=== PATIENT | male | born 1960 | race Caucasian/White ===

== ENCOUNTER → 2016-05-26 | Outpatient (CLI) | payer BC ==
[2016-05-26 10:07] LABS: Basophils % (A) 1 %; CH 32.3; CHCM 33.6; Eosinophils # (A) 0.3 k/uL (0-0.7); Eosinophils % (A) 5 %; HCT 39.4 % (39.0-53.0); HDW 2.82; HGB 13.3 gm/dL (13.0-17.5); Luc # (Auto) 0.24; Luc % (Auto) 4; Lymphocytes # (A) 1.3 k/uL (1.0-4.8); Lymphocytes % (A) 20 %; MCH 32.7 pg (25.0-35.0); MCHC 33.8 g/dL (31.0-37.0); MCV 96.8 fL (80.0-100.0); Mean Platelet Volume 8.8; Monocytes # (A) 0.4 k/uL (0-1.0); Monocytes % (A) 5 %; Neutrophils # (A) 4.3 k/uL (1.3-7.7); Neutrophils % (A) 66 %; RBC 4.08 m/uL (4.30-5.90); WBC 6.6 k/uL (3.8-10.6)
[2016-05-26 11:13] LABS: ALT 34 U/L (21-72); AST 33 U/L (17-59); Alkaline Phosphatase 61 U/L (38-126); Anion Gap 9 mmol/L; Blood Urea Nitrogen 29 mg/dL (9-20); Calcium 9.2 mg/dL (8.4-10.2); Carbon Dioxide 25 mmol/L (22-30); Chloride 104 mmol/L (98-107); Glucose 124 mg/dL (74-99); Non-African American GFR(MDRD) >60 (>60 ml/min/1.73 sqM); Potassium 4.6 mmol/L (3.5-5.1); Sodium 138 mmol/L (137-145); Total Bilirubin 0.9 mg/dL (0.2-1.3); Total Protein 7.2 g/dL (6.3-8.2)
[2016-05-26 11:37] LABS: Prostate Specific Antigen 0.18 ng/mL (0.00-4.00)
== END ==
LOC: LABWHC1 09:46
PROVIDERS: ATTEND Physician Assistant
DX: R53.83 Other fatigue (principal); N40.0 Benign prostatic hyperplasia without lower urinary tract symptoms
CPT/HCPCS: 36415; 80053; 83880; 84153; 84403; 84439; 84443; 85025

== ENCOUNTER → 2017-06-02 | Outpatient (CLI) | payer BC ==
[2017-06-02 12:55] LABS: Albumin 4.2 g/dL (3.5-5.0); Calcium 9.5 mg/dL (8.4-10.2); Potassium 4.6 mmol/L (3.5-5.1); Total Protein 7.4 g/dL (6.3-8.2)
== END | disposition home or self-care (01) ==
LOC: LABWHC1 11:37
PROVIDERS: ATTEND Internal Medicine Interventional Cardiology
DX: E78.2 Mixed hyperlipidemia (principal)
CPT/HCPCS: 36415; 80053; 80061

== ENCOUNTER → 2017-07-13 | Outpatient (CLI) | payer BC ==
--- NOTE | 2017-07-14 11:50 | ECHOF ---
Referral Reason:I25.5 Ischemic cardiomyopathy MEASUREMENTS -------- HEIGHT: 182.9 cm WEIGHT: 138.8 kg BP: IVSd: 1.2 cm (0.6 - 1.1) LVIDd: 6.0 cm (3.9 - 5.3) LVPWd: 1.2 cm (0.6 - 1.1) IVSs: 1.3 cm LVIDs: 5.5 cm LVPWs: 1.5 cm Ao Diam: 3.4 cm (2.0 - 3.7) AV Cusp: 1.6 cm (1.5 - 2.6) LA Diam: 3.5 cm (2.7 - 3.8) MV EXCURSION: 16.486 mm (> 18.000) MV EF SLOPE: 66 mm/s (70 - 150) EPSS: 2.6 cm MV E Luke: 0.90 m/s MV DecT: 225 ms MV A Luke: 0.22 m/s MV E/A Ratio: 4.15 RAP: 5.00 mmHg RVSP: 47.82 mmHg FINDINGS -------- Sinus rhythm. AICD This was a technically difficult study with suboptimal views. The left ventricle is mildly dilated. There is borderline concentric left ventricular hypertrophy. There is severe global hypokinesis of LV . Overall left ventricular systolic function is severely impaired with, an EF between 20 - 25 %. The RV was not well visualized. The left atrium is normal in size. The right atrium is normal in size. Lumason used The aortic valve was not well visualized. There is trace mitral regurgitation. Mild tricuspid regurgitation present. There is mild pulmonary hypertension. The right ventricular systolic pressure, as measured by Doppler, is 47.82mmHg. Pulmonic valve appears structurally normal. The aortic root size is normal. The pericardium is normal. CONCLUSIONS -------- 1. Sinus rhythm. 2. AICD 3. This was a technically difficult study with suboptimal views. 4. The left ventricle is mildly dilated. 5. There is borderline concentric left ventricular hypertrophy. 6. There is severe global hypokinesis of LV . 7. Overall left ventricular systolic function is severely impaired with, an EF between 20 - 25 %. 8. The RV was not well visualized. 9. The left atrium is normal in size. 10. The right atrium is normal in size. 11. Lumason used 12. The aortic valve was not well visualized. 13. There is trace mitral regurgitation. 14. Mild tricuspid regurgitation present. 15. There is mild pulmonary hypertension. 16. The right ventricular systolic pressure, as measured by Doppler, is 47.82mmHg. 17. Pulmonic valve appears structurally normal. 18. The aortic root size is normal. 19. The pericardium is normal. SHAPE HAND: Swetha Horner RDCS
== END | disposition home or self-care (01) ==
LOC: RADECHMAIN 13:44
PROVIDERS: ATTEND Family Medicine
DX: I07.1 Rheumatic tricuspid insufficiency (principal); I10 Essential (primary) hypertension; I25.5 Ischemic cardiomyopathy; I27.20 Pulmonary hypertension, unspecified
CPT/HCPCS: 93306; Q9950

== ENCOUNTER → 2017-10-07 | Outpatient (CLI) | payer MEDICARE ==
[2017-10-07 10:56] LABS: HCT 36.1 % (39.0-53.0); HGB 11.6 gm/dL (13.0-17.5); Hypochromasia Slight; MCH 29.7 pg (25.0-35.0); MCHC 32.2 g/dL (31.0-37.0); MCV 92.1 fL (80.0-100.0); Platelet Count 166 k/uL (150-450); RBC 3.92 m/uL (4.30-5.90); RDW 15.2 % (11.5-15.5); WBC 8.4 k/uL (3.8-10.6)
[2017-10-07 11:13] LABS: Calcium 9.3 mg/dL (8.4-10.2); Potassium 4.6 mmol/L (3.5-5.1); Total Protein 6.9 g/dL (6.3-8.2)
== END | disposition home or self-care (01) ==
LOC: LABWHC1 10:27
PROVIDERS: ATTEND Internal Medicine Interventional Cardiology
DX: E78.2 Mixed hyperlipidemia (principal)
CPT/HCPCS: 36415; 80053; 80061; 84443; 85027

== ENCOUNTER → 2017-10-11 | Outpatient (CLI) | payer MEDICARE ==
--- NOTE | 2017-10-11 19:59 | CT ---
EXAMINATION TYPE: CT abdomen pelvis w con DATE OF EXAM: 10/11/2017 COMPARISON: There is a 2 cm low-attenuation focus within the right hepatic lobe anterior segment, lik tatianna cyst or cavernous hemangioma. HISTORY: Lower abdominal pain, constipation. CT DLP: 3382.6 mGycm Automated exposure control for dose reduction was used. TECHNIQUE: Helical acquisition of images was performed from the lung bases through the pelvis. CONTRAST: 100 mL intravenous Isovue 300. FINDINGS: VISUALIZED LOWER THORAX: Moderate marked cardiomegaly with panchamber enlargement. Scant right pleura l effusion. Lung bases are unremarkable. LIVER/GB: No significant abnormality is appreciated. PANCREAS: No significant abnormality is seen. SPLEEN: No significant abnormality is seen. ADRENALS: No significant abnormality is seen. KIDNEYS: No significant abnormality is seen. PERITONEAL CAVITY: There is mild/moderate peritoneal fluid throughout the abdomen, deep within the pe lvis, within the paracolic gutters, and the perihepatic spaces. No pneumoperitoneum. ADENOPATHY: None visualized REPRODUCTIVE ORGANS: No significant abnormality is seen URINARY BLADDER: No significant abnormality is seen. PELVIC ADENOPATHY: None visualized. OSSEOUS STRUCTURES: No significant abnormality is seen. BOWEL: No significant abnormality is seen. Diverticulosis is noted, particularly within the sigmoid, but no diverticulitis. The appendix has normal appearance. VASCULATURE: No acute findings. Caval filter noted, unremarkable. OTHER: Widespread subcutaneous edema noted, mild in degree. IMPRESSION: 1. MILD ANASARCA, WITH PERITONEAL FLUID PREDOMINATING. 2. MODERATE-MARKED CARDIOMEGALY WITH PANCHAMBER ENLARGEMENT.
== END | disposition home or self-care (01) ==
LOC: RADCTMAIN 16:45
PROVIDERS: ATTEND Physician Assistant Medical
DX: R18.8 Other ascites (principal); I51.7 Cardiomegaly
CPT/HCPCS: 74177; Q9967

== ENCOUNTER → 2017-10-21 | Day surgery (SDC) | payer MEDICARE ==
[2017-10-14 13:59] VITALS: BMI 41.4
[~2017-10-21] MED LIST: ALPRAZolam 0.25 MG TAB PO PRN; AMIODARONE 200 MG TAB PO SCH; ATORVASTATIN 20 MG TAB PO SCH; BENZOCAINE SPRAY 1 CAN MUCOUS MEM ONE; CARVEDILOL 12.5 MG TAB PO SCH; CHOLECALCIFEROL 400 UNIT TAB PO SCH; CITALOPRAM HYDROBROMIDE 20 MG TAB PO SCH; CLOPIDOGREL 75 MG TAB PO SCH; FOLIC ACID 1 MG TAB PO SCH; FUROSEMIDE 40 MG TAB PO PRN; FUROSEMIDE 40 MG TAB PO SCH; LEVOTHYROXINE 50 MCG TAB PO SCH; LISINOPRIL 10 MG TAB PO SCH; MIDAZOLAM 2 MG/2 ML VIAL ONE; NON-FORMULARY DRUG (Aspirin Ec 81 MG) PO SCH; NON-FORMULARY DRUG (Esomeprazole Magnesium [Nexium] 40 MG) PO SCH; NON-FORMULARY DRUG (Fish Oil/Dha/Epa [Fish Oil 1,200 Mg Fish Oil] 1 CAP) PO SCH; NON-FORMULARY DRUG (Fluticasone/Salmeterol [Advair 250-50 Diskus] 1 PUFF) INHALATION SCH; NON-FORMULARY DRUG (Sitagliptin 100 MG) PO SCH; NON-FORMULARY DRUG (Vitamin B Complex [Vitamin B Complex] 1 CAP) PO SCH; PROPOFOL 10 MG/ML 20 ML VIAL IV ONE; SODIUM CHLORIDE 0.9% 1,000 ML IV SCH; SPIRONOLACTONE 50 MG PO SCH; TAMSULOSIN 0.4 MG CAP.ER.24H PO SCH; VITAMIN A 8000 UNIT PO SCH; VITAMIN E (DL,TOCOPHERYL ACET) 400 UNIT CAP PO SCH; WARFARIN 10 MG TAB PO SCH; WARFARIN 5 MG TAB PO SCH; glipiZIDE 5 MG TAB PO SCH; metFORMIN 500 MG TAB PO SCH; predniSONE 1 MG TAB PO SCH
[2017-10-21 06:55] VITALS: TEMP 98.2
[2017-10-21 07:08] LABS: INR 2.9 (<1.2); Prothrombin Time 26.3 sec (9.0-12.0)
[2017-10-21 08:04] LABS: Glucose,Whole Blood 116 mg/dL (75-99)
--- NOTE | 2017-10-21 08:14 | CE ---
CARDIAC ELECTROPHYSIOLOGY REPORT CARDIOVERSION PROCEDURE NOTE: INDICATION: Atrial fibrillation. PROCEDURE: After explaining the procedure to the patient, its risks and the complications, blood pressure, heart rate, O2 saturation was monitored. After performing transesophageal echocardiogram, obtaining a sedated state by the anesthesia department, a synchronized cardioversion using 200 joules, 300 joules and 360 joules were performed. There was no immediate complication. On the rhythm strip, it appears the patient has dual chamber pacing with possibility of P waves, although not well visualized. His device will be further interrogated. MMODL / IJN: [id number] /
--- NOTE | 2017-10-21 08:20 | ECHOT ---
TRANSESOPHAGEAL ECHOCARDIOGRAM INDICATION: Evaluation of left atrial appendage. PROCEDURE: After explaining the procedure to the patient, its risks and the complications, blood pressure, heart rate, O2 saturation was monitored. The throat was sprayed with Cetacaine. He received sedation per anesthesia department. The probe was introduced in the esophagus without difficulty. Images were obtained. From that, the probe was removed. There was no immediate complication. FINDINGS: Left atrial size is dilated. Left atrial appendage is normal. The interatrial septum is shifting leftward. The left ventricle is dilated. There is evidence of severe impairment of left ventricular systolic function. Ejection fraction is estimated at 25%. The inferolateral wall at the distal anteroapical wall are akinetic. The aortic valve revealed mild fibrocalcific change of the aortic cusp with preserved opening. Mild mitral annulus calcification was noted. No pericardial effusion was noted. The descending thoracic aorta revealed no evidence of atherosclerotic changes. Contrast bubble study revealed minimal shunting patent foramen ovale. A wire was noted in the right ventricle. Doppler pulse wave and color Doppler obtained revealed moderate mitral with severe tricuspid regurgitation. There was no shunting by color Doppler study. CONCLUSION: 1. Biatrial enlargement with normal appearance left atrial appendage. 2. Dilated left ventricle with severely impaired left ventricular systolic function. 3. A wire in the right ventricle. 4. Mild aortic sclerosis with no evidence of stenosis. 5. Mild mitral annulus calcification. 6. Moderate mitral with severe tricuspid regurgitation. 7. Minimal shunting across the interatrial septum with contrast bubble study suggestive of patent foramen ovale. 8. No pericardial effusion. MMODL / IJN: [id number] /
[2017-10-21 09:30] VITALS: BP 97/53; PULSE 75; RESP 18
== END | disposition home or self-care (01) ==
LOC: CATHCVL 06:23
PROVIDERS: ATTEND Internal Medicine Interventional Cardiology
DX: I48.91 Unspecified atrial fibrillation (principal); I08.3 Combined rheumatic disorders of mitral, aortic and tricuspid valves; I11.0 Hypertensive heart disease with heart failure; I50.9 Heart failure, unspecified; I25.5 Ischemic cardiomyopathy; I25.10 Atherosclerotic heart disease of native coronary artery without angina pectoris; E11.9 Type 2 diabetes mellitus without complications; E78.2 Mixed hyperlipidemia; I25.2 Old myocardial infarction; Z86.718 Personal history of other venous thrombosis and embolism; Z95.810 Presence of automatic (implantable) cardiac defibrillator; Z95.1 Presence of aortocoronary bypass graft; F17.210 Nicotine dependence, cigarettes, uncomplicated; Z79.02 Long term (current) use of antithrombotics/antiplatelets; Z79.82 Long term (current) use of aspirin; Z79.84 Long term (current) use of oral hypoglycemic drugs; Z79.899 Other long term (current) drug therapy; Z79.01 Long term (current) use of anticoagulants; Z79.51 Long term (current) use of inhaled steroids; Z88.1 Allergy status to other antibiotic agents; Z88.0 Allergy status to penicillin; Z88.2 Allergy status to sulfonamides; Z82.49 Family history of ischemic heart disease and other diseases of the circulatory system
CPT/HCPCS: 93312; 93320; 93325; 92960; 85610; J2250; J2704

== ENCOUNTER 2017-10-23 07:57 | Inpatient (IN) | payer MEDICARE ==
[2017-10-23] MEDS ORDERED: FUROSEMIDE 250 MG in SODIUM CHLORIDE 0.9% 225 ML IVP ONE (08:19)
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
[2017-10-23 08:59] LABS: Basophils % (A) 1 %; Eosinophils # (A) 0.3 k/uL (0-0.7); Eosinophils % (A) 3 %; HCT 36.7 % (39.0-53.0); HGB 11.8 gm/dL (13.0-17.5); Lymphocytes % (A) 11 %; MCH 29.6 pg (25.0-35.0); MCHC 32.2 g/dL (31.0-37.0); Monocytes # (A) 0.6 k/uL (0-1.0); Monocytes % (A) 6 %; Neutrophils # (A) 7.4 k/uL (1.3-7.7); Neutrophils % (A) 79 %; Platelet Count 177 k/uL (150-450); RBC 3.99 m/uL (4.30-5.90); RDW 15.4 % (11.5-15.5); WBC 9.4 k/uL (3.8-10.6)
[2017-10-23 09:06] LABS: INR 1.5 (<1.2); Partial Thromboplastin Time 25.1 sec (22.0-30.0); Prothrombin Time 14.3 sec (9.0-12.0)
[2017-10-23 09:09] LABS: Albumin 3.7 g/dL (3.5-5.0); Calcium 8.7 mg/dL (8.4-10.2); Magnesium 1.9 mg/dL (1.6-2.3); Potassium 4.7 mmol/L (3.5-5.1); Total Bilirubin 1.1 mg/dL (0.2-1.3); Total Protein 6.4 g/dL (6.3-8.2)
--- NOTE | 2017-10-23 09:13 | XR ---
EXAMINATION TYPE: XR chest 2V DATE OF EXAM: 10/23/2017 HISTORY: difficulty breathing. REFERENCE: Previous study dated 10/25/2015. FINDINGS: There is a multilead pacing device in place on the left. The lungs are overinflated. The heart is enlarged. There is a small right effusion. This is within the minor fissure. There is mild interstitial change. There is been a previous interpedicular fusion in the lower dorsal spine. There has been a kyphoplast y performed at T9. IMPRESSION: 1. COPD. 2. MILD CARDIOMEGALY. 3. MILD CHANGES OF HEART FAILURE. 4. POSTSURGICAL CHANGE.
[2017-10-23 09:19] LABS: Creatine Kinase 99 U/L (55-170)
[2017-10-23 09:31] LABS: Creatine Kinase MB 2.4 ng/mL (0.0-2.4); Troponin I <0.012 ng/mL (0.000-0.034)
[2017-10-23] MEDS ORDERED: ASPIRIN 325 MG TAB PO STA (10:10)
[2017-10-23 10:14] LABS: T4, Free (Free Thyroxine) 1.42 ng/dL (0.78-2.19)
[2017-10-23 12:01] LABS: Glucose,Whole Blood 102 mg/dL (75-99)
[2017-10-23] MEDS ORDERED: GLIMEPIRIDE 1 MG TAB PO SCH (15:15)
[2017-10-23] MEDS ORDERED: NON-FORMULARY DRUG (Fish Oil/Dha/Epa [Fish Oil 1,200 Mg Fish Oil] 1 CAP) PO SCH (16:00)
[2017-10-23] MEDS: INSULIN ASPART 100 UNIT/ML 1 ML 10 ML VIAL SQ SCH ×2 (17:04→20:51)
[2017-10-23] MEDS: WARFARIN 5 MG TAB PO SCH (17:04)
[2017-10-23] MEDS: CARVEDILOL 6.25 MG TAB PO SCH (17:04)
[2017-10-23] MEDS: GLIMEPIRIDE 1 MG TAB PO SCH (17:06)
[2017-10-23] MEDS: CHOLECALCIFEROL 400 UNIT TAB PO SCH ×2 (17:07→20:52)
[2017-10-23 17:12] LABS: Glucose,Whole Blood 126 mg/dL (75-99)
[2017-10-23] MEDS: VITAMIN A 10,000 UNIT CAPSULE PO SCH ×2 (18:54→22:57)
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
[2017-10-23 20:25] LABS: Glucose,Whole Blood 126 mg/dL (75-99)
[2017-10-23] MEDS: ATORVASTATIN 40 MG TAB PO SCH (20:51)
[2017-10-23] MEDS: TAMSULOSIN 0.4 MG CAP.ER.24H PO SCH (20:52)
[2017-10-23] MEDS: VITAMIN E (DL,TOCOPHERYL ACET) 400 UNIT CAP PO SCH (20:52)
[2017-10-23 22:53] LABS: Hemoglobin A1C 6.8 % (4.0-6.0)
[2017-10-23] MEDS: ALPRAZolam 0.25 MG TAB PO PRN (23:43)
[2017-10-24] MEDS: SYMBICORT 80-4.5 MCG INHALER INHALATION SCH ×3 (00:11→20:39)
--- NOTE | 2017-10-24 03:46 | PN ---
PROGRESS NOTE This patient was admitted with anasarca to the emergency room yesterday. Patient is known to have ischemic cardiomyopathy. Atrial fibrillation with cardioversion done in the past. The patient was evaluated by Dr. Olivarez and was advised admitted to the hospital. The patient is comfortable at present and the resting comfortably in the bed. Heart: First and second heart sounds are normal. Lungs examination reveals few basal rales. Abdomen is distended with evidence of ascites and there is 2+ scrotal edema. IMPRESSION: This patient is admitted with ischemic cardiomyopathy, biventricular failure with generalized anasarca. We will continue the patient on Lasix drip and Aldactone. If the patient's creatinine remains stable, he will be started on Entresto. MMODL / IJN: [id number] /
[2017-10-24 06:15] LABS: Glucose,Whole Blood 91 mg/dL (75-99)
[2017-10-24] MEDS: INSULIN ASPART 100 UNIT/ML 1 ML 10 ML VIAL SQ SCH ×4 (06:16→21:13)
[2017-10-24] MEDS: PANTOPRAZOLE 40 MG TABLET PO SCH (06:44)
[2017-10-24] MEDS: GLIMEPIRIDE 1 MG TAB PO SCH (06:45)
[2017-10-24] MEDS: CARVEDILOL 6.25 MG TAB PO SCH ×2 (06:45→17:13)
[2017-10-24] MEDS: LEVOTHYROXINE 75 MCG TAB PO SCH (06:45)
[2017-10-24 06:58] LABS: Calcium 8.7 mg/dL (8.4-10.2); Magnesium 2.1 mg/dL (1.6-2.3)
[2017-10-24] MEDS: ASPIRIN 81 MG PO SCH (07:26)
[2017-10-24] MEDS: CITALOPRAM HYDROBROMIDE 20 MG TAB PO SCH (07:26)
[2017-10-24] MEDS: MULTIVITAMINS, THERA 1 EACH TAB PO SCH (07:26)
[2017-10-24] MEDS: SPIRONOLACTONE 25 MG TAB PO SCH (07:26)
[2017-10-24] MEDS: FOLIC ACID 1 MG TAB PO SCH (07:26)
[2017-10-24] MEDS: VITAMIN A 10,000 UNIT CAPSULE PO SCH ×3 (07:27→20:04)
[2017-10-24] MEDS: CLOPIDOGREL 75 MG TAB PO SCH (07:27)
[2017-10-24] MEDS: CHOLECALCIFEROL 400 UNIT TAB PO SCH ×3 (07:27→20:04)
[2017-10-24] MEDS: VITAMIN E (DL,TOCOPHERYL ACET) 400 UNIT CAP PO SCH ×2 (07:28→20:04)
[2017-10-24] MEDS ORDERED: NON-FORMULARY DRUG (Vitamin B Complex [Vitamin B Complex] 1 CAP) PO SCH (09:00)
[2017-10-24] MEDS: FUROSEMIDE 250 MG in SODIUM CHLORIDE 0.9% 225 ML IVP SCH (09:00)
[2017-10-24] MEDS ORDERED: ASPIRIN 325 MG TAB PO SCH (09:00)
[2017-10-24 12:03] LABS: Glucose,Whole Blood 79 mg/dL (75-99)
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
[2017-10-24 16:54] LABS: Glucose,Whole Blood 104 mg/dL (75-99)
[2017-10-24] MEDS: WARFARIN 10 MG TAB PO SCH (17:14)
[2017-10-24] MEDS: TAMSULOSIN 0.4 MG CAP.ER.24H PO SCH (20:04)
[2017-10-24] MEDS: ATORVASTATIN 40 MG TAB PO SCH (20:04)
[2017-10-24 20:59] LABS: Glucose,Whole Blood 107 mg/dL (75-99)
[2017-10-24] MEDS: ALPRAZolam 0.25 MG TAB PO PRN (22:42)
[2017-10-25] MEDS: FUROSEMIDE 250 MG in SODIUM CHLORIDE 0.9% 225 ML IVP SCH (02:59)
--- NOTE | 2017-10-25 03:56 | PN ---
PROGRESS NOTE This patient is admitted with ischemic cardiomyopathy and biventricular failure with generalized anasarca. Patient is feeling well. Patient has been responding to the Lasix drip. He has lost 4 kg of weight. He is feeling better. Blood pressure is 108/69 mmHg. Heart rate is 80. Patient is afebrile. Respirations are not labored. First and second heart sounds are normal. Lungs reveal bilateral diminished air entry. Abdomen remains distended and there is a 2+ pedal edema. The patient's creatinine is 1.4. I will increase Aldactone to 50 mg b.i.d. and continue Lasix drip. If the patient's blood pressure remains stable, we will start the patient on Entresto from tomorrow. MMODL / IJN: [id number] /
[2017-10-25 05:37] LABS: Glucose,Whole Blood 87 mg/dL (75-99)
[2017-10-25] MEDS: INSULIN ASPART 100 UNIT/ML 1 ML 10 ML VIAL SQ SCH ×4 (06:23→21:13)
[2017-10-25] MEDS: PANTOPRAZOLE 40 MG TABLET PO SCH (06:24)
[2017-10-25] MEDS: GLIMEPIRIDE 1 MG TAB PO SCH (06:24)
[2017-10-25] MEDS: LEVOTHYROXINE 75 MCG TAB PO SCH (06:24)
[2017-10-25] MEDS: CARVEDILOL 6.25 MG TAB PO SCH ×2 (06:24→17:23)
[2017-10-25 06:25] LABS: INR 1.3 (<1.2)
[2017-10-25 06:33] LABS: Calcium 8.8 mg/dL (8.4-10.2); Magnesium 2.2 mg/dL (1.6-2.3)
[2017-10-25] MEDS: SYMBICORT 80-4.5 MCG INHALER INHALATION SCH ×2 (07:46→19:21)
[2017-10-25] MEDS: CHOLECALCIFEROL 400 UNIT TAB PO SCH ×3 (08:31→20:05)
[2017-10-25] MEDS: CITALOPRAM HYDROBROMIDE 20 MG TAB PO SCH (08:32)
[2017-10-25] MEDS: CLOPIDOGREL 75 MG TAB PO SCH (08:32)
[2017-10-25] MEDS: ASPIRIN 81 MG PO SCH (08:32)
[2017-10-25] MEDS: VITAMIN A 10,000 UNIT CAPSULE PO SCH ×3 (08:32→20:05)
[2017-10-25] MEDS: VITAMIN E (DL,TOCOPHERYL ACET) 400 UNIT CAP PO SCH ×2 (08:33→20:05)
[2017-10-25] MEDS: SPIRONOLACTONE 25 MG TAB PO SCH (09:48)
[2017-10-25 11:45] LABS: Glucose,Whole Blood 112 mg/dL (75-99)
[2017-10-25] MEDS: FOLIC ACID 1 MG TAB PO SCH (12:05)
[2017-10-25] MEDS: MULTIVITAMINS, THERA 1 EACH TAB PO SCH (12:05)
[2017-10-25] MEDS: SACUBITRIL/VALSARTAN 24 MG-26 MG TABLET PO SCH ×2 (12:05→21:12)
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
--- NOTE | 2017-10-25 14:36 | PN ---
PROGRESS NOTE This patient has ischemic cardiomyopathy with severely impaired left ventricular systolic function. Patient was admitted with generalized anasarca. He is currently getting Lasix drip and Aldactone. Patient is feeling much better. He is being ambulating in the hallway. He is afebrile. Blood pressure is 110/78 mmHg. First and second heart sounds are normal. There still appears to be some fluid in the abdomen. The leg swelling is significantly improved. The patient's creatinine is 1.29. We will continue the current the Lasix drip as well as Aldactone. Patient's proBNP has come down to 5300. We will start the patient on Entresto 24/26 mg b.i.d. today. MMODL / IJN: [id number] /
--- NOTE | 2017-10-25 14:39 | CDI ---
Last Revision, February 2017 Documentation Clarification Form Date: 10/25/2017 2:28:54 PM From: Quiana McleanNAWAF, CCDS Admit Date: 10/23/2017 10:10:00 AM Patient Name: Kennedy Avilez Visit Number: [id number] Discharge Date: ATTENTION: The Clinical Documentation Specialists (CDI) and [facility] Coding Staff appreciate your assistance in clarifying documentation. Please respond to the clarification below the line at the bottom and electronically sign. The CDI & [facility] Coding staff will review the response and follow-up if needed. Please note: Queries are made part of the Legal Health Record. If you have any questions, please contact the author of this message via ITS. Stef Hu MD Atrial fibrillation is documented in the cardiology progress notes dated 10/23 & 10/24 as "Atrial fibrillation with cardioversion done in the past." History/Risk Factors: Atrial fibrillation now, CAD status post CABG & stents, Hypertension, Cardiomyopathy, Systolic heart failure, DM, Sleep apnea and has AICD. Clinical Indicators: Presented with SOB & weight gain. EKG/telemetry: R 73 Atrial fibrillation with premature ventricular or aberrantly conducted complexes, abnormal. Treatment: IV Lasix, po Aspirin, Coumadin continued, Symbicort INH, O2 2Lnc. In your professional opinion, can you please clarify the type of atrial fibrillation, if known? Chronic/Permanent Paroxysmal Persistent Other, please specify Unable to determine Please continue to document in your progress notes and discharge summary in order to capture severity of illness and risk of mortality. Include clinical findings that support your diagnosis. MTDD
[2017-10-25 17:09] LABS: Glucose,Whole Blood 143 mg/dL (75-99)
[2017-10-25] MEDS: WARFARIN 10 MG TAB PO SCH (17:22)
[2017-10-25] MEDS ORDERED: WARFARIN 2 MG TAB PO ONE (18:00)
[2017-10-25] MEDS: TAMSULOSIN 0.4 MG CAP.ER.24H PO SCH (20:05)
[2017-10-25] MEDS: ATORVASTATIN 40 MG TAB PO SCH (20:05)
[2017-10-25 21:10] LABS: Glucose,Whole Blood 129 mg/dL (75-99)
[2017-10-26 06:00] LABS: Glucose,Whole Blood 101 mg/dL (75-99)
[2017-10-26] MEDS: INSULIN ASPART 100 UNIT/ML 1 ML 10 ML VIAL SQ SCH ×4 (06:06→20:57)
[2017-10-26] MEDS: GLIMEPIRIDE 1 MG TAB PO SCH (06:35)
[2017-10-26] MEDS: PANTOPRAZOLE 40 MG TABLET PO SCH (06:35)
[2017-10-26] MEDS: FUROSEMIDE 250 MG in SODIUM CHLORIDE 0.9% 225 ML IVP SCH (06:35)
[2017-10-26] MEDS: CARVEDILOL 6.25 MG TAB PO SCH ×2 (06:35→18:24)
[2017-10-26] MEDS: LEVOTHYROXINE 75 MCG TAB PO SCH (06:35)
[2017-10-26 07:22] LABS: INR 1.4 (<1.2); Prothrombin Time 13.1 sec (9.0-12.0)
[2017-10-26 07:31] LABS: Calcium 8.8 mg/dL (8.4-10.2); Magnesium 2.2 mg/dL (1.6-2.3); Potassium 3.9 mmol/L (3.5-5.1)
--- NOTE | 2017-10-26 07:52 | CDI ---
Last Revision, February 2017 Documentation Clarification Form Date: 10/25/2017 2:28:00 PM Resubmitted 10/26/2017 07:50 AM From: Quiana Mclean CCS, CCDS Admit Date: 10/23/2017 10:10:00 AM Patient Name: Kennedy Avilez Visit Number: [id number] Discharge Date: ATTENTION: The Clinical Documentation Specialists (CDI) and [facility] Coding Staff appreciate your assistance in clarifying documentation. Please respond to the clarification below the line at the bottom and electronically sign. The CDI & [facility] Coding staff will review the response and follow-up if needed. Please note: Queries are made part of the Legal Health Record. If you have any questions, please contact the author of this message via ITS. Dr. Cruz, Stef Liu MD Atrial fibrillation is documented in the cardiology progress notes dated 10/23 & 10/24 as "Atrial fibrillation with cardioversion done in the past." History/Risk Factors: Atrial fibrillation now, CAD status post CABG & stents, Hypertension, Cardiomyopathy, Systolic heart failure, DM, Sleep apnea and has AICD. Clinical Indicators: Presented with SOB & weight gain. EKG/telemetry: R 73 Atrial fibrillation with premature ventricular or aberrantly conducted complexes, abnormal. Treatment: IV Lasix, po Aspirin, Coumadin continued, Symbicort INH, O2 2Lnc. In your professional opinion, can you please clarify the type of atrial fibrillation, if known? Chronic/Permanent Paroxysmal Persistent Other, please specify Unable to determine Please continue to document in your progress notes and discharge summary in order to capture severity of illness and risk of mortality. Include clinical findings that support your diagnosis. MTDD
[2017-10-26] MEDS: ASPIRIN 81 MG PO SCH (08:46)
[2017-10-26] MEDS: CITALOPRAM HYDROBROMIDE 20 MG TAB PO SCH (08:46)
[2017-10-26] MEDS: VITAMIN E (DL,TOCOPHERYL ACET) 400 UNIT CAP PO SCH ×2 (08:46→20:24)
[2017-10-26] MEDS: SPIRONOLACTONE 25 MG TAB PO SCH (08:46)
[2017-10-26] MEDS: CHOLECALCIFEROL 400 UNIT TAB PO SCH ×3 (08:46→20:24)
[2017-10-26] MEDS: VITAMIN A 10,000 UNIT CAPSULE PO SCH ×3 (08:46→20:24)
[2017-10-26] MEDS: SACUBITRIL/VALSARTAN 24 MG-26 MG TABLET PO SCH ×2 (08:46→20:23)
[2017-10-26] MEDS: CLOPIDOGREL 75 MG TAB PO SCH (08:46)
[2017-10-26] MEDS: SYMBICORT 80-4.5 MCG INHALER INHALATION SCH ×2 (11:21→19:47)
[2017-10-26 11:48] LABS: Glucose,Whole Blood 133 mg/dL (75-99)
[2017-10-26] MEDS: FOLIC ACID 1 MG TAB PO SCH (12:30)
[2017-10-26] MEDS: MULTIVITAMINS, THERA 1 EACH TAB PO SCH (12:30)
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
--- NOTE | 2017-10-26 15:44 | P.PN ---
Subjective Progress Note Date: 10/26/17 This is a pleasant 57 year old gentleman with known history of ischemic cardiomyopathy, paroxysmal atrial fibrillation with prior cardioversion , biventricular failure, advised to come to the hospital initially by Dr. Olivarez because of biventricular failure and generalized anasarca. Patient has been diuresing very well on IV Lasix drip along with Aldactone. Yesterday we initiate the patient on Entresto, he continued to diurese well through the night , weight is down another 2 kg today. Patient is back down to his normal weight , however we will continue IV drip Lasix for 24 hours. Patient continues to do well, we'll consider tomorrow discontinuing that and starting the patient on Demadex twice a day. Blood pressure today 100/60 with a heart rate in the 80s, 96% on room air. Her today is 1.4, sodium 138, potassium 3.9, BUN 23, creatinine 1.2. BNP level 4020. We will repeat a chest x-ray tomorrow. Objective - Vital Signs Vital signs: Vital Signs Temp 97.5 F L 10/26/17 08:00 Pulse 83 10/26/17 12:00 Resp 16 10/26/17 12:00 BP 100/66 10/26/17 12:00 Pulse Ox 96 10/26/17 12:00 Intake & Output 10/25/17 10/26/17 10/26/17 18:59 06:59 18:59 Intake Total 1100 580 558 Output Total 2100 800 1000 Balance -1000 -220 -442 Weight 131.5 kg Intake: IV 30 20 Invasive Line 2 30 20 Intake, IV Titration 250 Amount Furosemide 250 mg In 250 Sodium Chloride 0.9% 225 ml @ 10 MG/HR 10 mls/hr IVP .Q24H [facility] Rx#: [id number] Oral 1100 300 538 Output: Urine 2100 800 1000 Other: Voiding Method Toilet Toilet Toilet # Voids 2 2 # Bowel Movements 0 - Exam PHYSICAL EXAMINATION: GENERAL: 57-year-old gentleman in no acute distress at the time of my examination HEENT: Head is atraumatic, normocephalic. Pupils equal, round. Sclera anicteric. Conjunctiva are clear. Mucous membranes of the mouth are moist. Neck is supple. There is no elevated jugular venous pressure.] bruit is heard. HEART EXAMINATION: Heart S1, S2 irregularly irregular . No murmur or gallop heard. CHEST EXAMINATION: Lungs are clear to auscultation and precussion. No chest wall tenderness is noted on palpation or with deep breathing. ABDOMEN: Soft, obese, no ascites noted, nontender. Bowel sounds are heard. No organomegaly noted. EXTREMITIES: 2+ peripheral pulses with no evidence of peripheral edema and no calf tenderness noted]. NEUROLOGIC [patient is awake, alert and oriented ?-3.] . - Labs CBC & Chem 7: 10/23/17 08:40 10/26/17 06:18 Labs: Abnormal Lab Results - Last 24 Hours (Table) 10/25/17 10/25/17 10/26/17 Range/Units 17:07 20:58 05:59 PT (9.0-12.0) sec INR (<1.2) Carbon Dioxide (22-30) mmol/L BUN (9-20) mg/dL Creatinine (0.66-1.25) mg/dL POC Glucose (mg/dL) 143 H 129 H 101 H (75-99) mg/dL 10/26/17 10/26/17 10/26/17 Range/Units 06:18 06:18 11:46 PT 13.1 H (9.0-12.0) sec INR 1.4 H (<1.2) Carbon Dioxide 31 H (22-30) mmol/L BUN 23 H (9-20) mg/dL Creatinine 1.28 H (0.66-1.25) mg/dL POC Glucose (mg/dL) 133 H (75-99) mg/dL Assessment and Plan Plan: Assessment and plan #1 systolic congestive heart failure acute on chronic #2 chronic persistent atrial fibrillation #3 ischemic cardiomyopathy #4 diabetes #5 hypertension #6 hyperlipidemia #7 history of nicotine abuse #8 CAD with prior stenting, and prior bypass surgery Plan We will continue with the Lasix drip for 24 hours. Continue to monitor intake and output along with daily weights. Repeat chest x-ray in the morning. DNP note has been reviewed, I agree with a documented findings and plan of care. Patient was seen and examined.
[2017-10-26 17:10] LABS: Glucose,Whole Blood 131 mg/dL (75-99)
[2017-10-26] MEDS ORDERED: WARFARIN 2 MG TAB PO ONE (18:00)
[2017-10-26] MEDS: WARFARIN 5 MG TAB PO SCH (18:24)
[2017-10-26] MEDS: ATORVASTATIN 40 MG TAB PO SCH (20:23)
[2017-10-26] MEDS: TAMSULOSIN 0.4 MG CAP.ER.24H PO SCH (20:24)
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
[2017-10-26 20:59] LABS: Glucose,Whole Blood 147 mg/dL (75-99)
[2017-10-26] MEDS: ALPRAZolam 0.25 MG TAB PO PRN (23:58)
[2017-10-27] MEDS: FUROSEMIDE 250 MG in SODIUM CHLORIDE 0.9% 225 ML IVP SCH (01:50)
[2017-10-27 05:37] LABS: Basophils % (A) 0 %; Eosinophils # (A) 0.3 k/uL (0-0.7); Eosinophils % (A) 4 %; HCT 35.2 % (39.0-53.0); HGB 11.4 gm/dL (13.0-17.5); Lymphocytes # (A) 1.1 k/uL (1.0-4.8); Lymphocytes % (A) 16 %; MCH 29.6 pg (25.0-35.0); MCHC 32.3 g/dL (31.0-37.0); MCV 91.8 fL (80.0-100.0); Mean Platelet Volume 8.1; Monocytes # (A) 0.5 k/uL (0-1.0); Monocytes % (A) 7 %; Neutrophils # (A) 5.2 k/uL (1.3-7.7); Neutrophils % (A) 72 %; Platelet Count 155 k/uL (150-450); RBC 3.84 m/uL (4.30-5.90); RDW 15.3 % (11.5-15.5); WBC 7.2 k/uL (3.8-10.6)
[2017-10-27 05:45] LABS: Calcium 8.5 mg/dL (8.4-10.2); Magnesium 2.3 mg/dL (1.6-2.3)
[2017-10-27 06:13] LABS: Glucose,Whole Blood 111 mg/dL (75-99)
[2017-10-27] MEDS: INSULIN ASPART 100 UNIT/ML 1 ML 10 ML VIAL SQ SCH ×4 (06:28→21:12)
[2017-10-27] MEDS: LEVOTHYROXINE 75 MCG TAB PO SCH (06:28)
[2017-10-27] MEDS: CARVEDILOL 6.25 MG TAB PO SCH ×2 (06:29→17:35)
[2017-10-27] MEDS: GLIMEPIRIDE 1 MG TAB PO SCH (06:29)
[2017-10-27] MEDS: PANTOPRAZOLE 40 MG TABLET PO SCH (06:29)
[2017-10-27] MEDS: SYMBICORT 80-4.5 MCG INHALER INHALATION SCH ×2 (07:33→19:55)
[2017-10-27] MEDS: ASPIRIN 81 MG PO SCH (09:10)
[2017-10-27] MEDS: CLOPIDOGREL 75 MG TAB PO SCH (09:10)
[2017-10-27] MEDS: SACUBITRIL/VALSARTAN 24 MG-26 MG TABLET PO SCH ×2 (09:10→20:26)
[2017-10-27] MEDS: CHOLECALCIFEROL 400 UNIT TAB PO SCH ×3 (09:10→20:27)
[2017-10-27] MEDS: SPIRONOLACTONE 25 MG TAB PO SCH (09:10)
[2017-10-27] MEDS: VITAMIN E (DL,TOCOPHERYL ACET) 400 UNIT CAP PO SCH ×2 (09:10→20:27)
[2017-10-27] MEDS: VITAMIN A 10,000 UNIT CAPSULE PO SCH ×3 (09:10→20:27)
[2017-10-27] MEDS: CITALOPRAM HYDROBROMIDE 20 MG TAB PO SCH (09:10)
--- NOTE | 2017-10-27 11:12 | XR ---
EXAMINATION TYPE: XR chest 2V DATE OF EXAM: 10/27/2017 COMPARISON: 10/23/2017 TECHNIQUE: PA and lateral views submitted. HISTORY: Shortness of breath FINDINGS: Postsurgical changes are seen. Cardiac device noted. Diffuse interstitial pattern present. Tiny right pleural effusion. No pneumothorax. Cardiomegaly stable. Hyperinflation of the lungs noted. Arthropat hy of the shoulders. The deformity of the scapula noted on the previous exam is not included in the [id number] on today 's exam. Correlate for history of previous trauma. IMPRESSION: 1. Stable cardiomegaly and small right pleural effusion. Remains interstitial prominence which may be en the basis of congestion or pneumonitis.
[2017-10-27 11:13] LABS: Glucose,Whole Blood 142 mg/dL (75-99)
[2017-10-27] MEDS: FOLIC ACID 1 MG TAB PO SCH (12:07)
[2017-10-27] MEDS: MULTIVITAMINS, THERA 1 EACH TAB PO SCH (12:07)
--- NOTE | 2017-10-27 14:22 | P.PN ---
Subjective Progress Note Date: 10/27/17 This is a pleasant 57 year old gentleman with known history of ischemic cardiomyopathy, paroxysmal atrial fibrillation with prior cardioversion , biventricular failure, advised to come to the hospital initially by Dr. Olivarez because of biventricular failure and generalized anasarca. Patient has been diuresing very well on IV Lasix drip along with Aldactone. Yesterday we initiate the patient on Entresto, he continued to diurese well through the night , weight is down another 2 kg today. Patient is back down to his normal weight , however we will continue IV drip Lasix for 24 hours. Patient continues to do well, we'll consider tomorrow discontinuing that and starting the patient on Demadex twice a day. Blood pressure today 100/60 with a heart rate in the 80s, 96% on room air. Her today is 1.4, sodium 138, potassium 3.9, BUN 23, creatinine 1.2. BNP level 4020. We will repeat a chest x-ray tomorrow. 10/27/2017 Patient seen and examined this morning, continued to diurese very well through the night last night. Weight is down 2 kg. BUN 22, creatinine 1.3. Hemodynamically stable. Blood pressure 108/60. We will discontinue the Lasix drip today and start the patient on Demadex 40 mg one tablet by mouth twice a day. We will also give the patient Zaroxolyn twice a week. Plan for possible discharge home in the morning if stable. Objective - Vital Signs Vital signs: Vital Signs Temp 97.0 F L 10/27/17 12:00 Pulse 74 10/27/17 12:00 Resp 16 10/27/17 12:00 BP 100/64 10/27/17 12:00 Pulse Ox 94 L 10/27/17 12:00 Intake & Output 10/26/17 10/27/17 10/27/17 18:59 06:59 18:59 Intake Total 808 192.5 462 Output Total 2275 1200 800 Balance -1467 -1007.5 -338 Weight 129.7 kg Intake: IV 30 Invasive Line 2 30 Intake, IV Titration 192.5 Amount Furosemide 250 mg In 192.5 Sodium Chloride 0.9% 225 ml @ 10 MG/HR 10 mls/hr IVP .Q24H [facility] Rx#: [id number] Oral 778 462 Output: Urine 2273 1200 800 Other: Voiding Method Toilet Toilet Toilet Urinal Urinal # Voids 3 - Exam PHYSICAL EXAMINATION: GENERAL: 57-year-old gentleman in no acute distress at the time of my examination HEENT: Head is atraumatic, normocephalic. Pupils equal, round. Sclera anicteric. Conjunctiva are clear. Mucous membranes of the mouth are moist. Neck is supple. There is no elevated jugular venous pressure.] bruit is heard. HEART EXAMINATION: Heart S1, S2 irregularly irregular . No murmur or gallop heard. CHEST EXAMINATION: Lungs are clear to auscultation and precussion. No chest wall tenderness is noted on palpation or with deep breathing. ABDOMEN: Soft, obese, no ascites noted, nontender. Bowel sounds are heard. No organomegaly noted. EXTREMITIES: 2+ peripheral pulses with no evidence of peripheral edema and no calf tenderness noted]. NEUROLOGIC [patient is awake, alert and oriented ?-3.] . - Labs CBC & Chem 7: 10/27/17 05:22 10/27/17 05:22 Labs: Abnormal Lab Results - Last 24 Hours (Table) 10/26/17 10/26/17 10/27/17 Range/Units 16:58 20:54 05:22 RBC (4.30-5.90) m/uL Hgb (13.0-17.5) gm/dL Hct (39.0-53.0) % Carbon Dioxide 32 H (22-30) mmol/L BUN 22 H (9-20) mg/dL Creatinine 1.30 H (0.66-1.25) mg/dL Glucose 121 H (74-99) mg/dL POC Glucose (mg/dL) 131 H 147 H (75-99) mg/dL 10/27/17 10/27/17 10/27/17 Range/Units 05:22 06:11 11:11 RBC 3.84 L (4.30-5.90) m/uL Hgb 11.4 L (13.0-17.5) gm/dL Hct 35.2 L (39.0-53.0) % Carbon Dioxide (22-30) mmol/L BUN (9-20) mg/dL Creatinine (0.66-1.25) mg/dL Glucose (74-99) mg/dL POC Glucose (mg/dL) 111 H 142 H (75-99) mg/dL Assessment and Plan Plan: Assessment and plan #1 systolic congestive heart failure acute on chronic #2 chronic persistent atrial fibrillation #3 ischemic cardiomyopathy #4 diabetes #5 hypertension #6 hyperlipidemia #7 history of nicotine abuse #8 CAD with prior stenting, and prior bypass surgery Plan We'll discontinue the IV Lasix drip today and start the patient on Demadex 40 mg one tablet by mouth twice a day. Add Zaroxolyn twice a week to his medication regime. Check lytes BUN and creatinine in the morning. Plan for possible discharge home in 24 hours if stable. DNP note has been reviewed, I agree with a documented findings and plan of care. Patient was seen and examined.
[2017-10-27 16:30] LABS: Glucose,Whole Blood 147 mg/dL (75-99)
[2017-10-27] MEDS: WARFARIN 10 MG TAB PO SCH (17:41)
--- NOTE | 2017-10-27 18:19 | PN ---
PROGRESS NOTE DATE OF SERVICE: 10/27/2017. REASON FOR FOLLOWUP: Left leg wound. INTERVAL HISTORY: The patient is currently afebrile. He is breathing comfortably. Denies significant chest pain. Occasional cough. No abdominal pain or any pain to the left leg area. Currently, wound is drying out and no drainage. EXAMINATION: Blood pressure 100/54 with a pulse of 74. Temperature 97. He is 94% on room air. General description is a middle aged male up in the room in no distress. Respiratory system: Unlabored breathing with decreased breath sounds at the bases. No wheeze. Heart S1, S2. Regular rate and rhythm. Abdomen soft, no tenderness. Left leg wound is currently dressed up. No obvious drainage on the dressing. LABS: Hemoglobin 11.4, white count 7.2, BUN of 22, creatinine 1.32. DIAGNOSTIC IMPRESSION AND PLAN: Patient with left leg wound mostly symptomatic with no evidence of any cellulitis. Continue local wound care as ordered. No need for any systemic antibiotic therapy. Continue supportive care. MMODL / IJN: [id number] /
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
[2017-10-27 20:26] LABS: INR 1.5 (<1.2)
[2017-10-27] MEDS: TAMSULOSIN 0.4 MG CAP.ER.24H PO SCH (20:26)
[2017-10-27] MEDS: ATORVASTATIN 40 MG TAB PO SCH (20:26)
[2017-10-27] MEDS: TORSEMIDE 20 MG TAB PO SCH (20:27)
[2017-10-27 20:30] LABS: Calcium 8.8 mg/dL (8.4-10.2); Potassium 4.1 mmol/L (3.5-5.1)
[2017-10-27 21:06] LABS: Glucose,Whole Blood 135 mg/dL (75-99)
[2017-10-28 06:12] LABS: Glucose,Whole Blood 92 mg/dL (75-99)
[2017-10-28] MEDS: GLIMEPIRIDE 1 MG TAB PO SCH (06:30)
[2017-10-28] MEDS: LEVOTHYROXINE 75 MCG TAB PO SCH (06:30)
[2017-10-28] MEDS: PANTOPRAZOLE 40 MG TABLET PO SCH (06:30)
[2017-10-28] MEDS: CARVEDILOL 6.25 MG TAB PO SCH ×2 (06:30→16:59)
[2017-10-28] MEDS: INSULIN ASPART 100 UNIT/ML 1 ML 10 ML VIAL SQ SCH ×3 (06:30→16:54)
[2017-10-28 06:32] LABS: INR 1.6 (<1.2); Prothrombin Time 14.7 sec (9.0-12.0)
[2017-10-28 06:42] LABS: Calcium 8.5 mg/dL (8.4-10.2); Magnesium 2.3 mg/dL (1.6-2.3); Potassium 3.7 mmol/L (3.5-5.1)
[2017-10-28] MEDS: CLOPIDOGREL 75 MG TAB PO SCH (08:09)
[2017-10-28] MEDS: SPIRONOLACTONE 25 MG TAB PO SCH (08:09)
[2017-10-28] MEDS: VITAMIN E (DL,TOCOPHERYL ACET) 400 UNIT CAP PO SCH (08:09)
[2017-10-28] MEDS: CITALOPRAM HYDROBROMIDE 20 MG TAB PO SCH (08:10)
[2017-10-28] MEDS: SACUBITRIL/VALSARTAN 24 MG-26 MG TABLET PO SCH (08:10)
[2017-10-28] MEDS: ASPIRIN 81 MG PO SCH (08:10)
[2017-10-28] MEDS: VITAMIN A 10,000 UNIT CAPSULE PO SCH ×2 (08:10→15:32)
[2017-10-28] MEDS: CHOLECALCIFEROL 400 UNIT TAB PO SCH ×2 (08:13→15:32)
[2017-10-28 08:26] VITALS: BMI 39.8
[2017-10-28] MEDS: SYMBICORT 80-4.5 MCG INHALER INHALATION SCH (08:27)
[2017-10-28] MEDS: TORSEMIDE 20 MG TAB PO SCH (08:56)
[2017-10-28] MEDS ORDERED: METOLAZONE 5 MG TAB PO SCH (09:00)
[2017-10-28 11:42] LABS: Glucose,Whole Blood 137 mg/dL (75-99)
[2017-10-28] MEDS: MULTIVITAMINS, THERA 1 EACH TAB PO SCH (12:37)
[2017-10-28] MEDS: FOLIC ACID 1 MG TAB PO SCH (12:37)
--- NOTE | 2017-10-28 14:11 | P.PN ---
Subjective Progress Note Date: 10/28/17 This is a pleasant 57 year old gentleman with known history of ischemic cardiomyopathy, paroxysmal atrial fibrillation with prior cardioversion , biventricular failure, advised to come to the hospital initially by Dr. Olivarez because of biventricular failure and generalized anasarca. Patient has been diuresing very well on IV Lasix drip along with Aldactone. Yesterday we initiate the patient on Entresto, he continued to diurese well through the night , weight is down another 2 kg today. Patient is back down to his normal weight , however we will continue IV drip Lasix for 24 hours. Patient continues to do well, we'll consider tomorrow discontinuing that and starting the patient on Demadex twice a day. Blood pressure today 100/60 with a heart rate in the 80s, 96% on room air. Her today is 1.4, sodium 138, potassium 3.9, BUN 23, creatinine 1.2. BNP level 4020. We will repeat a chest x-ray tomorrow. 10/27/2017 Patient seen and examined this morning, continued to diurese very well through the night last night. Weight is down 2 kg. BUN 22, creatinine 1.3. Hemodynamically stable. Blood pressure 108/60. We will discontinue the Lasix drip today and start the patient on Demadex 40 mg one tablet by mouth twice a day. We will also give the patient Zaroxolyn twice a week. Plan for possible discharge home in the morning if stable. 10/28/2017 Patient seen and examined this morning, feeling well, denies any shortness of breath, he's been up ambulating in the hallway most of the morning. Hemodynamically he is stable. INR 1.6, potassium 3.7, BUN 21, creatinine 1.1. BNP level 3190. Patient may be able to be discharged home today from our perspective. We'll make him a follow-up appointment with Dr. ryan on in the office post discharge. Patient will be discharged home on Demadex 40 mg one tablet by mouth twice a day, Aldactone 50 mg daily, Entrestol 24/26 mg one by mouth twice a day, metolazone 5 mg twice a week, aspirin 81 mg daily, Plavix 75 mg daily, Coumadin as per home dose.. Objective - Vital Signs Vital signs: Vital Signs Temp 96.2 F L 10/28/17 11:37 Pulse 82 10/28/17 11:37 Resp 16 10/28/17 11:37 BP 116/66 10/28/17 11:37 Pulse Ox 97 10/28/17 11:37 Intake & Output 10/27/17 10/28/17 10/28/17 18:59 06:59 18:59 Intake Total 684 360 Output Total 800 1400 1500 Balance -116 -1400 -1140 Weight 129.5 kg 129.5 kg Intake: Oral 684 360 Output: Urine 800 1400 1500 Other: Voiding Method Toilet Toilet Toilet Urinal Urinal Urinal # Voids 1 - Exam PHYSICAL EXAMINATION: GENERAL: 57-year-old gentleman in no acute distress at the time of my examination HEENT: Head is atraumatic, normocephalic. Pupils equal, round. Sclera anicteric. Conjunctiva are clear. Mucous membranes of the mouth are moist. Neck is supple. There is no elevated jugular venous pressure.] bruit is heard. HEART EXAMINATION: Heart S1, S2 irregularly irregular . No murmur or gallop heard. CHEST EXAMINATION: Lungs are clear to auscultation and precussion. No chest wall tenderness is noted on palpation or with deep breathing. ABDOMEN: Soft, obese, no ascites noted, nontender. Bowel sounds are heard. No organomegaly noted. EXTREMITIES: 2+ peripheral pulses with no evidence of peripheral edema and no calf tenderness noted]. NEUROLOGIC [patient is awake, alert and oriented ?-3.] . - Labs CBC & Chem 7: 10/27/17 05:22 10/28/17 06:07 Labs: Abnormal Lab Results - Last 24 Hours (Table) 10/27/17 10/27/17 10/27/17 Range/Units 16:25 20:07 20:07 PT 14.0 H (9.0-12.0) sec INR 1.5 H (<1.2) BUN 24 H (9-20) mg/dL Glucose 153 H (74-99) mg/dL POC Glucose (mg/dL) 147 H (75-99) mg/dL 10/27/17 10/28/17 10/28/17 Range/Units 21:03 06:07 06:07 PT 14.7 H (9.0-12.0) sec INR 1.6 H (<1.2) BUN 21 H (9-20) mg/dL Glucose (74-99) mg/dL POC Glucose (mg/dL) 135 H (75-99) mg/dL 10/28/17 Range/Units 11:40 PT (9.0-12.0) sec INR (<1.2) BUN (9-20) mg/dL Glucose (74-99) mg/dL POC Glucose (mg/dL) 137 H (75-99) mg/dL Assessment and Plan Plan: Assessment and plan #1 systolic congestive heart failure acute on chronic #2 chronic persistent atrial fibrillation #3 ischemic cardiomyopathy #4 diabetes #5 hypertension #6 hyperlipidemia #7 history of nicotine abuse #8 CAD with prior stenting, and prior bypass surgery Plan Cardiology's perspective, patient may be discharged home today. We will discharge him home on Demadex 40 mg one tablet by mouth twice a day, Zaroxolyn 5 mg twice weekly, Entresto 24/26mg by mouth twice a day, aspirin 81 mg daily, Lipitor 40 mg daily, Coreg 6.25 mg twice a day, Aldactone 50 mg daily, Plavix 75 mg daily, and home dose of Coumadin. PT/INR, lytes BUN and creatinine in one week. DNP note has been reviewed, I agree with a documented findings and plan of care. Patient was seen and examined.
[2017-10-28 15:31] VITALS: BP 103/61; PULSE 85; RESP 20; TEMP 96.8
[2017-10-28 16:28] LABS: Glucose,Whole Blood 124 mg/dL (75-99)
[2017-10-28] MEDS: WARFARIN 10 MG TAB PO SCH (16:59)
[2017-10-28] MEDS ORDERED: WARFARIN 2 MG TAB PO ONE (18:00)
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
== END 2017-10-28 18:50 | disposition home health service (06) | DRG 292 ==
LOC: EC 07:57 → 6SEL 10:10
PROVIDERS: ADMIT Internal Medicine; ATTEND Internal Medicine
DX: I11.0 Hypertensive heart disease with heart failure (principal); L97.929 Non-pressure chronic ulcer of unspecified part of left lower leg with unspecified severity; I48.1 Persistent atrial fibrillation; N17.9 Acute kidney failure, unspecified; R18.8 Other ascites; D68.9 Coagulation defect, unspecified; I50.23 Acute on chronic systolic (congestive) heart failure; I50.82 Biventricular heart failure; D64.9 Anemia, unspecified; E11.9 Type 2 diabetes mellitus without complications; Z79.84 Long term (current) use of oral hypoglycemic drugs; E78.5 Hyperlipidemia, unspecified; F41.9 Anxiety disorder, unspecified; G47.30 Sleep apnea, unspecified; I08.1 Rheumatic disorders of both mitral and tricuspid valves; I25.10 Atherosclerotic heart disease of native coronary artery without angina pectoris; I25.5 Ischemic cardiomyopathy; I25.2 Old myocardial infarction; I48.0 Paroxysmal atrial fibrillation; I48.2 Chronic atrial fibrillation; I49.3 Ventricular premature depolarization; K21.9 Gastro-esophageal reflux disease without esophagitis; N50.89 Other specified disorders of the male genital organs; Z79.01 Long term (current) use of anticoagulants; Z79.02 Long term (current) use of antithrombotics/antiplatelets; Z79.82 Long term (current) use of aspirin; Z82.49 Family history of ischemic heart disease and other diseases of the circulatory system; Z86.73 Personal history of transient ischemic attack (TIA), and cerebral infarction without residual deficits; Z87.891 Personal history of nicotine dependence; Z95.1 Presence of aortocoronary bypass graft; Z95.5 Presence of coronary angioplasty implant and graft; Z95.810 Presence of automatic (implantable) cardiac defibrillator; Z86.718 Personal history of other venous thrombosis and embolism; Z88.8 Allergy status to other drugs, medicaments and biological substances; Z88.0 Allergy status to penicillin; Z91.013 Allergy to seafood; Z79.890 Hormone replacement therapy; Z79.51 Long term (current) use of inhaled steroids; Z79.899 Other long term (current) drug therapy; M19.90 Unspecified osteoarthritis, unspecified site
CPT/HCPCS: 36415; 71046; 80048; 80053; 82550; 82553; 83036; 83735; 83880; 84439; 84443; 84484; 85025; 85610; 85730; 93005; 94640; 96365; 99291

== ENCOUNTER 2017-11-06 09:08 | Inpatient (IN) | payer MEDICARE ==
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
[2017-11-06 09:54] LABS: Basophils % (A) 1 %; Eosinophils # (A) 0.3 k/uL (0-0.7); Eosinophils % (A) 4 %; Lymphocytes # (A) 1.2 k/uL (1.0-4.8); Lymphocytes % (A) 16 %; MCH 29.3 pg (25.0-35.0); MCHC 33.4 g/dL (31.0-37.0); MCV 87.9 fL (80.0-100.0); Mean Platelet Volume 7.9; Monocytes # (A) 0.6 k/uL (0-1.0); Monocytes % (A) 8 %; Neutrophils # (A) 5.1 k/uL (1.3-7.7); Neutrophils % (A) 69 %; Platelet Count 208 k/uL (150-450); WBC 7.4 k/uL (3.8-10.6)
[2017-11-06 09:58] LABS: HGB 14.4 gm/dL (13.0-17.5)
--- NOTE | 2017-11-06 10:02 | XR ---
EXAMINATION TYPE: XR chest 2V DATE OF EXAM: 11/06/2017 HISTORY: Weakness. REFERENCE: Previous study dated 10/27/2017. FINDINGS: There is a bipolar pacemaker place on the left. There has been an interpedicular fusion in the lower dorsal spine. There has been a midline sternotomy. Lung volumes are prominent. The heart is enlarged. There is a right-sided pleural effusion. No defini te pneumonia or edema is seen. IMPRESSION: 1. CARDIOMEGALY. 2. RIGHT PLEURAL EFFUSION. 3. PLEASE CORRELATE FOR COPD. 4. POSTSURGICAL CHANGE.
[2017-11-06 10:05] LABS: INR 3.2 (<1.2); Partial Thromboplastin Time 31.3 sec (22.0-30.0); Prothrombin Time 28.8 sec (9.0-12.0)
[2017-11-06 10:07] LABS: Albumin 4.7 g/dL (3.5-5.0); Calcium 9.6 mg/dL (8.4-10.2); Total Bilirubin 1.3 mg/dL (0.2-1.3); Total Protein 7.9 g/dL (6.3-8.2)
[2017-11-06 10:14] LABS: Creatine Kinase 154 U/L (55-170)
[2017-11-06 10:20] LABS: Appearance,Urine Clear (Clear); Bilirubin,Urine Negative (Negative); Blood,Urine Negative (Negative); Color,Urine Yellow; Glucose,Urine (UA) Negative (Negative); Ketones,Urine Negative (Negative); Leukocyte Esterase,Urine Negative (Negative); Nitrite,Urine Negative (Negative); PH, Urine 5.5 (5.0-8.0); Protein,Urine Negative (Negative); Specific Gravity,Urine 1.009 (1.001-1.035); Urobilinogen,Urine <2.0 mg/dL (<2.0)
[2017-11-06 10:24] LABS: T4, Free (Free Thyroxine) 1.78 ng/dL (0.78-2.19)
[2017-11-06 10:27] LABS: Troponin I <0.012 ng/mL (0.000-0.034)
[2017-11-06] MEDS ORDERED: SODIUM CHLORIDE 0.9% 1,000 ML IV STA (10:27)
[2017-11-06] MEDS ORDERED: SODIUM CHLORIDE 0.9% 250 ML IV STA (11:12)
[2017-11-06] MEDS ORDERED: NALOXONE 0.4 MG/ML 1 ML VIAL IV PRN (11:16)
[2017-11-06] MEDS ORDERED: SODIUM CHLORIDE 0.9% 1,000 ML IV SCH ×2 (16:00→18:45)
[2017-11-06] MEDS ORDERED: NON-FORMULARY DRUG (Fish Oil/Dha/Epa [Fish Oil 1,200 Mg Fish Oil] 1 CAP) PO SCH (16:00)
[2017-11-06] MEDS: VITAMIN A 10,000 UNIT CAPSULE PO SCH (16:24)
[2017-11-06] MEDS: CHOLECALCIFEROL 400 UNIT TAB PO SCH ×2 (16:24→21:02)
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
[2017-11-06 19:34] LABS: Calcium 9.2 mg/dL (8.4-10.2); Potassium 4.3 mmol/L (3.5-5.1)
[2017-11-06] MEDS: SYMBICORT 80-4.5 MCG INHALER INHALATION SCH (20:32)
[2017-11-06] MEDS: VITAMIN E (DL,TOCOPHERYL ACET) 400 UNIT CAP PO SCH (21:02)
[2017-11-06] MEDS: ATORVASTATIN 40 MG TAB PO SCH (21:02)
[2017-11-06 22:22] LABS: Glucose,Whole Blood 189 mg/dL (75-99)
[2017-11-07 06:03] LABS: Glucose,Whole Blood 136 mg/dL (75-99)
[2017-11-07] MEDS: GLIMEPIRIDE 1 MG TAB PO SCH (06:27)
[2017-11-07] MEDS: VITAMIN A 10,000 UNIT CAPSULE PO SCH ×3 (06:27→15:36)
[2017-11-07] MEDS: PANTOPRAZOLE 40 MG TABLET PO SCH (06:27)
[2017-11-07] MEDS: LEVOTHYROXINE 75 MCG TAB PO SCH (06:27)
[2017-11-07 07:24] LABS: INR 2.7 (<1.2); Prothrombin Time 24.6 sec (9.0-12.0)
[2017-11-07 07:29] LABS: Calcium 9.3 mg/dL (8.4-10.2); Potassium 3.8 mmol/L (3.5-5.1)
[2017-11-07] MEDS: ASPIRIN 81 MG PO SCH (08:05)
[2017-11-07] MEDS: FOLIC ACID 1 MG TAB PO SCH (08:05)
[2017-11-07] MEDS: SYMBICORT 80-4.5 MCG INHALER INHALATION SCH ×2 (08:05→21:00)
[2017-11-07] MEDS: CLOPIDOGREL 75 MG TAB PO SCH (08:05)
[2017-11-07] MEDS: MULTIVITAMINS, THERA 1 EACH TAB PO SCH (08:05)
[2017-11-07] MEDS: CHOLECALCIFEROL 400 UNIT TAB PO SCH ×3 (08:05→20:13)
[2017-11-07] MEDS: VITAMIN E (DL,TOCOPHERYL ACET) 400 UNIT CAP PO SCH ×2 (08:05→20:12)
[2017-11-07] MEDS ORDERED: NON-FORMULARY DRUG (Vitamin B Complex [Vitamin B Complex] 1 CAP) PO SCH (09:00)
[2017-11-07 11:45] LABS: Glucose,Whole Blood 161 mg/dL (75-99)
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
[2017-11-07] MEDS: WARFARIN 10 MG TAB PO SCH (15:37)
--- NOTE | 2017-11-07 15:49 | P.PN ---
Subjective Progress Note Date: 11/07/17 Principal diagnosis: Mr. Avilez is a 57-year-old male with a past medical history of asthma, coronary artery disease status post stenting, status post AICD, CVA/TIA, GERD, DVT, osteoarthritis, sleep apnea on BiPAP coming to the hospital with a chief complaint of fatigue. Patient states that he checked his blood pressure at home and it was very low at 70 x 50 and at the same time he was feeling extremely fatigued and weak so came into the hospital for further evaluation. At the time of admission patient was found to be hypotensive and also has AK I with increased BUN and creatinine. So his blood pressure medications and diuretics have been held and he was given IV fluids overnight. 11/07/2017- this morning patient states that he feels much better in terms of his fatigue and weakness. Patient denies having any chest pain palpitations. No cough no difficulty in breathing. No fevers chills or rigors. No bowel pain nausea vomiting or diarrhea. No dysuria or hematuria. Objective - Vital Signs Vital signs: Vital Signs Temp 96.9 F L 11/07/17 15:37 Pulse 93 11/07/17 15:41 Resp 18 11/07/17 15:41 BP 101/52 11/07/17 15:37 Pulse Ox 98 11/07/17 15:37 Intake & Output 11/06/17 11/07/17 11/07/17 18:59 06:59 18:59 Intake Total 1255 810 Output Total 500 2300 500 Balance 755 -2300 310 Weight 121.563 kg 122.1 kg Intake: IV 535 10 Invasive Line 1 10 10 Sodium Chloride 0.9% 1, 525 000 ml @ 75 mls/hr IV . [id number] STA Rx#:[id number] Intake, IV Titration 320 Amount Sodium Chloride 0.9% 1, 320 000 ml @ 50 mls/hr IV . Q20H EMERY Rx#:[id number] Oral 720 480 Output: Urine 500 2300 500 Other: # Voids 1 - Exam GEN. APPEARANCE: alert, in no apparent distress HEAD EXAM: atraumatic, normocephalic, normal inspection EYE EXAM: normal appearance, PERRL, EOMI. Absent: scleral icterus, conjunctival injection, periorbital swelling ENT EXAM: normal exam, mucous membranes moist NECK EXAM: normal inspection. Absent: tenderness, meningismus, full ROM, lymphadenopathy RESPIRATORY EXAM: normal lung sounds bilaterally. Absent: respiratory distress , wheezes, rales, rhonchi, stridor CARDIOVASCULAR EXAM: regular rate, normal rhythm, normal heart sounds. GI/ABDOMINAL EXAM: soft, normal bowel sounds. Absent: distended, tenderness, guarding, rebound, rigid EXTREMITIES EXAM: normal inspection, full ROM, normal capillary refill. Absent : tenderness, pedal edema, joint swelling, calf tenderness BACK EXAM: normal inspection NEUROLOGICAL EXAM: alert, oriented X3, no focal deficits PSYCHIATRIC EXAM: normal affect, normal mood SKIN EXAM: warm, dry, intact, normal color. Absent: rash - Labs CBC & Chem 7: 11/06/17 09:30 11/07/17 06:53 Labs: Abnormal Lab Results - Last 24 Hours (Table) 11/06/17 11/06/17 11/07/17 Range/Units 18:50 22:11 06:01 PT (9.0-12.0) sec INR (<1.2) Sodium 129 L (137-145) mmol/L Chloride 89 L (98-107) mmol/L BUN 82 H* (9-20) mg/dL Creatinine 1.90 H (0.66-1.25) mg/dL Glucose 213 H (74-99) mg/dL POC Glucose (mg/dL) 189 H 136 H (75-99) mg/dL 11/07/17 11/07/17 11/07/17 Range/Units 06:53 06:53 11:33 PT 24.6 H (9.0-12.0) sec INR 2.7 H (<1.2) Sodium 132 L (137-145) mmol/L Chloride 93 L (98-107) mmol/L BUN 70 H (9-20) mg/dL Creatinine 1.53 H (0.66-1.25) mg/dL Glucose 134 H (74-99) mg/dL POC Glucose (mg/dL) 161 H (75-99) mg/dL Assessment and Plan Assessment: ASSESSMENT Hypotension due to medication Acute kidney injury - secondary to above Hypovolemic hyponatremia Chronic systolic congestive heart failure Moderate mitral regurgitation Severe tricuspid regurgitation Atrial fibrillation Hypertension Hyperlipidemia Type 2 diabetes mellitus Coronary artery disease status post CABG and stenting Obesity with BMI of 37.4 Plan: All blood pressure medication and nephrotoxins held. Patient was given IV fluids at 75 mL/h. patient's symptoms of fatigue and weakness improved. His creatinine has been trending down and his sodium trending up. We'll restart the patient's cardiac medications from tomorrow. Cardiology following the patient. Further recommendations depending on the progress of the patient. Overall prognosis is guarded.
[2017-11-07] MEDS: ATORVASTATIN 40 MG TAB PO SCH (20:12)
[2017-11-07 20:40] LABS: Glucose,Whole Blood 210 mg/dL (75-99)
[2017-11-07] MEDS: ALPRAZolam 0.25 MG TAB PO PRN (23:34)
[2017-11-08 05:16] LABS: Glucose,Whole Blood 136 mg/dL (75-99)
[2017-11-08 06:24] LABS: INR 1.9 (<1.2); Prothrombin Time 17.5 sec (9.0-12.0)
[2017-11-08 06:45] LABS: Calcium 9.5 mg/dL (8.4-10.2); Magnesium 2.1 mg/dL (1.6-2.3); Potassium 4.3 mmol/L (3.5-5.1)
[2017-11-08] MEDS: PANTOPRAZOLE 40 MG TABLET PO SCH (07:03)
[2017-11-08] MEDS: GLIMEPIRIDE 1 MG TAB PO SCH (07:03)
[2017-11-08] MEDS: LEVOTHYROXINE 75 MCG TAB PO SCH (07:04)
[2017-11-08] MEDS: VITAMIN A 10,000 UNIT CAPSULE PO SCH ×3 (08:06→16:39)
[2017-11-08] MEDS: ASPIRIN 81 MG PO SCH (08:06)
[2017-11-08] MEDS: MULTIVITAMINS, THERA 1 EACH TAB PO SCH (08:06)
[2017-11-08] MEDS: VITAMIN E (DL,TOCOPHERYL ACET) 400 UNIT CAP PO SCH ×2 (08:06→19:47)
[2017-11-08] MEDS: CHOLECALCIFEROL 400 UNIT TAB PO SCH ×3 (08:06→19:47)
[2017-11-08] MEDS: CLOPIDOGREL 75 MG TAB PO SCH (08:06)
[2017-11-08] MEDS: FOLIC ACID 1 MG TAB PO SCH (08:06)
[2017-11-08] MEDS: SYMBICORT 80-4.5 MCG INHALER INHALATION SCH ×2 (08:20→20:32)
--- NOTE | 2017-11-08 11:02 | P.PN ---
Progress Note - Text Discussed with Dr. hightower. Patient was on 400 mg of amiodarone for about 20 days starting 10/01/2017. It was discontinued approximately 22 of October. He has persistent atrial fibrillation that has been refractory to amiodarone and cardioversion. He has very significant and very severe heart failure. In addition previously he had a very low pacing percentage but more recently in the month of October every 10 ECGs performed he has a significant number of reticular paced complexes on a 12-lead ECG. Plan Restart carvedilol today 3.15 g twice daily If his blood pressure is stable tomorrow and we will restart him on ENTRESTO Thereafter we will start him on Aldactone and low doses of Demadex. This is be done in a stepwise manner and it is anticipated that this gentleman will be in the hospital for at least another week if not more In addition I plan to start him on dofetilide 250 g twice daily to begin with ECGs 3 hours after each dose of dofetilide Keep potassium did before and keep magnesium greater than 2.0 Labs are reviewed sodium 134 potassium 4.3 BUN 46 creatinine 1.17 magnesium 2.1 GFR is 69 I will hold off on starting him on full dose dofetilide for now Likely electrical cardioversion after 5 doses of dofetilide
[2017-11-08] MEDS: CARVEDILOL 3.125 MG TAB PO SCH ×2 (11:15→16:39)
[2017-11-08 11:35] LABS: Glucose,Whole Blood 182 mg/dL (75-99)
[2017-11-08] MEDS: WARFARIN 10 MG TAB PO SCH (12:22)
--- NOTE | 2017-11-08 14:43 | P.PN ---
Subjective Progress Note Date: 11/08/17 Principal diagnosis: Hypotension and acute kidney injury Mr. Avilez is a 57-year-old male with a past medical history of asthma, coronary artery disease status post stenting, status post AICD, CVA/TIA, GERD, DVT, osteoarthritis, sleep apnea on BiPAP coming to the hospital with a chief complaint of fatigue. Patient states that he checked his blood pressure at home and it was very low at 70 x 50 and at the same time he was feeling extremely fatigued and weak so came into the hospital for further evaluation. At the time of admission patient was found to be hypotensive and also has AK I with increased BUN and creatinine. So his blood pressure medications and diuretics have been held and he was given IV fluids overnight. 11/07/2017- this morning patient states that he feels much better in terms of his fatigue and weakness. Patient denies having any chest pain palpitations. No cough no difficulty in breathing. No fevers chills or rigors. No bowel pain nausea vomiting or diarrhea. No dysuria or hematuria. On 11/08/2017-patient is lying in the bed comfortably appears to be no acute distress. He was told by cardiology team that he would be started on the medication dofetilide today. Patient mentions that his fatigue and weakness resolved completely and his back to normal. He denies having any chest pain or palpitations. No cough or difficulty in breathing. No abdominal pain nausea vomiting or diarrhea. No dysuria or hematuria. Objective - Vital Signs Vital signs: Vital Signs Temp 97.0 F L 11/08/17 11:06 Pulse 70 11/08/17 11:07 Resp 16 11/08/17 11:07 BP 101/65 11/08/17 11:06 Pulse Ox 99 11/08/17 11:06 Intake & Output 11/07/17 11/08/17 11/08/17 18:59 06:59 18:59 Intake Total 1050 510 500 Output Total 813 454 1628 Balance 550 -240 -500 Weight 120.9 kg Intake: IV 10 30 20 Invasive Line 1 10 30 20 Intake, IV Titration 320 0 Amount Sodium Chloride 0.9% 1, 320 0 000 ml @ 50 mls/hr IV . Q20H [facility] Rx#:[id number] Oral 720 480 480 Output: Urine 465 724 0311 Other: # Voids 1 1 1 - Exam GEN. APPEARANCE: alert, in no apparent distress HEAD EXAM: atraumatic, normocephalic, normal inspection EYE EXAM: normal appearance, PERRL, EOMI. Absent: scleral icterus, conjunctival injection, periorbital swelling ENT EXAM: normal exam, mucous membranes moist NECK EXAM: normal inspection. Absent: tenderness, meningismus, full ROM, lymphadenopathy RESPIRATORY EXAM: normal lung sounds bilaterally. Absent: respiratory distress , wheezes, rales, rhonchi, stridor CARDIOVASCULAR EXAM: regular rate, normal rhythm, normal heart sounds. GI/ABDOMINAL EXAM: soft, normal bowel sounds. Absent: distended, tenderness, guarding, rebound, rigid EXTREMITIES EXAM: normal inspection, full ROM, normal capillary refill. Absent : tenderness, pedal edema, joint swelling, calf tenderness BACK EXAM: normal inspection NEUROLOGICAL EXAM: alert, oriented X3, no focal deficits PSYCHIATRIC EXAM: normal affect, normal mood SKIN EXAM: warm, dry, intact, normal color. Absent: rash - Labs CBC & Chem 7: 11/06/17 09:30 11/08/17 05:45 Labs: Abnormal Lab Results - Last 24 Hours (Table) 11/07/17 11/08/17 11/08/17 Range/Units 20:39 05:14 05:45 PT (9.0-12.0) sec INR (<1.2) Sodium 134 L (137-145) mmol/L Chloride 97 L (98-107) mmol/L BUN 46 H (9-20) mg/dL Glucose 133 H (74-99) mg/dL POC Glucose (mg/dL) 210 H 136 H (75-99) mg/dL 11/08/17 11/08/17 Range/Units 05:45 11:31 PT 17.5 H (9.0-12.0) sec INR 1.9 H (<1.2) Sodium (137-145) mmol/L Chloride (98-107) mmol/L BUN (9-20) mg/dL Glucose (74-99) mg/dL POC Glucose (mg/dL) 182 H (75-99) mg/dL Assessment and Plan Assessment: ASSESSMENT Hypotension due to medication Acute kidney injury - secondary to above Hypovolemic hyponatremia Chronic systolic congestive heart failure- not in exacerbation Moderate mitral regurgitation Severe tricuspid regurgitation Atrial fibrillation Hypertension Hyperlipidemia Type 2 diabetes mellitus Coronary artery disease status post CABG and stenting Obesity with BMI of 37.4 Plan: All blood pressure medication and nephrotoxins held. Patient was given IV fluids at 75 mL/h. patient's symptoms of fatigue and weakness improved. His creatinine has been trending down and his sodium trending up, today at baseline. Cardiology initiating the treatment with dofetilide, for which the patient has to stay in the hospital for at least 5 days. Further recommendations depending on the progress of the patient. Overall prognosis is guarded.
--- NOTE | 2017-11-08 15:36 | P.PN ---
Subjective Progress Note Date: 11/08/17 This is a pleasant 57 year old gentleman who follows with Dr. Ann in the office. He has a known history of ischemic cardio myopathy, paroxysmal atrial fibrillation with prior cardioversion, biventricular failure, hospital on the of this month, readmitted to the hospital over the weekend , presented this time with symptoms of weakness and dizziness as well as low blood pressure. Primarily patient admitted with hypotension, fatigue and low flow state. Diuretics and blood pressure medication were held on admission here. His creatinine on admission was 1.9, 1.1 this morning. INR 1.9. Patient had been on amiodarone in the past, today he will be initiated on Tikosyn by Dr. Olivarez. We will also put the patient on Coreg, decrease dose from what he was taking at home. If the blood pressure tolerates, we will start the patient on a contrast O from tomorrow and resume his diuretics from Wednesday. Objective - Vital Signs Vital signs: Vital Signs Temp 97.0 F L 11/08/17 11:06 Pulse 70 11/08/17 11:07 Resp 16 11/08/17 11:07 BP 101/65 11/08/17 11:06 Pulse Ox 99 11/08/17 11:06 Intake & Output 11/07/17 11/08/17 11/08/17 18:59 06:59 18:59 Intake Total 1050 510 500 Output Total 311 412 9076 Balance 550 -240 -1250 Weight 120.9 kg Intake: IV 10 30 20 Invasive Line 1 10 30 20 Intake, IV Titration 320 0 Amount Sodium Chloride 0.9% 1, 320 0 000 ml @ 50 mls/hr IV . Q20H [facility] Rx#:[id number] Oral 720 480 480 Output: Urine 517 515 2653 Other: # Voids 1 1 1 - Exam PHYSICAL EXAMINATION: GENERAL: 57-year-old gentleman in no acute distress at the time of my examination HEENT: Head is atraumatic, normocephalic. Pupils equal, round. Sclera anicteric. Conjunctiva are clear. Mucous membranes of the mouth are moist. Neck is supple. There is no elevated jugular venous pressure.] bruit is heard. HEART EXAMINATION: Heart S1, S2 irregularly irregular . No murmur or gallop heard. CHEST EXAMINATION: Lungs are clear to auscultation and precussion. No chest wall tenderness is noted on palpation or with deep breathing. ABDOMEN: Soft, obese, no ascites noted, nontender. Bowel sounds are heard. No organomegaly noted. EXTREMITIES: 2+ peripheral pulses with no evidence of peripheral edema and no calf tenderness noted]. NEUROLOGIC [patient is awake, alert and oriented ?-3.] - Labs CBC & Chem 7: 11/06/17 09:30 11/08/17 05:45 Labs: Abnormal Lab Results - Last 24 Hours (Table) 11/07/17 11/08/17 11/08/17 Range/Units 20:39 05:14 05:45 PT (9.0-12.0) sec INR (<1.2) Sodium 134 L (137-145) mmol/L Chloride 97 L (98-107) mmol/L BUN 46 H (9-20) mg/dL Glucose 133 H (74-99) mg/dL POC Glucose (mg/dL) 210 H 136 H (75-99) mg/dL 11/08/17 11/08/17 Range/Units 05:45 11:31 PT 17.5 H (9.0-12.0) sec INR 1.9 H (<1.2) Sodium (137-145) mmol/L Chloride (98-107) mmol/L BUN (9-20) mg/dL Glucose (74-99) mg/dL POC Glucose (mg/dL) 182 H (75-99) mg/dL Assessment and Plan Plan: Assessment and plan #1 hypotension and fatigue secondary to low flow state with prerenal acidemia secondary to severe heart failure #2 chronic systolic congestive heart failure #3 ischemic cardiomyopathy with prior dual-chamber AICD Plan Patient today has been started on tic ascending, we will also resume his Coreg 3.125 mg twice a day, from tomorrow if the blood pressure tolerates we will resume his interest oh, from Wednesday resume diuretics as blood pressure tolerates. We will continue to monitor daily lytes BUN and creatinine. DNP note has been reviewed, I agree with a documented findings and plan of care. Patient was seen and examined.
[2017-11-08 16:43] LABS: Glucose,Whole Blood 120 mg/dL (75-99)
[2017-11-08] MEDS ORDERED: MAGNESIUM SULFATE-D5W PMX 1 GM in DEXTROSE/WATER 1 100ML.BAG IVPB ONE (17:29)
[2017-11-08] MEDS: DOFETILIDE 250 MCG CAP PO SCH (18:00)
[2017-11-08] MEDS: ATORVASTATIN 40 MG TAB PO SCH (19:47)
[2017-11-08 20:46] LABS: Glucose,Whole Blood 192 mg/dL (75-99)
[2017-11-08] MEDS: ALPRAZolam 0.25 MG TAB PO PRN (23:24)
[2017-11-09 05:48] LABS: Glucose,Whole Blood 146 mg/dL (75-99)
[2017-11-09] MEDS: CARVEDILOL 3.125 MG TAB PO SCH ×2 (06:00→17:14)
[2017-11-09] MEDS: PANTOPRAZOLE 40 MG TABLET PO SCH (06:00)
[2017-11-09] MEDS: GLIMEPIRIDE 1 MG TAB PO SCH (06:00)
[2017-11-09] MEDS: DOFETILIDE 250 MCG CAP PO SCH ×2 (06:00→18:15)
[2017-11-09] MEDS: VITAMIN A 10,000 UNIT CAPSULE PO SCH ×3 (06:00→17:14)
[2017-11-09] MEDS: LEVOTHYROXINE 75 MCG TAB PO SCH (06:00)
[2017-11-09 06:18] LABS: INR 2.3 (<1.2); Prothrombin Time 20.9 sec (9.0-12.0)
[2017-11-09 06:29] LABS: Calcium 9.6 mg/dL (8.4-10.2); Magnesium 1.9 mg/dL (1.6-2.3); Potassium 4.3 mmol/L (3.5-5.1)
[2017-11-09] MEDS ORDERED: MAGNESIUM OXIDE 400 MG TAB PO STA (06:48)
[2017-11-09] MEDS: SYMBICORT 80-4.5 MCG INHALER INHALATION SCH ×2 (07:50→20:51)
[2017-11-09] MEDS: VITAMIN E (DL,TOCOPHERYL ACET) 400 UNIT CAP PO SCH ×2 (10:59→20:55)
[2017-11-09] MEDS: CLOPIDOGREL 75 MG TAB PO SCH (11:00)
[2017-11-09] MEDS: ASPIRIN 81 MG PO SCH (11:00)
[2017-11-09] MEDS: CHOLECALCIFEROL 400 UNIT TAB PO SCH ×3 (11:00→21:49)
[2017-11-09] MEDS: MULTIVITAMINS, THERA 1 EACH TAB PO SCH (11:28)
[2017-11-09] MEDS: FOLIC ACID 1 MG TAB PO SCH (11:28)
[2017-11-09 11:49] LABS: Glucose,Whole Blood 140 mg/dL (75-99)
[2017-11-09] MEDS ORDERED: MAGNESIUM SULFATE-D5W PMX 1 GM in DEXTROSE/WATER 1 100ML.BAG IVPB ONE ×2 (12:00→19:34)
--- NOTE | 2017-11-09 14:27 | P.PN ---
Subjective Progress Note Date: 11/09/17 This is a pleasant 57 year old gentleman who follows with Dr. Ann in the office. He has a known history of ischemic cardio myopathy, paroxysmal atrial fibrillation with prior cardioversion, biventricular failure, hospital on the of this month, readmitted to the hospital over the weekend , presented this time with symptoms of weakness and dizziness as well as low blood pressure. Primarily patient admitted with hypotension, fatigue and low flow state. Diuretics and blood pressure medication were held on admission here. His creatinine on admission was 1.9, 1.1 this morning. INR 1.9. Patient had been on amiodarone in the past, today he will be initiated on Tikosyn by Dr. Olivarez. We will also put the patient on Coreg, decrease dose from what he was taking at home. If the blood pressure tolerates, we will start the patient on a contrast O from tomorrow and resume his diuretics from Wednesday. 11/09/2017 Patient seen and examined this morning, states he was feeling a little depressed today overall. Physically he is doing well. Blood pressure 125/60 with a heart rate in the 70s to 80s, 99% on room air. Pro time 20.9, INR 2.3, sodium 134, potassium 4.3, BUN 39, creatinine 1.2, magnesium 1.9. EKG from this morning has been reviewed QTC 542. We will resume the Entresto as well as Aldactone today. From tomorrow we will reinitiate diuretics, Demadex 20 twice a day Objective - Vital Signs Vital signs: Vital Signs Temp 97.0 F L 11/09/17 11:41 Pulse 81 11/09/17 11:41 Resp 16 11/09/17 11:41 BP 108/77 11/09/17 11:41 Pulse Ox 99 11/09/17 11:41 Intake & Output 11/08/17 11/09/17 11/09/17 18:59 06:59 18:59 Intake Total 750 20 240 Output Total 1750 1200 Balance -1000 -1180 240 Weight 121.9 kg Intake: IV 30 20 Invasive Line 1 30 20 Oral 720 240 Output: Urine 1750 1200 Other: # Voids 1 1 - Exam PHYSICAL EXAMINATION: GENERAL: 57-year-old gentleman in no acute distress at the time of my examination HEENT: Head is atraumatic, normocephalic. Pupils equal, round. Sclera anicteric. Conjunctiva are clear. Mucous membranes of the mouth are moist. Neck is supple. There is no elevated jugular venous pressure.] bruit is heard. HEART EXAMINATION: Heart S1, S2 irregularly irregular . No murmur or gallop heard. CHEST EXAMINATION: Lungs are clear to auscultation and precussion. No chest wall tenderness is noted on palpation or with deep breathing. ABDOMEN: Soft, obese, no ascites noted, nontender. Bowel sounds are heard. No organomegaly noted. EXTREMITIES: 2+ peripheral pulses with no evidence of peripheral edema and no calf tenderness noted]. NEUROLOGIC [patient is awake, alert and oriented ?-3.] - Labs CBC & Chem 7: 11/06/17 09:30 11/09/17 05:43 Labs: Abnormal Lab Results - Last 24 Hours (Table) 11/08/17 11/08/17 11/09/17 Range/Units 16:40 20:44 05:43 PT (9.0-12.0) sec INR (<1.2) Sodium 134 L (137-145) mmol/L Chloride 95 L (98-107) mmol/L BUN 39 H (9-20) mg/dL Glucose 151 H (74-99) mg/dL POC Glucose (mg/dL) 120 H 192 H (75-99) mg/dL 11/09/17 11/09/17 11/09/17 Range/Units 05:43 05:46 11:43 PT 20.9 H (9.0-12.0) sec INR 2.3 H (<1.2) Sodium (137-145) mmol/L Chloride (98-107) mmol/L BUN (9-20) mg/dL Glucose (74-99) mg/dL POC Glucose (mg/dL) 146 H 140 H (75-99) mg/dL Assessment and Plan Plan: Assessment and plan #1 hypotension and fatigue secondary to low flow state with prerenal acidemia secondary to severe heart failure #2 chronic systolic congestive heart failure #3 ischemic cardiomyopathy with prior dual-chamber AICD Plan Patient will be reinitiated on Entresto today. We will also resume the Aldactone. From tomorrow we will start the patient on Demadex 20 mg by mouth twice a day. Continue to monitor EKGs while on Tikosyn. DNP note has been reviewed, I agree with a documented findings and plan of care. Patient was seen and examined.
[2017-11-09 16:42] LABS: Glucose,Whole Blood 162 mg/dL (75-99)
--- NOTE | 2017-11-09 18:44 | P.PN ---
Subjective Electrophysiology follow-up note Patient remains in atrial fibrillation. QT interval mildly prolonged at post PVC as well as post pause QT interval is slightly more prolonged than baseline. About a 10% increment He is currently on dofetilide 250 g twice daily. Amiodarone was stopped several weeks back. He was and amiodarone for one month only Labs are reviewed INR 2.3, sodium 134, potassium 4.3, BUN 39, creatinine 1.2, GFR 67, glucose elevated, magnesium 1.9 he was given a gram of magnesium today IV Today, ENTRESTO and spironolactone were begun. Yesterday carvedilol was started. He is also on Slow-Mag by mouth On examination his blood pressures 114/58 mmHg he is afebrile 97.1F, pulse rate in the 80s Breath sounds are reduced 30 with a known rhonchi no crackles No JVD Since obesity No lower extremity edema Irregular but normal heart sounds no murmurs or gallops no rub Impression Severe ischemic cardio myopathy Severe heart failure with recent anasarca requiring IV Lasix drip Admitted with hypotension secondary to aggressive diuresis that was needed given the severity of his heart failure with low/as well as congestion fluid overload and anasarca and ascites Persistent atrial fibrillation, failed amiodarone, failed electrical cardioversion with Dr. Haque Patient has a dual-chamber ICD which was reprogrammed yesterday to VVI at 40 beats a minute to avoid RV pacing Since cardioversion, he was programmed to DDDR mode with mode switch and he was pacing the right ventricle. All his twelve-lead ECG is performed in the last month have shown predominantly RV pacing But prior to this for the last 3 years he has had less than 4% RV pacing Acute exacerbation of heart failure seems to correspond to development of atrial fibrillation several months back Significantly dilated left atrium between 5.5-6.2 cm. I measured his atrium on VALERIE and measures about 5.7-6.2 cm on different views Nonsustained ventricular tachycardia Suggest Gradual reinitiation of all cardiac medications and then tomorrow we will reinitiate the Demadex at a low dose of 20 mg twice daily. No metolazone Continue Coumadin at home dose and maintain INR being 2.2 and 3.2. Do not allow INR to fall below 2.0 Yesterday evening I started dofetilide 250 mg twice daily. Dofetilide protocol for the next 5 days with EKGs 3 hours after each dose and watch in the QT interval. If he does not convert to sinus rhythm then on I will perform electrical cardioversion Keep potassium rhythm 4 and magnesium greater than 2.0. Objective - Vital Signs Vital signs: Vital Signs Temp 97.1 F L 11/09/17 16:00 Pulse 68 11/09/17 16:00 Resp 18 11/09/17 16:00 BP 114/58 11/09/17 16:00 Pulse Ox 97 11/09/17 16:00 Intake & Output 11/08/17 11/09/17 11/09/17 18:59 06:59 18:59 Intake Total 992 86 8534 Output Total 1750 1200 1400 Balance -1000 -1180 -340 Weight 121.9 kg Intake: IV 30 20 Invasive Line 1 30 20 Intake, IV Titration 100 Amount Magnesium Sulfate-D5w Pmx 100 1 gm In Dextrose/Water 1 100ml.bag @ 100 mls/hr IVPB ONCE ONE Rx#: [id number] Oral 720 960 Output: Urine 1750 1200 1400 Other: Voiding Method Toilet # Voids 1 1 1 - Labs CBC & Chem 7: 11/06/17 09:30 11/09/17 05:43 Labs: Abnormal Lab Results - Last 24 Hours (Table) 11/08/17 11/09/17 11/09/17 Range/Units 20:44 05:43 05:43 PT 20.9 H (9.0-12.0) sec INR 2.3 H (<1.2) Sodium 134 L (137-145) mmol/L Chloride 95 L (98-107) mmol/L BUN 39 H (9-20) mg/dL Glucose 151 H (74-99) mg/dL POC Glucose (mg/dL) 192 H (75-99) mg/dL 11/09/17 11/09/17 11/09/17 Range/Units 05:46 11:43 16:24 PT (9.0-12.0) sec INR (<1.2) Sodium (137-145) mmol/L Chloride (98-107) mmol/L BUN (9-20) mg/dL Glucose (74-99) mg/dL POC Glucose (mg/dL) 146 H 140 H 162 H (75-99) mg/dL
[2017-11-09 20:48] LABS: Glucose,Whole Blood 179 mg/dL (75-99)
[2017-11-09] MEDS: SACUBITRIL/VALSARTAN 24 MG-26 MG TABLET PO SCH (20:54)
[2017-11-09] MEDS: ATORVASTATIN 40 MG TAB PO SCH (20:54)
[2017-11-09] MEDS: ALPRAZolam 0.25 MG TAB PO PRN (20:55)
[2017-11-09] MEDS: SODIUM CHLORIDE 0.9% 1,000 ML IV SCH (22:31)
[2017-11-10 05:59] LABS: Glucose,Whole Blood 133 mg/dL (75-99)
[2017-11-10] MEDS: DOFETILIDE 250 MCG CAP PO SCH ×2 (06:05→17:31)
[2017-11-10] MEDS: LEVOTHYROXINE 75 MCG TAB PO SCH (06:05)
[2017-11-10] MEDS: VITAMIN A 10,000 UNIT CAPSULE PO SCH ×3 (06:37→17:31)
[2017-11-10] MEDS: PANTOPRAZOLE 40 MG TABLET PO SCH (06:37)
[2017-11-10] MEDS: GLIMEPIRIDE 1 MG TAB PO SCH (06:37)
[2017-11-10] MEDS: CARVEDILOL 3.125 MG TAB PO SCH ×2 (06:37→17:31)
[2017-11-10 06:49] LABS: INR 2.2 (<1.2); Prothrombin Time 19.6 sec (9.0-12.0)
[2017-11-10 07:07] LABS: Anion Gap 9 mmol/L; Blood Urea Nitrogen 30 mg/dL (9-20); Calcium 9.1 mg/dL (8.4-10.2); Carbon Dioxide 30 mmol/L (22-30); Chloride 97 mmol/L (98-107); Glucose 122 mg/dL (74-99); Magnesium 1.9 mg/dL (1.6-2.3); Potassium 4.6 mmol/L (3.5-5.1); Sodium 136 mmol/L (137-145)
[2017-11-10 07:22] VITALS: RESP 16
--- NOTE | 2017-11-10 08:16 | P.PN ---
Subjective Patient is doing well. He is ablating in the room. He converted to sinus rhythm last evening at 11 PM after his third dose of dofetilide 250 g prior to that he was in an atrial tachycardia with left bundle branch block apparent conduction and he was quite symptomatic at that time this was about an hour and a half prior to to conversion to sinus rhythm His postconversion ECG showed sinus rhythm normal TN narrow QRS and an absolute QT interval of less than 440 ms His labs today show a potassium of 4.6 and magnesium 1.9, INR 2.2 sodium is normal BUN/creatinine stable GFR greater than 60 I selected a low dose of 250 g twice daily since he was recently on amiodarone 400 mg daily for one month, 2-3 weeks back. I would prefer to wait for about a month or so but given his severity of heart failure he was put on dofetilide on this admission. His heart failure symptoms have improved significantly even before he converted to sinus rhythm On examination his blood pressure ranges from 90-112 mmHg systolic, pulse rate in the 70s and 80s, afebrile 98.4F Heart sounds S1-S2 normal no S3 gallop No JVD no lower extremity edema Obesity Breath sounds are clear no rhonchi no crackles Impression Severe ischemic cardiac myopathy with severe heart failure with anasarca recently discharged after eating on a Lasix drip for at least 5 days. Subsequently readmitted with hypotension secondary to overdiuresis with rapid resolution of his renal function and blood pressure. Metolazone has been discontinued completely. We reinitiated all his medications and he in a stepwise manner have switched him to Lasix 40 mg by mouth daily he is on Aldactone 50 mg a day. Demadex has been discontinued, no more metolazone On Wednesday evening he was started on dofetilide 250 g once his renal function normalized and after the third dose last evening he organized than atrial tachycardia with a left bundle branch block aberrancy with a wide QRS and then subsequently within one and a half hours converted to sinus rhythm Absolute QT interval 440 ms Suggest monitor for another 24 hours. I explained the issue of drug interactions with dofetilide and how to manage this. If his QT interval tomorrow is within normal limits tomorrow morning I will have a detailed discussion with him regarding the do's and don'ts of dofetilide. I have asked his to be present at that time Continue anticoagulation for stroke prevention If he maintains sinus rhythm and his heart failure status stabilizes and he does not become fluid overloaded once again with the current regimen and maintaining sinus rhythm then perhaps I will consider pulmonary vein isolation in the future since his worsening heart rates symptoms corresponded to development of atrial fibrillation I have also reprogrammed his dual-chamber ICD to VVI 40 beats a minute to avoid RV pacing at this time there is no indication for an upgrade to biventricular ICD. His QRS intrinsically is narrow and is at 120 ms, incomplete left bundle branch block however during atrial tachycardia he is quite symptomatic and develops a wide QRS of the left bundle branch block morphology 176 ms Objective - Vital Signs Vital signs: Vital Signs Temp 98.4 F 11/10/17 07:17 Pulse 71 11/10/17 07:17 Resp 16 11/10/17 07:17 BP 112/71 11/10/17 07:17 Pulse Ox 100 11/10/17 07:17 Intake & Output 11/09/17 11/10/17 11/10/17 18:59 06:59 18:59 Intake Total 1060 1320 240 Output Total 1400 715 Balance -340 605 240 Weight 123.5 kg Intake: IV 20 Invasive Line 2 20 Intake, IV Titration 100 340 Amount Magnesium Sulfate-D5w Pmx 100 1 gm In Dextrose/Water 1 100ml.bag @ 100 mls/hr IVPB ONCE ONE Rx#: [id number] Magnesium Sulfate-D5w Pmx 100 1 gm In Dextrose/Water 1 100ml.bag @ 100 mls/hr IVPB ONCE ONE Rx#: [id number] Sodium Chloride 0.9% 1, 240 000 ml @ 20 mls/hr IV . Q24H [facility] Rx#:[id number] Oral 960 960 240 Output: Urine 1400 715 Other: Voiding Method Toilet Urinal # Voids 1 1 - Labs CBC & Chem 7: 11/06/17 09:30 11/10/17 06:27 Labs: Abnormal Lab Results - Last 24 Hours (Table) 11/09/17 11/09/17 11/09/17 Range/Units 11:43 16:24 20:47 PT (9.0-12.0) sec INR (<1.2) Sodium (137-145) mmol/L Chloride (98-107) mmol/L BUN (9-20) mg/dL Glucose (74-99) mg/dL POC Glucose (mg/dL) 140 H 162 H 179 H (75-99) mg/dL 11/10/17 11/10/17 11/10/17 Range/Units 05:57 06:27 06:27 PT 19.6 H (9.0-12.0) sec INR 2.2 H (<1.2) Sodium 136 L (137-145) mmol/L Chloride 97 L (98-107) mmol/L BUN 30 H (9-20) mg/dL Glucose 122 H (74-99) mg/dL POC Glucose (mg/dL) 133 H (75-99) mg/dL
[2017-11-10] MEDS: FUROSEMIDE 40 MG TAB PO SCH (08:51)
[2017-11-10] MEDS: ASPIRIN 81 MG PO SCH (08:51)
[2017-11-10] MEDS: CLOPIDOGREL 75 MG TAB PO SCH (08:51)
[2017-11-10] MEDS: VITAMIN E (DL,TOCOPHERYL ACET) 400 UNIT CAP PO SCH ×2 (08:51→20:45)
[2017-11-10] MEDS: SACUBITRIL/VALSARTAN 24 MG-26 MG TABLET PO SCH ×2 (08:51→20:45)
[2017-11-10] MEDS: MAGNESIUM OXIDE 400 MG TAB PO SCH (08:51)
[2017-11-10] MEDS: CHOLECALCIFEROL 400 UNIT TAB PO SCH ×3 (08:51→20:54)
[2017-11-10] MEDS: SYMBICORT 80-4.5 MCG INHALER INHALATION SCH ×2 (08:54→20:25)
[2017-11-10] MEDS ORDERED: FUROSEMIDE 20 MG TAB PO SCH (09:00)
[2017-11-10] MEDS ORDERED: SPIRONOLACTONE 25 MG TAB PO SCH (09:00)
[2017-11-10] MEDS: MULTIVITAMINS, THERA 1 EACH TAB PO SCH (11:17)
[2017-11-10] MEDS: FOLIC ACID 1 MG TAB PO SCH (11:17)
[2017-11-10 11:49] LABS: Glucose,Whole Blood 135 mg/dL (75-99)
[2017-11-10] MEDS: LACTATED RINGERS 1,000 ML IV SCH (16:01)
[2017-11-10 16:25] LABS: Glucose,Whole Blood 146 mg/dL (75-99)
[2017-11-10] MEDS: WARFARIN 10 MG TAB PO SCH (17:31)
[2017-11-10 20:35] LABS: Glucose,Whole Blood 224 mg/dL (75-99)
[2017-11-10] MEDS: ATORVASTATIN 40 MG TAB PO SCH (20:45)
[2017-11-10] MEDS: SODIUM CHLORIDE 0.9% 1,000 ML IV SCH (20:58)
--- NOTE | 2017-11-11 00:44 | P.PN ---
Subjective Progress Note Date: 11/09/17 Principal diagnosis: Hypotension and acute kidney injury Mr. Avilez is a 57-year-old male with a past medical history of asthma, coronary artery disease status post stenting, status post AICD, CVA/TIA, GERD, DVT, osteoarthritis, sleep apnea on BiPAP coming to the hospital with a chief complaint of fatigue. Patient states that he checked his blood pressure at home and it was very low at 70 x 50 and at the same time he was feeling extremely fatigued and weak so came into the hospital for further evaluation. At the time of admission patient was found to be hypotensive and also has AK I with increased BUN and creatinine. So his blood pressure medications and diuretics have been held and he was given IV fluids overnight. 11/07/2017- this morning patient states that he feels much better in terms of his fatigue and weakness. Patient denies having any chest pain palpitations. No cough no difficulty in breathing. No fevers chills or rigors. No bowel pain nausea vomiting or diarrhea. No dysuria or hematuria. On 11/08/2017-patient is lying in the bed comfortably appears to be no acute distress. He was told by cardiology team that he would be started on the medication dofetilide today. Patient mentions that his fatigue and weakness resolved completely and his back to normal. He denies having any chest pain or palpitations. No cough or difficulty in breathing. No abdominal pain nausea vomiting or diarrhea. No dysuria or hematuria. 11/09/2017 Patient denied any complaints of chest pain. No complaints of Shortness of breath. Acute kidney injuries normalized now. Patient was started back on Coreg, entresto, spironolactone and will start on Lasix once blood pressure is more stable. Patient is being continued on dofetilide 250 mg twice daily for persistent atrial fibrillation. Cardiology is following. Otherwise no cough or sputum production. No nausea vomiting or abdominal pain. No other acute overnight issues. All other review of systems negative for the above Current medications reviewed Objective - Vital Signs Vital signs: Vital Signs Temp 97.1 F L 11/09/17 16:00 Pulse 68 11/09/17 16:00 Resp 18 11/09/17 16:00 BP 114/58 11/09/17 16:00 Pulse Ox 97 11/09/17 16:00 Intake & Output 11/08/17 11/09/17 11/09/17 18:59 06:59 18:59 Intake Total 161 75 3203 Output Total 1750 1200 1400 Balance -1000 -1180 -340 Weight 121.9 kg Intake: IV 30 20 Invasive Line 1 30 20 Intake, IV Titration 100 Amount Magnesium Sulfate-D5w Pmx 100 1 gm In Dextrose/Water 1 100ml.bag @ 100 mls/hr IVPB ONCE ONE Rx#: [id number] Oral 720 960 Output: Urine 1750 1200 1400 Other: Voiding Method Toilet # Voids 1 1 1 - Exam GEN. APPEARANCE: alert, in no apparent distress HEAD EXAM: atraumatic, normocephalic, normal inspection EYE EXAM: normal appearance, PERRL, EOMI. Absent: scleral icterus, conjunctival injection, periorbital swelling ENT EXAM: normal exam, mucous membranes moist NECK EXAM: normal inspection. Absent: tenderness, meningismus, full ROM, lymphadenopathy RESPIRATORY EXAM: normal lung sounds bilaterally. Absent: respiratory distress , wheezes, rales, rhonchi, stridor CARDIOVASCULAR EXAM: regular rate, normal rhythm, normal heart sounds. GI/ABDOMINAL EXAM: soft, normal bowel sounds. Absent: distended, tenderness, guarding, rebound, rigid EXTREMITIES EXAM: normal inspection, full ROM, normal capillary refill. Absent : tenderness, pedal edema, joint swelling, calf tenderness BACK EXAM: normal inspection NEUROLOGICAL EXAM: alert, oriented X3, no focal deficits PSYCHIATRIC EXAM: normal affect, normal mood SKIN EXAM: warm, dry, intact, normal color. Patient does have skin ulcer on left zelaya. - Labs CBC & Chem 7: 11/06/17 09:30 11/10/17 06:27 Labs: Abnormal Lab Results - Last 24 Hours (Table) 11/08/17 11/09/17 11/09/17 Range/Units 20:44 05:43 05:43 PT 20.9 H (9.0-12.0) sec INR 2.3 H (<1.2) Sodium 134 L (137-145) mmol/L Chloride 95 L (98-107) mmol/L BUN 39 H (9-20) mg/dL Glucose 151 H (74-99) mg/dL POC Glucose (mg/dL) 192 H (75-99) mg/dL 11/09/17 11/09/17 11/09/17 Range/Units 05:46 11:43 16:24 PT (9.0-12.0) sec INR (<1.2) Sodium (137-145) mmol/L Chloride (98-107) mmol/L BUN (9-20) mg/dL Glucose (74-99) mg/dL POC Glucose (mg/dL) 146 H 140 H 162 H (75-99) mg/dL Assessment and Plan Assessment: Hypotension due to medication Acute kidney injury - secondary to above. Normalized now. Hypovolemic hyponatremia Chronic systolic congestive heart failure- not in exacerbation Moderate mitral regurgitation Severe tricuspid regurgitation Persistent Atrial fibrillation Hypertension Hyperlipidemia Type 2 diabetes mellitus Coronary artery disease status post CABG and stenting Obesity with BMI of 37.4 Plan: All blood pressure medication and nephrotoxins was held. Patient was given IV fluids at 75 mL/h. patient's symptoms of fatigue and weakness improved. His creatinine has been trending down and his sodium trending up, today at baseline. Cardiology initiating the treatment with dofetilide, for which the patient has to stay in the hospital for at least 5 days. Further recommendations depending on the progress of the patient. Overall prognosis is guarded. Time with Patient: Greater than 30
--- NOTE | 2017-11-11 00:46 | P.PN ---
Subjective Progress Note Date: 11/10/17 Principal diagnosis: Hypotension and acute kidney injury Mr. Avilez is a 57-year-old male with a past medical history of asthma, coronary artery disease status post stenting, status post AICD, CVA/TIA, GERD, DVT, osteoarthritis, sleep apnea on BiPAP coming to the hospital with a chief complaint of fatigue. Patient states that he checked his blood pressure at home and it was very low at 70 x 50 and at the same time he was feeling extremely fatigued and weak so came into the hospital for further evaluation. At the time of admission patient was found to be hypotensive and also has AK I with increased BUN and creatinine. So his blood pressure medications and diuretics have been held and he was given IV fluids overnight. 11/07/2017- this morning patient states that he feels much better in terms of his fatigue and weakness. Patient denies having any chest pain palpitations. No cough no difficulty in breathing. No fevers chills or rigors. No bowel pain nausea vomiting or diarrhea. No dysuria or hematuria. On 11/08/2017-patient is lying in the bed comfortably appears to be no acute distress. He was told by cardiology team that he would be started on the medication dofetilide today. Patient mentions that his fatigue and weakness resolved completely and his back to normal. He denies having any chest pain or palpitations. No cough or difficulty in breathing. No abdominal pain nausea vomiting or diarrhea. No dysuria or hematuria. 11/09/2017 Patient denied any complaints of chest pain. No complaints of Shortness of breath. Acute kidney injuries normalized now. Patient was started back on Coreg, entresto, spironolactone and will start on Lasix once blood pressure is more stable. Patient is being continued on dofetilide 250 mg twice daily for persistent atrial fibrillation. Cardiology is following. Otherwise no cough or sputum production. No nausea vomiting or abdominal pain. No other acute overnight issues. 11/10/2017 Patient denied any complains of chest pain or shortness of breath. Patient was converted to sinus rhythm last night. No headache or dizziness or lightheadedness. Patient was also started on Lasix 40 mg daily. EP is following. No other acute overnight issues otherwise. All other review of systems negative except the above Current medications reviewed Active Medications Alprazolam (Xanax) 0.25 mg PO BID PRN PRN Reason: Anxiety Last Admin: 11/09/17 20:55 Dose: 0.25 mg Aspirin (Aspirin) 81 mg PO DAILY [facility] Last Admin: 11/10/17 08:51 Dose: 81 mg Atorvastatin Calcium (Lipitor) 40 mg PO HS [facility] Last Admin: 11/10/17 20:45 Dose: 40 mg Budesonide/Formoterol Fumarate (Symbicort 80-4.5 Mcg Inhaler) 2 puff INHALATION RT-BID [facility] Last Admin: 11/10/17 20:25 Dose: 2 puff Carvedilol (Coreg) 3.125 mg PO BID-W/MEALS [facility] Last Admin: 11/10/17 17:31 Dose: 3.125 mg Cholecalciferol (Vitamin D3) 400 unit PO TID [facility] Last Admin: 11/10/17 20:54 Dose: 400 unit Clopidogrel Bisulfate (Plavix) 75 mg PO DAILY [facility] Last Admin: 11/10/17 08:51 Dose: 75 mg Dofetilide (Tikosyn) 250 mcg PO Q12HR@0600,1800 [facility] Last Admin: 11/10/17 17:31 Dose: 250 mcg Folic Acid (Folic Acid) 1 mg PO 1200 [facility] Last Admin: 11/10/17 11:17 Dose: 1 mg Furosemide (Lasix) 40 mg PO DAILY [facility] Last Admin: 11/10/17 08:51 Dose: 40 mg Glimepiride (Amaryl) 1 mg PO AC-BRKFST [facility] Last Admin: 11/10/17 06:37 Dose: 1 mg Sodium Chloride (Saline 0.9%) 1,000 mls @ 20 mls/hr IV .Q24H [facility] Last Admin: 11/10/17 20:58 Dose: Not Given Lactated Ringer's (Lactated Ringers) 1,000 mls @ 20 mls/hr IV .Q24H [facility] Last Admin: 11/10/17 16:01 Dose: Not Given Levothyroxine Sodium (Synthroid) 75 mcg PO DAILY@0630 [facility] Last Admin: 11/10/17 06:05 Dose: 75 mcg Magnesium Oxide (Mag-Ox) 400 mg PO DAILY [facility] Last Admin: 11/10/17 08:51 Dose: 400 mg Multivitamins (Theragran) 1 each PO 1200 [facility] Last Admin: 11/10/17 11:17 Dose: 1 each Naloxone HCl (Narcan) 0.2 mg IV Q2M PRN PRN Reason: Opioid Reversal Pantoprazole Sodium (Protonix) 40 mg PO AC-BRKFST [facility] Last Admin: 11/10/17 06:37 Dose: 40 mg Sacubitril/Valsartan (Entresto 24 Mg-26 Mg Tablet) 1 each PO BID [facility] Last Admin: 11/10/17 20:45 Dose: 1 each Spironolactone (Aldactone) 50 mg PO DAILY [facility] Last Admin: 11/10/17 08:51 Dose: 50 mg Vitamin A (Vitamin A) 10,000 unit PO TID-W/MEALS [facility] Last Admin: 11/10/17 17:31 Dose: 10,000 unit Vitamin E (Vitamin E) 400 unit PO BID [facility] Last Admin: 11/10/17 20:45 Dose: 400 unit Warfarin Sodium (Coumadin) 10 mg PO SuMoWeThFr@1800 [facility] Last Admin: 11/10/17 17:31 Dose: 10 mg Objective - Vital Signs Vital signs: Vital Signs Temp 97 F L 11/10/17 20:00 Pulse 64 11/10/17 23:39 Resp 16 11/10/17 23:39 BP 101/63 11/10/17 23:39 Pulse Ox 99 11/10/17 23:39 Intake & Output 11/10/17 11/10/17 11/11/17 06:59 18:59 06:59 Intake Total 1320 720 120 Output Total 715 1500 175 Balance 605 -780 -55 Weight 123.5 kg Intake: IV 20 Invasive Line 2 20 Intake, IV Titration 340 Amount Magnesium Sulfate-D5w Pmx 100 1 gm In Dextrose/Water 1 100ml.bag @ 100 mls/hr IVPB ONCE ONE Rx#: [id number] Sodium Chloride 0.9% 1, 240 000 ml @ 20 mls/hr IV . Q24H [facility] Rx#:[id number] Oral 960 720 120 Output: Urine 715 1500 175 Other: Voiding Method Urinal Urinal # Voids 1 1 1 - Exam GEN. APPEARANCE: alert, in no apparent distress HEAD EXAM: atraumatic, normocephalic, normal inspection EYE EXAM: normal appearance, PERRL, EOMI. Absent: scleral icterus, conjunctival injection, periorbital swelling ENT EXAM: normal exam, mucous membranes moist NECK EXAM: normal inspection. Absent: tenderness, meningismus, full ROM, lymphadenopathy RESPIRATORY EXAM: normal lung sounds bilaterally. Absent: respiratory distress , wheezes, rales, rhonchi, stridor CARDIOVASCULAR EXAM: regular rate, normal rhythm, normal heart sounds. GI/ABDOMINAL EXAM: soft, normal bowel sounds. Absent: distended, tenderness, guarding, rebound, rigid EXTREMITIES EXAM: normal inspection, full ROM, normal capillary refill. Absent : tenderness, pedal edema, joint swelling, calf tenderness BACK EXAM: normal inspection NEUROLOGICAL EXAM: alert, oriented X3, no focal deficits PSYCHIATRIC EXAM: normal affect, normal mood SKIN EXAM: warm, dry, intact, normal color. Patient does have skin ulcer on left zelaya. - Labs CBC & Chem 7: 11/06/17 09:30 11/10/17 06:27 Labs: Abnormal Lab Results - Last 24 Hours (Table) 11/10/17 11/10/17 11/10/17 Range/Units 05:57 06:27 06:27 PT 19.6 H (9.0-12.0) sec INR 2.2 H (<1.2) Sodium 136 L (137-145) mmol/L Chloride 97 L (98-107) mmol/L BUN 30 H (9-20) mg/dL Glucose 122 H (74-99) mg/dL POC Glucose (mg/dL) 133 H (75-99) mg/dL 11/10/17 11/10/17 11/10/17 Range/Units 11:28 16:23 20:34 PT (9.0-12.0) sec INR (<1.2) Sodium (137-145) mmol/L Chloride (98-107) mmol/L BUN (9-20) mg/dL Glucose (74-99) mg/dL POC Glucose (mg/dL) 135 H 146 H 224 H (75-99) mg/dL Assessment and Plan Assessment: Hypotension due to medication Acute kidney injury - secondary to above. Normalized now. Hypovolemic hyponatremia Chronic systolic congestive heart failure- not in exacerbation Severe ischemic cardiomyopathy Moderate mitral regurgitation Severe tricuspid regurgitation Persistent Atrial fibrillation Hypertension Hyperlipidemia Type 2 diabetes mellitus Coronary artery disease status post CABG and stenting Obesity with BMI of 37.4 Plan: All blood pressure medication and nephrotoxins was held. Patient was given IV fluids at 75 mL/h. patient's symptoms of fatigue and weakness improved. His creatinine has been trending down and his sodium trending up, today at baseline. Cardiology initiating the treatment with dofetilide, for which the patient has to stay in the hospital for at least 5 days. Further recommendations depending on the progress of the patient. Overall prognosis is guarded. Time with Patient: Greater than 30
[2017-11-11 05:49] LABS: Glucose,Whole Blood 124 mg/dL (75-99)
[2017-11-11] MEDS: LEVOTHYROXINE 75 MCG TAB PO SCH (06:07)
[2017-11-11] MEDS: DOFETILIDE 250 MCG CAP PO SCH (06:07)
[2017-11-11] MEDS: VITAMIN A 10,000 UNIT CAPSULE PO SCH ×3 (06:34→17:52)
[2017-11-11] MEDS: CARVEDILOL 3.125 MG TAB PO SCH ×2 (06:35→17:52)
[2017-11-11] MEDS: GLIMEPIRIDE 1 MG TAB PO SCH (06:35)
[2017-11-11] MEDS: PANTOPRAZOLE 40 MG TABLET PO SCH (06:35)
[2017-11-11 06:47] LABS: Prothrombin Time 17.8 sec (9.0-12.0)
[2017-11-11 06:49] LABS: Anion Gap 10 mmol/L; Blood Urea Nitrogen 23 mg/dL (9-20); Calcium 9.2 mg/dL (8.4-10.2); Carbon Dioxide 28 mmol/L (22-30); Chloride 98 mmol/L (98-107); Glucose 113 mg/dL (74-99); Magnesium 1.7 mg/dL (1.6-2.3); Potassium 4.3 mmol/L (3.5-5.1); Sodium 136 mmol/L (137-145)
[2017-11-11] MEDS ORDERED: ENOXAPARIN 80 MG/0.8 ML SYRINGE SQ STA (07:33)
[2017-11-11] MEDS: SYMBICORT 80-4.5 MCG INHALER INHALATION SCH ×2 (08:13→20:37)
[2017-11-11] MEDS: MAGNESIUM SULFATE-D5W PMX 1 GM in DEXTROSE/WATER 1 100ML.BAG IVPB SCH ×2 (08:28→08:44)
[2017-11-11] MEDS: CLOPIDOGREL 75 MG TAB PO SCH (08:33)
[2017-11-11] MEDS: ASPIRIN 81 MG PO SCH (08:33)
[2017-11-11] MEDS: CHOLECALCIFEROL 400 UNIT TAB PO SCH ×3 (08:33→20:01)
[2017-11-11] MEDS: VITAMIN E (DL,TOCOPHERYL ACET) 400 UNIT CAP PO SCH ×2 (08:34→20:01)
[2017-11-11] MEDS: FUROSEMIDE 40 MG TAB PO SCH (08:34)
[2017-11-11] MEDS: SPIRONOLACTONE 25 MG TAB PO SCH (08:34)
[2017-11-11] MEDS: MAGNESIUM OXIDE 400 MG TAB PO SCH (08:34)
[2017-11-11] MEDS: SACUBITRIL/VALSARTAN 24 MG-26 MG TABLET PO SCH ×2 (08:34→20:01)
[2017-11-11] MEDS: MULTIVITAMINS, THERA 1 EACH TAB PO SCH (11:16)
[2017-11-11] MEDS: FOLIC ACID 1 MG TAB PO SCH (11:16)
[2017-11-11 11:53] LABS: Glucose,Whole Blood 150 mg/dL (75-99)
--- NOTE | 2017-11-11 14:36 | P.PN ---
Subjective Progress Note Date: 11/11/17 This is a pleasant 57 year old gentleman who follows with Dr. Ann in the office. He has a known history of ischemic cardio myopathy, paroxysmal atrial fibrillation with prior cardioversion, biventricular failure, hospital on the of this month, readmitted to the hospital over the weekend , presented this time with symptoms of weakness and dizziness as well as low blood pressure. Primarily patient admitted with hypotension, fatigue and low flow state. Diuretics and blood pressure medication were held on admission here. His creatinine on admission was 1.9, 1.1 this morning. INR 1.9. Patient had been on amiodarone in the past, today he will be initiated on Tikosyn by Dr. Olivarez. We will also put the patient on Coreg, decrease dose from what he was taking at home. If the blood pressure tolerates, we will start the patient on a contrast O from tomorrow and resume his diuretics from Wednesday. 11/09/2017 Patient seen and examined this morning, states he was feeling a little depressed today overall. Physically he is doing well. Blood pressure 125/60 with a heart rate in the 70s to 80s, 99% on room air. Pro time 20.9, INR 2.3, sodium 134, potassium 4.3, BUN 39, creatinine 1.2, magnesium 1.9. EKG from this morning has been reviewed QTC 542. We will resume the Entresto as well as Aldactone today. From tomorrow we will reinitiate diuretics, Demadex 20 twice a day. 11/11/2017 Yesterday patient converted to normal sinus rhythm and remains in a normal sinus rhythm today. EKGs were reviewed by louann Lynn and the QT noted. Therefore the dose of T consent was decreased to 125 g twice a day today. Blood pressure 104/70 with a heart rate in the 60s, 98% on room air. INR 2.0, sodium 136, potassium 4.3, BUN 23, creatinine 1.0. Mag 1.7. Objective - Vital Signs Vital signs: Vital Signs Temp 97.0 F L 11/11/17 11:12 Pulse 63 11/11/17 12:00 Resp 16 11/11/17 11:12 BP 103/76 11/11/17 11:12 Pulse Ox 98 08/30/18 11:12 Intake & Output 11/10/17 11/11/17 11/11/17 18:59 06:59 18:59 Intake Total 720 120 480 Output Total 1500 1350 980 Balance -780 -5100 -500 Weight 123.7 kg Intake: Oral 720 120 480 Output: Urine 1500 1350 980 Other: Voiding Method Urinal # Voids 1 1 2 - Exam PHYSICAL EXAMINATION: GENERAL: 57-year-old gentleman in no acute distress at the time of my examination HEENT: Head is atraumatic, normocephalic. Pupils equal, round. Sclera anicteric. Conjunctiva are clear. Mucous membranes of the mouth are moist. Neck is supple. There is no elevated jugular venous pressure.] bruit is heard. HEART EXAMINATION: Heart S1, S2 irregularly irregular . No murmur or gallop heard. CHEST EXAMINATION: Lungs are clear to auscultation and precussion. No chest wall tenderness is noted on palpation or with deep breathing. ABDOMEN: Soft, obese, no ascites noted, nontender. Bowel sounds are heard. No organomegaly noted. EXTREMITIES: 2+ peripheral pulses with no evidence of peripheral edema and no calf tenderness noted]. NEUROLOGIC [patient is awake, alert and oriented ?-3.] - Labs CBC & Chem 7: 11/06/17 09:30 11/11/17 06:13 Labs: Abnormal Lab Results - Last 24 Hours (Table) 11/10/17 11/10/17 11/11/17 Range/Units 16:23 20:34 05:47 PT (9.0-12.0) sec INR (<1.2) Sodium (137-145) mmol/L BUN (9-20) mg/dL Glucose (74-99) mg/dL POC Glucose (mg/dL) 146 H 224 H 124 H (75-99) mg/dL 11/11/17 11/11/17 11/11/17 Range/Units 06:13 06:13 11:49 PT 17.8 H (9.0-12.0) sec INR 2.0 H (<1.2) Sodium 136 L (137-145) mmol/L BUN 23 H (9-20) mg/dL Glucose 113 H (74-99) mg/dL POC Glucose (mg/dL) 150 H (75-99) mg/dL Assessment and Plan Plan: Assessment and plan #1 hypotension and fatigue secondary to low flow state with prerenal acidemia secondary to severe heart failure #2 chronic systolic congestive heart failure #3 ischemic cardiomyopathy with prior dual-chamber AICD Plan Tikosin dose has been decreased to 125 g twice a day today. We'll continue to monitor the patient for another 24 hours. DNP note has been reviewed, I agree with a documented findings and plan of care. Patient was seen and examined.
[2017-11-11] MEDS: LACTATED RINGERS 1,000 ML IV SCH (15:27)
[2017-11-11 16:22] LABS: Glucose,Whole Blood 143 mg/dL (75-99)
[2017-11-11] MEDS: WARFARIN 10 MG TAB PO SCH (17:53)
[2017-11-11] MEDS: DOFETILIDE 125 MCG CAP PO SCH (17:54)
[2017-11-11] MEDS: SODIUM CHLORIDE 0.9% 1,000 ML IV SCH (17:54)
[2017-11-11] MEDS: ATORVASTATIN 40 MG TAB PO SCH (20:01)
[2017-11-11 20:48] LABS: Glucose,Whole Blood 118 mg/dL (75-99)
[2017-11-11 21:31] VITALS: TEMP 97.1
--- NOTE | 2017-11-11 21:37 | PN ---
PROGRESS NOTE Mr. Avilez is doing well. He received 250 mcg of dofetilide last night and this morning. However, this morning his QT interval was 520 milliseconds, absolute QT interval. He was asymptomatic. He had no arrhythmias. His magnesium was also low and he received IV magnesium for a magnesium of 1.7. His INR is 2.0. He got a single dose of Lovenox and Coumadin was continued. His labs were reviewed. Sodium 136, potassium 4.3, BUN 23, creatinine 1.03, which is steadily improving. EXAMINATION: His vitals are stable, afebrile, 97.0 degrees Fahrenheit, respirations are normal, blood pressure 112/74 mmHg, pulse rate in the 60s. He is in sinus rhythm. There was normal NH interval, but a prolonged QT interval on dofetilide 250 mcg twice daily. Breath sounds are reduced bilaterally, but there are no rhonchi, no crackles. No JVD. No lower extremity edema. Abdomen is soft. There is central obesity noted. Heart sounds are normal and regular. No murmurs or gallops. No rub. IMPRESSION: 1. Severe ischemic cardiomyopathy with severe left ventricular dysfunction. 2. Severe heart failure admitted with hypertension and low-flow state on account of over-diuresis. 3. Recently discharged from the hospital after treatment of severe congestion with anasarca and IV Lasix drip. 4. Doing very well after adjustment in the dose of the diuretics and his creatinine has improved steadily. 5. Persistent symptomatic atrial fibrillation, despite rate control and chemical conversion with dofetilide 250 mcg twice daily. However, QT interval prolonged on this dose within the 4th dose itself and therefore the dose is being reduced to 125 mcg twice daily and will continue to observe him on telemetry. Suggest increase spironolactone to 75 mg p.o. daily. Continue diuretics. Continue cardiac medications. A single dose of Lovenox was given. Coumadin was continued. Follow electrolytes and magnesium and continue QT monitoring with serial 12-lead ECGs on dofetilide 125 mcg twice daily. If his QT interval stabilizes and is less than 480- 490 milliseconds in the next 2 days, then we will discharge home. I had a very detailed discussion with him regarding the do's and don'ts regarding Tikosyn. A full Tikosyn education was provided by me personally. He and his were both present. I explained the issues and the precautions to be taken regarding drug interactions, hypokalemia, hypomagnesemia, worsening renal function and the usual precautions with Tikosyn. All questions are answered. He will be monitored on telemetry until Wednesday and if his QT interval is normal on Wednesday, only then will be discharged on dofetilide. Slow-Mag has also been added. MMODL / IJN: [id number] /
--- NOTE | 2017-11-11 23:33 | P.PN ---
Subjective Progress Note Date: 11/11/17 Principal diagnosis: Hypotension and acute kidney injury Mr. Avilez is a 57-year-old male with a past medical history of asthma, coronary artery disease status post stenting, status post AICD, CVA/TIA, GERD, DVT, osteoarthritis, sleep apnea on BiPAP coming to the hospital with a chief complaint of fatigue. Patient states that he checked his blood pressure at home and it was very low at 70 x 50 and at the same time he was feeling extremely fatigued and weak so came into the hospital for further evaluation. At the time of admission patient was found to be hypotensive and also has AK I with increased BUN and creatinine. So his blood pressure medications and diuretics have been held and he was given IV fluids overnight. 11/07/2017- this morning patient states that he feels much better in terms of his fatigue and weakness. Patient denies having any chest pain palpitations. No cough no difficulty in breathing. No fevers chills or rigors. No bowel pain nausea vomiting or diarrhea. No dysuria or hematuria. On 11/08/2017-patient is lying in the bed comfortably appears to be no acute distress. He was told by cardiology team that he would be started on the medication dofetilide today. Patient mentions that his fatigue and weakness resolved completely and his back to normal. He denies having any chest pain or palpitations. No cough or difficulty in breathing. No abdominal pain nausea vomiting or diarrhea. No dysuria or hematuria. 11/09/2017 Patient denied any complaints of chest pain. No complaints of Shortness of breath. Acute kidney injuries normalized now. Patient was started back on Coreg, entresto, spironolactone and will start on Lasix once blood pressure is more stable. Patient is being continued on dofetilide 250 mg twice daily for persistent atrial fibrillation. Cardiology is following. Otherwise no cough or sputum production. No nausea vomiting or abdominal pain. No other acute overnight issues. 11/10/2017 Patient denied any complains of chest pain or shortness of breath. Patient was converted to sinus rhythm last night. No headache or dizziness or lightheadedness. Patient was also started on Lasix 40 mg daily. EP is following. No other acute overnight issues otherwise. 11/11/2017 Patient remained in sinus rhythm.dofetilide dose reduced to 125 g due to acute prolongation. Otherwise patient is symptomatically much improved. EP is closely monitoring. No fever no chills. No nausea vomiting or abdominal pain. No chest pain or shortness of breath. All other review of systems negative except the above Current medications reviewed Active Medications Active Medications Generic Name Dose Route Start Last Admin Trade Name Freq PRN Reason Stop Dose Admin Alprazolam 0.25 mg 11/06/17 15:41 11/09/17 20:55 Xanax PO 0.25 mg BID PRN Administration Anxiety Aspirin 81 mg 11/07/17 09:00 11/11/17 08:33 Aspirin PO 81 mg DAILY EMERY Administration Atorvastatin Calcium 40 mg 11/06/17 21:00 11/11/17 20:01 Lipitor PO 40 mg HS EMERY Administration Budesonide/Formoterol Fumarate 2 puff 11/06/17 20:00 11/11/17 20:37 Symbicort 80-4.5 Mcg Inhaler INHALATION 2 puff RT-BID EMERY Administration Carvedilol 3.125 mg 11/08/17 11:00 11/11/17 17:52 Coreg PO 3.125 mg BID-W/MEALS EMERY Administration Cholecalciferol 400 unit 11/06/17 16:00 11/11/17 20:01 Vitamin D3 PO 400 unit TID EMERY Administration Clopidogrel Bisulfate 75 mg 11/07/17 09:00 11/11/17 08:33 Plavix PO 75 mg DAILY EMERY Administration Dofetilide 125 mcg 11/11/17 18:00 11/11/17 17:54 Tikosyn PO 125 mcg Q12HR@0600,1800 EMERY Administration Folic Acid 1 mg 11/07/17 12:00 11/11/17 11:16 Folic Acid PO 1 mg 1200 EMERY Administration Furosemide 40 mg 11/10/17 09:00 11/11/17 08:34 Lasix PO 40 mg DAILY EMERY Administration Glimepiride 1 mg 11/07/17 07:30 11/11/17 06:35 Amaryl PO 1 mg AC-BRKFST EMERY Administration Levothyroxine Sodium 75 mcg 11/07/17 06:30 11/11/17 06:07 Synthroid PO 75 mcg DAILY@0630 EMERY Administration Magnesium Oxide 400 mg 11/10/17 09:00 11/11/17 08:34 Mag-Ox PO 400 mg DAILY EMERY Administration Multivitamins 1 each 11/07/17 12:00 11/11/17 11:16 Theragran PO 1 each 1200 EMERY Administration Naloxone HCl 0.2 mg 11/06/17 11:16 Narcan IV Q2M PRN Opioid Reversal Pantoprazole Sodium 40 mg 11/07/17 07:30 11/11/17 06:35 Protonix PO 40 mg AC-BRKFST [facility] Administration Sacubitril/Valsartan 1 each 11/09/17 21:00 11/11/17 20:01 Entresto 24 Mg-26 Mg Tablet PO 1 each BID EMERY Administration Spironolactone 75 mg 11/11/17 09:00 11/11/17 08:34 Aldactone PO 75 mg DAILY [facility] Administration Vitamin A 10,000 unit 11/06/17 17:30 11/11/17 17:52 Vitamin A PO 10,000 unit TID-W/MEALS [facility] Administration Vitamin E 400 unit 11/06/17 21:00 11/11/17 20:01 Vitamin E PO 400 unit BID [facility] Administration Warfarin Sodium 10 mg 11/07/17 18:00 11/11/17 17:53 Coumadin PO 10 mg SuMoWeThFr@1800 EMERY Administration Objective - Vital Signs Vital signs: Vital Signs Temp 97.0 F L 11/11/17 11:12 Pulse 63 11/11/17 12:00 Resp 16 11/11/17 11:12 BP 103/76 11/11/17 11:12 Pulse Ox 98 11/11/17 11:12 Intake & Output 11/10/17 11/11/17 11/11/17 18:59 06:59 18:59 Intake Total 720 120 480 Output Total 1500 1350 980 Balance -780 -1230 -500 Weight 123.7 kg Intake: Oral 720 120 480 Output: Urine 1500 1350 980 Other: Voiding Method Urinal # Voids 1 1 2 - Exam GEN. APPEARANCE: alert, in no apparent distress HEAD EXAM: atraumatic, normocephalic, normal inspection EYE EXAM: normal appearance, PERRL, EOMI. Absent: scleral icterus, conjunctival injection, periorbital swelling ENT EXAM: normal exam, mucous membranes moist NECK EXAM: normal inspection. Absent: tenderness, meningismus, full ROM, lymphadenopathy RESPIRATORY EXAM: normal lung sounds bilaterally. Absent: respiratory distress , wheezes, rales, rhonchi, stridor CARDIOVASCULAR EXAM: regular rate, normal rhythm, normal heart sounds. GI/ABDOMINAL EXAM: soft, normal bowel sounds. Absent: distended, tenderness, guarding, rebound, rigid EXTREMITIES EXAM: normal inspection, full ROM, normal capillary refill. Absent : tenderness, pedal edema, joint swelling, calf tenderness BACK EXAM: normal inspection NEUROLOGICAL EXAM: alert, oriented X3, no focal deficits PSYCHIATRIC EXAM: normal affect, normal mood SKIN EXAM: warm, dry, intact, normal color. Patient does have skin ulcer on left zelaya. - Labs CBC & Chem 7: 11/06/17 09:30 11/11/17 06:13 Labs: Abnormal Lab Results - Last 24 Hours (Table) 11/10/17 11/10/17 11/11/17 Range/Units 16:23 20:34 05:47 PT (9.0-12.0) sec INR (<1.2) Sodium (137-145) mmol/L BUN (9-20) mg/dL Glucose (74-99) mg/dL POC Glucose (mg/dL) 146 H 224 H 124 H (75-99) mg/dL 11/11/17 11/11/17 11/11/17 Range/Units 06:13 06:13 11:49 PT 17.8 H (9.0-12.0) sec INR 2.0 H (<1.2) Sodium 136 L (137-145) mmol/L BUN 23 H (9-20) mg/dL Glucose 113 H (74-99) mg/dL POC Glucose (mg/dL) 150 H (75-99) mg/dL Assessment and Plan Assessment: Hypotension due to medication. Improved now. Acute kidney injury - secondary to above. Normalized now. Hypovolemic hyponatremia Chronic systolic congestive heart failure- not in exacerbation Severe ischemic cardiomyopathy Moderate mitral regurgitation Severe tricuspid regurgitation Persistent Atrial fibrillation. Currently converted to sinus rhythm. Hypertension Hyperlipidemia Type 2 diabetes mellitus Coronary artery disease status post CABG and stenting Obesity with BMI of 37.4 Plan: All blood pressure medication and nephrotoxins was held. Patient was given IV fluids at 75 mL/h. currently DC'd. patient's symptoms of fatigue and weakness improved. His creatinine has been trending down and his sodium trending up, today at baseline. Cardiology initiating the treatment with dofetilide, for which the patient has to stay in the hospital for at least 5 days. Further recommendations depending on the progress of the patient. Overall prognosis is guarded. Time with Patient: Greater than 30
[2017-11-12] MEDS: LEVOTHYROXINE 75 MCG TAB PO SCH (05:49)
[2017-11-12] MEDS: DOFETILIDE 125 MCG CAP PO SCH (05:49)
[2017-11-12 06:05] LABS: Glucose,Whole Blood 104 mg/dL (75-99)
[2017-11-12 06:57] LABS: Calcium 9.4 mg/dL (8.4-10.2); INR 1.9 (<1.2); Magnesium 1.9 mg/dL (1.6-2.3); Potassium 4.6 mmol/L (3.5-5.1); Prothrombin Time 17.6 sec (9.0-12.0)
[2017-11-12] MEDS: CARVEDILOL 3.125 MG TAB PO SCH (07:00)
[2017-11-12] MEDS: PANTOPRAZOLE 40 MG TABLET PO SCH (07:00)
[2017-11-12] MEDS: GLIMEPIRIDE 1 MG TAB PO SCH (07:00)
[2017-11-12] MEDS: VITAMIN A 10,000 UNIT CAPSULE PO SCH ×2 (07:00→08:05)
[2017-11-12] MEDS: SPIRONOLACTONE 25 MG TAB PO SCH (08:04)
[2017-11-12] MEDS: FOLIC ACID 1 MG TAB PO SCH (08:04)
[2017-11-12] MEDS: CHOLECALCIFEROL 400 UNIT TAB PO SCH ×2 (08:04→08:05)
[2017-11-12] MEDS: MAGNESIUM OXIDE 400 MG TAB PO SCH (08:05)
[2017-11-12] MEDS: FUROSEMIDE 40 MG TAB PO SCH (08:05)
[2017-11-12] MEDS: ASPIRIN 81 MG PO SCH (08:05)
[2017-11-12] MEDS: SACUBITRIL/VALSARTAN 24 MG-26 MG TABLET PO SCH (08:05)
[2017-11-12] MEDS: MULTIVITAMINS, THERA 1 EACH TAB PO SCH (08:05)
[2017-11-12] MEDS: CLOPIDOGREL 75 MG TAB PO SCH (08:06)
[2017-11-12] MEDS: SYMBICORT 80-4.5 MCG INHALER INHALATION SCH (08:41)
[2017-11-12] MEDS: MAGNESIUM SULFATE-D5W PMX 1 GM in DEXTROSE/WATER 1 100ML.BAG IVPB SCH ×2 (08:46→10:53)
[2017-11-12] MEDS: VITAMIN E (DL,TOCOPHERYL ACET) 400 UNIT CAP PO SCH (11:44)
[2017-11-12 11:51] VITALS: BP 112/63; PULSE 60
[2017-11-12 12:21] LABS: Glucose,Whole Blood 115 mg/dL (75-99)
--- NOTE | 2017-11-12 14:16 | P.PN ---
Subjective Progress Note Date: 11/12/17 This is a pleasant 57 year old gentleman who follows with Dr. Ann in the office. He has a known history of ischemic cardio myopathy, paroxysmal atrial fibrillation with prior cardioversion, biventricular failure, hospital on the of this month, readmitted to the hospital over the weekend , presented this time with symptoms of weakness and dizziness as well as low blood pressure. Primarily patient admitted with hypotension, fatigue and low flow state. Diuretics and blood pressure medication were held on admission here. His creatinine on admission was 1.9, 1.1 this morning. INR 1.9. Patient had been on amiodarone in the past, today he will be initiated on Tikosyn by Dr. Olivarez. We will also put the patient on Coreg, decrease dose from what he was taking at home. If the blood pressure tolerates, we will start the patient on a contrast O from tomorrow and resume his diuretics from Wednesday. 11/09/2017 Patient seen and examined this morning, states he was feeling a little depressed today overall. Physically he is doing well. Blood pressure 125/60 with a heart rate in the 70s to 80s, 99% on room air. Pro time 20.9, INR 2.3, sodium 134, potassium 4.3, BUN 39, creatinine 1.2, magnesium 1.9. EKG from this morning has been reviewed QTC 542. We will resume the Entresto as well as Aldactone today. From tomorrow we will reinitiate diuretics, Demadex 20 twice a day. 11/11/2017 Yesterday patient converted to normal sinus rhythm and remains in a normal sinus rhythm today. EKGs were reviewed by louann Lynn and the QT noted. Therefore the dose of T consent was decreased to 125 g twice a day today. Blood pressure 104/70 with a heart rate in the 60s, 98% on room air. INR 2.0, sodium 136, potassium 4.3, BUN 23, creatinine 1.0. Mag 1.7. 11/12/2017 Patient seen and examined this morning, overall doing significantly well. No complaints. EKGs reviewed this morning by Dr. Olivarez, patient is tolerating the lower dose of Tikosyn. Patient may be discharged home today. He'll return to the hospital for an ablation as scheduled by Dr. Olivarez. Objective - Vital Signs Vital signs: Vital Signs Temp 97.1 F L 11/11/17 20:00 Pulse 60 11/12/17 11:50 Resp 16 11/12/17 11:50 BP 112/63 11/12/17 11:50 Pulse Ox 99 11/12/17 11:50 Intake & Output 11/11/17 11/12/17 11/12/17 18:59 06:59 18:59 Intake Total 720 400 Output Total 1860 625 300 Balance -1140 -625 100 Weight 124.2 kg Intake: Oral 720 400 Output: Urine 1860 625 300 Other: Voiding Method Urinal Urinal # Voids 2 2 1 - Exam PHYSICAL EXAMINATION: GENERAL: 57-year-old gentleman in no acute distress at the time of my examination HEENT: Head is atraumatic, normocephalic. Pupils equal, round. Sclera anicteric. Conjunctiva are clear. Mucous membranes of the mouth are moist. Neck is supple. There is no elevated jugular venous pressure.] bruit is heard. HEART EXAMINATION: Heart S1, S2 irregularly irregular . No murmur or gallop heard. CHEST EXAMINATION: Lungs are clear to auscultation and precussion. No chest wall tenderness is noted on palpation or with deep breathing. ABDOMEN: Soft, obese, no ascites noted, nontender. Bowel sounds are heard. No organomegaly noted. EXTREMITIES: 2+ peripheral pulses with no evidence of peripheral edema and no calf tenderness noted]. NEUROLOGIC [patient is awake, alert and oriented ?-3.] - Labs CBC & Chem 7: 11/06/17 09:30 11/12/17 06:13 Labs: Abnormal Lab Results - Last 24 Hours (Table) 11/11/17 11/11/17 11/12/17 Range/Units 16:12 20:47 06:02 PT (9.0-12.0) sec INR (<1.2) Sodium (137-145) mmol/L BUN (9-20) mg/dL Glucose (74-99) mg/dL POC Glucose (mg/dL) 143 H 118 H 104 H (75-99) mg/dL 11/12/17 11/12/17 11/12/17 Range/Units 06:13 06:13 12:07 PT 17.6 H (9.0-12.0) sec INR 1.9 H (<1.2) Sodium 136 L (137-145) mmol/L BUN 24 H (9-20) mg/dL Glucose 104 H (74-99) mg/dL POC Glucose (mg/dL) 115 H (75-99) mg/dL Assessment and Plan Plan: Assessment and plan #1 hypotension and fatigue secondary to low flow state with prerenal acidemia secondary to severe heart failure #2 chronic systolic congestive heart failure #3 ischemic cardiomyopathy with prior dual-chamber AICD Plan From cardiology's perspective, patient may be able to be discharged home, discharge medications as per Dr. Olivarez. Follow-up appointment with Dr. Haque and Dr. Ann in the office post discharge. DNP note has been reviewed, I agree with a documented findings and plan of care. Patient was seen and examined.
[2017-11-12] MEDS ORDERED: MAGNESIUM OXIDE 400 MG TAB PO SCH (21:00)
--- NOTE | 2017-11-12 23:49 | P.DS ---
Providers Date of admission: 11/06/17 11:16 Expected date of discharge: 11/12/17 Attending physician: Michelle Thibodeaux Consults: 11/06/17 11:16 Consult Physician Stat Consulting Provider: Demetrius Olivarez Reason/Comments: Cardiac care Do you want consulting provider notified?: Already Contacted Primary care physician: Robi [place] Hospital Course: Discharge diagnosis Hypotension due to medication. Improved now. Acute kidney injury - secondary to above. Normalized now. Hypovolemic hyponatremia Chronic systolic congestive heart failure- not in exacerbation Severe ischemic cardiomyopathy Moderate mitral regurgitation Severe tricuspid regurgitation Persistent Atrial fibrillation. Currently converted to sinus rhythm. Hypertension Hyperlipidemia Type 2 diabetes mellitus Coronary artery disease status post CABG and stenting Obesity with BMI of 37.4 Hospital course Mr. Avilez is a 57-year-old male with a past medical history of asthma, coronary artery disease status post stenting, status post AICD, CVA/TIA, GERD, DVT, osteoarthritis, sleep apnea on BiPAP coming to the hospital with a chief complaint of fatigue. Patient states that he checked his blood pressure at home and it was very low at 70 x 50 and at the same time he was feeling extremely fatigued and weak so came into the hospital for further evaluation. At the time of admission patient was found to be hypotensive and also has AK I with increased BUN and creatinine. So his blood pressure medications and diuretics have been held and he was given IV fluids overnight. 11/07/2017- this morning patient states that he feels much better in terms of his fatigue and weakness. Patient denies having any chest pain palpitations. No cough no difficulty in breathing. No fevers chills or rigors. No bowel pain nausea vomiting or diarrhea. No dysuria or hematuria. On 11/08/2017-patient is lying in the bed comfortably appears to be no acute distress. He was told by cardiology team that he would be started on the medication dofetilide today. Patient mentions that his fatigue and weakness resolved completely and his back to normal. He denies having any chest pain or palpitations. No cough or difficulty in breathing. No abdominal pain nausea vomiting or diarrhea. No dysuria or hematuria. 11/09/2017 Patient denied any complaints of chest pain. No complaints of Shortness of breath. Acute kidney injuries normalized now. Patient was started back on Coreg, entresto, spironolactone and will start on Lasix once blood pressure is more stable. Patient is being continued on dofetilide 250 mg twice daily for persistent atrial fibrillation. Cardiology is following. Otherwise no cough or sputum production. No nausea vomiting or abdominal pain. No other acute overnight issues. 11/10/2017 Patient denied any complains of chest pain or shortness of breath. Patient was converted to sinus rhythm last night. No headache or dizziness or lightheadedness. Patient was also started on Lasix 40 mg daily. EP is following. No other acute overnight issues otherwise. 11/11/2017 Patient remained in sinus rhythm.dofetilide dose reduced to 125 g due to acute prolongation. Otherwise patient is symptomatically much improved. EP is closely monitoring. No fever no chills. No nausea vomiting or abdominal pain. No chest pain or shortness of breath. 11/12/2017 Patient denied any new complaints today. Heart rate is controlled. Maintaining sinus rhythm. Acute kidney injury resolved. Otherwise patient is stable to be discharged home and follow with EP as an outpatient. Discharge physical examination was done and vitals reviewed Vital Signs - 24 hr 11/12/17 11/12/17 11/12/17 00:00 04:00 08:00 Pulse Rate [ 73 60 69 Pulse Oximetery ] Respiratory 16 16 16 Rate Blood Pressure 120/63 105/57 92/55 [Left Arm] O2 Sat by Pulse 98 99 99 Oximetry 11/12/17 11/12/17 10:57 11:50 Pulse Rate [ 60 Pulse Oximetery ] Respiratory 16 16 Rate Blood Pressure 112/63 [Left Arm] O2 Sat by Pulse 99 Oximetry Patient Condition at Discharge: Stable Plan - Discharge Summary New Discharge Prescriptions: New Carvedilol [Coreg] 3.125 mg PO BID-W/MEALS #60 tab Dofetilide [Tikosyn] 125 mcg PO Q12HR@0600,1800 cap Furosemide [Lasix] 40 mg PO DAILY #30 tab Magnesium Oxide [Mag-Ox] 400 mg PO DAILY #30 tab Spironolactone [Aldactone] 75 mg PO DAILY #30 tab Continue Clopidogrel [Plavix] 75 mg PO DAILY Folic Acid 1 mg PO DAILY ALPRAZolam [Xanax] 0.25 mg PO BID PRN PRN Reason: Anxiety Warfarin [Coumadin] 10 mg PO SUMOWETHFR Vitamin B Complex 1 cap PO DAILY Vitamin A 8,000 units PO TID Fluticasone/Salmeterol [Advair 250-50 Diskus] 1 puff INHALATION RT-BID Cholecalciferol [Vitamin D3] 400 mg PO TID Aspirin EC [Ecotrin Low Dose] 81 mg PO DAILY Vitamin E (Dl,Tocopheryl Acet) [Vitamin E] 400 unit PO BID Multivitamins, Thera [Multivitamin (formulary)] 1 tab PO DAILY Esomeprazole Magnesium [NexIUM] 20 mg PO DAILY Atorvastatin [Lipitor] 40 mg PO HS Glimepiride [Amaryl] 1 mg PO AC-BRKFST #30 tab Levothyroxine Sodium [Synthroid] 75 mcg PO DAILY@0630 Sacubitril/Valsartan [Entresto 24 mg-26 mg Tablet] 1 tab PO BID Warfarin Sodium [Coumadin] 6 mg PO TUSA Discontinued Tamsulosin HCl [Flomax] 0.4 mg PO HS Spironolactone [Aldactone] 50 mg PO DAILY Fish Oil/Dha/Epa [Fish Oil 1,200 mg Fish Oil] 1 cap PO TID Carvedilol [Coreg*] 12.5 mg PO BID Metolazone [Zaroxolyn] 5 mg PO MOTH #20 tab Torsemide [Demadex] 40 mg PO BID #60 tab Discharge Medication List ALPRAZolam [Xanax] 0.25 mg PO BID PRN 09/04/14 [History] Clopidogrel [Plavix] 75 mg PO DAILY 09/04/14 [History] Folic Acid 1 mg PO DAILY 09/04/14 [History] Warfarin [Coumadin] 10 mg PO SUMOWETHFR 10/01/14 [History] Cholecalciferol [Vitamin D3] 400 mg PO TID 12/31/14 [History] Fluticasone/Salmeterol [Advair 250-50 Diskus] 1 puff INHALATION RT-BID 12/31/14 [History] Vitamin A 8,000 units PO TID 12/31/14 [History] Vitamin B Complex 1 cap PO DAILY 12/31/14 [History] Aspirin EC [Ecotrin Low Dose] 81 mg PO DAILY 10/25/15 [History] Vitamin E (Dl,Tocopheryl Acet) [Vitamin E] 400 unit PO BID 10/14/17 [History] Atorvastatin [Lipitor] 40 mg PO HS 10/23/17 [History] Esomeprazole Magnesium [NexIUM] 20 mg PO DAILY 10/23/17 [History] Multivitamins, Thera [Multivitamin (formulary)] 1 tab PO DAILY 10/23/17 [History ] Glimepiride [Amaryl] 1 mg PO AC-BRKFST #30 tab 10/28/17 [Rx] Levothyroxine Sodium [Synthroid] 75 mcg PO DAILY@0630 11/06/17 [History] Sacubitril/Valsartan [Entresto 24 mg-26 mg Tablet] 1 tab PO BID 11/06/17 [ History] Warfarin Sodium [Coumadin] 6 mg PO TUSA 11/06/17 [History] Carvedilol [Coreg] 3.125 mg PO BID-W/MEALS #60 tab 11/12/17 [Rx] Dofetilide [Tikosyn] 125 mcg PO Q12HR@0600,1800 cap 11/12/17 [Rx] Furosemide [Lasix] 40 mg PO DAILY #30 tab 11/12/17 [Rx] Magnesium Oxide [Mag-Ox] 400 mg PO DAILY #30 tab 11/12/17 [Rx] Spironolactone [Aldactone] 75 mg PO DAILY #30 tab 11/12/17 [Rx] Follow up Appointment(s)/Referral(s): Demetrius Olivarez MD [STAFF PHYSICIAN] - 4 Weeks (No answer at office. Please call to schedule follow up appointment) Irene Haque MD [STAFF PHYSICIAN] - 1 Week (No answer at office. PLease call to schedule appointment.) [facility], [NON-STAFF] - Robi Medina DO [Primary Care Provider] - 11/18/17 11:00 am ( at [facility] [place]) Patient Instructions/Handouts: Hypotension (DC) Activity/Diet/Wound Care/Special Instructions: pt has a $0 copay for Tikosyn Please make sure that [facility] reviews all his home medications, whether they're prescription or [id number] medications, to look for any Tikosyn interactions He may take Lasix along with Tikosyn No metolazone at discharge Pt instructed to bring Paper scripts for Tikosyn to his pharmacy so they can order it. Pt has 2 week supply filled in [facility] pharmacy Discharge Disposition: HOME SELF-CARE
== END 2017-11-12 15:28 | disposition home health service (06) | DRG 312 ==
LOC: EC 09:08 → 6SEL 11:16
PROVIDERS: ADMIT Internal Medicine; ATTEND Internal Medicine
DX: I95.2 Hypotension due to drugs (principal); E87.1 Hypo-osmolality and hyponatremia; E87.2 Acidosis; I47.1 Supraventricular tachycardia; I47.2 Ventricular tachycardia; I48.1 Persistent atrial fibrillation; I50.22 Chronic systolic (congestive) heart failure; N17.9 Acute kidney failure, unspecified; T50.2X5A Adverse effect of carbonic-anhydrase inhibitors, benzothiadiazides and other diuretics, initial encounter; Y92.009 Unspecified place in unspecified non-institutional (private) residence as the place of occurrence of the external cause; E11.9 Type 2 diabetes mellitus without complications; E66.9 Obesity, unspecified; E78.5 Hyperlipidemia, unspecified; F41.9 Anxiety disorder, unspecified; G47.30 Sleep apnea, unspecified; I08.1 Rheumatic disorders of both mitral and tricuspid valves; I11.0 Hypertensive heart disease with heart failure; I25.10 Atherosclerotic heart disease of native coronary artery without angina pectoris; I25.2 Old myocardial infarction; I25.5 Ischemic cardiomyopathy; I44.7 Left bundle-branch block, unspecified; I45.81 Long QT syndrome; J45.909 Unspecified asthma, uncomplicated; K21.9 Gastro-esophageal reflux disease without esophagitis; M19.90 Unspecified osteoarthritis, unspecified site; Z79.01 Long term (current) use of anticoagulants; Z79.02 Long term (current) use of antithrombotics/antiplatelets; Z79.51 Long term (current) use of inhaled steroids; Z79.82 Long term (current) use of aspirin; Z79.84 Long term (current) use of oral hypoglycemic drugs; Z79.899 Other long term (current) drug therapy; Z79.890 Hormone replacement therapy; Z95.810 Presence of automatic (implantable) cardiac defibrillator; Z95.5 Presence of coronary angioplasty implant and graft; Z95.1 Presence of aortocoronary bypass graft; Z87.891 Personal history of nicotine dependence; Z86.73 Personal history of transient ischemic attack (TIA), and cerebral infarction without residual deficits; Z86.718 Personal history of other venous thrombosis and embolism; Z88.1 Allergy status to other antibiotic agents; Z88.5 Allergy status to narcotic agent; Z88.0 Allergy status to penicillin; Z88.2 Allergy status to sulfonamides; Z82.49 Family history of ischemic heart disease and other diseases of the circulatory system; Z84.1 Family history of disorders of kidney and ureter; Z68.37 Body mass index [BMI] 37.0-37.9, adult
CPT/HCPCS: 36415; 71046; 80048; 80053; 80299; 81003; 82550; 82553; 83735; 83880; 84439; 84443; 84481; 84484; 85025; 85610; 85730; 93005; 94640; 96360; 99285

== ENCOUNTER → 2017-11-22 | Outpatient (CLI) | payer MEDICARE ==
[2017-11-22 09:25] LABS: ALT 27 U/L (21-72); AST 23 U/L (17-59); Alkaline Phosphatase 78 U/L (38-126); Anion Gap 9 mmol/L; Blood Urea Nitrogen 24 mg/dL (9-20); Calcium 9.5 mg/dL (8.4-10.2); Carbon Dioxide 24 mmol/L (22-30); Chloride 107 mmol/L (98-107); Glucose 127 mg/dL (74-99); Potassium 4.9 mmol/L (3.5-5.1); Sodium 140 mmol/L (137-145); Total Bilirubin 0.8 mg/dL (0.2-1.3); Total Protein 7.1 g/dL (6.3-8.2)
== END | disposition home or self-care (01) ==
LOC: LABWHC1 08:06
PROVIDERS: ATTEND Internal Medicine Interventional Cardiology
DX: I48.1 Persistent atrial fibrillation (principal)
CPT/HCPCS: 36415; 80053

== ENCOUNTER → 2018-01-20 | Day surgery (SDC) | payer MEDICARE ==
[2018-01-14 14:08] VITALS: BMI 37.0
[~2018-01-20] MED LIST changes: -ALPRAZolam 0.25 MG TAB PO PRN; -AMIODARONE 200 MG TAB PO SCH; -ATORVASTATIN 20 MG TAB PO SCH; -BENZOCAINE SPRAY 1 CAN MUCOUS MEM ONE; -CARVEDILOL 12.5 MG TAB PO SCH; -CHOLECALCIFEROL 400 UNIT TAB PO SCH; -CITALOPRAM HYDROBROMIDE 20 MG TAB PO SCH; -CLOPIDOGREL 75 MG TAB PO SCH; -FOLIC ACID 1 MG TAB PO SCH; -FUROSEMIDE 40 MG TAB PO PRN; -FUROSEMIDE 40 MG TAB PO SCH; -LEVOTHYROXINE 50 MCG TAB PO SCH; -LISINOPRIL 10 MG TAB PO SCH; -MIDAZOLAM 2 MG/2 ML VIAL ONE; -NON-FORMULARY DRUG (Aspirin Ec 81 MG) PO SCH; -NON-FORMULARY DRUG (Esomeprazole Magnesium [Nexium] 40 MG) PO SCH; -NON-FORMULARY DRUG (Fish Oil/Dha/Epa [Fish Oil 1,200 Mg Fish Oil] 1 CAP) PO SCH; -NON-FORMULARY DRUG (Fluticasone/Salmeterol [Advair 250-50 Diskus] 1 PUFF) INHALATION SCH; -NON-FORMULARY DRUG (Sitagliptin 100 MG) PO SCH; -NON-FORMULARY DRUG (Vitamin B Complex [Vitamin B Complex] 1 CAP) PO SCH; -PROPOFOL 10 MG/ML 20 ML VIAL IV ONE; -SPIRONOLACTONE 50 MG PO SCH; -TAMSULOSIN 0.4 MG CAP.ER.24H PO SCH; -VITAMIN A 8000 UNIT PO SCH; -VITAMIN E (DL,TOCOPHERYL ACET) 400 UNIT CAP PO SCH; -WARFARIN 10 MG TAB PO SCH; -WARFARIN 5 MG TAB PO SCH; -glipiZIDE 5 MG TAB PO SCH; -metFORMIN 500 MG TAB PO SCH; -predniSONE 1 MG TAB PO SCH
== END ==
LOC: CATHEP 12:20
PROVIDERS: ATTEND Internal Medicine Clinical Cardiac Electrophysiology
DX: Z53.9 Procedure and treatment not carried out, unspecified reason (principal)

== ENCOUNTER → 2018-03-17 | Outpatient (CLI) | payer MEDICARE ==
[2018-03-17 13:42] LABS: Anion Gap 10 mmol/L; Blood Urea Nitrogen 24 mg/dL (9-20); Carbon Dioxide 28 mmol/L (22-30); Chloride 103 mmol/L (98-107); Glucose 110 mg/dL (74-99); HGB 14.9 gm/dL (13.0-17.5); MCH 30.2 pg (25.0-35.0); MCHC 32.3 g/dL (31.0-37.0); MCV 93.5 fL (80.0-100.0); Mean Platelet Volume 8.5; Platelet Count 167 k/uL (150-450); Potassium 4.5 mmol/L (3.5-5.1); RBC 4.92 m/uL (4.30-5.90); RDW 14.6 % (11.5-15.5); Sodium 141 mmol/L (137-145); WBC 7.5 k/uL (3.8-10.6)
== END | disposition home or self-care (01) ==
LOC: LABPAT 12:33
PROVIDERS: ATTEND Internal Medicine Clinical Cardiac Electrophysiology
DX: Z01.812 Encounter for preprocedural laboratory examination (principal); I48.1 Persistent atrial fibrillation
CPT/HCPCS: 36415; 80051; 82565; 82947; 84520; 85027

== ENCOUNTER 2018-03-21 10:31 | Day surgery (SDC) | payer MEDICARE ==
[~2018-03-21 10:31] MED LIST changes: +DEXAMETHASONE SOD PHOSPHATE 10 MG/ML 1 ML VIAL IV ONE; +LACTATED RINGERS 1,000 ML IV SCH; +LIDOCAINE 1% 20 ML VIAL (10MG/ML) FOR IV START INTRADERMA PRN; +MIDAZOLAM (PF) 2 MG/2 ML VIAL IV PRN; -SODIUM CHLORIDE 0.9% 1,000 ML IV SCH; +fentaNYL (PF) 50 MCG/ML 2 ML AMP IV PRN
[2018-03-21] MEDS ORDERED: SODIUM CHLORIDE 0.9% 1,000 ML IV ONE (11:30)
[2018-03-21 11:46] LABS: Glucose,Whole Blood 122 mg/dL (75-99)
[2018-03-21] MEDS ORDERED: FUROSEMIDE 10 MG/ML 2 ML VIAL ONE (11:50)
[2018-03-21] MEDS ORDERED: HEPARIN SODIUM,PORCINE 10,000 UNIT/ML 1 ML VIAL ONE (11:50)
[2018-03-21] MEDS ORDERED: ISOPROTERENOL 250 MCG/1.25 ML SYR IV ONE (11:50)
[2018-03-21] MEDS ORDERED: PROPOFOL 10 MG/ML 20 ML VIAL IV ONE (11:50)
[2018-03-21] MEDS ORDERED: ePHEDrine SULFATE/0.9% NACL/PF 50 MG/5 ML SYRINGE IV ONE (11:50)
[2018-03-21] MEDS ORDERED: LIDOCAINE 1% INJ 10MG/ML (20 ML MDV) ONE (11:50)
[2018-03-21] MEDS ORDERED: fentaNYL (PF) 50 MCG/ML 2 ML AMP ONE (11:50)
[2018-03-21] MEDS ORDERED: PROTAMINE SULFATE 10 MG/ML 5 ML VIAL IV ONE (11:50)
[2018-03-21] MEDS ORDERED: MIDAZOLAM 2 MG/2 ML VIAL ONE (11:50)
[2018-03-21 11:57] LABS: INR 2.5 (<1.2); Prothrombin Time 23.9 sec (9.0-12.0)
[2018-03-21] MEDS ORDERED: LIDOCAINE 1% INJ 10MG/ML (20 ML MDV) SQ ONE (12:35)
[2018-03-21] MEDS ORDERED: ACETAMINOPHEN TAB 325 MG TAB PO PRN (14:50)
[2018-03-21] MEDS ORDERED: ACETAMINOPHEN IV (For NPO) 1,000 MG in EMPTY BAG 1 BAG IVPB ONE (14:50)
[2018-03-21] MEDS ORDERED: HYDROcodone/APAP 5-325MG 1 EACH TAB PO PRN (14:50)
[2018-03-21] MEDS ORDERED: ALPRAZolam 0.25 MG TAB PO PRN (14:52)
[2018-03-21] MEDS ORDERED: HEPARIN SOD,PORK IN 0.45% NACL 25,000 UNIT in 0.45% NACL 1 250ML.BAG IV ONE (14:53)
[2018-03-21] MEDS ORDERED: IOPAMIDOL-250 100ML BTL INTRAARTER ONE (15:01)
--- NOTE | 2018-03-21 15:12 | P.PCN ---
Preoperative Diagnosis: Diagnosis Atrial fibrillation, symptomatic, refractory to therapy Persistent Provokes severe exacerbation of congestive heart failure Result Successful pulmonary vein isolation of all veins using cryo-ablation Complete entrance block in all 4 veins confirmed No evidence for phrenic nerve injury Esophageal deflection NO Electrical cardioversion with a synchronized shock across the chest NO Procedure details Patient was brought to the EP lab in a fasting state. Written informed consent was obtained prior to the procedure. Procedure performed under general anesthesia After initial muscle relaxant use, muscle relaxants were not given thereafter in order to assess phrenic nerve during procedure. Patient prepped and draped as per protocol Full cryo-set up with standard preparation of the cryoablation tools done. Femoral Venous access obtained on the right and left groins Venous and arterial Sheaths placed. Diagnostic catheters for the high right atrium, phrenic nerve stimulation and pacing, His bundle, RV and coronary sinus placed Intracardiac echo catheter placed. Long sheath placed in the right atrium Left and right transseptal catheterization performed under intracardiac echo guidance. Intravenous heparin with aCT above 300 Later, catheter positioning and balloon positioning in the left atrium, under intracardiac echo guidance Comprehensive diagnostic EP study with Drug infusion Coronary sinus pacing and recording Baseline measurements AH 99, HV 33 Sinus cycle length is 786 ms, AZ interval 230 ms, QRS 123 ms, QT 412 ms Sinus recovery times at pacing cycle length of 600 ms was 948 ms AV node Wenckebach block 3:30 milliseconds VA Wenckebach block 320 ms Isuprel high dose for 7 minutes, no inducible atrial fibrillation Atrial pacing performed from the high right atrium and the coronary sinus RV pacing Transseptal catheterization performed RA pressure 13/6/10 LA pressure 28/3/16 Transseptal catheterization performed with standard sheath. The cryoablation sheath was then placed with an over the wire exchange without any acute complications. All 4 pulmonary veins were isolated in the following sequence: Left superior followed by left inferior followed by right superior followed by right inferior The cryo-ablation balloon was placed at the os of each vein 1.5 mL of IV dye was injected to confirm an occluded vein Goal during cryoablation was to achieve complete occlusion of the pulmonary vein , achieve -30C at 30 seconds and achieve -40C at 60 seconds and a time to affect of less than 60-90 seconds, . If not the balloon was repositioned to obtain this result After completion of Cryoblation with durations from 180-240 seconds, entrance block was confirmed with the Attain circular catheter in a roving fashion around the antrum of the pulmonary veins Phrenic nerve pacing was performed from the SVC, right innominate vein area and diaphragm voltage was monitored. Diaphragmatic contractions were also monitored manually for strength of contraction. Parameter goals for each cryo freeze -30 C by 30 seconds -40 degrees C by 60 seconds Minimum between minus 40-55C Thaw time greater than 10 seconds Balloon visualized by intracardiac echo The esophagus was intubated. Esophageal Temperature monitoring with a CIRCA catheter formed. Esophageal deflection for hypothermia of the esophagus below 32C Left superior pulmonary vein Successful cryoablation 2 minutes followed by 3 minutes Complete isolation Left inferior pulmonary vein Successful cryoablation 3 minutes followed by 2 minutes Complete isolation Right superior pulmonary vein, during phrenic nerve pacing Successful cryoablation, 3 minutes followed by 2 minutes, complete isolation Right inferior pulmonary vein, during phrenic nerve pacing Successful cryoablation 3 minutes followed by 2 minutes, complete isolation At the end of the procedure the Achieve catheter was once again used to check for entrance block Phrenic nerve stimulation was performed to confirm diaphragmatic stimulation the end of the procedure Cine fluoroscopy was performed at the very end of the procedure to confirm movement of both diaphragms with inspiration and expiration At the end of the procedure the patient was extubated Heparin was reversed Venous sheaths were removed and hemostasis assured Procedures performed (PVI - CRYO Ablation) Invasive hemodynamic monitoring while general anesthesia, right femoral arterial line for monitoring and sampling Comprehensive diagnostic EP study CS pacing and recording Left and right transseptal catheterization Catheter the mapping of the tachycardia (NOT 3D mapping) Intracardiac echocardiography Pulmonary vein isolation with transseptal and comprehensive EPS, [id number] Drug Infusion [id number]
[2018-03-21] MEDS: SODIUM CHLORIDE 0.9% 1,000 ML IV SCH (16:38)
[2018-03-21 17:08] LABS: Glucose,Whole Blood 124 mg/dL (75-99)
[2018-03-21 17:46] VITALS: BMI 38.5
[2018-03-21] MEDS ORDERED: WARFARIN 10 MG TAB PO SCH (18:00)
[2018-03-21] MEDS: CARVEDILOL 3.125 MG TAB PO SCH (18:13)
[2018-03-21] MEDS: DOFETILIDE 125 MCG CAP PO SCH (18:13)
[2018-03-21] MEDS: SYMBICORT 80-4.5 MCG INHALER INHALATION SCH (19:53)
[2018-03-21] MEDS: SACUBITRIL/VALSARTAN 24 MG-26 MG TABLET PO SCH (20:21)
[2018-03-21 20:30] LABS: Glucose,Whole Blood 164 mg/dL (75-99)
[2018-03-21] MEDS ORDERED: ATORVASTATIN 40 MG TAB PO SCH (21:00)
[2018-03-22] MEDS: DOFETILIDE 125 MCG CAP PO SCH (06:20)
[2018-03-22] MEDS ORDERED: LEVOTHYROXINE 75 MCG TAB PO SCH (06:30)
[2018-03-22 06:56] LABS: Glucose,Whole Blood 99 mg/dL (75-99)
[2018-03-22 07:13] LABS: INR 2.6 (<1.2); Prothrombin Time 25.4 sec (9.0-12.0)
[2018-03-22 07:16] LABS: Anion Gap 6 mmol/L; Blood Urea Nitrogen 19 mg/dL (9-20); Calcium 8.6 mg/dL (8.4-10.2); Carbon Dioxide 28 mmol/L (22-30); Chloride 103 mmol/L (98-107); Glucose 101 mg/dL (74-99); Magnesium 1.6 mg/dL (1.6-2.3); Potassium 4.2 mmol/L (3.5-5.1); Sodium 137 mmol/L (137-145)
[2018-03-22] MEDS ORDERED: PANTOPRAZOLE 40 MG TABLET PO SCH (07:30)
[2018-03-22] MEDS ORDERED: GLIMEPIRIDE 1 MG TAB PO SCH (07:30)
[2018-03-22 07:48] VITALS: RESP 18
--- NOTE | 2018-03-22 07:51 | P.DS ---
Providers Attending physician: Demetrius Olivarez Primary care physician: [facility] Course: Patient is doing well. He denies any chest discomfort dizziness lightheadedness or palpitations He has some soreness in the groins but that is no swelling or hematoma He is lying flat in bed No JVD No murmurs no rub over the precordium Normal S1 normal S2 Breath sounds are clear no rhonchi no crackles Abdomen soft nontender Extremities warm is no edema No hematoma or swelling in both groins Labs are reviewed potassium normal kidney function stable INR therapeutic Blood pressure is normal heart rates are normal Twelve-lead ECG shows a QT interval less than 500 ms absolute, PVCs noted Impression Persistent fibrillation Drug refractory Severe ischemic cardiomyopathy with chronic heart failure Plan Continue current medications with the following changes Warfarin 10 mg by mouth daily PT/INR the office in about 2 weeks Today the INR is normal Spironolactone increase to 50 MG by mouth daily Discharge home by 5 PM if hemodynamically stable ablating in the hallways and follow with Dr. Haque and a week Plan - Discharge Summary Discharge Rx Participant: No New Discharge Prescriptions: No Action Clopidogrel [Plavix] 75 mg PO DAILY Folic Acid 1 mg PO DAILY ALPRAZolam [Xanax] 0.25 mg PO BID PRN PRN Reason: Anxiety Warfarin [Coumadin] 10 mg PO SUMOWETHFR Vitamin B Complex 1 cap PO DAILY Vitamin A 8,000 units PO TID Fluticasone/Salmeterol [Advair 250-50 Diskus] 1 puff INHALATION RT-BID Cholecalciferol [Vitamin D3] 400 unit PO TID Aspirin EC [Ecotrin Low Dose] 81 mg PO DAILY Vitamin E (Dl,Tocopheryl Acet) [Vitamin E] 400 unit PO BID Multivitamins, Thera [Multivitamin (formulary)] 1 tab PO DAILY Esomeprazole Magnesium [NexIUM] 20 mg PO DAILY Atorvastatin [Lipitor] 40 mg PO HS Levothyroxine Sodium [Synthroid] 75 mcg PO DAILY@0630 Sacubitril/Valsartan [Entresto 24 mg-26 mg Tablet] 1 tab PO BID Warfarin Sodium [Coumadin] 6 mg PO TUSA Carvedilol [Coreg] 3.125 mg PO BID-W/MEALS #60 tab Dofetilide [Tikosyn] 125 mcg PO Q12HR@0600,1800 cap Furosemide [Lasix] 40 mg PO DAILY #30 tab Magnesium Oxide [Mag-Ox] 400 mg PO DAILY #30 tab Spironolactone [Aldactone] 75 mg PO DAILY #30 tab Glimepiride [Amaryl] 1 mg PO AC-BRKFST metFORMIN HCL [Glucophage] 500 mg PO DAILY Discharge Medication List ALPRAZolam [Xanax] 0.25 mg PO BID PRN 09/04/14 [History] Clopidogrel [Plavix] 75 mg PO DAILY 09/04/14 [History] Folic Acid 1 mg PO DAILY 09/04/14 [History] Warfarin [Coumadin] 10 mg PO SUMOWETHFR 10/01/14 [History] Cholecalciferol [Vitamin D3] 400 unit PO TID 12/31/14 [History] Fluticasone/Salmeterol [Advair 250-50 Diskus] 1 puff INHALATION RT-BID 12/31/14 [History] Vitamin A 8,000 units PO TID 12/31/14 [History] Vitamin B Complex 1 cap PO DAILY 12/31/14 [History] Aspirin EC [Ecotrin Low Dose] 81 mg PO DAILY 10/25/15 [History] Vitamin E (Dl,Tocopheryl Acet) [Vitamin E] 400 unit PO BID 10/14/17 [History] Atorvastatin [Lipitor] 40 mg PO HS 10/23/17 [History] Esomeprazole Magnesium [NexIUM] 20 mg PO DAILY 10/23/17 [History] Multivitamins, Thera [Multivitamin (formulary)] 1 tab PO DAILY 10/23/17 [History ] Levothyroxine Sodium [Synthroid] 75 mcg PO DAILY@0630 11/06/17 [History] Sacubitril/Valsartan [Entresto 24 mg-26 mg Tablet] 1 tab PO BID 11/06/17 [ History] Warfarin Sodium [Coumadin] 6 mg PO TUSA 11/06/17 [History] Carvedilol [Coreg] 3.125 mg PO BID-W/MEALS #60 tab 11/12/17 [Rx] Dofetilide [Tikosyn] 125 mcg PO Q12HR@0600,1800 cap 11/12/17 [Rx] Furosemide [Lasix] 40 mg PO DAILY #30 tab 11/12/17 [Rx] Magnesium Oxide [Mag-Ox] 400 mg PO DAILY #30 tab 08/31/18 [Rx] Spironolactone [Aldactone] 75 mg PO DAILY #30 tab 11/12/17 [Rx] Glimepiride [Amaryl] 1 mg PO [id number] 03/21/18 [History] metFORMIN HCL [Glucophage] 500 mg PO DAILY 03/21/18 [History]
[2018-03-22] MEDS ORDERED: SPIRONOLACTONE 25 MG TAB PO SCH (09:00)
[2018-03-22] MEDS ORDERED: MAGNESIUM OXIDE 400 MG TAB PO SCH (09:00)
[2018-03-22] MEDS ORDERED: FUROSEMIDE 40 MG TAB PO SCH (09:00)
[2018-03-22] MEDS ORDERED: CLOPIDOGREL 75 MG TAB PO SCH (09:00)
[2018-03-22] MEDS ORDERED: ASPIRIN 81 MG PO SCH (09:00)
[2018-03-22] MEDS ORDERED: MAGNESIUM SULFATE-D5W PMX 1 GM in DEXTROSE/WATER 1 100ML.BAG IVPB ONE (09:00)
[2018-03-22] MEDS ORDERED: metFORMIN 500 MG TAB PO SCH (09:00)
[2018-03-22] MEDS: SYMBICORT 80-4.5 MCG INHALER INHALATION SCH (09:16)
[2018-03-22] MEDS: CARVEDILOL 3.125 MG TAB PO SCH ×2 (09:39→17:36)
[2018-03-22] MEDS: SACUBITRIL/VALSARTAN 24 MG-26 MG TABLET PO SCH (09:40)
[2018-03-22 11:58] LABS: Glucose,Whole Blood 138 mg/dL (75-99)
[2018-03-22 15:51] VITALS: BP 106/64; PULSE 60; TEMP 97.8
[2018-03-22 16:59] LABS: Glucose,Whole Blood 111 mg/dL (75-99)
[2018-03-22] MEDS ORDERED: WARFARIN 3 MG TAB PO SCH (18:00)
== END 2018-03-22 17:41 | disposition home or self-care (01) ==
LOC: CATHEP 10:31 → 1SOBS 15:15 → CATHEP 03-22 17:41
PROVIDERS: ATTEND Internal Medicine Clinical Cardiac Electrophysiology
DX: I48.1 Persistent atrial fibrillation (principal); I25.5 Ischemic cardiomyopathy; I49.3 Ventricular premature depolarization; I11.0 Hypertensive heart disease with heart failure; I50.22 Chronic systolic (congestive) heart failure; Z95.1 Presence of aortocoronary bypass graft; Z95.810 Presence of automatic (implantable) cardiac defibrillator; Z95.5 Presence of coronary angioplasty implant and graft; E78.5 Hyperlipidemia, unspecified; Z82.49 Family history of ischemic heart disease and other diseases of the circulatory system; E11.9 Type 2 diabetes mellitus without complications; Z79.84 Long term (current) use of oral hypoglycemic drugs; F41.9 Anxiety disorder, unspecified; Z87.891 Personal history of nicotine dependence; Z79.01 Long term (current) use of anticoagulants; Z79.02 Long term (current) use of antithrombotics/antiplatelets; Z79.82 Long term (current) use of aspirin; Z79.899 Other long term (current) drug therapy; Z88.1 Allergy status to other antibiotic agents; Z88.0 Allergy status to penicillin; Z88.2 Allergy status to sulfonamides
CPT/HCPCS: 94640 ×2; 85347; 93623; 93662; 93609; 93656; 80048; 83735; 85610 ×2; C1769 ×4; C1894 ×3; C1730 ×2; C1759; C1893; C1733; C1766; J2250; J2720; J1644 ×2; J1940; J2001; J3010; J3475; J0131; J2704; Q9966

== ENCOUNTER 2018-08-21 01:48 | Inpatient (IN) | payer MEDICARE ==
[2018-08-21] MEDS ORDERED: SODIUM CHLORIDE 0.9% 1,000 ML IV STA (02:41)
[2018-08-21 03:06] LABS: Basophils % (A) 0 %; Eosinophils # (A) 0.3 k/uL (0-0.7); Eosinophils % (A) 3 %; HCT 40.9 % (39.0-53.0); HGB 13.5 gm/dL (13.0-17.5); Lymphocytes # (A) 1.2 k/uL (1.0-4.8); Lymphocytes % (A) 10 %; MCH 30.7 pg (25.0-35.0); MCV 93.2 fL (80.0-100.0); Mean Platelet Volume 8.5; Monocytes # (A) 0.7 k/uL (0-1.0); Monocytes % (A) 6 %; Neutrophils # (A) 9.2 k/uL (1.3-7.7); Neutrophils % (A) 80 %; Platelet Count 159 k/uL (150-450); RBC 4.39 m/uL (4.30-5.90); RDW 15.4 % (11.5-15.5); WBC 11.6 k/uL (3.8-10.6)
[2018-08-21 03:14] LABS: ALT 18 U/L (21-72); AST 32 U/L (17-59); African American GFR (CKD) >90 (>60 ml/min/1.73 sqM); Albumin 3.8 g/dL (3.5-5.0); Alkaline Phosphatase 71 U/L (38-126); Anion Gap 7 mmol/L; Blood Urea Nitrogen 28 mg/dL (9-20); Calcium 8.9 mg/dL (8.4-10.2); Carbon Dioxide 22 mmol/L (22-30); Chloride 107 mmol/L (98-107); Glucose 167 mg/dL (74-99); Sodium 136 mmol/L (137-145); Total Bilirubin 0.6 mg/dL (0.2-1.3); Total Protein 6.6 g/dL (6.3-8.2)
[2018-08-21 03:15] LABS: Potassium 4.9 mmol/L (3.5-5.1)
--- NOTE | 2018-08-21 03:20 | CT ---
EXAM: CT Head Without Intravenous Contrast CLINICAL HISTORY: ITS.REASON CT Reason: Pain TECHNIQUE: Axial computed tomography images of the head/brain without intravenous contrast. CTDI is 49 mGy and DLP is 1119 mGy-cm. This CT exam was performed using one or more of the following dose reduction techniques: automated exposure control, adjustment of the mA and/or kV according to patient size, and/or use of iterative reconstruction technique. COMPARISON: No relevant prior studies available. FINDINGS: Brain: No hemorrhage. Encephalomalacia in the left frontal lobe, insula, and operculum. Ventricles: No hydrocephalus. Bones/joints: Unremarkable. Soft tissues: Unremarkable. Sinuses: Unremarkable. Mastoid air cells: Clear. IMPRESSION: No acute hemorrhage, hydrocephalus, or mass effect. Old left MCA infarct.
[2018-08-21] MEDS ORDERED: LORazepam 2 MG/ML INJ IV PRN (03:55)
[2018-08-21] MEDS ORDERED: NALOXONE 0.4 MG/ML 1 ML VIAL IV PRN (03:55)
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
--- NOTE | 2018-08-21 04:24 | ED ---
Medical Decision Making - Medical Decision Making pt denies any regular ETOH useage - Lab Data Result diagrams: 08/21/18 02:50 08/21/18 02:50 Lab Results 08/21/18 08/21/18 08/21/18 Range/Units 02:50 02:50 02:50 WBC 11.6 H (3.8-10.6) k/uL RBC 4.39 (4.30-5.90) m/uL Hgb 13.5 (13.0-17.5) gm/dL Hct 40.9 (39.0-53.0) % MCV 93.2 (80.0-100.0) fL MCH 30.7 (25.0-35.0) pg MCHC 33.0 (31.0-37.0) g/dL RDW 15.4 (11.5-15.5) % Plt Count 159 (150-450) k/uL Neutrophils % 80 % Lymphocytes % 10 % Monocytes % 6 % Eosinophils % 3 % Basophils % 0 % Neutrophils # 9.2 H (1.3-7.7) k/uL Lymphocytes # 1.2 (1.0-4.8) k/uL Monocytes # 0.7 (0-1.0) k/uL Eosinophils # 0.3 (0-0.7) k/uL Basophils # 0.0 (0-0.2) k/uL Sodium 136 L (137-145) mmol/L Potassium 4.9 (3.5-5.1) mmol/L Chloride 107 (98-107) mmol/L Carbon Dioxide 22 (22-30) mmol/L Anion Gap 7 mmol/L BUN 28 H (9-20) mg/dL Creatinine 0.86 (0.66-1.25) mg/dL Est GFR (CKD-EPI)AfAm >90 (>60 ml/min/1.73 sqM) Est GFR (CKD-EPI)NonAf >90 (>60 ml/min/1.73 sqM) Glucose 167 H (74-99) mg/dL Plasma Lactic Acid Juan 2.2 H* (0.7-2.0) mmol/L Calcium 8.9 (8.4-10.2) mg/dL Total Bilirubin 0.6 (0.2-1.3) mg/dL AST 32 (17-59) U/L ALT 18 L (21-72) U/L Alkaline Phosphatase 71 (38-126) U/L Total Protein 6.6 (6.3-8.2) g/dL Albumin 3.8 (3.5-5.0) g/dL Disposition Clinical Impression: Seizure Disposition: ADMITTED IP TO THIS HOSP Condition: Serious Is patient prescribed a controlled substance at d/c from ED?: No Referrals: Robi Medina DO [Primary Care Provider] - 1-2 days
[2018-08-21 05:04] LABS: Appearance,Urine Clear (Clear); Bilirubin,Urine Negative (Negative); Blood,Urine Negative (Negative); Color,Urine Light Yellow; Glucose,Urine (UA) Negative (Negative); Granular Casts,Urine 4 /lpf (0); Hyaline Casts,Urine 1 /lpf (0-2); Ketones,Urine Negative (Negative); Leukocyte Esterase,Urine Negative (Negative); Mucus,Urine Rare /hpf; Nitrite,Urine Negative (Negative); PH, Urine 5.5 (5.0-8.0); Protein,Urine 1+ (Negative); RBC,Urine <1 /hpf (0-5); Specific Gravity,Urine 1.026 (1.001-1.035); Urobilinogen,Urine <2.0 mg/dL (<2.0); WBC,Urine <1 /hpf (0-5)
--- NOTE | 2018-08-21 05:17 | ED ---
Medical Decision Making - Lab Data Result diagrams: 08/21/18 02:50 08/21/18 02:50 Lab Results 08/21/18 08/21/18 08/21/18 Range/Units 02:50 02:50 02:50 WBC 11.6 H (3.8-10.6) k/uL RBC 4.39 (4.30-5.90) m/uL Hgb 13.5 (13.0-17.5) gm/dL Hct 40.9 (39.0-53.0) % MCV 93.2 (80.0-100.0) fL MCH 30.7 (25.0-35.0) pg MCHC 33.0 (31.0-37.0) g/dL RDW 15.4 (11.5-15.5) % Plt Count 159 (150-450) k/uL Neutrophils % 80 % Lymphocytes % 10 % Monocytes % 6 % Eosinophils % 3 % Basophils % 0 % Neutrophils # 9.2 H (1.3-7.7) k/uL Lymphocytes # 1.2 (1.0-4.8) k/uL Monocytes # 0.7 (0-1.0) k/uL Eosinophils # 0.3 (0-0.7) k/uL Basophils # 0.0 (0-0.2) k/uL Sodium 136 L (137-145) mmol/L Potassium 4.9 (3.5-5.1) mmol/L Chloride 107 (98-107) mmol/L Carbon Dioxide 22 (22-30) mmol/L Anion Gap 7 mmol/L BUN 28 H (9-20) mg/dL Creatinine 0.86 (0.66-1.25) mg/dL Est GFR (CKD-EPI)AfAm >90 (>60 ml/min/1.73 sqM) Est GFR (CKD-EPI)NonAf >90 (>60 ml/min/1.73 sqM) Glucose 167 H (74-99) mg/dL Plasma Lactic Acid Juan 2.2 H* (0.7-2.0) mmol/L Calcium 8.9 (8.4-10.2) mg/dL Total Bilirubin 0.6 (0.2-1.3) mg/dL AST 32 (17-59) U/L ALT 18 L (21-72) U/L Alkaline Phosphatase 71 (38-126) U/L Total Protein 6.6 (6.3-8.2) g/dL Albumin 3.8 (3.5-5.0) g/dL - EKG Data -: EKG Interpreted by Me (and Dr. Benton) EKG Comments: Ventricular rate 67, painful 178, QRS 119, QT/QTc 442/4 C7. Sinus rhythm with occasional PVC. Include left all branch block. Nonspecific T-wave mildly. Prolonged QT, abnormal EKG. No concern for acute ischemia. Disposition Clinical Impression: Seizure Disposition: ADMITTED IP TO THIS HOSP Condition: Serious Is patient prescribed a controlled substance at d/c from ED?: No
[2018-08-21] MEDS: SODIUM CHLORIDE 0.9% 1,000 ML IV SCH ×2 (05:35→19:50)
[2018-08-21] MEDS ORDERED: levETIRAcetam IV 1,000 MG in SALINE 1 100ML.BAG IVPB STA (07:59)
[2018-08-21 08:06] LABS: Glucose,Whole Blood 136 mg/dL (75-99)
[2018-08-21] MEDS ORDERED: LORazepam 2 MG/ML INJ IV STA (08:08)
[2018-08-21 10:31] LABS: Glucose,Whole Blood 142 mg/dL (75-99)
[2018-08-21] MEDS: ASPIRIN 81 MG PO SCH (11:23)
[2018-08-21] MEDS: SPIRONOLACTONE 25 MG TAB PO SCH (11:23)
[2018-08-21] MEDS: CLOPIDOGREL 75 MG TAB PO SCH (11:23)
[2018-08-21] MEDS: DOFETILIDE 125 MCG CAP PO SCH ×2 (11:23→19:57)
[2018-08-21] MEDS: LEVOTHYROXINE 75 MCG TAB PO SCH (11:24)
[2018-08-21 11:45] LABS: Glucose,Whole Blood 136 mg/dL (75-99)
[2018-08-21 12:02] LABS: INR 2.7 (<1.2)
[2018-08-21 12:03] LABS: Prothrombin Time 26.3 sec (9.0-12.0)
[2018-08-21] MEDS: CARVEDILOL 3.125 MG TAB PO SCH ×2 (12:20→19:57)
[2018-08-21] MEDS: INSULIN ASPART (NovoLOG) 100 UNIT/ML VIAL SQ SCH ×4 (12:20→19:57)
[2018-08-21] MEDS: FUROSEMIDE 40 MG TAB PO SCH (12:21)
--- NOTE | 2018-08-21 12:22 | XR ---
EXAMINATION TYPE: XR chest 1V DATE OF EXAM: 08/21/2018 HISTORY: crackles. REFERENCE: Previous study dated 11/06/2017. FINDINGS: There has been a midline sternotomy. There is a bipolar pacemaker place on the left. There is multichamber cardiac enlargement. There is vascular congestion without marc interstitial ch teetee. Pleural spaces are clear. IMPRESSION: CARDIOMEGALY AND VASCULAR CONGESTION.
[2018-08-21] MEDS ORDERED: FUROSEMIDE 10 MG/ML 4 ML VIAL IV STA (12:41)
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
[2018-08-21 16:55] LABS: Glucose,Whole Blood 143 mg/dL (75-99)
[2018-08-21 18:01] VITALS: BMI 46.0
[2018-08-21 19:21] LABS: Glucose,Whole Blood 170 mg/dL (75-99)
[2018-08-21] MEDS: FAMOTIDINE 20 MG TAB PO SCH (19:57)
[2018-08-21] MEDS: levETIRAcetam 500 MG TAB PO SCH (19:58)
[2018-08-21] MEDS: SACUBITRIL/VALSARTAN 24 MG-26 MG TABLET PO SCH (19:58)
[2018-08-21] MEDS ORDERED: ATORVASTATIN 40 MG TAB PO SCH (21:00)
[2018-08-22] MEDS: DOFETILIDE 125 MCG CAP PO SCH (06:03)
[2018-08-22] MEDS: LEVOTHYROXINE 75 MCG TAB PO SCH (06:03)
[2018-08-22 06:57] LABS: Glucose,Whole Blood 137 mg/dL (75-99)
[2018-08-22] MEDS: FUROSEMIDE 40 MG TAB PO SCH (08:01)
[2018-08-22] MEDS: SPIRONOLACTONE 25 MG TAB PO SCH (08:01)
[2018-08-22] MEDS: SACUBITRIL/VALSARTAN 24 MG-26 MG TABLET PO SCH (08:03)
[2018-08-22 08:07] LABS: HCT 42.7 % (39.0-53.0); HGB 14.2 gm/dL (13.0-17.5); MCH 31.8 pg (25.0-35.0); MCHC 33.3 g/dL (31.0-37.0); MCV 95.6 fL (80.0-100.0); Mean Platelet Volume 8.4; Platelet Count 191 k/uL (150-450); RBC 4.47 m/uL (4.30-5.90); RDW 14.1 % (11.5-15.5); WBC 8.9 k/uL (3.8-10.6)
[2018-08-22] MEDS: INSULIN ASPART (NovoLOG) 100 UNIT/ML VIAL SQ SCH ×2 (08:08→14:09)
[2018-08-22] MEDS: FAMOTIDINE 20 MG TAB PO SCH (08:08)
[2018-08-22] MEDS: levETIRAcetam 500 MG TAB PO SCH (08:09)
[2018-08-22] MEDS: CLOPIDOGREL 75 MG TAB PO SCH (08:09)
[2018-08-22] MEDS: ASPIRIN 81 MG PO SCH (08:09)
[2018-08-22 08:17] VITALS: RESP 15
[2018-08-22 08:20] LABS: INR 2.1 (<1.2); Prothrombin Time 20.9 sec (9.0-12.0)
[2018-08-22 08:34] LABS: African American GFR (CKD) >90 (>60 ml/min/1.73 sqM); Anion Gap 5 mmol/L; Blood Urea Nitrogen 15 mg/dL (9-20); Calcium 8.9 mg/dL (8.4-10.2); Carbon Dioxide 27 mmol/L (22-30); Chloride 107 mmol/L (98-107); Glucose 148 mg/dL (74-99); Sodium 139 mmol/L (137-145)
[2018-08-22 08:36] LABS: Potassium 4.5 mmol/L (3.5-5.1)
[2018-08-22] MEDS: CARVEDILOL 3.125 MG TAB PO SCH (10:29)
[2018-08-22 11:55] LABS: Glucose,Whole Blood 132 mg/dL (75-99)
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
--- NOTE | 2018-08-22 15:31 | EEG ---
ELECTROENCEPHALOGRAM REPORT DATE OF SERVICE: 08/22/2018. PREAMBLE: This is a 58-year-old male who has history of new onset seizure. This study is performed without epileptiform activity. CURRENT MEDICATIONS: Aldactone, Entresto, Narcan, lorazepam, Keppra, insulin, Lasix, Pepcid, Plavix, Coreg, atorvastatin, and aspirin. EEG FINDINGS: A routine 21 channel awake digital EEG recording was accomplished utilizing the 10/20 international system with bipolar and referential montages. The background consists of well developed, well regulated, moderate amplitude activity in 7-8 hertz, which is posterior dominant and reactive to eye opening and closing. Some drowsiness was seen with bilaterally symmetric theta frequency rhythm. More deeper stages of sleep were not seen. No photic driving response was not seen. No focal or generalized epileptiform activity was seen. EKG rhythm lead revealed frequent arrhythmia. IMPRESSION: This is a normal awake and drowsy EEG. No focal or generalized epileptiform activity was seen. EKG rhythm lead revealed arrhythmia. Clinical correlation recommended. KARLEY / SAMMI: [id number] / [id number]
[2018-08-22 16:11] VITALS: BP 101/63; PULSE 59; TEMP 97.7
[2018-08-22 16:51] LABS: Glucose,Whole Blood 173 mg/dL (75-99)
--- NOTE | 2018-08-22 17:05 | CDI ---
Documentation Clarification Form Date: 08/22/2018 4:41:43 PM From: Veronika Chin RN, CCDS Admit Date: 08/21/2018 3:55:00 AM Patient Name: Kennedy Avilez Visit Number: [id number] Discharge Date: ATTENTION: The Clinical Documentation Specialists (CDI) and [facility] Coding Staff appreciate your assistance in clarifying documentation. Please respond to the clarification below the line at the bottom and electronically sign. The CDI & [facility] Coding staff will review the response and follow-up if needed. Please note: Queries are made part of the Legal Health Record. If you have any questions, please contact the author of this message via ITS. Dr. Maryan Shepard Atrial Fibrillation is documented in the H/P and your discharge summary and further clarification is needed. History/Risk Factors: CVA, [place], DM type, DVT, Coronary Artery Disease, Heart Failure Clinical Indicators: 58-year-old male who present with seizure-like behavior. In your documentation atrial fibrillation rate controlled, patient's INR is 2.7. continue the same dose of Coumadin. EKG/telemetry: Sinus rhythm with occasional premature ventricular complexes, incomplete left bundle branch block Nonspecific T wave abnormality Treatment: Coumadin PO per orders Tikosyn PO per orders Monitor PT/INR In your professional opinion, can you please clarify the type of Atrial Fibrillation, if known? Chronic/Permanent Paroxysmal Persistent Other, please specify Unable to determine (Last Revision: June 2017) Paroxysmal MTDD
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
== END 2018-08-22 17:18 | disposition home or self-care (01) | DRG 56 ==
LOC: EC 01:48 → 4SSUR 03:55 → 4MS4W 05:40 → 4SSUR 08:22
PROVIDERS: ADMIT Hospitalist; ATTEND Hospitalist
DX: I69.398 Other sequelae of cerebral infarction (principal); I50.23 Acute on chronic systolic (congestive) heart failure; E87.2 Acidosis; G40.409 Other generalized epilepsy and epileptic syndromes, not intractable, without status epilepticus; I48.0 Paroxysmal atrial fibrillation; I11.0 Hypertensive heart disease with heart failure; E11.9 Type 2 diabetes mellitus without complications; R40.2142 Coma scale, eyes open, spontaneous, at arrival to emergency department; R40.2362 Coma scale, best motor response, obeys commands, at arrival to emergency department; R40.2252 Coma scale, best verbal response, oriented, at arrival to emergency department; F41.9 Anxiety disorder, unspecified; I49.3 Ventricular premature depolarization; I25.10 Atherosclerotic heart disease of native coronary artery without angina pectoris; G47.30 Sleep apnea, unspecified; I25.2 Old myocardial infarction; K21.9 Gastro-esophageal reflux disease without esophagitis; J45.909 Unspecified asthma, uncomplicated; M19.90 Unspecified osteoarthritis, unspecified site; Z79.82 Long term (current) use of aspirin; Z79.02 Long term (current) use of antithrombotics/antiplatelets; Z79.890 Hormone replacement therapy; Z79.01 Long term (current) use of anticoagulants; Z79.84 Long term (current) use of oral hypoglycemic drugs; Z79.51 Long term (current) use of inhaled steroids; Z79.899 Other long term (current) drug therapy; Z99.89 Dependence on other enabling machines and devices; Z87.891 Personal history of nicotine dependence; Z86.718 Personal history of other venous thrombosis and embolism; Z90.49 Acquired absence of other specified parts of digestive tract; Z95.1 Presence of aortocoronary bypass graft; Z95.5 Presence of coronary angioplasty implant and graft; Z95.810 Presence of automatic (implantable) cardiac defibrillator; Z95.828 Presence of other vascular implants and grafts; Z87.820 Personal history of traumatic brain injury; Z98.1 Arthrodesis status; Z98.890 Other specified postprocedural states; Z88.2 Allergy status to sulfonamides; Z88.1 Allergy status to other antibiotic agents; Z88.5 Allergy status to narcotic agent; Z88.0 Allergy status to penicillin; Z91.013 Allergy to seafood; Z82.49 Family history of ischemic heart disease and other diseases of the circulatory system; Z84.1 Family history of disorders of kidney and ureter
CPT/HCPCS: 36415; 70450; 71045; 80048; 80053; 81001; 83605; 85025; 85027; 85610; 93005; 95816; 96361; 96374; 96375; 99285

== ENCOUNTER → 2018-10-21 | Outpatient (CLI) | payer MEDICARE | END | disposition home or self-care (01) | LOC: LABWHC1 09:41 | PROVIDERS: ATTEND Psychiatry & Neurology Neurology | DX: R56.9 Unspecified convulsions (principal) | CPT/HCPCS: 36415; 80177 ==

== ENCOUNTER → 2020-09-03 | Outpatient (CLI) | payer MEDICARE ==
[2020-09-03 08:38] LABS: Basophils % (A) 1 %; Eosinophils # (A) 0.3 k/uL (0-0.7); Eosinophils % (A) 4 %; HCT 43.5 % (39.0-53.0); Lymphocytes # (A) 1.6 k/uL (1.0-4.8); Lymphocytes % (A) 20 %; MCH 30.4 pg (25.0-35.0); MCHC 34.4 g/dL (31.0-37.0); MCV 88.4 fL (80.0-100.0); Mean Platelet Volume 8.1; Monocytes # (A) 0.7 k/uL (0-1.0); Monocytes % (A) 9 %; Neutrophils # (A) 5.5 k/uL (1.3-7.7); Neutrophils % (A) 66 %; Platelet Count 195 k/uL (150-450); RBC 4.92 m/uL (4.30-5.90); RDW 15.7 % (11.5-15.5); WBC 8.4 k/uL (3.8-10.6)
[2020-09-03 08:58] LABS: ALT 25 U/L (4-49); AST 38 U/L (17-59); African American GFR (CKD) 49 (>60 ml/min/1.73 sqM); Albumin 4.5 g/dL (3.5-5.0); Albumin/Globulin Ratio 1.4; Alkaline Phosphatase 102 U/L (38-126); Anion Gap 9 mmol/L; Bilirubin,Unconjugated 0.6 mg/dL (0.0-1.1); Blood Urea Nitrogen 52 mg/dL (9-20); Calcium 9.2 mg/dL (8.4-10.2); Carbon Dioxide 27 mmol/L (22-30); Chloride 96 mmol/L (98-107); Globulin 3.2 g/dL; Glucose 126 mg/dL (74-99); Magnesium 2.4 mg/dL (1.6-2.3); Non-African American GFR(CKD) 43 (>60 ml/min/1.73 sqM); Potassium 5.1 mmol/L (3.5-5.1); Sodium 132 mmol/L (137-145); Total Bilirubin 0.6 mg/dL (0.2-1.3); Total Protein 7.7 g/dL (6.3-8.2)
== END | disposition home or self-care (01) ==
LOC: LABWHC1 07:58
PROVIDERS: ATTEND Internal Medicine
DX: I50.9 Heart failure, unspecified (principal)
CPT/HCPCS: 36415; 80048; 80076; 83735; 83880; 85025

== ENCOUNTER 2020-09-17 11:05 | Inpatient (IN) | payer MEDICARE ==
[2020-09-17] MEDS ORDERED: SODIUM CHLORIDE 0.9% 500 ML 500 ML IV STA (12:05)
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
[2020-09-17] MEDS ORDERED: SODIUM CHLORIDE 0.9% 500 ML 500 ML IV ONE (12:33)
[2020-09-17 12:44] LABS: Basophils # (A) 0.1 k/uL (0-0.2); Basophils % (A) 1 %; Eosinophils # (A) 0.3 k/uL (0-0.7); Eosinophils % (A) 3 %; HCT 41.6 % (39.0-53.0); HGB 14.5 gm/dL (13.0-17.5); Lymphocytes # (A) 1.1 k/uL (1.0-4.8); Lymphocytes % (A) 14 %; MCH 30.7 pg (25.0-35.0); MCHC 34.9 g/dL (31.0-37.0); Mean Platelet Volume 8.2; Monocytes # (A) 0.6 k/uL (0-1.0); Monocytes % (A) 8 %; Neutrophils # (A) 5.7 k/uL (1.3-7.7); Neutrophils % (A) 73 %; Platelet Count 179 k/uL (150-450); RBC 4.73 m/uL (4.30-5.90); RDW 15.9 % (11.5-15.5); WBC 7.8 k/uL (3.8-10.6)
[2020-09-17 12:45] LABS: Appearance,Urine Clear (Clear); Bilirubin,Urine Negative (Negative); Blood,Urine Negative (Negative); Color,Urine Light Yellow; Glucose,Urine (UA) 3+ (Negative); Ketones,Urine Negative (Negative); Leukocyte Esterase,Urine Negative (Negative); Nitrite,Urine Negative (Negative); Protein,Urine Negative (Negative); Specific Gravity,Urine 1.005 (1.001-1.035); Urobilinogen,Urine <2.0 mg/dL (<2.0)
[2020-09-17 12:55] LABS: INR 2.9 (<1.2); Prothrombin Time 28.1 sec (9.0-12.0)
[2020-09-17 13:00] LABS: Albumin 4.2 g/dL (3.5-5.0); Calcium 9.5 mg/dL (8.4-10.2); Magnesium 2.1 mg/dL (1.6-2.3); Potassium 4.5 mmol/L (3.5-5.1); Total Bilirubin 0.7 mg/dL (0.2-1.3); Total Protein 7.2 g/dL (6.3-8.2)
--- NOTE | 2020-09-17 13:15 | XR ---
EXAMINATION TYPE: XR chest 2V DATE OF EXAM: 09/17/2020 COMPARISON: Chest x-ray August 21, 2018 HISTORY: Weakness. TECHNIQUE: Frontal and lateral views of the chest are obtained. FINDINGS: There is chronic parenchymal change without suspicious new focal air space opacity or pneu mothorax seen. Small right pleural effusion. The cardiac silhouette size remains enlarged. There is d ual lead pacemaker/defibrillator. Postsurgical change to the mid to lower thoracic spine redemonstrat ed. Vertebroplasty again seen. Cholecystectomy clips noted. Overlying sternal wires redemonstrated. S uspect old displaced left scapular fracture, correlate clinically. IMPRESSION: Cardiomegaly and chronic parenchymal changes with new small right pleural effusion.
[2020-09-17] MEDS ORDERED: NALOXONE 0.4 MG/ML 1 ML VIAL IV PRN (13:31)
[2020-09-17] MEDS ORDERED: ACETAMINOPHEN TAB 325 MG TAB PO PRN (13:31)
[2020-09-17 16:32] LABS: Glucose,Whole Blood 114 mg/dL (75-99)
[2020-09-17 20:06] LABS: Glucose,Whole Blood 132 mg/dL (75-99)
[2020-09-17] MEDS: VITAMIN E (DL,TOCOPHERYL ACET) 400 UNIT (180 MG) CAP PO SCH (20:14)
[2020-09-17] MEDS: levETIRAcetam 500 MG TAB PO SCH (20:14)
[2020-09-17] MEDS: VITAMIN A 10,000 UNIT (3000 MCG) CAPSULE PO SCH (20:14)
[2020-09-17] MEDS: ATORVASTATIN 40 MG TAB PO SCH (20:14)
[2020-09-17] MEDS: INSULIN ASPART (NovoLOG) 100 UNIT/ML VIAL SQ SCH (20:15)
[2020-09-18] MEDS: carvediloL 3.125 MG TAB PO SCH ×3 (00:37→23:10)
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
[2020-09-18 06:21] LABS: Glucose,Whole Blood 114 mg/dL (75-99)
[2020-09-18] MEDS: INSULIN ASPART (NovoLOG) 100 UNIT/ML VIAL SQ SCH ×4 (06:22→20:50)
[2020-09-18] MEDS: LEVOTHYROXINE 75 MCG TAB PO SCH (06:23)
[2020-09-18] MEDS: SYMBICORT 80-4.5 MCG INHALER INHALATION SCH ×3 (07:57→19:17)
[2020-09-18 08:05] LABS: HCT 41.3 % (39.0-53.0); HGB 14.2 gm/dL (13.0-17.5); MCHC 34.5 g/dL (31.0-37.0); MCV 89.9 fL (80.0-100.0); Platelet Count 164 k/uL (150-450); RDW 15.9 % (11.5-15.5); WBC 8.3 k/uL (3.8-10.6)
[2020-09-18 08:06] LABS: INR 2.2 (<1.2); Prothrombin Time 21.2 sec (9.0-12.0)
[2020-09-18 08:18] LABS: Calcium 9.8 mg/dL (8.4-10.2); Magnesium 2.2 mg/dL (1.6-2.3); Potassium 5.1 mmol/L (3.5-5.1)
[2020-09-18] MEDS ORDERED: NON FORMULARY DRUG (Vitamin B Complex [Vitamin B Complex] 1 EACH Capsule) PO SCH (09:00)
[2020-09-18] MEDS: PANTOPRAZOLE 40 MG TABLET PO SCH (09:00)
[2020-09-18] MEDS: MAGNESIUM OXIDE 400 MG TAB PO SCH (09:00)
[2020-09-18] MEDS: VITAMIN E (DL,TOCOPHERYL ACET) 400 UNIT (180 MG) CAP PO SCH ×3 (09:00→20:50)
[2020-09-18] MEDS: ASPIRIN 81 MG PO SCH (09:00)
[2020-09-18] MEDS: CHOLECALCIFEROL 25 MCG (1000 IU) TABLET PO SCH (09:01)
[2020-09-18] MEDS: FOLIC ACID 1 MG TAB PO SCH (09:01)
[2020-09-18] MEDS: levETIRAcetam 500 MG TAB PO SCH ×2 (09:01→20:50)
[2020-09-18] MEDS: CLOPIDOGREL 75 MG TAB PO SCH (09:01)
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
[2020-09-18] MEDS ORDERED: DOFETILIDE 125 MCG CAP PO SCH ×2 (10:30→18:00)
--- NOTE | 2020-09-18 11:35 | ECHOF ---
Referral Reason:LV function MEASUREMENTS -------- HEIGHT: 180.3 cm WEIGHT: 111.1 kg BP: 88/55 IVSd: 1.0 cm (0.6 - 1.1) LVIDd: 7.1 cm (3.9 - 5.3) LVPWd: 1.3 cm (0.6 - 1.1) IVSs: 1.4 cm LVIDs: 6.9 cm LVPWs: 2.0 cm Ao Diam: 3.0 cm (2.0 - 3.7) AV Cusp: 1.8 cm (1.5 - 2.6) LA Diam: 3.2 cm (2.7 - 3.8) MV EXCURSION: 12.885 mm (> 18.000) MV EF SLOPE: 74 mm/s (70 - 150) EPSS: 4.3 cm MV E Luke: 0.92 m/s MV DecT: 211 ms MV A Luke: 0.23 m/s MV E/A Ratio: 4.01 RAP: 5.00 mmHg RVSP: 32.29 mmHg FINDINGS -------- AICD This was a technically difficult study with suboptimal views. The left ventricle is severely dilated. Left ventricular wall thickness is normal. There is sever e global hypokinesis of LV . Overall left ventricular systolic function is severely impaired with, an EF between 20 - 25 %. The right ventricle is normal in size. The left atrial size is normal. The right atrial size is normal. Lumason used The aortic valve is trileaflet and appears structurally normal. The mitral valve is normal. There is trace mitral regurgitation. The tricuspid valve appears structurally normal. Trace tricuspid regurgitation present. Right roxanne tricular systolic pressure is normal at < 35 mmHg. There is no pulmonic regurgitation present. The aortic root size is normal. IVC Not well visulized. There is no pericardial effusion. CONCLUSIONS -------- 1. AICD 2. The left ventricle is severely dilated. 3. There is severe global hypokinesis of LV . 4. Overall left ventricular systolic function is severely impaired with, an EF between 20 - 25 %. 5. There is trace mitral regurgitation. 6. Trace tricuspid regurgitation present. 7. There is no pericardial effusion. SOCIAL WORK PROFESSOR: Swetha Horner RDCS
[2020-09-18 12:12] LABS: Glucose,Whole Blood 109 mg/dL (75-99)
[2020-09-18 16:46] LABS: Glucose,Whole Blood 121 mg/dL (75-99)
[2020-09-18 19:52] LABS: Glucose,Whole Blood 165 mg/dL (75-99)
[2020-09-18] MEDS: VITAMIN A 10,000 UNIT (3000 MCG) CAPSULE PO SCH (20:50)
[2020-09-18] MEDS: ATORVASTATIN 40 MG TAB PO SCH (20:50)
[2020-09-18] MEDS: DOFETILIDE 125 MCG CAP PO SCH (20:50)
[2020-09-18] MEDS ORDERED: WARFARIN 1 MG TAB PO SCH (21:00)
[2020-09-18] MEDS ORDERED: WARFARIN 10 MG TAB PO SCH (21:00)
--- NOTE | 2020-09-18 22:24 | P.PN ---
Subjective Progress Note Date: 09/18/20 Principal diagnosis: Orthostatic Hypotension Mr. Avilez is a 60-year-old male with a past medical history of asthma, coronary artery disease status post CABG, status post stenting, type 2 diabetes mellitus, DVT, GERD, cognitive impairment, osteoarthritis, obstructive sleep apnea on CPAP, congestive heart failure, seizure disorder coming into the hospital with a chief complaint of dizziness and syncopal episode. Patient states that for the past 1 month, since being started on Bumex patient noticed to have dizziness that is mostly positional. He mentions that he contacted his cardiology team at [facility], he was advised to continue taking his Bumex. Patient mentions that he was on Lasix but it was not working so he was changed to Bumex. Since being on Bumex patient almost lost 20 to 25 pounds and when he checked his blood pressure at home it was very low. Patient mentions that he had an episode where he felt dizzy and had a fall on his knees, but did not lose consciousness. He states he is at right knee had a bruise. Patient is on anticoagulation with Coumadin. He has history of congestive heart failure, mentions that his last ejection fraction is 15 to 20%. He has AICD and pacemaker in place. Patient denies having any chest pain or palpitations. No fevers chills or rigors. No cough or difficulty in breathing. He denies having any abdominal pain nausea vomiting or diarrhea. No dysuria or hematuria. In the ER at the time of admission patient's vital signs temperature 97.6, heart rate 40, respiratory rate 18, blood pressure 94 x 58, saturating at 100%. Patient had orthostatic blood pressure checked and it is positive. Patient received 2 L of IV fluids and mentions that he is not dizzy currently. Patient had blood work done showing white count of 7.8, hemoglobin 14.5, platelets 179. INR 2.9, sodium 135, potassium 4.4, chloride 100, bicarb 25, BUN 37, creatinine 1.32. LFTs within normal limits. Urine analysis positive for 3+ glucose. Negative for nitrites and negative leukocyte esterase. Patient had a chest x- ray showing cardiomegaly and chronic parenchymal changes with small right pleural effusion EKG showing sinus rhythm with premature ventricular complexes. On 09/18/2020 -patient is seen and examined at the bedside. Patient denies having any more dizzy spells. He denies having any chest pain or palpitations. Overnight no acute issues reported by nursing staff. On review of systems he denies having any fevers chills or rigors. No cough or difficulty in breathing. No abdominal pain nausea vomiting or diarrhea. No dysuria or hematuria. On reviewing the patient's vitals temperature of 97.5, heart rate 64, respiratory rate 18, blood pressure 88/55, 98 on room air. On reviewing the labs from this morning hemoglobin is 14.2, white count of 8.3, platelets 164. INR of 2.2. Sodium 136, potassium 5.1, chloride 101, bicarb 29, BUN 34, creatinine 1.41. Active Medications Acetaminophen (Acetaminophen Tab 325 Mg Tab) 650 mg PO Q6HR PRN PRN Reason: Mild Pain or Fever > 100.5 Aspirin (Aspirin 81 Mg) 81 mg PO DAILY [facility] Last Admin: 09/18/20 09:00 Dose: 81 mg Documented by: Atorvastatin Calcium (Atorvastatin 40 Mg Tab) 40 mg PO HS [facility] Last Admin: 09/18/20 20:50 Dose: 40 mg Documented by: Budesonide/Formoterol Fumarate (Symbicort 80-4.5 Mcg Inhaler) 2 puff INHALATION RT-BID [facility] Last Admin: 09/18/20 19:17 Dose: 2 puff Documented by: Bumetanide (Bumetanide 1 Mg Tab) 1 mg PO BID@0900,1600 [facility] Carvedilol (Carvedilol 3.125 Mg Tab) 3.125 mg PO BID@0000,1200 [facility] Last Admin: 09/18/20 12:13 Dose: 3.125 mg Documented by: Cholecalciferol (Cholecalciferol 25 Mcg (1000 Iu) Tablet) 25 mcg PO DAILY [facility] Last Admin: 09/18/20 09:01 Dose: 25 mcg Documented by: Clopidogrel Bisulfate (Clopidogrel 75 Mg Tab) 75 mg PO DAILY [facility] Last Admin: 09/18/20 09:01 Dose: 75 mg Documented by: Dofetilide (Dofetilide 125 Mcg Cap) 125 mcg PO Q12HR@1000,2200 [facility] Last Admin: 09/18/20 20:50 Dose: 125 mcg Documented by: Folic Acid (Folic Acid 1 Mg Tab) 1 mg PO DAILY [facility] Last Admin: 09/18/20 09:01 Dose: 1 mg Documented by: Insulin Aspart (Insulin Aspart (Novolog) 100 Unit/Ml Vial) 0 unit SQ ACHS [facility]; Protocol Last Admin: 09/18/20 20:50 Dose: 1 unit Documented by: Levetiracetam (Levetiracetam 500 Mg Tab) 500 mg PO Q12HR [facility] Last Admin: 09/18/20 20:50 Dose: 500 mg Documented by: Levothyroxine Sodium (Levothyroxine 75 Mcg Tab) 75 mcg PO DAILY@0630 [facility] Last Admin: 09/18/20 06:23 Dose: 75 mcg Documented by: Magnesium Oxide (Magnesium Oxide 400 Mg Tab) 400 mg PO DAILY [facility] Last Admin: 09/18/20 09:00 Dose: 400 mg Documented by: Naloxone HCl (Naloxone 0.4 Mg/Ml 1 Ml Vial) 0.2 mg IV Q2M PRN PRN Reason: Opioid Reversal Pantoprazole Sodium (Pantoprazole 40 Mg Tablet) 40 mg PO DAILY [facility] Last Admin: 09/18/20 09:00 Dose: 40 mg Documented by: Spironolactone (Spironolactone 25 Mg Tab) 25 mg PO DAILY [facility] Vitamin A (Vitamin A 10,000 Unit Capsule) 10,000 unit PO [facility] Last Admin: 09/18/20 20:50 Dose: 10,000 unit Documented by: Vitamin E (Vitamin E (Dl,Tocopheryl Acet) 400 Unit Cap) 400 unit PO TID [facility] Last Admin: 09/18/20 20:50 Dose: 400 unit Documented by: Warfarin Sodium (Warfarin 1 Mg Tab) 1 mg PO [facility]; Protocol Last Admin: 09/18/20 20:50 Dose: 1 mg Documented by: Warfarin Sodium (Warfarin 10 Mg Tab) 10 mg PO [facility]; Protocol Last Admin: 09/18/20 20:50 Dose: 10 mg Documented by: Objective - Vital Signs Vital signs: Vital Signs Temp 97.5 F L 09/18/20 03:40 Pulse 67 09/18/20 12:00 Resp 16 09/18/20 12:00 BP 108/57 09/18/20 12:00 Pulse Ox 99 09/18/20 12:00 Intake & Output 09/17/20 09/18/20 09/18/20 18:59 06:59 18:59 Intake Total 240 480 240 Output Total 300 Balance -60 480 240 Weight 112.945 kg 111.4 kg Intake: Oral 240 480 240 Output: Urine 300 Other: Voiding Method Toilet Toilet # Voids 1 1 2 - Exam PHYSICAL EXAMINATION: GENERAL: Comfortably lying up in the bed appears to be no acute distress. HEENT: Pupils are round and equally reacting to light. EOMI. No scleral icterus. No conjunctival pallor. CARDIOVASCULAR: S1 and S2 present. No murmurs, rubs, or gallops. PULMONARY: Bilateral breath sounds positive. No wheeze or crackles.. ABDOMEN:soft, Non - tender, Normal bowel sounds MUSCULOSKELETAL: No joint swelling or deformity. Right Knee bruise, no bleeding EXTREMITIES: No edema NEUROLOGICAL: Gross neurological examination did not reveal any focal deficits. SKIN:No rash - Labs CBC & Chem 7: 09/18/20 07:09/18/20 07:22 Labs: Abnormal Lab Results - Last 24 Hours (Table) 09/17/20 09/17/20 09/18/20 Range/Units 16:31 19:57 06:19 RDW (11.5-15.5) % PT (9.0-12.0) sec INR (<1.2) Sodium (137-145) mmol/L BUN (9-20) mg/dL Creatinine (0.66-1.25) mg/dL Glucose (74-99) mg/dL POC Glucose (mg/dL) 114 H 132 H 114 H (75-99) mg/dL 09/18/20 09/18/20 09/18/20 Range/Units 07:22 07:22 07:22 RDW 15.9 H (11.5-15.5) % PT 21.2 H (9.0-12.0) sec INR 2.2 H (<1.2) Sodium 136 L (137-145) mmol/L BUN 34 H (9-20) mg/dL Creatinine 1.41 H (0.66-1.25) mg/dL Glucose 123 H (74-99) mg/dL POC Glucose (mg/dL) (75-99) mg/dL 09/18/20 Range/Units 12:11 RDW (11.5-15.5) % PT (9.0-12.0) sec INR (<1.2) Sodium (137-145) mmol/L BUN (9-20) mg/dL Creatinine (0.66-1.25) mg/dL Glucose (74-99) mg/dL POC Glucose (mg/dL) 109 H (75-99) mg/dL Assessment and Plan Assessment: ASSESSMENT Dizziness and near syncope Orthostatic hypotension Acute kidney injury secondary to Bumex Bradycardia Elevated INR Hyponatremia Systolic congestive heart failure AICD and pacemaker in place Coronary artery disease status post CABG Hypertension Diabetes mellitus DVT Cognitive impairment Osteoarthritis multiple joints Obstructive sleep apnea on CPAP ? Seizure disorder Plan: Patient was given 2 L of IV fluids in the ED, symptomatic improvement of his dizziness Blood pressure slowly trending up Avoid nephrotoxins Echocardiogram done showing EF 20-25 % Cardiology on board and re started him on Bumex and Spirinolactone Coumadin re stared Repeat BMO, PT/INTR in am Overall prognosis guarded Further recommendations depending on the progress of the patient
[2020-09-19 01:11] VITALS: RESP 16
[2020-09-19 06:03] LABS: Glucose,Whole Blood 109 mg/dL (75-99)
[2020-09-19] MEDS: INSULIN ASPART (NovoLOG) 100 UNIT/ML VIAL SQ SCH ×2 (06:07→12:38)
[2020-09-19] MEDS: LEVOTHYROXINE 75 MCG TAB PO SCH (06:10)
[2020-09-19] MEDS: SYMBICORT 80-4.5 MCG INHALER INHALATION SCH (08:32)
[2020-09-19] MEDS ORDERED: SPIRONOLACTONE 25 MG TAB PO SCH (09:00)
[2020-09-19] MEDS ORDERED: BUMETANIDE 1 MG TAB PO SCH (09:00)
[2020-09-19 09:12] LABS: Anisocytosis Slight; Basophils % (A) 1 %; Eosinophils # (A) 0.3 k/uL (0-0.7); Eosinophils % (A) 4 %; HCT 39.9 % (39.0-53.0); HGB 13.1 gm/dL (13.0-17.5); Lymphocytes % (A) 14 %; MCH 29.8 pg (25.0-35.0); MCHC 32.8 g/dL (31.0-37.0); MCV 90.8 fL (80.0-100.0); Mean Platelet Volume 7.7; Monocytes # (A) 0.4 k/uL (0-1.0); Monocytes % (A) 6 %; Neutrophils # (A) 5.1 k/uL (1.3-7.7); Neutrophils % (A) 73 %; Platelet Count 156 k/uL (150-450); RDW 16.4 % (11.5-15.5)
[2020-09-19 09:19] LABS: INR 1.6 (<1.2); Prothrombin Time 15.6 sec (9.0-12.0)
[2020-09-19] MEDS: CLOPIDOGREL 75 MG TAB PO SCH (09:20)
[2020-09-19] MEDS: CHOLECALCIFEROL 25 MCG (1000 IU) TABLET PO SCH (09:20)
[2020-09-19] MEDS: FOLIC ACID 1 MG TAB PO SCH (09:20)
[2020-09-19] MEDS: ASPIRIN 81 MG PO SCH (09:20)
[2020-09-19] MEDS: levETIRAcetam 500 MG TAB PO SCH (09:20)
[2020-09-19] MEDS: MAGNESIUM OXIDE 400 MG TAB PO SCH (09:20)
[2020-09-19] MEDS: PANTOPRAZOLE 40 MG TABLET PO SCH (09:20)
[2020-09-19] MEDS: VITAMIN E (DL,TOCOPHERYL ACET) 400 UNIT (180 MG) CAP PO SCH (09:21)
[2020-09-19] MEDS: DOFETILIDE 125 MCG CAP PO SCH (09:21)
[2020-09-19 09:31] LABS: Calcium 9.6 mg/dL (8.4-10.2); Potassium 4.7 mmol/L (3.5-5.1)
[2020-09-19 10:50] VITALS: TEMP 97.4
--- NOTE | 2020-09-19 11:39 | P.PN ---
Subjective Progress Note Date: 09/19/20 HISTORY OF PRESENT ILLNESS: This is a 60 year old male with a past medical history significant for coronary artery disease with previous CABG x 4 in 1997, dual chamber ICD in 2015, i schemic cardiomyopathy, atrial fibrillation on anticoagulation with Coumadin, and congestive heart failure. Patient follows with a Dr. Ríos at [facility] in [place]. We have been asked to see the patient in consultation for syncope. Patient examined at the bedside. Patient states back in July he was hospitalized in [place] for CHF. He reports he was given IV lasix and discharged. He states he followed up with his appliance servicer at [facility] about 4-5 weeks ago. He was switched from Lasix to Bumex. Patient reports he has taken Bumex in the past and everytime he takes it, he experiences dizziness. Patient states he checks his blood pressure at home and the systolic pressure is usually on the lower side around 90 but has been as low as 70s. Patient states he was at home and was feeling dizzy. He states he usually will sit down when this happens but this time he did not. He reports tilting his head back to take a drink of water and the next thing he knows, he had passed out on the floor. He denies loss of bowel or bladder control. Denies seizure activity. He did hit his right arm and right knee when he passed out. He states he called his appliance servicer who told him to hold his dose of Bumex. However he had her he taken it so his appliance servicer was recommended that he come to the hospital for further evaluation. EKG reveals sinus mechanism with PVCs Chest xray cardiomegaly and chronic parenchymal changes with new small right pleural effusion. Laboratory data: WBC 8.3. Hemoglobin 14.2. platelet count 164. INR 2.2. Sodium 136. Potassium 5.1. BUN 34. Creatinine 1.41. Troponin negative 1. Current home cardiac medications include Coumadin 11mg daily, Entresto 24-26mg BID, Coreg 3.125 mg twice a day, Aldactone 75 mg daily, Tikosyn 125mcg q12 hours, bumex 2mg BID, lipitor 40mg daily, and aspirin 81mg daily. 09/19/2020 Patient examined this morning at the bedside. Patient denies chest pain or pressure. He denies shortness of breath. Denies any further dizziness or lightheadedness. He states he has been up in the hallway ambulating. Blood pressure has been stable. Echocardiogram revealed ejection fraction 20-25%, severe global hypokinesis of LV, trace mitral regurgitation and trace tricuspid regurgitation PHYSICAL EXAM: VITAL SIGNS: Reviewed. GENERAL: Well-developed in no acute distress. HEENT: Head is normocephalic. Pupils are equal, round. Sclerae anicteric. Mucous membranes of the mouth are moist. Neck supple. No JVD or thyromegaly LUNGS: Respirations even and unlabored. Lungs essentially clear to auscultation bilaterally. HEART: Regular rate and rhythm. S1 and S2 heard. ABDOMEN: Soft. Nondistended. Nontender. EXTREMITIES: Normal range of motion. No clubbing or cyanosis. Peripheral pulse s intact. No lower extremity edema NEUROLOGIC: Awake and alert. Oriented x 3. ASSESSMENT: Syncope Hypotension, baseline per patient Acute kidney injury Coronary artery disease with previous stenting and CABG Paroxysmal atrial fibrillation, on anticoagulation with Coumadin Ischemic cardiomyopathy with AICD implantation Chronic systolic heart failure PLAN: Resume Entresto Resume diuretics at a lower dose of Bumex 1 mg twice a day and Aldactone 25 mg daily Continue additional cardiac medications Patient is stable for discharge home today from a cardiac standpoint Nurse practitioner note has been reviewed by physician. Signing provider agrees with the documented findings, assessment, and plan of care. Objective - Vital Signs Vital signs: Vital Signs Temp 97.4 F L 09/19/20 08:00 Pulse 79 09/19/20 08:00 Resp 16 09/19/20 03:31 BP 107/61 09/19/20 08:00 Pulse Ox 99 09/19/20 08:33 Intake & Output 09/18/20 09/19/20 09/19/20 18:59 06:59 18:59 Intake Total 980 240 240 Balance 980 240 240 Weight 112.4 kg Intake: Oral 980 240 240 Other: Voiding Method Toilet Toilet # Voids 2 2 1 - Labs CBC & Chem 7: 09/19/20 08:47 09/19/20 08:47 Labs: Abnormal Lab Results - Last 24 Hours (Table) 09/18/20 09/18/20 09/18/20 Range/Units 12:11 16:44 19:51 RDW (11.5-15.5) % PT (9.0-12.0) sec INR (<1.2) BUN (9-20) mg/dL Creatinine (0.66-1.25) mg/dL Glucose (74-99) mg/dL POC Glucose (mg/dL) 109 H 121 H 165 H (75-99) mg/dL 09/19/20 09/19/20 09/19/20 Range/Units 06:02 08:47 08:47 RDW 16.4 H (11.5-15.5) % PT 15.6 H (9.0-12.0) sec INR 1.6 H (<1.2) BUN (9-20) mg/dL Creatinine (0.66-1.25) mg/dL Glucose (74-99) mg/dL POC Glucose (mg/dL) 109 H (75-99) mg/dL 09/19/20 Range/Units 08:47 RDW (11.5-15.5) % PT (9.0-12.0) sec INR (<1.2) BUN 30 H (9-20) mg/dL Creatinine 1.27 H (0.66-1.25) mg/dL Glucose 161 H (74-99) mg/dL POC Glucose (mg/dL) (75-99) mg/dL
[2020-09-19 12:14] LABS: Glucose,Whole Blood 161 mg/dL (75-99)
[2020-09-19] MEDS: carvediloL 3.125 MG TAB PO SCH (12:38)
[2020-09-19 12:57] VITALS: BP 113/74; PULSE 69
[2020-09-19] MEDS ORDERED: SACUBITRIL/VALSARTAN 24 MG-26 MG TABLET PO SCH (21:00)
--- NOTE | 2020-09-19 22:29 | P.DS ---
Providers Date of admission: 09/17/20 13:21 Expected date of discharge: 09/19/20 Attending physician: Michelle Thibodeaux Consults: 09/17/20 13:33 Consult Physician Urgent Consulting Provider: Stephan Cortez Consult Reason/Comments: Dizziness and syncope Do you want consulting provider notified?: Yes Primary care physician: [facility] Course: Mr. Avilez is a 60-year-old male with a past medical history of asthma, coronary artery disease status post CABG, status post stenting, type 2 diabetes mellitus, DVT, GERD, cognitive impairment, osteoarthritis, obstructive sleep apnea on CPAP, congestive heart failure, seizure disorder coming into the hospital with a chief complaint of dizziness and syncopal episode. Patient states that for the past 1 month, since being started on Bumex patient noticed to have dizziness that is mostly positional. He mentions that he contacted his cardiology team at [facility], he was advised to continue taking his Bumex. Patient mentions that he was on Lasix but it was not working so he was changed to Bumex. Since being on Bumex patient almost lost 20 to 25 pounds and when he checked his blood pressure at home it was very low. Patient mentions that he had an episode where he felt dizzy and had a fall on his knees, but did not lose consciousness. He states he is at right knee had a bruise. Patient is on anticoagulation with Coumadin. He has history of congestive heart failure, mentions that his last ejection fraction is 15 to 20%. He has AICD and pacemaker in place. Patient denies having any chest pain or palpitations. No fevers chills or rigors. No cough or difficulty in breathing. He denies having any abdominal pain nausea vomiting or diarrhea. No dysuria or hematuria. In the ER at the time of admission patient's vital signs temperature 97.6, heart rate 40, respiratory rate 18, blood pressure 94 x 58, saturating at 100%. Patient had orthostatic blood pressure checked and it is positive. Patient received 2 L of IV fluids and mentions that he is not dizzy currently. Patient had blood work done showing white count of 7.8, hemoglobin 14.5, platelets 179. INR 2.9, sodium 135, potassium 4.4, chloride 100, bicarb 25, BUN 37, creatinine 1.32. LFTs within normal limits. Urine analysis positive for 3+ glucose. Negative for nitrites and negative leukocyte esterase. Patient had a chest x- ray showing cardiomegaly and chronic parenchymal changes with small right pleural effusion EKG showing sinus rhythm with premature ventricular complexes Hospital course -During the hospital course patient was given 2 L of IV fluids boluses in the ED after which his dizziness improved symptomatically. The next day patient was gradually started back on his cardiac medications. Cardiology was consulted and patient got an echocardiogram showing ejection fraction of 20 to 25%. The next day patient's blood pressure was within normal limits, he was able to tolerate all his cardiac medications. His dose of Bumex and spironolactone have been decreased. Patient feels that he is back to baseline and was eager to go home. Vital Signs Temp 97.4 F L 09/19/20 08:00 Pulse 69 09/19/20 12:00 Resp 16 09/19/20 03:31 BP 113/74 09/19/20 12:00 Pulse Ox 99 09/19/20 12:00 Intake & Output 09/18/20 09/19/20 09/19/20 18:59 06:59 18:59 Intake Total 980 240 480 Balance 980 240 480 Weight 112.4 kg Intake: Oral 980 240 480 Other: Voiding Method Toilet Toilet # Voids 2 2 1 PHYSICAL EXAMINATION: GENERAL: Comfortably lying up in the bed appears to be no acute distress. at bed side. HEENT: Pupils are round and equally reacting to light. EOMI. No scleral icterus. No conjunctival pallor. CARDIOVASCULAR: S1 and S2 present. No murmurs, rubs, or gallops. PULMONARY: Bilateral breath sounds positive. No wheeze or crackles.. ABDOMEN:soft, Non - tender, Normal bowel sounds MUSCULOSKELETAL: No joint swelling or deformity. Right Knee bruise, no bleeding EXTREMITIES: No edema NEUROLOGICAL: Gross neurological examination did not reveal any focal deficits. SKIN:No rash - Labs CBC & Chem 7: 09/19/20 08:47 09/19/20 08:47 Labs: Abnormal Lab Results - Last 24 Hours (Table) 09/18/20 09/18/20 09/19/20 Range/Units 16:44 19:51 06:02 RDW (11.5-15.5) % PT (9.0-12.0) sec INR (<1.2) BUN (9-20) mg/dL Creatinine (0.66-1.25) mg/dL Glucose (74-99) mg/dL POC Glucose (mg/dL) 121 H 165 H 109 H (75-99) mg/dL 09/19/20 09/19/20 09/19/20 Range/Units 08:47 08:47 08:47 RDW 16.4 H (11.5-15.5) % PT 15.6 H (9.0-12.0) sec INR 1.6 H (<1.2) BUN 30 H (9-20) mg/dL Creatinine 1.27 H (0.66-1.25) mg/dL Glucose 161 H (74-99) mg/dL POC Glucose (mg/dL) (75-99) mg/dL 09/19/20 Range/Units 12:01 RDW (11.5-15.5) % PT (9.0-12.0) sec INR (<1.2) BUN (9-20) mg/dL Creatinine (0.66-1.25) mg/dL Glucose (74-99) mg/dL POC Glucose (mg/dL) 161 H (75-99) mg/dL DISCHARGE DIAGNOSIS Dizziness and near syncope Orthostatic hypotension Acute kidney injury secondary to Bumex Bradycardia Elevated INR Hyponatremia Systolic congestive heart failure AICD and pacemaker in place Coronary artery disease status post CABG Hypertension Diabetes mellitus DVT Cognitive impairment Osteoarthritis multiple joints Obstructive sleep apnea on CPAP ? Seizure disorder Follow up - Discussed with him that the dose of his spironolactone has been decreased from 75 to 25 mg and his Bumex dose from 2 mg twice daily to 1 mg twice daily. The rest of his medications and doses remain the same. Patient is advised to follow-up with his airborne operations superintendent in 1 week and his primary care physician in 2 to 3 days. Scripts for the new doses of Bumex and spironolactone sent to his pharmacy. Over 35 minutes spent towards the discharge of the patient. Patient Condition at Discharge: Fair Plan - Discharge Summary Discharge Rx Participant: No New Discharge Prescriptions: New Spironolactone [Aldactone] 25 mg PO DAILY 30 Days #30 tab Bumetanide [BUMEX] 1 mg PO BID@0900,1600 30 Days #60 tab Continue Clopidogrel [Plavix] 75 mg PO DAILY Folic Acid 1 mg PO DAILY Vitamin B Complex 1 cap PO DAILY Fluticasone/Salmeterol [Advair 250-50 Diskus] 1 puff INHALATION RT-BID Aspirin EC [Ecotrin Low Dose] 81 mg PO DAILY Vitamin E (Dl,Tocopheryl Acet) [Vitamin E] 400 unit PO TID Multivitamins, Thera [Multivitamin (formulary)] 1 tab PO DAILY Esomeprazole Magnesium [NexIUM] 20 mg PO DAILY Atorvastatin [Lipitor] 40 mg PO HS Levothyroxine Sodium [Synthroid] 75 mcg PO DAILY@0630 Sacubitril/Valsartan [Entresto 24 mg-26 mg Tablet] 1 tab PO BID Dofetilide [Tikosyn] 125 mcg PO Q12HR@0600,1800 cap Magnesium Oxide [Mag-Ox] 400 mg PO DAILY #30 tab metFORMIN HCL ER [Glucophage Xr] 500 mg PO BID Warfarin [Coumadin] 10 mg PO HS Vitamin A 2,400 mcg PO BID levETIRAcetam [Keppra] 500 mg PO Q12HR #60 tab carvediloL [Coreg] 3.125 mg PO BID@0000,1200 Empagliflozin [Jardiance] 10 mg PO DAILY Tadalafil [Cialis] 5 - 10 mg PO DAILY PRN PRN Reason: ED Cholecalciferol [Vitamin D3 (25 Mcg = 1000 Iu)] 25 mcg PO DAILY Warfarin [Coumadin] 1 mg PO HS Discontinued Bumetanide 2 mg PO BID Spironolactone [Aldactone] 75 mg PO DAILY Discharge Medication List Clopidogrel [Plavix] 75 mg PO DAILY 09/04/14 [History] Folic Acid 1 mg PO DAILY 09/04/14 [History] Fluticasone/Salmeterol [Advair 250-50 Diskus] 1 puff INHALATION RT-BID 12/31/14 [History] Vitamin B Complex 1 cap PO DAILY 12/31/14 [History] Aspirin EC [Ecotrin Low Dose] 81 mg PO DAILY 10/25/15 [History] Vitamin E (Dl,Tocopheryl Acet) [Vitamin E] 400 unit PO TID 10/14/17 [History] Atorvastatin [Lipitor] 40 mg PO HS 10/23/17 [History] Esomeprazole Magnesium [NexIUM] 20 mg PO DAILY 10/23/17 [History] Multivitamins, Thera [Multivitamin (formulary)] 1 tab PO DAILY 10/23/17 [History] Levothyroxine Sodium [Synthroid] 75 mcg PO DAILY@0630 11/06/17 [History] Sacubitril/Valsartan [Entresto 24 mg-26 mg Tablet] 1 tab PO BID 11/06/17 [History] Dofetilide [Tikosyn] 125 mcg PO Q12HR@0600,1800 cap 11/12/17 [Rx] Magnesium Oxide [Mag-Ox] 400 mg PO DAILY #30 tab 11/12/17 [Rx] Vitamin A 2,400 mcg PO BID 08/21/18 [History] Warfarin [Coumadin] 10 mg PO HS 08/21/18 [History] metFORMIN HCL ER [Glucophage Xr] 500 mg PO BID 08/21/18 [History] levETIRAcetam [Keppra] 500 mg PO Q12HR #60 tab 08/22/18 [Rx] Cholecalciferol [Vitamin D3 (25 Mcg = 1000 Iu)] 25 mcg PO DAILY 09/17/20 [History] Empagliflozin [Jardiance] 10 mg PO DAILY 09/17/20 [History] Tadalafil [Cialis] 5 - 10 mg PO DAILY PRN 09/17/20 [History] Warfarin [Coumadin] 1 mg PO HS 09/17/20 [History] carvediloL [Coreg] 3.125 mg PO BID@0000,1200 09/17/20 [History] Bumetanide [BUMEX] 1 mg PO BID@0900,1600 30 Days #60 tab 09/19/20 [Rx] Spironolactone [Aldactone] 25 mg PO DAILY 30 Days #30 tab 09/19/20 [Rx] Follow up Appointment(s)/Referral(s): Irene Haque MD [STAFF PHYSICIAN] - 10/01/20 1:30 pm (Appointment with Conchita HARTLEY) Robi Medina DO [Primary Care Provider] - 09/23/20 1:00 pm (Appointment with Jessica FERRO) Patient Instructions/Handouts: Syncope (DC) Discharge Disposition: HOME SELF-CARE
== END 2020-09-19 15:53 | disposition home or self-care (01) | DRG 312 ==
LOC: EC 11:05 → 3SCARD 13:21
PROVIDERS: ADMIT Internal Medicine; ATTEND Internal Medicine
DX: I95.1 Orthostatic hypotension (principal); I50.22 Chronic systolic (congestive) heart failure; N17.9 Acute kidney failure, unspecified; E87.1 Hypo-osmolality and hyponatremia; J45.909 Unspecified asthma, uncomplicated; I25.10 Atherosclerotic heart disease of native coronary artery without angina pectoris; K21.9 Gastro-esophageal reflux disease without esophagitis; I25.2 Old myocardial infarction; F41.9 Anxiety disorder, unspecified; I11.0 Hypertensive heart disease with heart failure; M15.9 Polyosteoarthritis, unspecified; G47.33 Obstructive sleep apnea (adult) (pediatric); G40.909 Epilepsy, unspecified, not intractable, without status epilepticus; I49.3 Ventricular premature depolarization; E11.9 Type 2 diabetes mellitus without complications; E86.0 Dehydration; I25.5 Ischemic cardiomyopathy; I48.0 Paroxysmal atrial fibrillation; R79.1 Abnormal coagulation profile; R41.89 Other symptoms and signs involving cognitive functions and awareness; Z95.5 Presence of coronary angioplasty implant and graft; Z87.891 Personal history of nicotine dependence; Z86.73 Personal history of transient ischemic attack (TIA), and cerebral infarction without residual deficits; Z79.02 Long term (current) use of antithrombotics/antiplatelets; Z79.82 Long term (current) use of aspirin; Z95.810 Presence of automatic (implantable) cardiac defibrillator; Z95.1 Presence of aortocoronary bypass graft; Z79.899 Other long term (current) drug therapy; Z79.890 Hormone replacement therapy; Z79.84 Long term (current) use of oral hypoglycemic drugs; Z79.01 Long term (current) use of anticoagulants; Z82.49 Family history of ischemic heart disease and other diseases of the circulatory system; Z79.51 Long term (current) use of inhaled steroids; Z90.49 Acquired absence of other specified parts of digestive tract; Z91.81 History of falling; Z88.2 Allergy status to sulfonamides; Z88.8 Allergy status to other drugs, medicaments and biological substances; Z88.5 Allergy status to narcotic agent; Z88.0 Allergy status to penicillin; Z91.013 Allergy to seafood
CPT/HCPCS: 36415; 71046; 80048; 80053; 81003; 83735; 84484; 85025; 85027; 85610; 93005; 93306; 94640; 94760; 96360; 96361; 99285

== ENCOUNTER 2020-09-27 21:51 | Emergency (ER) | payer MEDICARE ==
[2020-09-27 21:59] VITALS: TEMP 98.2
[2020-09-27] MEDS ORDERED: ORPHENADRINE 30 MG/ML 2 ML VIAL IM STA (22:11)
[2020-09-27] MEDS ORDERED: KETOROLAC 15 MG/ML 1 ML VIAL IM STA (22:12)
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
[2020-09-27] MEDS ORDERED: Acetaminophen-Codeine 300-30mg TAB PO STA (23:04)
[2020-09-28 00:08] VITALS: BP 110/78; PULSE 87; RESP 18
== END 2020-09-27 23:42 | disposition home or self-care (01) ==
LOC: EC 21:51
DX: S16.1XXA Strain of muscle, fascia and tendon at neck level, initial encounter (principal); E11.9 Type 2 diabetes mellitus without complications; I25.10 Atherosclerotic heart disease of native coronary artery without angina pectoris; I25.2 Old myocardial infarction; I50.9 Heart failure, unspecified; J45.909 Unspecified asthma, uncomplicated; K21.9 Gastro-esophageal reflux disease without esophagitis; M19.90 Unspecified osteoarthritis, unspecified site; Z86.73 Personal history of transient ischemic attack (TIA), and cerebral infarction without residual deficits; Z79.01 Long term (current) use of anticoagulants; Z79.02 Long term (current) use of antithrombotics/antiplatelets; Z79.51 Long term (current) use of inhaled steroids; Z79.82 Long term (current) use of aspirin; Z79.84 Long term (current) use of oral hypoglycemic drugs; Z87.891 Personal history of nicotine dependence; Z88.0 Allergy status to penicillin; Z88.1 Allergy status to other antibiotic agents; Z88.2 Allergy status to sulfonamides; Z88.5 Allergy status to narcotic agent; Z95.1 Presence of aortocoronary bypass graft; Z95.810 Presence of automatic (implantable) cardiac defibrillator; Z91.013 Allergy to seafood; Z79.899 Other long term (current) drug therapy; X58.XXXA Exposure to other specified factors, initial encounter
CPT/HCPCS: 99284; 96372; J2360; J1885

== ENCOUNTER 2020-09-30 02:07 | Emergency (ER) | payer MEDICARE ==
[2020-09-30 02:13] VITALS: BP 97/60; PULSE 69; RESP 20; TEMP 97.6
[2020-09-30] MEDS ORDERED: KETOROLAC 15 MG/ML 1 ML VIAL IM STA (02:34)
[2020-09-30] MEDS ORDERED: ACET/COD 300 MG/30 MG STARTER PACK 6 TAB BTL PO STA (02:34)
[2020-09-30] MEDS ORDERED: DIAZEPAM 5 MG/ML 2 ML INJ IM ONE (02:34)
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
== END 2020-09-30 02:50 | disposition home or self-care (01) ==
LOC: EC 02:07
DX: M25.511 Pain in right shoulder (principal); M25.512 Pain in left shoulder; M54.2 Cervicalgia; M54.9 Dorsalgia, unspecified; J45.909 Unspecified asthma, uncomplicated; E11.9 Type 2 diabetes mellitus without complications; I25.2 Old myocardial infarction; K21.9 Gastro-esophageal reflux disease without esophagitis; I50.9 Heart failure, unspecified; M19.90 Unspecified osteoarthritis, unspecified site; Z88.8 Allergy status to other drugs, medicaments and biological substances; Z87.891 Personal history of nicotine dependence; Z88.0 Allergy status to penicillin; Z88.1 Allergy status to other antibiotic agents; Z88.2 Allergy status to sulfonamides; Z91.013 Allergy to seafood; Z88.5 Allergy status to narcotic agent; Z79.01 Long term (current) use of anticoagulants; Z79.51 Long term (current) use of inhaled steroids; Z79.82 Long term (current) use of aspirin; Z79.84 Long term (current) use of oral hypoglycemic drugs; Z79.899 Other long term (current) drug therapy; Z86.73 Personal history of transient ischemic attack (TIA), and cerebral infarction without residual deficits; Z86.718 Personal history of other venous thrombosis and embolism
CPT/HCPCS: 99283; 96372 ×2; J3360; J1885

== ENCOUNTER → 2021-08-13 | Outpatient (CLI) | payer MEDICARE ==
[2021-08-13 14:42] LABS: Basophils # (A) 0.02 X 10*3/uL (0.00-0.10); Basophils % (A) 0.4 %; Eosinophils # (A) 0.18 X 10*3/uL (0.04-0.35); Eosinophils % (A) 3.9 %; HCT 44.5 % (39.6-50.0); HGB 13.8 g/dL (13.0-17.0); Immature Grans, Automated 0.2 %; Lymphocytes # (A) 0.83 X 10*3/uL (0.90-5.00); Lymphocytes % (A) 18.1 %; MCH 28.6 pg (27.0-32.0); MCV 92.3 fL (80.0-97.0); Mean Platelet Volume 11.9 fL (9.5-12.2); Monocytes # (A) 0.51 X 10*3/uL (0.20-1.00); Monocytes % (A) 11.1 %; NRBC Per 100 WBC 0 /100 WBCS (0.0-0.0); Neutrophils # (A) 3.03 X 10*3/uL (1.80-7.70); Neutrophils % (A) 66.3 %; Platelet Count 161 X 10*3/uL (140-440); RBC 4.82 X 10*6/uL (4.40-5.60); RDW 15.3 % (11.5-14.5); WBC 4.58 X 10*3/uL (4.50-10.00)
[2021-08-13 14:57] LABS: ALT 8 U/L (10-49); AST 18 U/L (14-35); African American GFR (CKD) 82.3 (60.0-200.0); Albumin 4.2 g/dL (3.8-4.9); Albumin/Globulin Ratio 1.57 (1.60-3.17); Alkaline Phosphatase 104 U/L (41-126); BUN/Creat Ratio 24.29 Ratio (12.00-20.00); Blood Urea Nitrogen 27.2 mg/dL (9.0-27.0); Calcium 8.9 mg/dL (8.7-10.3); Carbon Dioxide 26.5 mmol/L (20.0-27.5); Chloride 101 mmol/L (96-109); Chol/HDL Ratio 3.63 Ratio; Globulin 2.7 g/dL (1.6-3.3); Glucose 111 mg/dL (70-110); LDL Cholesterol,Calculated 69.4 mg/dL (0.0-131.0); Potassium 3.8 mmol/L (3.5-5.5); Sodium 141 mmol/L (135-145); Total Protein 6.9 g/dL (6.2-8.2); VLDL Calculation 16.76 mg/dL (5.00-40.00)
== END | disposition home or self-care (01) ==
LOC: LABWHC1 09:55
PROVIDERS: ATTEND Physician Assistant
DX: Z00.01 Encounter for general adult medical examination with abnormal findings (principal); Z12.5 Encounter for screening for malignant neoplasm of prostate; I50.42 Chronic combined systolic (congestive) and diastolic (congestive) heart failure; E11.8 Type 2 diabetes mellitus with unspecified complications; E78.2 Mixed hyperlipidemia; E03.9 Hypothyroidism, unspecified; E55.9 Vitamin D deficiency, unspecified; I48.20 Chronic atrial fibrillation, unspecified
CPT/HCPCS: 36415; 80053; 80061; 82306; 84153; 84439; 84443; 85025

== ENCOUNTER 2021-09-14 10:10 | Emergency (ER) | payer MEDICARE ==
[2021-09-14 10:27] VITALS: BP 131/58; PULSE 73; RESP 16; TEMP 97.5
[2021-09-14] MEDS ORDERED: ORPHENADRINE 30 MG/ML 2 ML VIAL IM STA (11:24)
[2021-09-14] MEDS ORDERED: KETOROLAC 15 MG/ML 1 ML VIAL IM STA (11:24)
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
== END 2021-09-14 11:40 | disposition home or self-care (01) ==
LOC: EC 10:10
DX: S16.1XXA Strain of muscle, fascia and tendon at neck level, initial encounter (principal); J45.909 Unspecified asthma, uncomplicated; I25.10 Atherosclerotic heart disease of native coronary artery without angina pectoris; I50.9 Heart failure, unspecified; Z86.73 Personal history of transient ischemic attack (TIA), and cerebral infarction without residual deficits; Z86.718 Personal history of other venous thrombosis and embolism; E11.9 Type 2 diabetes mellitus without complications; I25.2 Old myocardial infarction; K21.9 Gastro-esophageal reflux disease without esophagitis; M19.90 Unspecified osteoarthritis, unspecified site; F41.9 Anxiety disorder, unspecified; Z79.82 Long term (current) use of aspirin; Z79.84 Long term (current) use of oral hypoglycemic drugs; Z79.01 Long term (current) use of anticoagulants; Z88.0 Allergy status to penicillin; Z88.1 Allergy status to other antibiotic agents; Z88.5 Allergy status to narcotic agent; Z91.013 Allergy to seafood; Z88.2 Allergy status to sulfonamides; Z87.891 Personal history of nicotine dependence
CPT/HCPCS: 99283; 96372 ×2; J2360; J1885

== ENCOUNTER 2021-10-06 07:10 | Observation (INO) | payer MEDICARE ==
[2021-10-06] MEDS ORDERED: BENZONATATE 100 MG CAP PO STA (07:38)
[2021-10-06 08:06] LABS: Basophils % (A) 0 %; Eosinophils # (A) 0.1 k/uL (0-0.7); Eosinophils % (A) 1 %; HCT 48.8 % (39.0-53.0); HGB 15.4 gm/dL (13.0-17.5); Lymphocytes # (A) 0.7 k/uL (1.0-4.8); Lymphocytes % (A) 6 %; MCH 29.5 pg (25.0-35.0); MCHC 31.6 g/dL (31.0-37.0); MCV 93.2 fL (80.0-100.0); Mean Platelet Volume 8.8; Monocytes # (A) 0.4 k/uL (0-1.0); Monocytes % (A) 4 %; Neutrophils # (A) 9.3 k/uL (1.3-7.7); Neutrophils % (A) 87 %; Platelet Count 177 k/uL (150-450); RBC 5.23 m/uL (4.30-5.90); RDW 15.7 % (11.5-15.5); WBC 10.7 k/uL (3.8-10.6)
[2021-10-06 08:28] LABS: Prothrombin Time 62.3 sec (9.0-12.0)
[2021-10-06 08:34] LABS: Albumin 4.1 g/dL (3.5-5.0); Calcium 8.6 mg/dL (8.4-10.2); Total Bilirubin 2.5 mg/dL (0.2-1.3); Total Protein 7.9 g/dL (6.3-8.2)
--- NOTE | 2021-10-06 08:35 | XR ---
EXAMINATION TYPE: XR chest 2V DATE OF EXAM: 10/06/2021 COMPARISON: Chest x-ray 09/17/2020 HISTORY: Cough and pain, shortness of breath TECHNIQUE: Frontal and lateral views of the chest are obtained. FINDINGS: Patient is post median sternotomy. Heart is enlarged. Patient is rotated. There is a gener ator in left pectoral region, there are leads in right atrium and ventricle. Postop changes are noted to the thoracic spine. No evident pneumothorax. Some blunting the costophrenic angles is again seen. Central vascularity is prominent, interstitium is increased. Suspect underlying COPD, there is incre ased AP diameter chest. IMPRESSION: Correlate for pulmonary venous hypertension and interstitial edema, volume overload, dif ficult to exclude effusion although hyperinflation may cause the appearance of blunting of the costop hrenic angles. Cardiomegaly.
[2021-10-06 08:36] LABS: Potassium 4.3 mmol/L (3.5-5.1)
[2021-10-06 08:42] LABS: INR 6.2 (<1.2)
[2021-10-06] MEDS ORDERED: guaiFENesin-Coden 100-10MG/5ML 10 ML CUP PO STA (09:27)
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
[2021-10-06] MEDS ORDERED: BUMETANIDE 0.25 MG/ML 4 ML VIAL IVP STA (09:30)
[2021-10-06] MEDS ORDERED: NALOXONE 0.4 MG/ML 1 ML VIAL IV PRN (09:45)
[2021-10-06] MEDS ORDERED: ALPRAZolam 0.25 MG TAB PO PRN (13:50)
[2021-10-06] MEDS: carvediloL 3.125 MG TAB PO SCH (14:25)
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
[2021-10-06] MEDS: CHOLECALCIFEROL 25 MCG (1000 IU) TABLET PO SCH ×2 (15:59→20:57)
[2021-10-06] MEDS: GABAPENTIN 300 MG CAP PO SCH ×2 (15:59→20:57)
[2021-10-06] MEDS ORDERED: BUMETANIDE 1 MG TAB PO SCH (16:00)
[2021-10-06 17:02] LABS: Glucose,Whole Blood 137 mg/dL (70-110)
[2021-10-06] MEDS: DOFETILIDE 125 MCG CAP PO SCH (17:50)
[2021-10-06] MEDS ORDERED: WARFARIN 0.5 MG TAB PO ONE (18:00)
[2021-10-06] MEDS: SYMBICORT 80-4.5 MCG INHALER INHALATION SCH (19:52)
[2021-10-06 20:22] LABS: Glucose,Whole Blood 187 mg/dL (70-110)
[2021-10-06] MEDS: levETIRAcetam 500 MG TAB PO SCH (20:57)
[2021-10-06] MEDS: MONTELUKAST 10 MG TAB PO SCH (20:57)
[2021-10-06] MEDS: SACUBITRIL/VALSARTAN 24 MG-26 MG TABLET PO SCH (20:58)
[2021-10-06] MEDS: ATORVASTATIN 40 MG TAB PO SCH (20:58)
[2021-10-06] MEDS: FUROSEMIDE 10 MG/ML 4 ML VIAL IV SCH (20:58)
[2021-10-07] MEDS: carvediloL 3.125 MG TAB PO SCH ×3 (01:19→23:32)
[2021-10-07] MEDS: DOFETILIDE 125 MCG CAP PO SCH ×2 (05:40→18:13)
[2021-10-07] MEDS: LEVOTHYROXINE 75 MCG TAB PO SCH (05:40)
[2021-10-07 05:51] LABS: Prothrombin Time 59.8 sec (9.0-12.0)
[2021-10-07 05:52] LABS: INR 5.9 (<1.2)
[2021-10-07 06:50] LABS: Glucose,Whole Blood 94 mg/dL (70-110)
[2021-10-07] MEDS: SPIRONOLACTONE 25 MG TAB PO SCH (07:32)
[2021-10-07] MEDS: CLOPIDOGREL 75 MG TAB PO SCH (07:32)
[2021-10-07] MEDS: GABAPENTIN 300 MG CAP PO SCH ×3 (07:32→21:07)
[2021-10-07] MEDS: MULTIVITAMINS, THERA 1 EACH TAB PO SCH (07:32)
[2021-10-07] MEDS: MAGNESIUM OXIDE 400 MG TAB PO SCH (07:32)
[2021-10-07] MEDS: SACUBITRIL/VALSARTAN 24 MG-26 MG TABLET PO SCH ×2 (07:32→21:07)
[2021-10-07] MEDS: levETIRAcetam 500 MG TAB PO SCH ×2 (07:32→21:07)
[2021-10-07] MEDS: FOLIC ACID 1 MG TAB PO SCH (07:33)
[2021-10-07] MEDS: CHOLECALCIFEROL 25 MCG (1000 IU) TABLET PO SCH ×3 (07:33→21:07)
[2021-10-07] MEDS: PANTOPRAZOLE 40 MG TABLET PO SCH (07:33)
[2021-10-07] MEDS: FUROSEMIDE 10 MG/ML 4 ML VIAL IV SCH (07:33)
[2021-10-07] MEDS: SYMBICORT 80-4.5 MCG INHALER INHALATION SCH ×2 (07:44→19:05)
[2021-10-07 08:59] LABS: Basophils # (A) 0.03 X 10*3/uL (0.00-0.10); Basophils % (A) 0.3 %; Eosinophils # (A) 0.01 X 10*3/uL (0.04-0.35); Eosinophils % (A) 0.1 %; HCT 40.7 % (39.6-50.0); HGB 12.9 g/dL (13.0-17.0); Immature Grans, Automated 0.2 %; Lymphocytes # (A) 1.17 X 10*3/uL (0.90-5.00); Lymphocytes % (A) 13.2 %; MCH 28.4 pg (27.0-32.0); MCHC 31.7 g/dL (32.0-37.0); MCV 89.5 fL (80.0-97.0); Mean Platelet Volume 11.8 fL (9.5-12.2); Monocytes # (A) 0.86 X 10*3/uL (0.20-1.00); Monocytes % (A) 9.7 %; NRBC Per 100 WBC 0 /100 WBCS (0.0-0.0); Neutrophils # (A) 6.77 X 10*3/uL (1.80-7.70); Neutrophils % (A) 76.5 %; Platelet Count 152 X 10*3/uL (140-440); RBC 4.55 X 10*6/uL (4.40-5.60); RDW 16.9 % (11.5-14.5); WBC 8.86 X 10*3/uL (4.50-10.00)
[2021-10-07 09:14] LABS: African American GFR (CKD) 66.9 (60.0-200.0); BUN/Creat Ratio 16.54 Ratio (12.00-20.00); Calcium 8.1 mg/dL (8.7-10.3); Carbon Dioxide 24.8 mmol/L (20.0-27.5); Non-African American GFR(CKD) 57.7 (60.0-200.0); Potassium 3.3 mmol/L (3.5-5.5)
--- NOTE | 2021-10-07 09:42 | P.PN ---
Subjective Patient was examined at bedside today not complaining of any new symptomatology. States that shortness of breath is improved compared to yesterday. Pending diagnostic testing still. An evaluation by cardiology. Objective - Vital Signs Vital signs: Vital Signs Temp 98.1 F 10/07/21 05:00 Pulse 62 10/07/21 05:00 Resp 18 10/07/21 05:00 BP 91/54 10/07/21 05:00 Pulse Ox 97 10/07/21 05:00 FiO2 Intake & Output 10/06/21 10/07/21 10/07/21 18:59 06:59 18:59 Weight 114.2 kg 112.037 kg Other: Voiding Method Toilet # Voids 2 - Exam Gen. patient is awake alert oriented 3 Cardiac normal S1/S2 no murmurs appreciated Respiratory some crackles noted at the bases improved compared to yesterday Abdomen soft, nontender Extremity +2 pitting edema Psych in good spirits - Labs CBC & Chem 7: 10/07/21 04:10 10/07/21 04:10 Labs: Abnormal Lab Results - Last 24 Hours (Table) 10/06/21 10/06/21 10/07/21 Range/Units 17:00 20:20 04:10 Hgb 12.9 L (13.0-17.0) g/dL MCHC 31.7 L (32.0-37.0) g/dL RDW 16.9 H (11.5-14.5) % Eosinophils # 0.01 L (0.04-0.35) X 10*3/uL PT (9.0-12.0) sec INR (<1.2) Potassium (3.5-5.5) mmol/L Est GFR (CKD-EPI)NonAf (60.0-200.0) POC Glucose (mg/dL) 137 H 187 H (70-110) mg/dL Calcium (8.7-10.3) mg/dL 10/07/21 10/07/21 Range/Units 04:10 04:10 Hgb (13.0-17.0) g/dL MCHC (32.0-37.0) g/dL RDW (11.5-14.5) % Eosinophils # (0.04-0.35) X 10*3/uL PT 59.8 H (9.0-12.0) sec INR 5.9 H* (<1.2) Potassium 3.3 L (3.5-5.5) mmol/L Est GFR (CKD-EPI)NonAf 57.7 L (60.0-200.0) POC Glucose (mg/dL) (70-110) mg/dL Calcium 8.1 L (8.7-10.3) mg/dL Assessment and Plan Assessment: Assessment: #1 acute exacerbation of congestive heart failure NYHA 3 class C #2 atrial fibrillation currently rate controlled on anticoagulation #3 essential hypertension #4 coronary disease status post CABG and 4 stents #5 seizure disorder #6 hypothyroidism #7 elevated INR supratherapeutic Plan: -Admit to medicine for close monitoring -Daily weights, strict input/output, fluid resection less than 1.4 L -Patient has been switched over to Bumex 1 mg daily -We'll obtain 2-D echocardiogram pending -Cardiac troponins negative 2 -BNP 8670 we can transfer prognostic factors -Cardiology consulted pending ER -hold Coumadin dose, pharmacy consulted for dosing -Disposition anticipate discharge in the next 24 hours to 48 hours.
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
[2021-10-07 10:56] LABS: Glucose,Whole Blood 153 mg/dL (70-110)
--- NOTE | 2021-10-07 11:44 | CA ---
Transthoracic Echo Report Name: Kennedy Avilez Age: 61 Gender: M : 1960 Exam Date: 10/07/2021 08:37 Exam Location: [facility] Ht (in): 71 Wt (lb): 251 Ordering Physician: Nigel Vargas MD Attending/Referring Phys: Dietetics Teacher Amina Palomares RDCS Procedure CPT: Indications: chf Cardiac Hx: Hx of CABG, AICD Technical Quality: Poor Contrast 1: Lumason Total Dose (mL): 3 Contrast 2: Total Dose (mL): MEASUREMENTS (Male / Female) Normal Values 2D ECHO LV Diastolic Diameter PLAX 6.8 cm 4.2 - 5.9 / 3.9 - 5.3 cm LV Systolic Diameter PLAX 5.2 cm IVS Diastolic Thickness 1.5 cm 0.6 - 1.0 / 0.6 - 0.9 cm LVPW Diastolic Thickness 1.4 cm 0.6 - 1.0 / 0.6 - 0.9 cm LV Relative Wall Thickness 0.4 RV Internal Dim ED PLAX 3.8 cm LA Systolic Diameter LX 5.2 cm 3.0 - 4.0 / 2.7 - 3.8 cm LA Volume 103.3 cm??? 18 - 58 / 22 - 52 cm??? M-MODE Aortic Root Diameter MM 3.0 cm MV E Point Septal Separation 2.8 cm AV Cusp Separation MM 1.9 cm DOPPLER AV Peak Velocity 190.3 cm/s AV Peak Gradient 14.5 mmHg AV Mean Velocity 120.9 cm/s AV Mean Gradient 6.9 mmHg AV Velocity Time Integral 35.8 cm LVOT Peak Velocity 98.7 cm/s LVOT Peak Gradient 3.9 mmHg MV Area PHT 4.9 cm??? MV Deceleration Time 143.2 ms TR Peak Velocity 311.2 cm/s TR Peak Gradient 38.7 mmHg Right Ventricular Systolic Press 51.6 mmHg FINDINGS Left Ventricle Left ventricular ejection fraction is estimated at 15-20 %. Moderately increased left ventricular diastolic diameter. Moderate concentric left ventricular hypertrophy. Right Ventricle Moderate right ventricular dilatation. Moderate pulmonary hypertension. Right Atrium Normal right atrial size. Left Atrium Moderately increased left atrial diameter. Severely increased left atrial volume. Moderately increased left atrial area. No evidence for an atrial septal defect. Mitral Valve Mitral valve thickened. Mitral annular calcification. Trace to mild mitral regurgitation. Aortic Valve Focal thickening of the aortic valve cusps. Mild aortic stenosis with a peak gradient of 15 mmHg and a mean gradient of 7 mmHg. Tricuspid Valve Jszy-[id number] tricuspid regurgitation. Pulmonic Valve Pulmonic valve not well visualized. Pericardium Normal pericardium. No pericardial effusion. Aorta Normal size aortic root and proximal ascending aorta. CONCLUSIONS Enlarged left ventricle with the global decrease in contractility estimated ejection fraction of less than 20%. There is moderate pulmonary hypertension. Mild aortic valvular sclerosis with mild restriction no significant gradient. There is mild mitral and [id number] tricuspid insufficiency. No pericardial effusion Previewed by: Dr. Stephan Cortez MD (Electronically Signed) Final Date: 07 October 2021 11:43
[2021-10-07 16:59] LABS: Glucose,Whole Blood 184 mg/dL (70-110)
[2021-10-07] MEDS ORDERED: WARFARIN 0.5 MG TAB PO ONE (18:00)
[2021-10-07] MEDS ORDERED: BUMETANIDE 1 MG TAB PO SCH (18:00)
[2021-10-07 20:08] LABS: Glucose,Whole Blood 150 mg/dL (70-110)
[2021-10-07] MEDS: MONTELUKAST 10 MG TAB PO SCH (21:07)
[2021-10-07] MEDS: ATORVASTATIN 40 MG TAB PO SCH (21:07)
[2021-10-08] MEDS: LEVOTHYROXINE 75 MCG TAB PO SCH (05:44)
[2021-10-08] MEDS: DOFETILIDE 125 MCG CAP PO SCH (05:44)
[2021-10-08 06:44] LABS: INR 3.3 (<1.2); Prothrombin Time 33.2 sec (9.0-12.0)
[2021-10-08 07:05] LABS: Glucose,Whole Blood 101 mg/dL (70-110)
[2021-10-08] MEDS: SYMBICORT 80-4.5 MCG INHALER INHALATION SCH (08:03)
[2021-10-08] MEDS: PANTOPRAZOLE 40 MG TABLET PO SCH (08:45)
[2021-10-08] MEDS: MULTIVITAMINS, THERA 1 EACH TAB PO SCH (08:45)
[2021-10-08] MEDS: CLOPIDOGREL 75 MG TAB PO SCH (08:45)
[2021-10-08] MEDS: GABAPENTIN 300 MG CAP PO SCH (08:45)
[2021-10-08] MEDS: SACUBITRIL/VALSARTAN 24 MG-26 MG TABLET PO SCH (08:45)
[2021-10-08] MEDS: CHOLECALCIFEROL 25 MCG (1000 IU) TABLET PO SCH (08:45)
[2021-10-08] MEDS: SPIRONOLACTONE 25 MG TAB PO SCH (08:45)
[2021-10-08] MEDS: levETIRAcetam 500 MG TAB PO SCH (08:48)
[2021-10-08] MEDS: FOLIC ACID 1 MG TAB PO SCH (08:48)
[2021-10-08] MEDS: MAGNESIUM OXIDE 400 MG TAB PO SCH (08:48)
[2021-10-08] MEDS ORDERED: BUMETANIDE 1 MG TAB PO SCH (09:00)
--- NOTE | 2021-10-08 10:01 | P.PN ---
Subjective Progress Note Date: 10/08/21 HISTORY OF PRESENT ILLNESS: This is a 61-year-old male with a past medical history significant for coronary artery disease with previous CABG 4 in 1997, dual-chamber AICD in 2015, i schemic cardiomyopathy, atrial fibrillation on anticoagulation with Coumadin, and congestive heart failure. Patient follows with Dr. Ríos at [facility]. We have been asked to see the patient in consultation for CHF. Patient examined at the bedside. Patient presented to the hospital with a chief complaint of shortness of breath and coughing for the past few days. The patient was started on IV lasix for CHF. He states he feels better this morning. He is laying flat in bed and appears comfortable. He denies any chest pain or pressure. Vital signs are stable. * EKG reveals sinus mechanism with no signs of acute ischemia * Chest xray correlate for pulmonary venous hypertension and interstitial edema, volume overload, difficult to exclude effusion although hyperinflation because the appearance of blunting of the costophrenic angles. Cardiomegaly * Laboratory data: WBC 8.86. Hemoglobin 12.9. Platelet count 152. INR 5.9. Sodium 135. Potassium 3.3. BUN 22. Creatinine 1.3. Troponin negative 3. ProBNP 8670. * Current home cardiac medications include Lipitor 40 mg at night, Bumex 1 mg twice a day, Plavix 75 mg daily, dofetilide 125 g twice a day, carvedilol 3.125 mg twice a day, Jardiance 10mg daily, Entresto 24-26mg BID, Aldactone 25 mg daily, Coumadin 10 mg at night * Most recent echocardiogram obtained in September 2020 revealed ejection fraction 20-25%, trace MR, trace TR 10/08/2021 Patient examined this morning at the bedside. Patient denies chest pain or pressure. He denies shortness of breath. Patient's Eliquis is covered by his insurance with a co-pay of $4.80 per month. His Coumadin remains on hold. INR today is 3.3. Echocardiogram completed revealing ejection fraction 15-20%, moderate pulmonary hypertension, trace to mild mitral regurgitation, mild aortic stenosis, iudz-ac-bonfqrpv tricuspid regurgitation. Vital signs are stable. PHYSICAL EXAM: VITAL SIGNS: Reviewed. GENERAL: Well-developed in no acute distress. HEENT: Head is normocephalic. Pupils are equal, round. Sclerae anicteric. Mucous membranes of the mouth are moist. Neck supple. No JVD or thyromegaly LUNGS: Respirations even and unlabored. Lungs essentially clear to auscultation bilaterally. HEART: Regular rate and rhythm. S1 and S2 heard. ABDOMEN: Soft. Nondistended. Nontender. EXTREMITIES: Normal range of motion. No clubbing or cyanosis. Peripheral pulses intact. No lower extremity edema NEUROLOGIC: Awake and alert. Oriented x 3. ASSESSMENT: Shortness of breath Acute on chronic heart failure with reduced EF Coumadin coagulopathy Coronary artery disease with CABG x 4 vessels, 1997 History of dual-chamber AICD, 2014 Ischemic cardiomyopathy Paroxysmal atrial fibrillation PLAN: Continue current cardiac medications Patient instructed to discontinue Coumadin. He is to check his INR at home. Once his INR is below 2 he may begin Eliquis 5mg BID The patient may be discharged home today from a cardiac standpoint and follow up with his primary retail agent at [facility] Nurse practitioner note has been reviewed by physician. Signing provider agrees with the documented findings, assessment, and plan of care. Objective - Vital Signs Vital signs: Vital Signs Temp 97.3 F L 10/08/21 04:48 Pulse 53 L 10/08/21 04:48 Resp 18 10/08/21 04:48 BP 100/55 10/08/21 04:48 Pulse Ox 96 10/08/21 04:48 FiO2 Intake & Output 10/07/21 10/08/21 10/08/21 18:59 06:59 18:59 Intake Total 240 Balance 240 Weight 112.037 kg 113 kg Intake: Oral 240 Other: Voiding Method Toilet Toilet - Labs CBC & Chem 7: 10/07/21 04:10 10/07/21 04:10 Labs: Abnormal Lab Results - Last 24 Hours (Table) 10/07/21 10/07/21 10/07/21 Range/Units 10:55 16:58 20:06 PT (9.0-12.0) sec INR (<1.2) POC Glucose (mg/dL) 153 H 184 H 150 H (70-110) mg/dL 10/08/21 Range/Units 04:57 PT 33.2 H (9.0-12.0) sec INR 3.3 H (<1.2) POC Glucose (mg/dL) (70-110) mg/dL
[2021-10-08 11:26] LABS: Glucose,Whole Blood 229 mg/dL (70-110)
[2021-10-08 12:29] VITALS: BP 100/66; PULSE 54; RESP 17; TEMP 97.7
--- NOTE | 2021-10-08 13:20 | P.DS ---
Providers Date of admission: 10/06/21 09:46 Attending physician: Dee Levin DO Consults: 10/06/21 09:45 Consult Physician Urgent Consulting Provider: [facility] Consult Reason/Comments: aechf Do you want consulting provider notified?: Yes [facility] Course: Patient is a 61-year-old male with a past medical history significant for essential hypertension, congestive heart failure with reduced ejection fraction status post AICD/pacemaker, coronary disease status post CABG and 4 stents placed, hyperlipidemia, seizures, in nature fibrillation on Coumadin the presents a hospital complaining of shortness of breath. He stated that this started last 24-48 hours and has progressively getting worse. He denies any orthopnea or proximal nocturnal dyspnea. He states that the cough is dry and he denies any episodes of fever or chills. Patient was resting at bedside not complaining of any chest pain, shortness of breath or palpitations. Vital signs have been reviewed 112/77, chest x-ray was personally reviewed showing volume overload with blunting of costophrenic angles. CBC reviewed, BMP reviewed INR elevated 6.2. She was probably started on IV Lasix and has been diuresed properly. Shortness of breath is improved. 2-D echocardiogram has been reviewed by cardiology and internal medicine. 2-D echocardiogram showed an ejection fraction of less than 20% patient does have a history of AICD and cardiology is aware of this. His vital signs continued to be stable afebrile blood pressure 100/66, saturating on room air. CBC BMP reviewed. Coagulation panel significant with an INR of 6.2 which is trended down to 3.3 today. I have instructed the patient and present at bedside that the patient is to resume Leonle was only once INR level is less than 2. Patient does have a INR machine at home and will check daily. He did communicate this back to me to demonstrate understanding. Patient is okay be discharged from cardiology perspective and to follow-up outpatient with lacquer polisher and primary care doctor within 1 week of discharge. Patient denies any chest pain, shortness of breath or palpitations. Patient Condition at Discharge: Stable Plan - Discharge Summary New Discharge Prescriptions: New Apixaban [Eliquis] 5 mg PO BID #60 tab Bumetanide [BUMEX] 2 mg PO DAILY #30 tab Bumetanide [BUMEX] 1 mg PO DAILY@1800 #30 tab Continue Clopidogrel [Plavix] 75 mg PO DAILY Folic Acid 1 mg PO DAILY Vitamin B Complex 1 cap PO DAILY Fluticasone Propion/Salmeterol [Advair 250-50 Diskus] 1 puff INHALATION RT- BID Vitamin E (Dl,Tocopheryl Acet) [Vitamin E (400 Iu = 180 mg)] 400 unit PO TID Esomeprazole Magnesium [NexIUM] 20 mg PO DAILY Atorvastatin [Lipitor] 40 mg PO HS Levothyroxine Sodium [Synthroid] 75 mcg PO DAILY@0630 Magnesium Oxide [Mag-Ox] 400 mg PO DAILY #30 tab metFORMIN HCL ER [Glucophage XR] 500 mg PO BID Vitamin A [Vitamin A (8,000 Units = 2,400 MCG)] 8,000 mcg PO TID levETIRAcetam [Keppra] 500 mg PO Q12HR #60 tab carvediloL [Coreg] 3.125 mg PO BID@0000,1200 Empagliflozin [Jardiance] 10 mg PO DAILY Spironolactone [Aldactone] 25 mg PO DAILY 30 Days #30 tab ALPRAZolam [Xanax] 0.25 mg PO DAILY PRN PRN Reason: Anxiety Gabapentin [Neurontin] 300 mg PO TID Multivit-Min/FA/Lycopen/Lutein [Centrum Silver Tablet] 1 tab PO DAILY Sacubitril/Valsartan [Entresto 24 mg-26 mg Tablet] 1 tab PO BID tadalafiL [Cialis] 5 mg PO DAILY Cholecalciferol [Vitamin D3 (25 Mcg = 1000 Iu)] 25 mcg PO TID Dofetilide [Tikosyn] 125 mcg PO BID Montelukast [Singulair] 10 mg PO HS Discontinued Warfarin [Coumadin] 10 mg PO HS Bumetanide [BUMEX] 1 mg PO BID@0900,1600 30 Days #60 tab Discharge Medication List Clopidogrel [Plavix] 75 mg PO DAILY 09/04/14 [History] Folic Acid 1 mg PO DAILY 09/04/14 [History] Fluticasone Propion/Salmeterol [Advair 250-50 Diskus] 1 puff INHALATION RT-BID 12/31/14 [History] Vitamin B Complex 1 cap PO DAILY 12/31/14 [History] Vitamin E (Dl,Tocopheryl Acet) [Vitamin E (400 Iu = 180 mg)] 400 unit PO TID 10/14/17 [History] Atorvastatin [Lipitor] 40 mg PO HS 10/23/17 [History] Esomeprazole Magnesium [NexIUM] 20 mg PO DAILY 10/23/17 [History] Levothyroxine Sodium [Synthroid] 75 mcg PO DAILY@0630 11/06/17 [History] Magnesium Oxide [Mag-Ox] 400 mg PO DAILY #30 tab 11/12/17 [Rx] Vitamin A [Vitamin A (8,000 Units = 2,400 MCG)] 8,000 mcg PO TID 08/21/18 [History] metFORMIN HCL ER [Glucophage XR] 500 mg PO BID 08/21/18 [History] levETIRAcetam [Keppra] 500 mg PO Q12HR #60 tab 08/22/18 [Rx] Cholecalciferol [Vitamin D3 (25 Mcg = 1000 Iu)] 25 mcg PO TID 09/17/20 [History] Empagliflozin [Jardiance] 10 mg PO DAILY 09/17/20 [History] carvediloL [Coreg] 3.125 mg PO BID@0000,1200 09/17/20 [History] Spironolactone [Aldactone] 25 mg PO DAILY 30 Days #30 tab 09/19/20 [Rx] ALPRAZolam [Xanax] 0.25 mg PO DAILY PRN 10/06/21 [History] Dofetilide [Tikosyn] 125 mcg PO BID 10/06/21 [History] Gabapentin [Neurontin] 300 mg PO TID 10/06/21 [History] Montelukast [Singulair] 10 mg PO HS 10/06/21 [History] Multivit-Min/FA/Lycopen/Lutein [Centrum Silver Tablet] 1 tab PO DAILY 10/06/21 [History] Sacubitril/Valsartan [Entresto 24 mg-26 mg Tablet] 1 tab PO BID 10/06/21 [History] tadalafiL [Cialis] 5 mg PO DAILY 10/06/21 [History] Apixaban [Eliquis] 5 mg PO BID #60 tab 10/07/21 [Rx] Bumetanide [BUMEX] 1 mg PO DAILY@1800 #30 tab 10/08/21 [Rx] Bumetanide [BUMEX] 2 mg PO DAILY #30 tab 10/08/21 [Rx] Follow up Appointment(s)/Referral(s): Robi Medina DO [Primary Care Provider] - 1-2 days (call for follow up appt) Chris Wylie MD [STAFF PHYSICIAN] - 1 Week Patient Instructions/Handouts: Heart Failure (DC) Activity/Diet/Wound Care/Special Instructions: Per cardiology --- STOP coumadin and Patient is to start Eliquis once INR is less than 2- Has machine at home to monitor INR Discharge Disposition: HOME SELF-CARE
== END 2021-10-08 13:52 | disposition home or self-care (01) ==
LOC: EC 07:10 → INTOOBSV 09:46 → 5NMEDONC 09:46 → UNDODISIN 10-08 13:52
PROVIDERS: ADMIT Internal Medicine; ATTEND Internal Medicine
DX: I11.0 Hypertensive heart disease with heart failure (principal); I50.23 Acute on chronic systolic (congestive) heart failure; J45.909 Unspecified asthma, uncomplicated; G40.909 Epilepsy, unspecified, not intractable, without status epilepticus; E03.9 Hypothyroidism, unspecified; E11.9 Type 2 diabetes mellitus without complications; I27.20 Pulmonary hypertension, unspecified; I48.0 Paroxysmal atrial fibrillation; I08.3 Combined rheumatic disorders of mitral, aortic and tricuspid valves; T45.515A Adverse effect of anticoagulants, initial encounter; I25.10 Atherosclerotic heart disease of native coronary artery without angina pectoris; F41.9 Anxiety disorder, unspecified; I25.5 Ischemic cardiomyopathy; E78.5 Hyperlipidemia, unspecified; G47.30 Sleep apnea, unspecified; M19.90 Unspecified osteoarthritis, unspecified site; M79.89 Other specified soft tissue disorders; R79.1 Abnormal coagulation profile; R41.3 Other amnesia; Z95.1 Presence of aortocoronary bypass graft; Z86.718 Personal history of other venous thrombosis and embolism; I25.2 Old myocardial infarction; K21.9 Gastro-esophageal reflux disease without esophagitis; Z20.822 Contact with and (suspected) exposure to COVID-19; Z79.02 Long term (current) use of antithrombotics/antiplatelets; Z79.899 Other long term (current) drug therapy; Z79.890 Hormone replacement therapy; Z79.51 Long term (current) use of inhaled steroids; Z79.84 Long term (current) use of oral hypoglycemic drugs; Z79.01 Long term (current) use of anticoagulants; Z88.5 Allergy status to narcotic agent; Z88.0 Allergy status to penicillin; Z88.2 Allergy status to sulfonamides; Z91.013 Allergy to seafood; Z88.1 Allergy status to other antibiotic agents; Z88.8 Allergy status to other drugs, medicaments and biological substances; Z86.73 Personal history of transient ischemic attack (TIA), and cerebral infarction without residual deficits; Z87.828 Personal history of other (healed) physical injury and trauma; Z95.5 Presence of coronary angioplasty implant and graft; Z95.810 Presence of automatic (implantable) cardiac defibrillator; Z87.891 Personal history of nicotine dependence; Z98.1 Arthrodesis status; Z82.49 Family history of ischemic heart disease and other diseases of the circulatory system; Z84.2 Family history of other diseases of the genitourinary system
CPT/HCPCS: 96376; 96375; 96374; 99285; 36415; 94640 ×4; 93005; 83880; 80053; 80048; 83605; 84484; 85025 ×2; 85610 ×3; 85730; 87502; 87635; 71046; G0378 ×3; C8929; J1940 ×2; Q9950; 93306

== ENCOUNTER → 2021-10-15 | Outpatient (CLI) | payer MEDICARE ==
[2021-10-15 15:08] LABS: Basophils # (A) 0.04 X 10*3/uL (0.00-0.10); Basophils % (A) 0.6 %; Eosinophils # (A) 0.19 X 10*3/uL (0.04-0.35); Eosinophils % (A) 2.7 %; HCT 45.1 % (39.6-50.0); HGB 13.9 g/dL (13.0-17.0); Immature Grans, Automated 0.1 %; Lymphocytes # (A) 1.36 X 10*3/uL (0.90-5.00); Lymphocytes % (A) 19.3 %; MCH 28.1 pg (27.0-32.0); MCHC 30.8 g/dL (32.0-37.0); MCV 91.1 fL (80.0-97.0); Mean Platelet Volume 11.1 fL (9.5-12.2); Monocytes # (A) 0.68 X 10*3/uL (0.20-1.00); Monocytes % (A) 9.6 %; NRBC Per 100 WBC 0 /100 WBCS (0.0-0.0); Neutrophils # (A) 4.77 X 10*3/uL (1.80-7.70); Neutrophils % (A) 67.7 %; Platelet Count 244 X 10*3/uL (140-440); RBC 4.95 X 10*6/uL (4.40-5.60); RDW 16.8 % (11.5-14.5); WBC 7.05 X 10*3/uL (4.50-10.00)
[2021-10-15 16:08] LABS: ALT 17 U/L (10-49); AST 17 U/L (14-35); Albumin/Globulin Ratio 1.15 (1.60-3.17); Alkaline Phosphatase 98 U/L (41-126); BUN/Creat Ratio 25.66 Ratio (12.00-20.00); Blood Urea Nitrogen 27.2 mg/dL (9.0-27.0); Calcium 9.2 mg/dL (8.7-10.3); Carbon Dioxide 27.4 mmol/L (20.0-27.5); Chloride 102 mmol/L (96-109); Chol/HDL Ratio 2.95 Ratio; Globulin 3.5 g/dL (1.6-3.3); Glucose 115 mg/dL (70-110); LDL Cholesterol,Calculated 57.4 mg/dL (0.0-131.0); Non-African American GFR(CKD) 75.9 (60.0-200.0); Potassium 3.6 mmol/L (3.5-5.5); Sodium 144 mmol/L (135-145); Total Protein 7.5 g/dL (6.2-8.2); VLDL Calculation 15.32 mg/dL (5.00-40.00)
== END | disposition home or self-care (01) ==
LOC: LABWHC1 09:28
PROVIDERS: ATTEND Family Medicine
DX: I10 Essential (primary) hypertension (principal); I25.5 Ischemic cardiomyopathy; F41.1 Generalized anxiety disorder; E78.2 Mixed hyperlipidemia; E03.9 Hypothyroidism, unspecified; I48.20 Chronic atrial fibrillation, unspecified; E55.9 Vitamin D deficiency, unspecified; E11.8 Type 2 diabetes mellitus with unspecified complications; Z86.73 Personal history of transient ischemic attack (TIA), and cerebral infarction without residual deficits
CPT/HCPCS: 36415; 80053; 80061; 82040; 82306; 84270; 84403; 84443; 85025

== ENCOUNTER → 2022-01-09 | Outpatient (CLI) | payer MEDICARE | END | disposition home or self-care (01) | LOC: LABWHC1 09:45 | PROVIDERS: ATTEND Internal Medicine Gastroenterology | DX: I25.5 Ischemic cardiomyopathy (principal); I48.11 Longstanding persistent atrial fibrillation; R60.0 Localized edema; K52.9 Noninfective gastroenteritis and colitis, unspecified | CPT/HCPCS: 83880 ==

== ENCOUNTER → 2022-01-12 | Outpatient (CLI) | payer MEDICARE ==
[2022-01-12 14:28] LABS: HCT 43.3 % (39.6-50.0); HGB 14.1 g/dL (13.0-17.0); MCH 30.2 pg (27.0-32.0); MCHC 32.6 g/dL (32.0-37.0); MCV 92.7 fL (80.0-97.0); Mean Platelet Volume 11.6 fL (9.5-12.2); NRBC Per 100 WBC 0 /100 WBCS (0.0-0.0); Platelet Count 227 X 10*3/uL (140-440); RBC 4.67 X 10*6/uL (4.40-5.60); RDW 14.2 % (11.5-14.5); WBC 7.24 X 10*3/uL (4.50-10.00)
[2022-01-12 14:54] LABS: Erythrocyte Sedimentation Rate 115 mm/Hr (0-20)
[2022-01-12 18:18] LABS: Albumin 3.9 g/dL (3.8-4.9); Albumin/Globulin Ratio 0.94 (1.60-3.17); Anion Gap 9.1 mmol/L (10.00-18.00); BUN/Creat Ratio 20.68 Ratio (12.00-20.00); Blood Urea Nitrogen 18.3 mg/dL (9.0-27.0); C Reactive Protein 2.1 mg/dL (0.00-0.80); Calcium 9.3 mg/dL (8.7-10.3); Carbon Dioxide 29.3 mmol/L (20.0-27.5); Globulin 4.2 g/dL (1.6-3.3); Magnesium 1.9 mg/dL (1.5-2.4); Non-African American GFR(CKD) 93.2 (60.0-200.0); Potassium 3.6 mmol/L (3.5-5.5); Total Bilirubin 0.9 mg/dL (0.30-1.20); Total Protein 8.1 g/dL (6.2-8.2)
== END | disposition home or self-care (01) ==
LOC: LABWHC1 10:12
PROVIDERS: ATTEND Internal Medicine Interventional Cardiology
DX: I25.5 Ischemic cardiomyopathy (principal); I48.11 Longstanding persistent atrial fibrillation; R60.0 Localized edema; K52.9 Noninfective gastroenteritis and colitis, unspecified
CPT/HCPCS: 36415; 80053; 83516; 83735; 83880; 85027; 85652; 86140

== ENCOUNTER 2022-02-10 06:31 | Day surgery (SDC) | payer MEDICARE ==
[2022-02-03 16:14] VITALS: BMI 32.8
[~2022-02-10 06:31] MED LIST changes: -DEXAMETHASONE SOD PHOSPHATE 10 MG/ML 1 ML VIAL IV ONE; -LIDOCAINE 1% 20 ML VIAL (10MG/ML) FOR IV START INTRADERMA PRN; -MIDAZOLAM (PF) 2 MG/2 ML VIAL IV PRN; -fentaNYL (PF) 50 MCG/ML 2 ML AMP IV PRN
[2022-02-10 07:12] VITALS: TEMP 97.2
[2022-02-10 07:15] LABS: Glucose,Whole Blood 89 mg/dL (70-110)
[2022-02-10] MEDS ORDERED: PROPOFOL 10 MG/ML 20 ML VIAL IV ONE (07:47)
[2022-02-10] MEDS ORDERED: LIDOCAINE 2% INJ 20 MG/ML (2 ML VIAL) ONE (07:47)
--- NOTE | 2022-02-10 08:12 | P.PCN ---
Date of Procedure: 02/10/22 Procedure(s) Performed: BRIEF HISTORY: Patient is a 61-year-old pleasant white male scheduled for an elective colonoscopy as a part of chronic diarrhea for the last 6 months duration. PROCEDURE PERFORMED: Colonoscopy with random biopsy. PREOPERATIVE DIAGNOSIS: Chronic diarrhea of 6 months duration. IV sedation per Anesthesia. PROCEDURE: After informed consent was obtained, the patient, was brought into the endoscopy unit. IV sedation was administered by Anesthesia under continuous monitoring. Digital rectal examination was normal. Initially the Olympus CF-160 flexible video colonoscope was then inserted in the rectum, gradually advanced into the cecum without any difficulty. Careful examination was performed as the scope was gradually being withdrawn. Ileocecal valve and the appendiceal orifice were visualized and appeared normal. Prep was excellent. Mucosa of the cecum, ascending colon, transverse colon, descending colon, sigmoid colon, and rectum appeared normal. Random biopsies were done from ascending and descending colon to rule out microscopic/collagenous colitis Retroflexion was performed in the rectum and no lesions were seen. The patient tolerated the procedure well. IMPRESSION: Normal-appearing colon from rectum to cecum with no evidence of colorectal neoplasia Scattered sigmoid diverticulosis. RECOMMENDATIONS: Findings of this examination were discussed with the patient Family. He was advised to follow with the biopsy results. He was advised to have a repeat screening colonoscopy in 10 years..
[2022-02-10 08:21] VITALS: RESP 18
[2022-02-10 08:35] VITALS: BP 103/60; PULSE 61
== END 2022-02-10 09:03 | disposition home or self-care (01) ==
LOC: ORWHC2ENDO 06:31
PROVIDERS: ATTEND Internal Medicine Gastroenterology
DX: K52.9 Noninfective gastroenteritis and colitis, unspecified (principal); K57.30 Diverticulosis of large intestine without perforation or abscess without bleeding; Z79.899 Other long term (current) drug therapy; Z88.2 Allergy status to sulfonamides; Z88.0 Allergy status to penicillin; Z88.5 Allergy status to narcotic agent; Z88.8 Allergy status to other drugs, medicaments and biological substances; Z91.013 Allergy to seafood
CPT/HCPCS: 45380; J2704; J2001; 88305

== ENCOUNTER → 2022-03-04 | Outpatient (CLI) | payer MEDICARE ==
[2022-03-04 16:17] LABS: African American GFR (CKD) 96.1 (60.0-200.0); Anion Gap 10.1 mmol/L (10.00-18.00); BUN/Creat Ratio 16.55 Ratio (12.00-20.00); Blood Urea Nitrogen 16.3 mg/dL (9.0-27.0); Calcium 9.5 mg/dL (8.7-10.3); Magnesium 2.3 mg/dL (1.5-2.4); Non-African American GFR(CKD) 82.9 (60.0-200.0); Potassium 4.1 mmol/L (3.5-5.5)
== END | disposition home or self-care (01) ==
LOC: LABWHC1 10:12
PROVIDERS: ATTEND Student in an Organized Health Care Education/Training Program
DX: I25.5 Ischemic cardiomyopathy (principal); I48.20 Chronic atrial fibrillation, unspecified; I48.91 Unspecified atrial fibrillation; I50.42 Chronic combined systolic (congestive) and diastolic (congestive) heart failure
CPT/HCPCS: 36415; 80048; 83735

== ENCOUNTER → 2022-04-01 | Outpatient (CLI) | payer MEDICARE ==
[2022-04-02 03:47] LABS: African American GFR (CKD) 84.1 (60.0-200.0); Anion Gap 8.5 mmol/L (10.00-18.00); Blood Urea Nitrogen 20.7 mg/dL (9.0-27.0); Calcium 9.2 mg/dL (8.7-10.3); Carbon Dioxide 30.5 mmol/L (20.0-27.5); Non-African American GFR(CKD) 72.6 (60.0-200.0); Potassium 4.9 mmol/L (3.5-5.5)
== END | disposition home or self-care (01) ==
LOC: LABT 10:35
PROVIDERS: ATTEND Nurse Practitioner Adult Health
DX: I25.5 Ischemic cardiomyopathy (principal)
CPT/HCPCS: 80048; 83880

== ENCOUNTER → 2022-04-10 | Outpatient (CLI) | payer MEDICARE ==
[2022-04-10 18:49] LABS: Basophils # (A) 0.04 X 10*3/uL (0.00-0.10); Basophils % (A) 0.6 %; Eosinophils # (A) 0.23 X 10*3/uL (0.04-0.35); Eosinophils % (A) 3.5 %; HCT 46.2 % (39.6-50.0); HGB 14.7 g/dL (13.0-17.0); Immature Grans, Automated 0.2 %; Lymphocytes # (A) 1.38 X 10*3/uL (0.90-5.00); Lymphocytes % (A) 20.9 %; MCHC 31.8 g/dL (32.0-37.0); MCV 94.3 fL (80.0-97.0); Mean Platelet Volume 11.8 fL (9.5-12.2); Monocytes # (A) 0.62 X 10*3/uL (0.20-1.00); Monocytes % (A) 9.4 %; NRBC Per 100 WBC 0 /100 WBCS (0.0-0.0); Neutrophils # (A) 4.33 X 10*3/uL (1.80-7.70); Neutrophils % (A) 65.4 %; Platelet Count 169 X 10*3/uL (140-440); RDW 15.1 % (11.5-14.5); WBC 6.61 X 10*3/uL (4.50-10.00)
[2022-04-10 19:30] LABS: ALT 13 U/L (10-49); AST 21 U/L (14-35); African American GFR (CKD) 76.7 (60.0-200.0); Albumin 4.5 g/dL (3.8-4.9); Albumin/Globulin Ratio 1.39 (1.60-3.17); Alkaline Phosphatase 95 U/L (41-126); BUN/Creat Ratio 18.81 Ratio (12.00-20.00); Blood Urea Nitrogen 22.2 mg/dL (9.0-27.0); Calcium 9.6 mg/dL (8.7-10.3); Carbon Dioxide 28.4 mmol/L (20.0-27.5); Chloride 100 mmol/L (96-109); Chol/HDL Ratio 4.29 Ratio; Globulin 3.2 g/dL (1.6-3.3); Glucose 116 mg/dL (70-110); LDL Cholesterol,Calculated 103.7 mg/dL (0.0-131.0); Magnesium 2.3 mg/dL (1.5-2.4); Non-African American GFR(CKD) 66.2 (60.0-200.0); Potassium 4.4 mmol/L (3.5-5.5); Sodium 141 mmol/L (135-145); Total Protein 7.7 g/dL (6.2-8.2)
== END | disposition home or self-care (01) ==
LOC: LABWHC1 10:22
PROVIDERS: ATTEND Physician Assistant
DX: I11.0 Hypertensive heart disease with heart failure (principal); I50.9 Heart failure, unspecified; I25.5 Ischemic cardiomyopathy; F41.1 Generalized anxiety disorder; E78.2 Mixed hyperlipidemia; E03.9 Hypothyroidism, unspecified; I48.20 Chronic atrial fibrillation, unspecified; Z86.73 Personal history of transient ischemic attack (TIA), and cerebral infarction without residual deficits
CPT/HCPCS: 36415; 80053; 80061; 82306; 83735; 83880; 84443; 85025

== ENCOUNTER → 2022-09-24 | Outpatient (CLI) | payer MEDICARE ==
[2022-09-24 15:32] LABS: Basophils # (A) 0.04 X 10*3/uL (0.00-0.10); Basophils % (A) 0.7 %; Eosinophils # (A) 0.26 X 10*3/uL (0.04-0.35); Eosinophils % (A) 4.3 %; HCT 46.5 % (39.6-50.0); HGB 15.9 d/dL (12.0-15.0); MCH 32.7 pg (27.0-32.0); MCHC 34.2 d/dL (32.0-37.0); MCV 95.7 FL (80.0-97.0); Mean Platelet Volume 11.5 FL (9.5-12.2); Monocytes % (A) 9.8 %; NRBC Per 100 WBC 0 X 10*3/uL (0.00-0.01); Neutrophils # (A) 3.79 X 10*3/uL (1.80-7.70); Platelet Count 152 X 10*3/uL (140-440); RBC 4.86 X 10*6/uL (4.40-5.60); RDW 13.2 % (11.5-14.5)
[2022-09-24 17:27] LABS: Creatine Kinase 104 U/L (35-257)
[2022-09-24 17:56] LABS: ALT 17 U/L (10-49); AST 25 U/L (14-35); Albumin 4.4 d/dL (3.8-4.9); Albumin/Globulin Ratio 1.52 Ratio (1.60-3.17); Alkaline Phosphatase 102 U/L (41-126); BUN/Creat Ratio 18.36 Ratio (12.00-20.00); Blood Urea Nitrogen 20.2 mg/dL (9.0-27.0); Calcium 9.5 mg/dL (8.7-10.3); Carbon Dioxide 22.4 mmol/L (21.6-31.8); Chloride 102 mmol/L (96-109); Chol/HDL Ratio 3.69 Ratio; Globulin 2.9 d/dL (1.6-3.3); Glucose 119 mg/dL (70-110); LDL Cholesterol,Calculated 66.6 mg/dL (0.0-131.0); Potassium 4.1 mmol/L (3.5-5.5); Sodium 140 mmol/L (135-145); Total Bilirubin 0.7 mg/dL (0.3-1.2); Total Protein 7.3 d/dL (6.2-8.2)
== END | disposition home or self-care (01) ==
LOC: LABWHC1 09:54
PROVIDERS: ATTEND Family Medicine
DX: I10 Essential (primary) hypertension (principal); E11.8 Type 2 diabetes mellitus with unspecified complications; F41.1 Generalized anxiety disorder; E78.2 Mixed hyperlipidemia; E55.9 Vitamin D deficiency, unspecified; E03.9 Hypothyroidism, unspecified
CPT/HCPCS: 36415; 80053; 80061; 82040; 82306; 82550; 84153; 84270; 84403; 84443; 85025

== ENCOUNTER → 2022-09-30 | Outpatient (CLI) | payer MEDICARE | END | disposition home or self-care (01) | LOC: LABWHC1 09:18 | PROVIDERS: ATTEND Family Medicine | DX: E29.1 Testicular hypofunction (principal) | CPT/HCPCS: 36415; 82040; 84270; 84403 ==

== ENCOUNTER 2022-10-15 18:34 | Observation (INO) | payer MEDICARE ==
[2022-10-15 19:12] LABS: Basophils # (A) 0.1 k/uL (0-0.2); Basophils % (A) 1 %; Eosinophils # (A) 0.3 k/uL (0-0.7); Eosinophils % (A) 2 %; HCT 45.7 % (39.0-53.0); HGB 15.7 gm/dL (13.0-17.5); Lymphocytes # (A) 2.7 k/uL (1.0-4.8); Lymphocytes % (A) 24 %; MCH 33.2 pg (25.0-35.0); MCHC 34.5 g/dL (31.0-37.0); MCV 96.2 fL (80.0-100.0); Monocytes # (A) 0.7 k/uL (0-1.0); Monocytes % (A) 7 %; Neutrophils # (A) 7.4 k/uL (1.3-7.7); Neutrophils % (A) 64 %; Platelet Count 208 k/uL (150-450); RBC 4.75 m/uL (4.30-5.90); RDW 13.8 % (11.5-15.5); WBC 11.5 k/uL (3.8-10.6)
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
[2022-10-15 19:20] LABS: INR 1.1 (<1.2); Partial Thromboplastin Time 22.4 sec (22.0-30.0); Prothrombin Time 11.4 sec (9.0-12.0)
[2022-10-15 19:34] LABS: ALT 20 U/L (4-49); AST 33 U/L (17-59); African American GFR (CKD) 62 (>60 ml/min/1.73 sqM); Albumin 4.5 g/dL (3.5-5.0); Alkaline Phosphatase 107 U/L (38-126); Anion Gap 18 mmol/L; Blood Urea Nitrogen 47 mg/dL (9-20); Calcium 9.9 mg/dL (8.4-10.2); Carbon Dioxide 16 mmol/L (22-30); Chloride 101 mmol/L (98-107); Glucose 151 mg/dL (74-99); Magnesium 1.7 mg/dL (1.6-2.3); Non-African American GFR(CKD) 54 (>60 ml/min/1.73 sqM); Potassium 4.4 mmol/L (3.5-5.1); Sodium 135 mmol/L (137-145); Total Protein 7.8 g/dL (6.3-8.2)
--- NOTE | 2022-10-15 19:36 | XR ---
EXAMINATION TYPE: XR chest 2V DATE OF EXAM: 10/15/2022 COMPARISON: 10/06/2021 HISTORY: 62 year-old male shortness of breath, dyspnea TECHNIQUE: PA and lateral views FINDINGS: There is some deformity along the inferior margin of the scapular neck which remains unchanged from p rior exam. Narrowing of the subacromial space on the left suggesting underlying full-thickness rotato r cuff tear. Posterior mid thoracic fusion hardware. Left anterior chest wall ICD generator with righ t atrial right ventricular leads. The heart is mildly enlarged. Diffuse interstitial and vascular pro minence. No marc consolidation or pleural effusion. IMPRESSION: Mild cardiomegaly with interstitial/vascular prominence. Correlate for mild CHF with pulmonary vascul ar congestion.
[2022-10-15 19:42] LABS: NT-Pro-B-Type Natriuretic Pept 8910 pg/mL
[2022-10-15] MEDS ORDERED: ALPRAZolam 0.25 MG TAB PO STA (19:43)
[2022-10-15] MEDS ORDERED: FUROSEMIDE 10 MG/ML 4 ML VIAL IV STA (19:47)
[2022-10-15] MEDS ORDERED: METOPROLOL TARTRATE 25 MG TAB PO STA (19:59)
[2022-10-15] MEDS ORDERED: METOPROLOL TARTRATE 5 MG/5 ML VIAL IVP STA (19:59)
[2022-10-15] MEDS ORDERED: SODIUM CHLORIDE 0.9% 1,000 ML IV SCH (20:00)
[2022-10-15] MEDS ORDERED: NALOXONE 0.4 MG/ML 1 ML VIAL IV PRN (20:00)
[2022-10-15] MEDS ORDERED: ATORVASTATIN 80 MG TAB PO SCH (22:00)
[2022-10-15] MEDS: metFORMIN 500 MG TAB PO SCH ×2 (22:22→22:25)
[2022-10-15] MEDS: DOFETILIDE 125 MCG CAP PO SCH (22:24)
[2022-10-15] MEDS: carvediloL 3.125 MG TAB PO SCH (22:25)
[2022-10-15] MEDS: levETIRAcetam 500 MG TAB PO SCH (22:25)
[2022-10-16] MEDS ORDERED: carvediloL 3.125 MG TAB PO SCH
[2022-10-16 06:15] LABS: Glucose,Whole Blood 95 mg/dL (70-110)
[2022-10-16] MEDS ORDERED: LEVOTHYROXINE 75 MCG TAB PO SCH (08:45)
[2022-10-16] MEDS ORDERED: ENOXAPARIN 40 MG/0.4 ML SYRINGE SQ SCH (09:00)
[2022-10-16] MEDS ORDERED: DAPAGLIFLOZIN PROPANEDIOL 5 MG TABLET PO SCH (09:00)
[2022-10-16] MEDS ORDERED: SACUBITRIL/VALSARTAN 49 MG-51 MG TABLET PO SCH (09:00)
[2022-10-16] MEDS ORDERED: FUROSEMIDE 10 MG/ML 4 ML VIAL IV SCH (09:00)
[2022-10-16] MEDS ORDERED: POTASSIUM CHLORIDE ER 20 MEQ TAB.ER PO SCH (10:00)
[2022-10-16] MEDS ORDERED: APIXABAN 5 MG TAB PO SCH (10:00)
[2022-10-16 10:15] VITALS: TEMP 97.5
[2022-10-16] MEDS: metFORMIN 500 MG TAB PO SCH (10:16)
[2022-10-16] MEDS: DOFETILIDE 125 MCG CAP PO SCH (10:16)
[2022-10-16] MEDS: levETIRAcetam 500 MG TAB PO SCH (10:17)
[2022-10-16] MEDS: carvediloL 3.125 MG TAB PO SCH (10:17)
[2022-10-16] MEDS: MAGNESIUM SULFATE-D5W PMX 1 GM in DEXTROSE/WATER 1 100ML.BAG IVPB SCH ×2 (10:17→12:00)
[2022-10-16 11:27] LABS: Glucose,Whole Blood 139 mg/dL (70-110)
[2022-10-16] MEDS ORDERED: ALPRAZolam 0.25 MG TAB PO PRN (12:22)
[2022-10-16] MEDS ORDERED: GABAPENTIN 300 MG CAP PO PRN (12:22)
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
[2022-10-16 16:16] VITALS: BP 103/66; PULSE 59; RESP 18
[2022-10-16 16:20] LABS: Glucose,Whole Blood 116 mg/dL (70-110)
[2022-10-16] MEDS ORDERED: CLOPIDOGREL 75 MG TAB PO SCH (18:00)
[2022-10-16] MEDS ORDERED: SPIRONOLACTONE 25 MG TAB PO SCH (18:00)
[2022-10-17] MEDS ORDERED: BUMETANIDE 1 MG TAB PO SCH ×2 (09:00)
[2022-10-17] MEDS ORDERED: MONTELUKAST 10 MG TAB PO SCH (10:00)
== END 2022-10-16 17:29 | disposition home or self-care (01) ==
LOC: EC 18:34 → INTOOBSV 20:00 → 3SCARD 20:00
PROVIDERS: ADMIT Family Medicine; ATTEND Family Medicine
DX: I48.0 Paroxysmal atrial fibrillation (principal); I50.23 Acute on chronic systolic (congestive) heart failure; N17.9 Acute kidney failure, unspecified; E87.20 Acidosis, unspecified; D72.829 Elevated white blood cell count, unspecified; I25.5 Ischemic cardiomyopathy; I44.7 Left bundle-branch block, unspecified; I51.7 Cardiomegaly; I25.10 Atherosclerotic heart disease of native coronary artery without angina pectoris; E03.9 Hypothyroidism, unspecified; E11.9 Type 2 diabetes mellitus without complications; G47.33 Obstructive sleep apnea (adult) (pediatric); K21.9 Gastro-esophageal reflux disease without esophagitis; M19.90 Unspecified osteoarthritis, unspecified site; K76.0 Fatty (change of) liver, not elsewhere classified; F41.9 Anxiety disorder, unspecified; I25.2 Old myocardial infarction; R00.1 Bradycardia, unspecified; R19.7 Diarrhea, unspecified; Z79.02 Long term (current) use of antithrombotics/antiplatelets; Z79.890 Hormone replacement therapy; Z79.01 Long term (current) use of anticoagulants; Z79.84 Long term (current) use of oral hypoglycemic drugs; Z79.899 Other long term (current) drug therapy; Z88.2 Allergy status to sulfonamides; Z88.1 Allergy status to other antibiotic agents; Z88.5 Allergy status to narcotic agent; Z88.0 Allergy status to penicillin; Z91.013 Allergy to seafood; Z95.5 Presence of coronary angioplasty implant and graft; Z86.718 Personal history of other venous thrombosis and embolism; Z86.73 Personal history of transient ischemic attack (TIA), and cerebral infarction without residual deficits; Z90.49 Acquired absence of other specified parts of digestive tract; Z95.1 Presence of aortocoronary bypass graft; Z98.1 Arthrodesis status; Z95.828 Presence of other vascular implants and grafts; Z87.891 Personal history of nicotine dependence; Z94.84 Stem cells transplant status; Z95.810 Presence of automatic (implantable) cardiac defibrillator; Z87.828 Personal history of other (healed) physical injury and trauma; Z98.890 Other specified postprocedural states; Z82.49 Family history of ischemic heart disease and other diseases of the circulatory system; Z84.1 Family history of disorders of kidney and ureter; J45.909 Unspecified asthma, uncomplicated; Z79.51 Long term (current) use of inhaled steroids
CPT/HCPCS: 96376; 96365; 96366; 96375; 99291; 36415; 93005; 83880; 80053; 83735; 84484; 85025; 85610; 85730; 71046; G0378; J1940 ×2; J3475

== ENCOUNTER → 2022-10-20 | Outpatient (CLI) | payer MEDICARE ==
[2022-10-20 13:39] LABS: ALT 19 U/L (4-49); AST 28 U/L (17-59); African American GFR (CKD) >90 (>60 ml/min/1.73 sqM); Albumin 4.1 g/dL (3.5-5.0); Albumin/Globulin Ratio 1.4; Alkaline Phosphatase 108 U/L (38-126); Anion Gap 9 mmol/L; Blood Urea Nitrogen 24 mg/dL (9-20); Calcium 9.2 mg/dL (8.4-10.2); Carbon Dioxide 27 mmol/L (22-30); Chloride 102 mmol/L (98-107); Glucose 104 mg/dL (74-99); Non-African American GFR(CKD) 86 (>60 ml/min/1.73 sqM); Potassium 4.4 mmol/L (3.5-5.1); Sodium 138 mmol/L (137-145); Total Bilirubin 1.3 mg/dL (0.2-1.3); Total Protein 7.1 g/dL (6.3-8.2)
[2022-10-20 13:44] LABS: NT-Pro-B-Type Natriuretic Pept 3890 pg/mL
[2022-10-20 13:51] LABS: T4, Free (Free Thyroxine) 1.35 ng/dL (0.78-2.19)
[2022-10-20 20:31] LABS: Chol/HDL Ratio 3.51 Ratio; LDL Cholesterol,Calculated 51.2 mg/dL (0.0-131.0)
== END | disposition home or self-care (01) ==
LOC: LABWHC1 12:08
PROVIDERS: ATTEND Nurse Practitioner Adult Health
DX: I25.5 Ischemic cardiomyopathy (principal); E03.9 Hypothyroidism, unspecified; E78.2 Mixed hyperlipidemia
CPT/HCPCS: 36415; 80053; 80061; 83880; 84439; 84443

== ENCOUNTER → 2022-11-13 | Outpatient (CLI) | payer MEDICARE ==
[2022-11-13 12:03] LABS: Partial Thromboplastin Time 23.6 sec (22.0-30.0); Prothrombin Time 10.3 sec (9.0-12.0)
[2022-11-13 16:34] LABS: BUN/Creat Ratio 25.91 Ratio (12.00-20.00); Blood Urea Nitrogen 28.5 mg/dL (9.0-27.0); Calcium 9.2 mg/dL (8.7-10.3); Carbon Dioxide 23.2 mmol/L (21.6-31.8); Chloride 103 mmol/L (96-109); Glucose 127 mg/dL (70-110); Magnesium 2.4 mg/dL (1.5-2.4); Potassium 4.5 mmol/L (3.5-5.5); Sodium 140 mmol/L (135-145)
[2022-11-13 17:21] LABS: Basophils # (A) 0.03 X 10*3/uL (0.00-0.10); Basophils % (A) 0.5 %; Eosinophils % (A) 3.5 %; HCT 46.5 % (39.6-50.0); HGB 15.6 d/dL (13.0-17.0); Lymphocytes # (A) 1.36 X 10*3/uL (0.90-5.00); Lymphocytes % (A) 23.7 %; MCHC 33.5 d/dL (32.0-37.0); MCV 95.3 FL (80.0-97.0); Mean Platelet Volume 12.1 FL (9.5-12.2); Monocytes # (A) 0.59 X 10*3/uL (0.20-1.00); Monocytes % (A) 10.3 %; NRBC Per 100 WBC 0 X 10*3/uL (0.00-0.01); Neutrophils # (A) 3.54 X 10*3/uL (1.80-7.70); Neutrophils % (A) 61.7 %; Platelet Count 178 X 10*3/uL (140-440); RBC 4.88 X 10*6/uL (4.40-5.60); RDW 13.3 % (11.5-14.5); WBC 5.74 X 10*3/uL (4.50-10.00)
== END | disposition home or self-care (01) ==
LOC: LABWHC1 10:54
DX: I25.5 Ischemic cardiomyopathy (principal); I50.43 Acute on chronic combined systolic (congestive) and diastolic (congestive) heart failure
CPT/HCPCS: 36415; 80048; 83735; 85025; 85610; 85730

== ENCOUNTER 2022-12-25 13:39 | Inpatient (IN) | payer MEDICARE ==
[2022-12-25] MEDS ORDERED: METOPROLOL TARTRATE 5 MG/5 ML VIAL IVP STA (14:03)
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
[2022-12-25 14:49] LABS: Basophils % (A) 0 %; Eosinophils # (A) 0.2 k/uL (0-0.7); Eosinophils % (A) 3 %; HCT 43.8 % (39.0-53.0); HGB 14.8 gm/dL (13.0-17.5); Lymphocytes # (A) 1.3 k/uL (1.0-4.8); Lymphocytes % (A) 15 %; MCH 32.6 pg (25.0-35.0); MCHC 33.9 g/dL (31.0-37.0); MCV 96.2 fL (80.0-100.0); Mean Platelet Volume 8.5; Monocytes # (A) 0.5 k/uL (0-1.0); Monocytes % (A) 6 %; Neutrophils # (A) 6.4 k/uL (1.3-7.7); Neutrophils % (A) 74 %; Platelet Count 193 k/uL (150-450); RBC 4.55 m/uL (4.30-5.90); RDW 13.5 % (11.5-15.5); WBC 8.7 k/uL (3.8-10.6)
[2022-12-25 15:03] LABS: ALT 18 U/L (4-49); AST 32 U/L (17-59); African American GFR (CKD) >90 (>60 ml/min/1.73 sqM); Alkaline Phosphatase 115 U/L (38-126); Anion Gap 12 mmol/L; Blood Urea Nitrogen 31 mg/dL (9-20); Calcium 8.9 mg/dL (8.4-10.2); Carbon Dioxide 21 mmol/L (22-30); Chloride 103 mmol/L (98-107); Glucose 143 mg/dL (74-99); Magnesium 2.1 mg/dL (1.6-2.3); Non-African American GFR(CKD) 85 (>60 ml/min/1.73 sqM); Sodium 136 mmol/L (137-145); Total Bilirubin 0.9 mg/dL (0.2-1.3); Total Protein 7.2 g/dL (6.3-8.2)
[2022-12-25 15:06] LABS: Potassium 4.6 mmol/L (3.5-5.1)
--- NOTE | 2022-12-25 15:09 | XR ---
EXAMINATION TYPE: XR chest 2V DATE OF EXAM: 12/25/2022 COMPARISON: October 15, 2022 HISTORY: Shortness of breath TECHNIQUE: Frontal and lateral views of the chest are obtained. FINDINGS: Scattered senescent parenchymal changes noted. Hyperinflation compatible with COPD. No evidence for infiltrate. No evidence for atelectasis. Heart size is stable. Mediastinal structures are stable and grossly unremarkable. No evidence for hilar prominence. Degenerative changes dorsal spine. IMPRESSION: 1. No evidence for acute pulmonary disease.
[2022-12-25 15:12] LABS: NT-Pro-B-Type Natriuretic Pept 5880 pg/mL
[2022-12-25 15:13] LABS: Partial Thromboplastin Time 22.3 sec (22.0-30.0)
[2022-12-25 16:02] LABS: Prothrombin Time 10.5 sec (10.0-12.5)
[2022-12-25] MEDS ORDERED: NALOXONE 0.4 MG/ML 1 ML VIAL IV PRN (17:27)
[2022-12-25] MEDS ORDERED: MORPHINE SULFATE 4 MG/ML SYRINGE IV PRN (17:27)
[2022-12-25] MEDS: SODIUM CHLORIDE 0.9% 1,000 ML IV SCH (18:37)
[2022-12-25] MEDS ORDERED: GABAPENTIN 300 MG CAP PO PRN (19:01)
[2022-12-25] MEDS ORDERED: ALPRAZolam 0.25 MG TAB PO PRN (19:01)
[2022-12-25] MEDS ORDERED: IPRATROPIUM-ALBUTEROL 3 ML NEB INHALATION PRN (19:02)
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
[2022-12-25] MEDS ORDERED: ASPIRIN 325 MG TAB PO STA (21:53)
[2022-12-25] MEDS ORDERED: APIXABAN 5 MG TAB PO SCH (22:00)
[2022-12-25] MEDS: ATORVASTATIN 80 MG TAB PO SCH (22:15)
[2022-12-25] MEDS: CEPHALEXIN 500 MG CAP PO SCH (22:16)
[2022-12-25] MEDS: levETIRAcetam 500 MG TAB PO SCH (22:16)
[2022-12-25] MEDS: DOFETILIDE 125 MCG CAP PO SCH (23:11)
[2022-12-25] MEDS: SACUBITRIL/VALSARTAN 24 MG-26 MG TABLET PO SCH (23:11)
[2022-12-26] MEDS: carvediloL 3.125 MG TAB PO SCH ×4 (01:11→23:41)
[2022-12-26] MEDS: LEVOTHYROXINE 75 MCG TAB PO SCH (07:21)
[2022-12-26] MEDS ORDERED: HEPARIN SODIUM 1,000 UN/ML (10ML VL) IV ONE (07:37)
[2022-12-26] MEDS: HEPARIN SOD,PORK IN 0.45% NACL 25,000 UNIT in 0.45% NACL 1 250ML.BAG IV SCH ×2 (08:17→22:31)
[2022-12-26 08:42] LABS: Basophils % (A) 0 %; Eosinophils # (A) 0.2 k/uL (0-0.7); Eosinophils % (A) 2 %; HCT 42.7 % (39.0-53.0); HGB 13.9 gm/dL (13.0-17.5); Lymphocytes # (A) 1.2 k/uL (1.0-4.8); Lymphocytes % (A) 18 %; MCH 31.8 pg (25.0-35.0); MCHC 32.5 g/dL (31.0-37.0); MCV 97.9 fL (80.0-100.0); Mean Platelet Volume 8.5; Monocytes # (A) 0.4 k/uL (0-1.0); Monocytes % (A) 6 %; Neutrophils # (A) 4.8 k/uL (1.3-7.7); Neutrophils % (A) 71 %; Platelet Count 155 k/uL (150-450); RBC 4.36 m/uL (4.30-5.90); RDW 13.6 % (11.5-15.5); WBC 6.8 k/uL (3.8-10.6)
[2022-12-26 08:48] LABS: Partial Thromboplastin Time 24.7 sec (22.0-30.0); Prothrombin Time 10.7 sec (10.0-12.5)
[2022-12-26 08:56] LABS: ALT 16 U/L (4-49); AST 24 U/L (17-59); African American GFR (CKD) >90 (>60 ml/min/1.73 sqM); Albumin 3.3 g/dL (3.5-5.0); Alkaline Phosphatase 105 U/L (38-126); Anion Gap 8 mmol/L; Blood Urea Nitrogen 24 mg/dL (9-20); Calcium 8.7 mg/dL (8.4-10.2); Carbon Dioxide 25 mmol/L (22-30); Chloride 105 mmol/L (98-107); Glucose 108 mg/dL (74-99); Magnesium 2.4 mg/dL (1.6-2.3); Non-African American GFR(CKD) >90 (>60 ml/min/1.73 sqM); Phosphorus 3.7 mg/dL (2.5-4.5); Potassium 3.9 mmol/L (3.5-5.1); Sodium 138 mmol/L (137-145); Total Bilirubin 0.9 mg/dL (0.2-1.3); Total Protein 6.3 g/dL (6.3-8.2)
[2022-12-26] MEDS ORDERED: BUMETANIDE 1 MG TAB PO SCH (09:00)
[2022-12-26] MEDS: SACUBITRIL/VALSARTAN 24 MG-26 MG TABLET PO SCH ×2 (09:52→21:32)
[2022-12-26] MEDS: levETIRAcetam 500 MG TAB PO SCH ×2 (09:52→21:32)
[2022-12-26] MEDS: BUMETANIDE 1 MG TAB PO SCH ×2 (09:52→16:11)
[2022-12-26] MEDS: MONTELUKAST 10 MG TAB PO SCH (09:53)
[2022-12-26] MEDS: FOLIC ACID 1 MG TAB PO SCH (09:53)
[2022-12-26] MEDS: DAPAGLIFLOZIN PROPANEDIOL 5 MG TABLET PO SCH (09:53)
[2022-12-26] MEDS: CEPHALEXIN 500 MG CAP PO SCH ×3 (09:53→21:32)
[2022-12-26] MEDS: DOFETILIDE 125 MCG CAP PO SCH ×2 (09:53→18:43)
--- NOTE | 2022-12-26 12:20 | P.PN ---
Subjective Progress Note Date: 12/26/22 62-year-old male with PMH of CAD, CHF with EF of 20% with pacemaker and defibrillator, history of CVA, diabetes mellitus, sleep apnea, hypothyroidism, asthma presents the ED for shortness of breath. Patient reports shortness of breath that started today while attempting to lift his twin mattress. His sy mptoms progressively got worse which prompted him to come to the ED. He denies any headache, lower extremity edema, orthopnea, nausea or vomiting, fever or chills, cough, chest pain, palpitations, changes in urination or bowel habits. No changes in appetite or weight. He denies any dizziness, num bness/weakness/tingling of the extremities. In the ED, he was noted to be tachycardic with heart rate in the 120s. Vital signs were otherwise stable. CBC and coag panel within normal limits. CMP showed sodium 136, bicarb of 21, BUN of 31, glucose 143. Troponin was 0.016. BNP was 5880. TSH 1.76. EKG showed atrial fibrillation with RVR, PVC and left bundle branch block. Chest x- ray negative for acute pathology. Patient is admitted for A. fib with RVR with cardiology in consultation. 12/26 Patient seen and examined. He reports vague chest pain but nothing out of the ordinary. Troponins trending up to 0.278, 0.431, 0.334 with EKG showing atrial fibrillation, PVC and LBBB. Started on a heparin drip and Echo ordered. Awaiting cardiology recommendations. CBC and coag panel unremarkable. CMP shows BUN 24, glucose 108, Mag 2.4, albumin 3.3. General: non toxic, no distress, appears at stated age Derm: warm, dry Head: atraumatic, normocephalic, symmetric Eyes: EOMI, no lid lag, anicteric sclera Cardiovascular: Irregularly irregular, no murmur Lungs: Decreased BS bilateral, no rhonchi, no rales , no accessory muscle use Ext: no gross muscle atrophy, no edema, no contractures Neuro: no focal neuro deficits Psych: Alert, oriented, appropriate affect Atrial fibrillation with RVR NSTEMI Chronic conditions: CAD, CHF with EF of 20% with pacemaker and defibrillator, history of CVA, diabetes mellitus, sleep apnea, hypothyroidism, asthma Based on my assessment of this patient, this patient meets a high complexity level of care. Patient has an acute diagnosis of SOB due to AFib with RVR that poses a threat to life or bodily function. Atrial fibrillation with RVR: Restart Eliquis 5 mg PO BID for AC. Coreg 3.125 mg PO BID. Tikosyn 125 mcg PO BID. Cardiology consultation. NSTEMI: Start heparin drip. Echo ordered. Telemetry monitoring. s/p ASA 325 mg PO x 1. Continue beta petey, Plavix and Lipitor. Awaiting Cardiology recommendations. Restart all other home medications. Heparin drip for DVT prophylaxis. is his decision maker if he cant make decisions for himself. FULL CODE. I have reviewed the following it web development consultant notes: I have reviewed the results of the following tests: CBC, Coag panel, Trop, CMP, Mag. I have ordered the following tests: Trop, Echo, EKG. I have discussed the care of this patient with the following independent historian: I have independently interpreted the following test below: EKG as above. I have discussed the management of this patient with the following physician: Objective - Vital Signs Vital signs: Vital Signs Temp 97.5 F L 12/25/22 18:22 Pulse 62 12/26/22 10:00 Resp 18 12/26/22 10:00 BP 105/70 12/26/22 10:00 Pulse Ox 98 12/26/22 10:00 FiO2 Intake & Output 12/25/22 12/26/22 12/26/22 18:59 06:59 18:59 Weight 111.901 kg - Labs CBC & Chem 7: 12/26/22 08:11 12/26/22 08:11 Labs: Abnormal Lab Results - Last 24 Hours (Table) 12/25/22 12/25/22 12/25/22 Range/Units 14:19 18:34 20:40 Sodium 136 L (137-145) mmol/L Carbon Dioxide 21 L (22-30) mmol/L BUN 31 H (9-20) mg/dL Glucose 143 H (74-99) mg/dL Magnesium (1.6-2.3) mg/dL Troponin I 0.278 H* 0.431 H* (0.000-0.034) ng/mL Albumin (3.5-5.0) g/dL 12/26/22 12/26/22 Range/Units 08:11 08:11 Sodium (137-145) mmol/L Carbon Dioxide (22-30) mmol/L BUN 24 H (9-20) mg/dL Glucose 108 H (74-99) mg/dL Magnesium 2.4 H (1.6-2.3) mg/dL Troponin I 0.334 H* (0.000-0.034) ng/mL Albumin 3.3 L (3.5-5.0) g/dL
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
--- NOTE | 2022-12-26 14:20 | CA ---
Transthoracic Echo Report Name: Kennedy Avilez Age: 62 Gender: M : 1960 Exam Date: 12/26/2022 08:59 Exam Location: [place] [facility] Ht (in): 71 Wt (lb): 246 Ordering Physician: Lois Giraldo MD Attending/Referring Phys: [employer] Driver Cindy Lindsey [facility] Procedure CPT: Indications: ACS Cardiac Hx: Technical Quality: Technically difficult study Contrast 1: Lumason Total Dose (mL): 5 Contrast 2: Total Dose (mL): MEASUREMENTS (Male / Female) Normal Values 2D ECHO LV Diastolic Diameter PLAX 6.9 cm 4.2 - 5.9 / 3.9 - 5.3 cm LV Systolic Diameter PLAX 6.2 cm IVS Diastolic Thickness 1.0 cm 0.6 - 1.0 / 0.6 - 0.9 cm LVPW Diastolic Thickness 1.1 cm 0.6 - 1.0 / 0.6 - 0.9 cm LV Relative Wall Thickness 0.3 LVOT Diameter 2.0 cm LV Diastolic Volume MOD BP 241.8 cm??? 67 - 155 / 56 - 104 cm??? LV Systolic Volume MOD BP 217.9 cm??? 22 - 58 / 19 - 49 cm??? LV Ejection Fraction MOD BP 9.9 % >= 55 % LV Cardiac Index MOD BP 706.6 cm???/min???m??? LV Diastolic Volume MOD 4C 256.1 cm??? LV Systolic Volume MOD 4C 245.8 cm??? LV Ejection Fraction MOD 4C 4.0 % LV Cardiac Index MOD 4C 304.7 cm???/min???m??? LV Diastolic Length 4C 10.0 cm LV Systolic Length 4C 9.4 cm LV Diastolic Volume MOD 2C 228.3 cm??? LV Systolic Volume MOD 2C 188.8 cm??? LV Ejection Fraction MOD 2C 17.3 % LV Cardiac Index MOD 2C 1167.7 cm???/min???m??? LV Diastolic Length 2C 10.0 cm LV Systolic Length 2C 9.7 cm M-MODE Aortic Root Diameter MM 2.9 cm LA Systolic Diameter MM 6.0 cm LA Ao Ratio MM 2.1 AV Cusp Separation MM 1.8 cm DOPPLER AV Peak Velocity 137.8 cm/s AV Peak Gradient 7.6 mmHg AV Mean Velocity 96.8 cm/s AV Mean Gradient 4.1 mmHg AV Velocity Time Integral 28.6 cm LVOT Peak Velocity 79.0 cm/s LVOT Peak Gradient 2.5 mmHg LVOT Velocity Time Integral 14.5 cm LVOT Stroke Volume 44.3 cm??? LVOT Stroke Volume Index 19.2 ml/m??? LVOT Cardiac Index 1309.7 cm???/min???m??? AV Area Cont Eq vti 1.6 cm??? AV Area Cont Eq pk 1.8 cm??? Mitral E Point Velocity 84.1 cm/s MV Deceleration Time 118.3 ms LV E' Lateral Velocity 9.5 cm/s Mitral E to LV E' Lateral Ratio 8.9 LV E' Septal Velocity 3.6 cm/s Mitral E to LV E' Septal Ratio 23.5 TR Peak Velocity 342.5 cm/s TR Peak Gradient 46.9 mmHg Right Atrial Pressure 8.0 mmHg Pulmonary Artery Systolic Pressu 54.9 mmHg Right Ventricular Systolic Press 54.9 mmHg FINDINGS Left Ventricle Moderately increased left ventricular diastolic diameter. Severely increased left ventricular diastolic volume. Severely increased left ventricular systolic volume. Severely decreased left ventricular ejection fraction. Left ventricular wall thickness at upper limits of normal. Severe left ventricular dilatation. Left ventricular ejection fraction is estimated at 10-15%. Right Ventricle Right ventricle not well visualized. Catheter/pacemaker wire in the right ventricular cavity. Moderate to severe pulmonary hypertension. Right Atrium Severe right atrial dilatation. Catheter/pacemaker wire in the right atrial cavity. Left Atrium Severe left atrial dilatation. Mitral Valve Mitral valve thickened. Mild mitral annular calcification. Trace to mild mitral regurgitation. Aortic Valve Trileaflet aortic valve. Moderate thickening of the aortic valve cusps. Aortic valve sclerosis. No aortic regurgitation. Tricuspid Valve Structurally normal tricuspid valve. [id number] tricuspid regurgitation. Pulmonic Valve Pulmonic valve not well visualized. Mild pulmonic regurgitation. Pericardium No pericardial effusion. Aorta Normal size aortic root. CONCLUSIONS Left ventricular ejection fraction is estimated at 10-15%. Severe left ventricular dilatation. Catheter/pacemaker wire in the right ventricular cavity. Moderate to severe pulmonary hypertension. Severe biatrial dilatation mild mitral regurgitation. Moderate tricuspid regurgitation. Aortic valve sclerosis Previewed by: Dr Sim Wilder (Electronically Signed) Final Date: 26 December 2022 14:20
[2022-12-26] MEDS: HEPARIN SODIUM 1,000 UN/ML (10ML VL) IV PRN ×2 (14:43→22:31)
[2022-12-26] MEDS: SODIUM CHLORIDE 0.9% 1,000 ML IV SCH (16:12)
[2022-12-26 16:16] LABS: Glucose,Whole Blood 168 mg/dL (70-110)
[2022-12-26] MEDS: SPIRONOLACTONE 25 MG TAB PO SCH (18:14)
[2022-12-26] MEDS: CLOPIDOGREL 75 MG TAB PO SCH (18:14)
[2022-12-26 19:34] LABS: Glucose,Whole Blood 152 mg/dL (70-110)
[2022-12-26] MEDS: ATORVASTATIN 80 MG TAB PO SCH (21:32)
[2022-12-27] MEDS: LEVOTHYROXINE 75 MCG TAB PO SCH (06:23)
[2022-12-27] MEDS: DOFETILIDE 125 MCG CAP PO SCH ×2 (06:23→17:55)
[2022-12-27 07:37] LABS: Basophils % (A) 0 %; Eosinophils # (A) 0.2 k/uL (0-0.7); Eosinophils % (A) 2 %; HGB 14.1 gm/dL (13.0-17.5); Lymphocytes # (A) 1.5 k/uL (1.0-4.8); Lymphocytes % (A) 22 %; MCHC 32.7 g/dL (31.0-37.0); MCV 97.6 fL (80.0-100.0); Mean Platelet Volume 8.7; Monocytes # (A) 0.5 k/uL (0-1.0); Monocytes % (A) 7 %; Neutrophils # (A) 4.6 k/uL (1.3-7.7); Neutrophils % (A) 66 %; Platelet Count 177 k/uL (150-450); RBC 4.41 m/uL (4.30-5.90); RDW 13.6 % (11.5-15.5); WBC 6.9 k/uL (3.8-10.6)
[2022-12-27 07:46] LABS: Partial Thromboplastin Time 43.7 sec (22.0-30.0); Prothrombin Time 11.1 sec (10.0-12.5)
[2022-12-27] MEDS: MONTELUKAST 10 MG TAB PO SCH (09:50)
[2022-12-27] MEDS: SACUBITRIL/VALSARTAN 24 MG-26 MG TABLET PO SCH ×2 (09:50→20:25)
[2022-12-27] MEDS: CEPHALEXIN 500 MG CAP PO SCH ×3 (09:50→20:25)
[2022-12-27] MEDS: DAPAGLIFLOZIN PROPANEDIOL 5 MG TABLET PO SCH (09:50)
[2022-12-27] MEDS: BUMETANIDE 1 MG TAB PO SCH ×2 (09:50→15:48)
[2022-12-27] MEDS: FOLIC ACID 1 MG TAB PO SCH (09:50)
[2022-12-27] MEDS: levETIRAcetam 500 MG TAB PO SCH ×2 (09:50→20:25)
--- NOTE | 2022-12-27 11:28 | P.PN ---
Subjective Progress Note Date: 12/27/22 62-year-old male with PMH of CAD, CHF with EF of 20% with pacemaker and defibrillator, history of CVA, diabetes mellitus, sleep apnea, hypothyroidism, asthma presents the ED for shortness of breath. Patient reports shortness of breath that started today while attempting to lift his twin mattress. His sy mptoms progressively got worse which prompted him to come to the ED. He denies any headache, lower extremity edema, orthopnea, nausea or vomiting, fever or chills, cough, chest pain, palpitations, changes in urination or bowel habits. No changes in appetite or weight. He denies any dizziness, num bness/weakness/tingling of the extremities. In the ED, he was noted to be tachycardic with heart rate in the 120s. Vital signs were otherwise stable. CBC and coag panel within normal limits. CMP showed sodium 136, bicarb of 21, BUN of 31, glucose 143. Troponin was 0.016. BNP was 5880. TSH 1.76. EKG showed atrial fibrillation with RVR, PVC and left bundle branch block. Chest x- ray negative for acute pathology. Patient is admitted for A. fib with RVR with cardiology in consultation. 12/26 Patient seen and examined. He reports vague chest pain but nothing out of the ordinary. Troponins trending up to 0.278, 0.431, 0.334 with EKG showing atrial fibrillation, PVC and LBBB. Started on a heparin drip and Echo ordered. Awaiting cardiology recommendations. CBC and coag panel unremarkable. CMP shows BUN 24, glucose 108, Mag 2.4, albumin 3.3. 12/27 Patient seen and examined. He reports no chest pain today. Complains of exertional SOB. Cardiology consulted, recommends heparin drip, add farxiga and aldactone. CBC unremarkable. APTT 43.7. Echo shows EF 10-15% with moderate to severe pulmonary HTN, severe biatrial dilatation. Possible cardiac cath per Cardiology recommendations. General: non toxic, no distress, appears at stated age Derm: warm, dry Head: atraumatic, normocephalic, symmetric Eyes: EOMI, no lid lag, anicteric sclera Cardiovascular: Irregularly irregular, no murmur Lungs: Decreased BS bilateral, no rhonchi, no rales , no accessory muscle use Ext: no gross muscle atrophy, no edema, no contractures Neuro: no focal neuro deficits Psych: Alert, oriented, appropriate affect Atrial fibrillation with RVR NSTEMI Chronic conditions: CAD, CHF with EF of 20% with pacemaker and defibrillator, history of CVA, diabetes mellitus, sleep apnea, hypothyroidism, asthma Based on my assessment of this patient, this patient meets a high complexity level of care. Patient has an acute diagnosis of SOB due to AFib with RVR that poses a threat to life or bodily function. Found to have uptrending troponins. Atrial fibrillation with RVR: Heparin drip for AC. Coreg 3.125 mg PO BID. Tikosyn 125 mcg PO BID. Cardiology consultation. NSTEMI: Start heparin drip. Echo as above. Telemetry monitoring. s/p ASA 325 mg PO x 1. Continue beta petey, Plavix and Lipitor. Awaiting Cardiology recommendations. Restart all other home medications. Heparin drip for DVT prophylaxis. is his decision maker if he cant make decisions for himself. FULL CODE. I have reviewed the following field service consultant notes: I have reviewed the results of the following tests: CBC, Coag panel, Echo. I have ordered the following tests: Coag panel. I have discussed the care of this patient with the following independent historian: I have independently interpreted the following test below: I have discussed the management of this patient with the following physician: Objective - Vital Signs Vital signs: Vital Signs Temp 98.1 F 12/26/22 20:00 Pulse 64 12/27/22 04:00 Resp 16 12/27/22 04:00 BP 86/47 12/27/22 04:00 Pulse Ox 94 L 12/27/22 04:00 FiO2 Intake & Output 12/26/22 12/27/22 12/27/22 18:59 06:59 18:59 Intake Total 182.16 645.302 Balance 182.16 645.302 Weight 111.901 kg Intake: Intake, IV Titration 64.16 105.302 Amount Heparin Sod,Pork in 0.45% 64.16 105.302 NaCl 25,000 unit In 0.45 % NaCl 1 250ml.bag @ 8. 936 UNITS/KG/HR 9.999 mls /hr IV .Q24H [facility] Rx#: [id number] Oral 118 540 Other: Voiding Method Toilet Toilet # Voids 1 - Labs CBC & Chem 7: 12/27/22 07:13 12/26/22 08:11 Labs: Abnormal Lab Results - Last 24 Hours (Table) 12/26/22 12/26/22 12/26/22 Range/Units 08:11 08:11 16:15 APTT (22.0-30.0) sec BUN 24 H (9-20) mg/dL Glucose 108 H (74-99) mg/dL POC Glucose (mg/dL) 168 H (70-110) mg/dL Magnesium 2.4 H (1.6-2.3) mg/dL Troponin I 0.334 H* (0.000-0.034) ng/mL Albumin 3.3 L (3.5-5.0) g/dL 12/26/22 12/26/22 12/27/22 Range/Units 19:32 21:19 07:13 APTT 32.7 H 43.7 H (22.0-30.0) sec BUN (9-20) mg/dL Glucose (74-99) mg/dL POC Glucose (mg/dL) 152 H (70-110) mg/dL Magnesium (1.6-2.3) mg/dL Troponin I (0.000-0.034) ng/mL Albumin (3.5-5.0) g/dL
[2022-12-27 11:29] LABS: Glucose,Whole Blood 119 mg/dL (70-110)
[2022-12-27] MEDS: carvediloL 3.125 MG TAB PO SCH ×2 (11:58→23:59)
--- NOTE | 2022-12-27 14:08 | P.PN ---
Subjective Progress Note Date: 12/27/22 Progress note: Patient is normotensive, tolerating addition of current cardiac medications. We continue current doses of entresto and coreg. He is tolerating addition of Farxiga and Aldactone 62-year-old male known to Dr. Haque. Prior history of CABG 4 in 2018. Dual- chamber ICD in 2014, ischemic cardiac myopathy, atrial fibrillation, on anticoagulation with Eliquis. Chronic systolic heart failure Current ALLERGIES consulted to evaluate the patient for atrial fibrillation with RVR. He follows up at [facility] with a heart transplant team. Patient's labs showed a creatinine of 0.84, troponin of 0.016, 0.2, 0.4, 0.3 Hemoglobin 13.9 His home medications include Eliquis 5 mg, atorvastatin 80 mg, Bumex 3 mg twice a day, Coreg 3.125 mg twice a day, Plavix, Tikosyn 125 g twice daily, Entresto 49/51, Aldactone 25 Echo from September 2022 shows an EF of 20%, globally reduced REVIEW OF SYSTEMS 14 point review of system is negative except what is mentioned above in HPI. PHYSICAL EXAMINATION Vital signs reviewed. Head: Normocephalic. Eyes: Sclerae nonicteric. Neck: Brisk carotid upstroke, mild JVD Lungs: Decreased breath sounds, no crackles or rhonchi Heart: Irregularly irregular, systolic murmur audible in aortic area Abdomen: Soft nontender, positive bowel sounds no organomegaly. Extremities: No edema, Alert oriented, normal mood and affect ASSESSMENT Atrial fibrillation with RVR, currently rate controlled NSTEMI with elevated troponins HFrEF with ischemic cardiac myopathy EF 20% next and status post ICD History of CVA type 2 diabetes Hypothyroidism PLAN Hold Eliquis. Continue IV heparin drip due to NSTEMI. Discontinue Wednesday morning as that will complete 48 hours. Transition to oral anticoagulant Eliquis at that time. We discussed the case with Dr. Haque and see if patient needs to have a repeat heart catheterization. Resume his home cardiac medications. This includes Plavix, dofetilide, Coreg. Decrease dose of Entresto due to low BP Add Farxiga 5 mg daily. Add Aldactone 25 mg Moderate function and electrolytes. Uptitrate heart failure medications as tolerated Objective - Vital Signs Vital signs: Vital Signs Temp 98.0 F 12/27/22 09:38 Pulse 60 12/27/22 11:54 Resp 17 12/27/22 11:54 BP 102/65 12/27/22 11:54 Pulse Ox 96 12/27/22 11:54 FiO2 Intake & Output 12/26/22 12/27/22 12/27/22 18:59 06:59 18:59 Intake Total 182.16 645.302 201.682 Balance 182.16 645.302 201.682 Weight 111.901 kg 101.9 kg Intake: Intake, IV Titration 64.16 105.302 201.682 Amount Heparin Sod,Pork in 0.45% 64.16 105.302 201.682 NaCl 25,000 unit In 0.45 % NaCl 1 250ml.bag @ 8. 936 UNITS/KG/HR 9.999 mls /hr IV .Q24H [facility] Rx#: [id number] Oral 118 540 Other: Voiding Method Toilet Toilet Toilet # Voids 1 1 # Bowel Movements 1 - Labs CBC & Chem 7: 12/27/22 07:13 12/26/22 08:11 Labs: Abnormal Lab Results - Last 24 Hours (Table) 12/26/22 12/26/22 12/26/22 Range/Units 16:15 19:32 21:19 APTT 32.7 H (22.0-30.0) sec POC Glucose (mg/dL) 168 H 152 H (70-110) mg/dL 12/27/22 12/27/22 Range/Units 07:13 11:28 APTT 43.7 H (22.0-30.0) sec POC Glucose (mg/dL) 119 H (70-110) mg/dL
[2022-12-27 16:37] LABS: Glucose,Whole Blood 107 mg/dL (70-110)
[2022-12-27] MEDS: CLOPIDOGREL 75 MG TAB PO SCH (17:55)
[2022-12-27] MEDS: SPIRONOLACTONE 25 MG TAB PO SCH (17:56)
[2022-12-27] MEDS: SODIUM CHLORIDE 0.9% 1,000 ML IV SCH (17:56)
[2022-12-27] MEDS: ATORVASTATIN 80 MG TAB PO SCH (20:25)
[2022-12-27 20:44] LABS: Glucose,Whole Blood 127 mg/dL (70-110)
[2022-12-28] MEDS: HEPARIN SOD,PORK IN 0.45% NACL 25,000 UNIT in 0.45% NACL 1 250ML.BAG IV SCH (00:41)
[2022-12-28] MEDS: HEPARIN SODIUM 1,000 UN/ML (10ML VL) IV PRN (00:42)
[2022-12-28 05:56] LABS: Glucose,Whole Blood 117 mg/dL (70-110)
[2022-12-28] MEDS: LEVOTHYROXINE 75 MCG TAB PO SCH (06:34)
[2022-12-28] MEDS: DOFETILIDE 125 MCG CAP PO SCH (06:34)
[2022-12-28] MEDS: CEPHALEXIN 500 MG CAP PO SCH ×3 (09:36→21:04)
[2022-12-28] MEDS: MONTELUKAST 10 MG TAB PO SCH (09:36)
[2022-12-28] MEDS: FOLIC ACID 1 MG TAB PO SCH (09:37)
[2022-12-28] MEDS: BUMETANIDE 1 MG TAB PO SCH ×2 (09:37→16:07)
[2022-12-28] MEDS: SACUBITRIL/VALSARTAN 24 MG-26 MG TABLET PO SCH ×2 (09:37→21:04)
[2022-12-28] MEDS: DAPAGLIFLOZIN PROPANEDIOL 5 MG TABLET PO SCH (09:37)
[2022-12-28] MEDS: levETIRAcetam 500 MG TAB PO SCH ×2 (09:37→21:04)
[2022-12-28 11:27] LABS: Glucose,Whole Blood 141 mg/dL (70-110)
[2022-12-28] MEDS: carvediloL 3.125 MG TAB PO SCH (12:23)
[2022-12-28] MEDS: APIXABAN 5 MG TAB PO SCH ×2 (12:23→21:04)
--- NOTE | 2022-12-28 12:38 | P.PN ---
Subjective Progress Note Date: 12/28/22 62-year-old male with PMH of CAD, CHF with EF of 20% with pacemaker and defibrillator, history of CVA, diabetes mellitus, sleep apnea, hypothyroidism, asthma presents the ED for shortness of breath. Patient reports shortness of breath that started today while attempting to lift his twin mattress. His sy mptoms progressively got worse which prompted him to come to the ED. He denies any headache, lower extremity edema, orthopnea, nausea or vomiting, fever or chills, cough, chest pain, palpitations, changes in urination or bowel habits. No changes in appetite or weight. He denies any dizziness, num bness/weakness/tingling of the extremities. In the ED, he was noted to be tachycardic with heart rate in the 120s. Vital signs were otherwise stable. CBC and coag panel within normal limits. CMP showed sodium 136, bicarb of 21, BUN of 31, glucose 143. Troponin was 0.016. BNP was 5880. TSH 1.76. EKG showed atrial fibrillation with RVR, PVC and left bundle branch block. Chest x- ray negative for acute pathology. Patient is admitted for A. fib with RVR with cardiology in consultation. 12/26 Patient seen and examined. He reports vague chest pain but nothing out of the ordinary. Troponins trending up to 0.278, 0.431, 0.334 with EKG showing atrial fibrillation, PVC and LBBB. Started on a heparin drip and Echo ordered. Awaiting cardiology recommendations. CBC and coag panel unremarkable. CMP shows BUN 24, glucose 108, Mag 2.4, albumin 3.3. 12/27 Patient seen and examined. He reports no chest pain today. Complains of exertional SOB. Cardiology consulted, recommends heparin drip, add farxiga and aldactone. CBC unremarkable. APTT 43.7. Echo shows EF 10-15% with moderate to severe pulmonary HTN, severe biatrial dilatation. Possible cardiac cath per Cardiology recommendations. 12/28 Patient seen and examined. Heparin drip discontinued today (48H) and patient restarted on Eliquis. APTT 66.1. Awaiting Cardiology recommendation for possible cardiac cath during this hospitalization. General: non toxic, no distress, appears at stated age Derm: warm, dry Head: atraumatic, normocephalic, symmetric Eyes: EOMI, no lid lag, anicteric sclera Cardiovascular: Irregularly irregular, no murmur Lungs: Decreased BS bilateral, no rhonchi, no rales , no accessory muscle use Ext: no gross muscle atrophy, no edema, no contractures Neuro: no focal neuro deficits Psych: Alert, oriented, appropriate affect Atrial fibrillation with RVR NSTEMI Chronic conditions: CAD, CHF with EF of 20% with pacemaker and defibrillator, history of CVA, diabetes mellitus, sleep apnea, hypothyroidism, asthma Based on my assessment of this patient, this patient meets a high complexity level of care. Patient has an acute diagnosis of SOB due to AFib with RVR that poses a threat to life or bodily function. Found to have uptrending troponins. Atrial fibrillation with RVR: Eliquis for AC. Coreg 3.125 mg PO BID. Tikosyn 125 mcg PO BID. Cardiology consultation. NSTEMI: Completed 48H of heparin drip. Echo as above. Telemetry monitoring. s/p ASA 325 mg PO x 1. Continue beta petey, Plavix and Lipitor. Awaiting Cardiology recommendations. Restart all other home medications. Eliquis for DVT prophylaxis. is his decision maker if he cant make decisions for himself. FULL CODE. I have reviewed the following consultant [employer]. vice president [employer] (ex ) notes: Cardiology note. I have reviewed the results of the following tests: Coag panel I have ordered the following tests: I have discussed the care of this patient with the following independent historian: I have independently interpreted the following test below: I have discussed the management of this patient with the following physician: Discussed with Aruna MENDOZA from Cardiology, radha king with Dr. Haque. Objective - Vital Signs Vital signs: Vital Signs Temp 97.8 F 12/28/22 09:35 Pulse 62 12/28/22 09:35 Resp 16 12/28/22 09:35 BP 120/63 12/28/22 09:35 Pulse Ox 99 12/28/22 09:35 FiO2 Intake & Output 12/27/22 12/28/22 12/28/22 18:59 06:59 18:59 Intake Total 970.000 225 Balance 970.000 225 Weight 101.9 kg 109.7 kg Intake: Intake, IV Titration 250.000 Amount Heparin Sod,Pork in 0.45% 250.000 NaCl 25,000 unit In 0.45 % NaCl 1 250ml.bag @ 8. 936 UNITS/KG/HR 9.999 mls /hr IV .Q24H [facility] Rx#: [id number] Oral 720 225 Other: Voiding Method Toilet Toilet # Voids 3 # Bowel Movements 1 - Labs CBC & Chem 7: 12/27/22 07:13 12/26/22 08:11 Labs: Abnormal Lab Results - Last 24 Hours (Table) 12/27/22 12/27/22 12/27/22 Range/Units 17:19 20:42 23:38 APTT 37.0 H 41.3 H (22.0-30.0) sec POC Glucose (mg/dL) 127 H (70-110) mg/dL 12/28/22 12/28/22 12/28/22 Range/Units 05:55 09:14 11:21 APTT 66.1 H (22.0-30.0) sec POC Glucose (mg/dL) 117 H 141 H (70-110) mg/dL
--- NOTE | 2022-12-28 13:31 | P.PN ---
Subjective HISTORY OF PRESENT ILLNESS: This is a 62-year-old male who was admitted to the hospital secondary to shortness of breath. Patient follows in the office with Dr. Haque. Patient examined this morning. Patient is sitting up in the chair this morning. He denies chest pain or pressure. He denies shortness of breath. He remains on IV heparin. Echocardiogram completed revealing ejection fraction 10-15%. Telemetry reveals atrial fibrillation with a heart rate in the 80s. PHYSICAL EXAM: VITAL SIGNS: Reviewed. GENERAL: Well-developed in no acute distress. NECK: Supple. No JVD or thyromegaly LUNGS: Respirations even and unlabored. Lungs essentially clear to auscultation bilaterally. HEART: Irregular rate and rhythm. S1 and S2 heard. Systolic murmur noted. EXTREMITIES: Normal range of motion. No clubbing or cyanosis. Peripheral pulses intact. No lower extremity edema ASSESSMENT: Shortness of breath Paroxysmal atrial fibrillation with RVR, currently rate controlled Elevated troponins, may be secondary to A. fib with RVR, no evidence of acute coronary syndrome Congestive heart failure with reduced EF, currently euvolemic Coronary artery disease with previous four-vessel CABG, 2019 History of dual-chamber ICD, 2015 History of A. fib ablation PLAN: Discontinue IV heparin. Resume oral anticoagulation Continue current cardiac medications No plans for cardiac catheterization at this time We will consult Dr. Olivarez for evaluation as patient has previously had an ablation and overall is less symptomatic when he is in sinus mechanism Further recommendations pending patient's course Nurse practitioner note has been reviewed by physician. Signing provider agrees with the documented findings, assessment, and plan of care. Objective - Vital Signs Vital signs: Vital Signs Temp 97.6 F 12/28/22 12:20 Pulse 88 12/28/22 12:20 Resp 18 12/28/22 12:20 BP 102/72 12/28/22 12:20 Pulse Ox 97 12/28/22 12:20 FiO2 Intake & Output 12/27/22 12/28/22 12/28/22 18:59 06:59 18:59 Intake Total 970.000 560 Balance 970.000 560 Weight 101.9 kg 109.7 kg Intake: Intake, IV Titration 250.000 Amount Heparin Sod,Pork in 0.45% 250.000 NaCl 25,000 unit In 0.45 % NaCl 1 250ml.bag @ 8. 936 UNITS/KG/HR 9.999 mls /hr IV .Q24H [facility] Rx#: [id number] Oral 720 560 Other: Voiding Method Toilet Toilet # Voids 3 # Bowel Movements 1 - Labs CBC & Chem 7: 12/27/22 07:13 12/26/22 08:11 Labs: Abnormal Lab Results - Last 24 Hours (Table) 12/27/22 12/27/22 12/27/22 Range/Units 17:19 20:42 23:38 APTT 37.0 H 41.3 H (22.0-30.0) sec POC Glucose (mg/dL) 127 H (70-110) mg/dL 12/28/22 12/28/22 12/28/22 Range/Units 05:55 09:14 11:21 APTT 66.1 H (22.0-30.0) sec POC Glucose (mg/dL) 117 H 141 H (70-110) mg/dL
[2022-12-28 16:15] LABS: Glucose,Whole Blood 114 mg/dL (70-110)
[2022-12-28 16:37] VITALS: RESP 16
[2022-12-28] MEDS ORDERED: ACETAMINOPHEN TAB 325 MG TAB PO STA (17:31)
[2022-12-28] MEDS: SPIRONOLACTONE 25 MG TAB PO SCH (17:45)
[2022-12-28] MEDS: CLOPIDOGREL 75 MG TAB PO SCH (17:45)
--- NOTE | 2022-12-28 18:15 | P.EPCON ---
Electrophysiology Consult - EP Consult Electrophysiology Consult: This is Dr. Olivarez dictating a consult on this patient The patient was interviewed and examined IMPRESSION / ASSESSMENT: Worsening heart failure, acute and chronic Exacerbated by recurrence of persistent atrial fibrillation despite PVI and dofetilide for the last 3 years Significant improvement in energy level and excess capacity when in sinus rhythm despite the fact that he has severe LV dysfunction Dual-chamber ICD implantation in 2015 Pulmonary vein isolation in 2019 Normal TSH Known ischemic cardiomyopathy Stable creatinine for now PLAN: Hold dofetilide for now, since he is feeling this drug Continue ELIQUIS Continue treatment for heart failure with carvedilol and ENTRESTO and spironolactone Rate control for atrial fibrillation. Bradycardia is not an issue since the patient has a dual-chamber ICD Consideration for redo A. fib ablation with linear ablation of the left atrial chamber and reassessment of the pulmonary veins Thereafter consideration for upgrade to a biventricular ICD with conduction system pacing/LV lead placement Discussed with the patient. After the ablation I will consider restarting dofetilide again HPI Patient presented with worsening shortness of breath for the last several weeks He has noticed that this year he has had episodes when he becomes very short of breath There are times when he is able to exercise, playing racquetball comfortably Then there are times when he is extremely tired and fatigued He has a history of atrial fibrillation and is on dofetilide. He had an ablation performed for A. fib with cryoablation of the pulmonary veins in 2019 This year he has noticed that he's been getting more and more short of breath Denies any chest discomfort He has a [employer] ICD in situ ROS: No fever chills or rigors, no cough, phlegm or expectoration, no nausea, vomiting or diarrhea, no hematuria, dysuria, no musculoskeletal complaints, no strokes or seizures, no skin lesions. EXAMINATION: On examination this time his blood pressures 113/61 mmHg pulse rate in the 60s afebrile Breath sounds are reduced bilaterally but there are no rhonchi no crackles heart sounds are normal but irregular No lower extremity edema No hepatojugular reflux Central obesity REVIEW OF LABS, ECG & MEDICAL DATA Twelve-lead EKG shows atrial fibrillation with a wide QRS when his heart rate is 121 beats a minute This is a left bundle branch block morphology with fractionation, typical left bundle QRS width 200 ms or greater When his heart rates are better controlled, the QRS narrows down 149 ms 2-D echo shows severe LV dysfunction with dilated left ventricle ejection fraction 10-15% Moderate to severe pulmonary hypertension Severe right atrial dilation Severe left atrial dilation
[2022-12-28 20:43] LABS: Glucose,Whole Blood 129 mg/dL (70-110)
[2022-12-28] MEDS: ATORVASTATIN 80 MG TAB PO SCH (21:04)
[2022-12-28] MEDS: SODIUM CHLORIDE 0.9% 1,000 ML IV SCH (21:09)
[2022-12-29] MEDS: carvediloL 3.125 MG TAB PO SCH ×2 (00:01→11:44)
[2022-12-29 06:31] LABS: Glucose,Whole Blood 108 mg/dL (70-110)
[2022-12-29] MEDS: LEVOTHYROXINE 75 MCG TAB PO SCH (06:35)
[2022-12-29] MEDS: BUMETANIDE 1 MG TAB PO SCH (09:19)
[2022-12-29] MEDS: SACUBITRIL/VALSARTAN 24 MG-26 MG TABLET PO SCH (09:19)
[2022-12-29] MEDS: DAPAGLIFLOZIN PROPANEDIOL 5 MG TABLET PO SCH (09:19)
[2022-12-29] MEDS: FOLIC ACID 1 MG TAB PO SCH (09:20)
[2022-12-29] MEDS: APIXABAN 5 MG TAB PO SCH (09:20)
[2022-12-29] MEDS: MONTELUKAST 10 MG TAB PO SCH (09:20)
[2022-12-29] MEDS: levETIRAcetam 500 MG TAB PO SCH (09:20)
[2022-12-29 09:22] VITALS: TEMP 97.5
[2022-12-29 11:32] LABS: Glucose,Whole Blood 147 mg/dL (70-110)
[2022-12-29 11:57] VITALS: BP 112/63; PULSE 72
--- NOTE | 2022-12-29 12:48 | P.DS ---
Providers Date of admission: 12/28/22 13:41 Expected date of discharge: 12/29/22 Attending physician: Arielle Odonnell MD Consults: 12/25/22 17:27 Consult Physician Routine Consulting Provider: Irene Haque Consult Reason/Comments: afibRVR Do you want consulting provider notified?: Yes 12/28/22 11:37 Consult Physician Routine Consulting Provider: Demetrius Olivarez Consult Reason/Comments: AFIB, previous ablation Do you want consulting provider notified?: Yes Primary care physician: Rob[facility] Course: Atrial fibrillation with RVR NSTEMI Chronic conditions: CAD, CHF with EF of 20% with pacemaker and defibrillator, history of CVA, diabetes mellitus, sleep apnea, hypothyroidism, asthma Hospital Course: 62-year-old male with PMH of CAD, CHF with EF of 20% with pacemaker and defibrillator, history of CVA, diabetes mellitus, sleep apnea, hypothyroidism, asthma presents the ED for shortness of breath. Patient reports shortness of breath that started today while attempting to lift his twin mattress. His symptoms progressively got worse which prompted him to come to the ED. He denies any headache, lower extremity edema, orthopnea, nausea or vomiting, fever or chills, cough, chest pain, palpitations, changes in urination or bowel habits. No changes in appetite or weight. He denies any dizziness, numbness/weakness/tingling of the extremities. In the ED, he was noted to be tachycardic with heart rate in the 120s. Vital signs were otherwise stable. CBC and coag panel within normal limits. CMP showed sodium 136, bicarb of 21, BUN of 31, glucose 143. Troponin was 0.016. BNP was 5880. TSH 1.76. EKG showed atrial fibrillation with RVR, PVC and left bundle branch block. Chest x- ray negative for acute pathology. Patient is admitted for A. fib with RVR with cardiology in consultation. 12/26 Patient seen and examined. He reports vague chest pain but nothing out of the ordinary. Troponins trending up to 0.278, 0.431, 0.334 with EKG showing atrial fibrillation, PVC and LBBB. Started on a heparin drip and Echo ordered. Awaiting cardiology recommendations. CBC and coag panel unremarkable. CMP shows BUN 24, glucose 108, Mag 2.4, albumin 3.3. 12/27 Patient seen and examined. He reports no chest pain today. Complains of exertional SOB. Cardiology consulted, recommends heparin drip, add farxiga and aldactone. CBC unremarkable. APTT 43.7. Echo shows EF 10-15% with moderate to severe pulmonary HTN, severe biatrial dilatation. Possible cardiac cath per Cardiology recommendations. 12/28 Patient seen and examined. Heparin drip discontinued today (48H) and patient restarted on Eliquis. APTT 66.1. Awaiting Cardiology recommendation for possible cardiac cath during this hospitalization. 12/29 Discussed with cardiology and electrophysiology. Pt is stable for dsicharge, will need outpatient f/u to arrange re-ablation and upgrade to Biventricular pacemaker. Gen: awake, alert HEENT: normocephalic, atraumatic, good hearing acuity, moist mucous membranes Resp: good air exchange, breathing comfortably with no accessory muscle use CVS: good distal perfusion x 4, GI: soft, NTTP, ND : no SPT, no CVAT, lugo catheter not present MSK: no pitting edema, no clubbing Neuro: non-focal, moving all extremities Psych: cooperative, euthymic mood I spent 34 minutes coordinating this discharge on 12/29 Patient Condition at Discharge: Good Plan - Discharge Summary New Discharge Prescriptions: Continue Clopidogrel [Plavix] 75 mg PO DAILY@1800 Folic Acid 1 mg PO DAILY@1000 Vitamin B Complex 1 cap PO DAILY@1000 Fluticasone Propion/Salmeterol [Advair 250-50 Diskus] 1 puff INHALATION RT- BID@1000,2200 Vitamin E (Dl,Tocopheryl Acet) [Vitamin E (400 Iu = 180 mg)] 400 unit PO TID@1000,1800,2200 Levothyroxine Sodium [Synthroid] 75 mcg PO DAILY Vitamin A [Vitamin A (8,000 Units = 2,400 MCG)] 8,000 mcg PO TID@1000,1800,2200 carvediloL [Coreg] 3.125 mg PO BID@0000,1200 Empagliflozin [Jardiance] 10 mg PO DAILY@1000 ALPRAZolam [Xanax] 0.25 mg PO DAILY PRN PRN Reason: Anxiety Gabapentin [Neurontin] 300 mg PO TID PRN PRN Reason: nerve pain Multivit-Min/FA/Lycopen/Lutein [Centrum Silver Tablet] 1 tab PO DAILY@1000 Bumetanide [BUMEX] 2 mg PO BID@0900,1500 Apixaban [Eliquis] 5 mg PO BID@1000,2200 Atorvastatin [Lipitor] 80 mg PO HS@2200 Spironolactone [Aldactone] 25 mg PO DAILY@1800 Cholecalciferol [Vitamin D3 (25 Mcg = 1000 Iu)] 25 mcg PO TID@1000,1800,2200 Montelukast [Singulair] 10 mg PO DAILY@1000 Potassium Chloride [Klor-Con M20] 20 meq PO BID@1000,2200 levETIRAcetam [Keppra] 500 mg PO BID@1000,2200 Bumetanide [BUMEX] 1 mg PO BID@0900,1500 Cephalexin [Keflex] 500 mg PO TID Sacubitril/Valsartan [Entresto 24 mg-26 mg Tablet] 1 tab PO BID@1000,2200 Discontinued Dofetilide [Tikosyn] 125 mcg PO BID@1000,220 Discharge Medication List Clopidogrel [Plavix] 75 mg PO DAILY@1800 09/04/14 [History] Folic Acid 1 mg PO DAILY@1000 09/04/14 [History] Fluticasone Propion/Salmeterol [Advair 250-50 Diskus] 1 puff INHALATION RT-BID@1000,219912/31/14 [History] Vitamin B Complex 1 cap PO DAILY@1000 12/31/14 [History] Vitamin E (Dl,Tocopheryl Acet) [Vitamin E (400 Iu = 180 mg)] 400 unit PO TID@1000,1800,2200 10/14/17 [History] Levothyroxine Sodium [Synthroid] 75 mcg PO DAILY 11/06/17 [History] Vitamin A [Vitamin A (8,000 Units = 2,400 MCG)] 8,000 mcg PO TID@1000,1800,2200 08/21/18 [History] Cholecalciferol [Vitamin D3 (25 Mcg = 1000 Iu)] 25 mcg PO TID@1000,1800,2200 09/17/20 [History] Empagliflozin [Jardiance] 10 mg PO DAILY@1000 09/17/20 [History] carvediloL [Coreg] 3.125 mg PO BID@0000,1200 09/17/20 [History] ALPRAZolam [Xanax] 0.25 mg PO DAILY PRN 10/06/21 [History] Gabapentin [Neurontin] 300 mg PO TID PRN 10/06/21 [History] Montelukast [Singulair] 10 mg PO DAILY@1000 10/06/21 [History] Multivit-Min/FA/Lycopen/Lutein [Centrum Silver Tablet] 1 tab PO DAILY@1000 10/06/21 [History] Potassium Chloride [Klor-Con M20] 20 meq PO BID@1000,2200 02/03/22 [History] Apixaban [Eliquis] 5 mg PO BID@1000,2200 05/18/22 [History] Bumetanide [BUMEX] 2 mg PO BID@0900,1500 05/18/22 [History] levETIRAcetam [Keppra] 500 mg PO BID@1000,2200 05/18/22 [History] Atorvastatin [Lipitor] 80 mg PO HS@22010/15/22 [History] Bumetanide [BUMEX] 1 mg PO BID@0900,1500 10/15/22 [History] Spironolactone [Aldactone] 25 mg PO DAILY@1800 10/15/22 [History] Cephalexin [Keflex] 500 mg PO TID 12/25/22 [History] Sacubitril/Valsartan [Entresto 24 mg-26 mg Tablet] 1 tab PO BID@1000,2200 12/25/22 [History] Follow up Appointment(s)/Referral(s): [facility] [Provider Group] - 1 Week (Spoke to senior receptionist. Office will call you with appointmen time) Robi Medina DO [Primary Care Provider] - 01/04/23 3:20 pm (Wednesday in the [place] office with Vandana. Someone will call to check up on you tomorrow as well.) Discharge Disposition: HOME SELF-CARE
--- NOTE | 2022-12-29 13:57 | P.PN ---
Subjective HISTORY OF PRESENT ILLNESS: This is a 62-year-old male who was admitted to the hospital secondary to shortness of breath. Patient follows in the office with Dr. Haque. Patient examined this morning. Patient is sitting up in the chair this morning. He denies chest pain or pressure. He denies shortness of breath. He remains on IV heparin. Echocardiogram completed revealing ejection fraction 10-15%. Telemetry reveals atrial fibrillation with a heart rate in the 80s. 12/29/2022 Patient examined this morning at the bedside. Patient denies chest pain or pressure. He denies shortness of breath. Patient has been up ambulating in the hallway without dyspnea. Telemetry reveals atrial fibrillation with controlled ventricular rate. Vital signs are stable. PHYSICAL EXAM: VITAL SIGNS: Reviewed. GENERAL: Well-developed in no acute distress. NECK: Supple. No JVD or thyromegaly LUNGS: Respirations even and unlabored. Lungs essentially clear to auscultation bilaterally. HEART: Irregular rate and rhythm. S1 and S2 heard. Systolic murmur noted. EXTREMITIES: Normal range of motion. No clubbing or cyanosis. Peripheral pulses intact. No lower extremity edema ASSESSMENT: Shortness of breath Paroxysmal atrial fibrillation with RVR, currently rate controlled Elevated troponins, may be secondary to A. fib with RVR, no evidence of acute coronary syndrome Congestive heart failure with reduced EF, currently euvolemic Coronary artery disease with previous four-vessel CABG, 2019 History of dual-chamber ICD, 2015 History of A. fib ablation PLAN: Continue current cardiac medications Patient was evaluated yesterday by Dr. Olivarez with plans for eventual repeat ablation Tikosyn was discontinued per Dr Olivarez Patient is stable for discharge home today from a cardiac standpoint Nurse practitioner note has been reviewed by physician. Signing provider agrees with the documented findings, assessment, and plan of care. Objective - Vital Signs Vital signs: Vital Signs Temp 97.5 F L 12/29/22 09:17 Pulse 72 12/29/22 11:43 Resp 16 12/29/22 11:43 BP 112/63 12/29/22 11:43 Pulse Ox 99 12/29/22 11:43 FiO2 Intake & Output 12/28/22 12/29/22 12/29/22 18:59 06:59 18:59 Intake Total 1560 180 Balance 1560 180 Weight 108.499 kg Intake: Intake, IV Titration 80 Amount Sodium Chloride 0.9% 1, 80 000 ml @ 20 mls/hr IV . Q24H [facility] Rx#:[id number] Oral 1480 180 Other: Voiding Method Toilet # Voids 3 1 - Labs CBC & Chem 7: 12/27/22 07:13 12/26/22 08:11 Labs: Abnormal Lab Results - Last 24 Hours (Table) 12/28/22 12/28/22 12/29/22 Range/Units 16:10 20:40 11:30 POC Glucose (mg/dL) 114 H 129 H 147 H (70-110) mg/dL
== END 2022-12-29 12:07 | disposition home or self-care (01) | DRG 280 ==
LOC: EC 13:39 → 3SCARD 17:28 → OBSVTOIN 12-28 13:41
PROVIDERS: ADMIT Internal Medicine; ATTEND Internal Medicine
DX: I48.0 Paroxysmal atrial fibrillation (principal); I21.4 Non-ST elevation (NSTEMI) myocardial infarction; I50.23 Acute on chronic systolic (congestive) heart failure; I44.7 Left bundle-branch block, unspecified; I27.20 Pulmonary hypertension, unspecified; I25.2 Old myocardial infarction; M19.90 Unspecified osteoarthritis, unspecified site; I08.3 Combined rheumatic disorders of mitral, aortic and tricuspid valves; E03.9 Hypothyroidism, unspecified; E11.9 Type 2 diabetes mellitus without complications; I25.5 Ischemic cardiomyopathy; I25.10 Atherosclerotic heart disease of native coronary artery without angina pectoris; K76.0 Fatty (change of) liver, not elsewhere classified; Z79.01 Long term (current) use of anticoagulants; Z79.84 Long term (current) use of oral hypoglycemic drugs; Z79.02 Long term (current) use of antithrombotics/antiplatelets; Z79.890 Hormone replacement therapy; Z79.899 Other long term (current) drug therapy; Z82.49 Family history of ischemic heart disease and other diseases of the circulatory system; Z86.73 Personal history of transient ischemic attack (TIA), and cerebral infarction without residual deficits; J45.909 Unspecified asthma, uncomplicated; F41.9 Anxiety disorder, unspecified; Z95.810 Presence of automatic (implantable) cardiac defibrillator; Z95.1 Presence of aortocoronary bypass graft; Z87.891 Personal history of nicotine dependence; Z90.49 Acquired absence of other specified parts of digestive tract; Z98.1 Arthrodesis status; Z88.2 Allergy status to sulfonamides; Z88.1 Allergy status to other antibiotic agents; Z91.013 Allergy to seafood; Z88.0 Allergy status to penicillin; Z88.5 Allergy status to narcotic agent; R00.0 Tachycardia, unspecified
CPT/HCPCS: 36415; 71046; 80053; 83735; 83880; 84100; 84443; 84484; 85025; 85610; 85730; 93005; 93306; 96365; 96366; 96375; 99291

== ENCOUNTER → 2023-02-27 | Outpatient (CLI) | payer MEDICARE ==
[2023-02-27 13:49] LABS: ALT 11 U/L (10-49); AST 17 U/L (14-35); Chol/HDL Ratio 3.89 Ratio; LDL Cholesterol,Calculated 62.4 mg/dL (0.0-131.0)
== END | disposition home or self-care (01) ==
LOC: LABWHC1 08:23
PROVIDERS: ATTEND Internal Medicine Clinical Cardiac Electrophysiology
DX: E78.2 Mixed hyperlipidemia (principal)
CPT/HCPCS: 36415; 80061; 84450; 84460

== ENCOUNTER 2023-03-02 07:44 | Day surgery (SDC) | payer MEDICARE ==
[2023-03-01 09:45] VITALS: BMI 34.4
[2023-03-02] MEDS ORDERED: SODIUM CHLORIDE 0.9% 1,000 ML IV ONE (07:57)
[2023-03-02 08:08] LABS: Glucose,Whole Blood 116 mg/dL (70-110)
[2023-03-02 08:17] LABS: Basophils % (A) 0 %; Eosinophils # (A) 0.4 k/uL (0-0.7); Eosinophils % (A) 5 %; HCT 43.5 % (39.0-53.0); HGB 14.3 gm/dL (13.0-17.5); Lymphocytes # (A) 1.3 k/uL (1.0-4.8); Lymphocytes % (A) 18 %; MCH 32.2 pg (25.0-35.0); MCHC 32.9 g/dL (31.0-37.0); MCV 97.8 fL (80.0-100.0); Mean Platelet Volume 8.3; Monocytes # (A) 0.5 k/uL (0-1.0); Monocytes % (A) 7 %; Neutrophils % (A) 68 %; Platelet Count 216 k/uL (150-450); RBC 4.45 m/uL (4.30-5.90); RDW 14.5 % (11.5-15.5); WBC 7.4 k/uL (3.8-10.6)
[2023-03-02] MEDS: SODIUM CHLORIDE 0.9% 1,000 ML IV SCH (08:26)
[2023-03-02 08:47] LABS: ALT 14 U/L (4-49); AST 22 U/L (17-59); African American GFR (CKD) 83 (>60 ml/min/1.73 sqM); Albumin 4.1 g/dL (3.5-5.0); Alkaline Phosphatase 114 U/L (38-126); Anion Gap 14 mmol/L; Blood Urea Nitrogen 29 mg/dL (9-20); Calcium 9.3 mg/dL (8.4-10.2); Carbon Dioxide 23 mmol/L (22-30); Chloride 100 mmol/L (98-107); Glucose 131 mg/dL (74-99); Non-African American GFR(CKD) 72 (>60 ml/min/1.73 sqM); Potassium 3.9 mmol/L (3.5-5.1); Sodium 137 mmol/L (137-145); Total Bilirubin 1.2 mg/dL (0.2-1.3); Total Protein 7.4 g/dL (6.3-8.2)
[2023-03-02] MEDS ORDERED: APIXABAN 5 MG TAB PO SCH (09:00)
[2023-03-02] MEDS ORDERED: fentaNYL (PF) 50 MCG/ML 2 ML AMP ONE (11:10)
[2023-03-02] MEDS ORDERED: PROPOFOL 10 MG/ML 20 ML VIAL IV ONE (11:10)
[2023-03-02] MEDS ORDERED: HYDROmorphone (PF) 1 MG/ML ONE (11:10)
[2023-03-02] MEDS ORDERED: HEPARIN SODIUM,PORCINE 10,000 UNIT/ML 1 ML VIAL ONE (11:10)
[2023-03-02] MEDS ORDERED: ETOMIDATE 2 MG/ML 10 ML VIAL ONE (11:10)
[2023-03-02] MEDS ORDERED: MIDAZOLAM 2 MG/2 ML VIAL ONE (11:10)
[2023-03-02] MEDS ORDERED: SUCCINYLCHOLINE CHLORIDE 200 MG/10 ML VIAL IV ONE (11:10)
[2023-03-02] MEDS ORDERED: CLINDAMYCIN 900 MG in DEXTROSE 5% IN WATER 50 ML IVPB STA ×2 (11:35)
[2023-03-02] MEDS ORDERED: LIDOCAINE 1% INJ 10MG/ML (20 ML MDV) ONE (11:48)
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
[2023-03-02] MEDS ORDERED: HEPARIN SOD,PORK IN 0.45% NACL 25,000 UNIT in 0.45% NACL 1 250ML.BAG IV ONE (12:00)
[2023-03-02] MEDS ORDERED: LIDOCAINE 1% INJ 10MG/ML (20 ML MDV) SQ ONE (12:01)
[2023-03-02] MEDS ORDERED: IOPAMIDOL-370 100ML BTL INJ ONE (13:33)
[2023-03-02] MEDS ORDERED: ACETAMINOPHEN TAB 325 MG TAB PO PRN ×2 (14:17→14:21)
[2023-03-02] MEDS ORDERED: ACETAMINOPHEN IV (For NPO) 1,000 MG in EMPTY BAG 1 BAG IVPB ONE (14:21)
--- NOTE | 2023-03-02 14:38 | P.EPPROC ---
- EP Procedure Note Electrophysiology Procedure Note: PROCEDURE A. fib ablation with PVI, left atrial roof ablation and left atrial septal ablation DIAGNOSIS Persistent Atrial fibrillation, symptomatic, refractory to therapy Congestive heart failure class III, systolic heart failure despite medical treatment Severe LV dysfunction ejection fraction 12% Left bundle branch block pattern and twelve-lead EKG with a wide QRS of 144 ms First degree AV block Underlying CAD, ischemic cardiomyopathy RESULT Very dilated left ventricle and intracardiac echo, left atrial enlargement Successful A. fib ablation/pulmonary vein isolation of all veins using cryo- ablation Complete entrance block in all 4 veins confirmed Left atrial roof ablation Left atrial septal ablation No evidence for phrenic nerve injury Esophageal deflection NO Electrical cardioversion with a synchronized shock across the chest YES PROCEDURE DETAILS Written informed consent prior to procedure. Patient brought to the EP lab. General anesthesia given. Heparin administered. A city maintained above 300 seconds Both groins prepped and draped per protocol and venous sheaths placed. Esophagus intubated, circa catheter for temperature monitoring an endoscope for possible esophageal deflection. Phrenic nerve monitoring performed. Esophageal temperature monitoring pe rformed. Esophageal deflection performed if circa catheter overlapping with the balloon or circa temperature less than 27.5C Intracardiac echocardiography performed. Pericardium evaluated. Left atrial appendage evaluated. Left atrium evaluated along with pulmonary veins Transseptal catheterization performed under fluoroscopic guidance and intracardiac echo guidance Cryoablation sheath exchanged, balloon catheter along with achieve catheter placed in the left atrium. Pulmonary veins isolated in the following sequence: Left superior pulmonary vein followed by left inferior pulmonary vein, followed by right inferior pulmonary vein and lastly right superior pulmonary vein. Phrenic nerve stimulation along with capture thresholds within the SVC and right superior pulmonary vein to identify the phrenic nerve proximity to the cryo- balloon. Pulmonary veins isolated and confirmed with entrance and exit block. Phrenic nerve integrity confirmed at the end of the procedure. Right superior, right inferior and left inferior pulmonary veins isolated in the antral level. Left superior pulmonary vein appeared Isolated Ablation of the left atrial roof performed with sequential cryoablation lesions from the left superior to the right superior pulmonary veins. Ablation of the electrograms confirmed Ablation of the left atrial septum performed with cannulation of the superior branch of the right inferior or the inferior branch of the right superior vein to achieve ablation of the posterior septum of the left atrium. Ablation of electrograms confirmed Electrical cardioversion performed for persistence of atrial fibrillation despite successful ablation. Diagnostic catheters for the high right atrium, His bundle, coronary sinus placed. LA and RA pressures recorded RA pressure: 14/5/10 LA pressure: 34/11/20 Diagnostic EP study with coronary sinus pacing and recording Baseline measurements: HV interval 65 ms Left bundle branch block pattern QRS, 144 ms MS interval 221 ms QT interval 346 ms Venous sheaths were removed and hemostasis assured with a closure device. Patient extubated and transferred to recovery PROCEDURES PERFORMED Diagnostic EP study CS pacing and recording Left and right transseptal catheterization Catheter the mapping of the tachycardia Intracardiac echocardiography Pulmonary vein isolation with transseptal and comprehensive EPS, 35046 Extended procedure duration Drug infusion, +40795 Left atrial roof line, +[id number] Linear ablation, left atrium, +[id number] Electrical cardioversion with a synchronized shock across the chest 10430
--- NOTE | 2023-03-02 14:41 | P.EPPROC ---
- EP Procedure Note Electrophysiology Procedure Note: Left upper extremity venogram 50 mL IV dye injection the left arm Patent left subclavian, left axillary and innominate veins Plan Proceed with upgrade to a biventricular ICD electively for management of congestive heart failure, chronic with severe LV dysfunction, ischemic cardio myopathy with a left bundle branch block pattern QRS width of 144 ms with a mildly prolonged MI interval Please note that the coronary sinus access was difficult from the femoral vein Enlarged LV Enlarged RV
[2023-03-02 14:54] VITALS: RESP 16
[2023-03-02] MEDS: GABAPENTIN 300 MG CAP PO SCH ×2 (16:24→21:01)
[2023-03-02] MEDS: MAGNESIUM OXIDE 400 MG TAB PO SCH (21:00)
[2023-03-02] MEDS ORDERED: ATORVASTATIN 80 MG TAB PO SCH (21:00)
[2023-03-02] MEDS: carvediloL 3.125 MG TAB PO SCH (21:01)
[2023-03-02] MEDS: levETIRAcetam 500 MG TAB PO SCH (21:01)
[2023-03-02] MEDS: POTASSIUM CHLORIDE ER 20 MEQ TAB.ER PO SCH (21:01)
[2023-03-02] MEDS: BUMETANIDE 1 MG TAB PO SCH (21:01)
[2023-03-02] MEDS: APIXABAN 5 MG TAB PO SCH (21:01)
[2023-03-02] MEDS: SACUBITRIL/VALSARTAN 24 MG-26 MG TABLET PO SCH (21:01)
--- NOTE | 2023-03-03 05:42 | P.DS ---
Providers Attending physician: Demetrius Olivarez Primary care physician: [facility] Course: Kennedy is doing well. He is resting comfortably in bed No chest discomfort no dizziness lightheadedness no undue shortness of breath He is using CPAP mask On examination his heart sounds are normal and regular No murmurs No JVD He is able to lie flat without any orthopnea Cause of healed well and is no swelling no hematoma no bleeding Impression Severe LV dysfunction ischemic current myopathy Left ventricular ejection fraction 12% Chronic CHF class III Failed previous ablation and dofetilide, now with persistent symptomatic atrial fibrillation Underwent a redo A. fib ablation with PVI, linear ablation left atrial roof and the septum Thereafter he underwent electrical cardioversion Today he is in sinus rhythm He has an underlying left bundle branch block pattern with a QRS width of 144 ms with a mildly prolonged NM interval He has a dual-chamber [employer] ICD The future plan is to continue current medications and upgrade to biventricular ICD after 6 weeks line discussed the patient He should be discharged home today Dofetilide has been discontinued completely Plan - Discharge Summary Discharge Rx Participant: Yes New Discharge Prescriptions: No Action Clopidogrel [Plavix] 75 mg PO DAILY Folic Acid 1 mg PO DAILY Vitamin B Complex 1 cap PO DAILY Vitamin E (Dl,Tocopheryl Acet) [Vitamin E (400 Iu = 180 mg)] 400 unit PO TID Vitamin A [Vitamin A (8,000 Units = 2,400 MCG)] 8,000 mcg PO TID carvediloL [Coreg] 3.125 mg PO BID Empagliflozin [Jardiance] 10 mg PO DAILY ALPRAZolam [Xanax] 0.25 mg PO DAILY Gabapentin [Neurontin] 300 mg PO TID Multivit-Min/FA/Lycopen/Lutein [Centrum Silver Tablet] 1 tab PO DAILY Bumetanide [BUMEX] 2 mg PO BID Apixaban [Eliquis] 5 mg PO BID Atorvastatin [Lipitor] 80 mg PO HS Ibuprofen 800 mg PO Q8H PRN PRN Reason: Pain Magnesium Oxide [Mag-Ox] 400 mg PO BID tadalafiL [Cialis] 10 mg PO DIRECTED PRN PRN Reason: E.D. Esomeprazole Magnesium [NexIUM] 20 mg PO DAILY Cholecalciferol [Vitamin D3 (25 Mcg = 1000 Iu)] 25 mcg PO TID Potassium Chloride [Klor-Con M20] 20 meq PO BID levETIRAcetam [Keppra] 500 mg PO BID Bumetanide [BUMEX] 1 mg PO BID Sacubitril/Valsartan [Entresto 24 mg-26 mg Tablet] 1 tab PO BID Levothyroxine Sodium [Euthyrox] 75 mcg PO QAM Discharge Medication List Clopidogrel [Plavix] 75 mg PO DAILY 09/04/14 [History] Folic Acid 1 mg PO DAILY 09/04/14 [History] Vitamin B Complex 1 cap PO DAILY 12/31/14 [History] Vitamin E (Dl,Tocopheryl Acet) [Vitamin E (400 Iu = 180 mg)] 400 unit PO TID 10/14/17 [History] Vitamin A [Vitamin A (8,000 Units = 2,400 MCG)] 8,000 mcg PO TID 08/21/18 [History] Cholecalciferol [Vitamin D3 (25 Mcg = 1000 Iu)] 25 mcg PO TID 09/17/20 [History] Empagliflozin [Jardiance] 10 mg PO DAILY 09/17/20 [History] carvediloL [Coreg] 3.125 mg PO BID 09/17/20 [History] ALPRAZolam [Xanax] 0.25 mg PO DAILY 10/06/21 [History] Gabapentin [Neurontin] 300 mg PO TID 10/06/21 [History] Multivit-Min/FA/Lycopen/Lutein [Centrum Silver Tablet] 1 tab PO DAILY 10/06/21 [History] Potassium Chloride [Klor-Con M20] 20 meq PO BID 02/03/22 [History] Apixaban [Eliquis] 5 mg PO BID 05/18/22 [History] Bumetanide [BUMEX] 2 mg PO BID 05/18/22 [History] levETIRAcetam [Keppra] 500 mg PO BID 05/18/22 [History] Atorvastatin [Lipitor] 80 mg PO HS 10/15/22 [History] Bumetanide [BUMEX] 1 mg PO BID 10/15/22 [History] Sacubitril/Valsartan [Entresto 24 mg-26 mg Tablet] 1 tab PO BID 12/25/22 [History] Esomeprazole Magnesium [NexIUM] 20 mg PO DAILY 03/01/23 [History] Ibuprofen 800 mg PO Q8H PRN 03/01/23 [History] Levothyroxine Sodium [Euthyrox] 75 mcg PO QAM 03/01/23 [History] Magnesium Oxide [Mag-Ox] 400 mg PO BID 03/01/23 [History] tadalafiL [Cialis] 10 mg PO DIRECTED PRN 03/01/23 [History]
[2023-03-03 05:58] VITALS: PULSE 65
[2023-03-03 07:58] VITALS: BP 98/63; TEMP 97.7
[2023-03-03] MEDS ORDERED: FOLIC ACID 1 MG TAB PO SCH (09:00)
[2023-03-03] MEDS ORDERED: DAPAGLIFLOZIN PROPANEDIOL 5 MG TABLET PO SCH (09:00)
[2023-03-03] MEDS ORDERED: PANTOPRAZOLE 40 MG TABLET PO SCH (09:00)
[2023-03-03] MEDS ORDERED: CLOPIDOGREL 75 MG TAB PO SCH (09:00)
[2023-03-03] MEDS ORDERED: LEVOTHYROXINE 75 MCG TAB PO SCH (09:00)
[2023-03-03] MEDS: SODIUM CHLORIDE 0.9% 1,000 ML IV SCH (10:00)
[2023-03-03] MEDS: BUMETANIDE 1 MG TAB PO SCH (10:07)
[2023-03-03] MEDS: APIXABAN 5 MG TAB PO SCH (10:07)
[2023-03-03] MEDS: carvediloL 3.125 MG TAB PO SCH (10:07)
[2023-03-03] MEDS: levETIRAcetam 500 MG TAB PO SCH (10:08)
[2023-03-03] MEDS: GABAPENTIN 300 MG CAP PO SCH (10:08)
[2023-03-03] MEDS: MAGNESIUM OXIDE 400 MG TAB PO SCH (10:08)
[2023-03-03] MEDS: POTASSIUM CHLORIDE ER 20 MEQ TAB.ER PO SCH (10:09)
[2023-03-03] MEDS: SACUBITRIL/VALSARTAN 24 MG-26 MG TABLET PO SCH (10:09)
== END 2023-03-03 10:00 | disposition home or self-care (01) ==
LOC: CATHEP 07:44 → 6NMEDSUR 13:41 → CATHEP 03-03 10:00
PROVIDERS: ATTEND Internal Medicine Clinical Cardiac Electrophysiology
DX: I48.91 Unspecified atrial fibrillation (principal); I44.7 Left bundle-branch block, unspecified; E78.5 Hyperlipidemia, unspecified; I25.10 Atherosclerotic heart disease of native coronary artery without angina pectoris; I11.0 Hypertensive heart disease with heart failure; I43 Cardiomyopathy in diseases classified elsewhere; I63.9 Cerebral infarction, unspecified; E11.9 Type 2 diabetes mellitus without complications; G47.33 Obstructive sleep apnea (adult) (pediatric); Z95.5 Presence of coronary angioplasty implant and graft; Z95.1 Presence of aortocoronary bypass graft; Z98.890 Other specified postprocedural states; Z82.49 Family history of ischemic heart disease and other diseases of the circulatory system; Z87.891 Personal history of nicotine dependence; Z79.51 Long term (current) use of inhaled steroids; Z79.01 Long term (current) use of anticoagulants; Z79.84 Long term (current) use of oral hypoglycemic drugs; Z79.899 Other long term (current) drug therapy; Z88.1 Allergy status to other antibiotic agents; Z88.0 Allergy status to penicillin; Z88.2 Allergy status to sulfonamides
CPT/HCPCS: 93656; 93657; 86900; 86901; 80053; 84443; 85025; 86850; C1894 ×2; C1769 ×3; C1760; C1730 ×2; C1759; C1893; C1733; C1766; J2250; J0330; J1644 ×2; J2001; J3010; J1170; J2704; Q9967; J0736; 93654

== ENCOUNTER → 2023-04-21 | Outpatient (CLI) | payer MEDICARE ==
[2023-04-22 02:39] LABS: HCT 45.1 % (39.6-50.0); HGB 14.3 g/dL (13.0-17.0); MCHC 31.7 g/dL (32.0-37.0); MCV 97.8 FL (80.0-97.0); Mean Platelet Volume 11.8 FL (9.5-12.2); NRBC Per 100 WBC 0 X 10*3/uL (0.00-0.01); Platelet Count 148 X 10*3/uL (140-440); RBC 4.61 X 10*6/uL (4.40-5.60); RDW 13.3 % (11.5-14.5); WBC 5.92 X 10*3/uL (4.50-10.00)
[2023-04-22 02:50] LABS: Carbon Dioxide 26.3 mmol/L (21.6-31.8); Chloride 102 mmol/L (96-109); Potassium 4.1 mmol/L (3.5-5.5); Sodium 138 mmol/L (135-145)
== END | disposition home or self-care (01) ==
LOC: LABPAT 13:37
PROVIDERS: ATTEND Internal Medicine Clinical Cardiac Electrophysiology
DX: Z01.812 Encounter for preprocedural laboratory examination (principal); I25.5 Ischemic cardiomyopathy; I48.19 Other persistent atrial fibrillation
CPT/HCPCS: 36415; 80051; 82565; 84520; 85027

== ENCOUNTER 2023-04-27 10:27 | Day surgery (SDC) | payer MEDICARE ==
[2023-04-27] MEDS: SODIUM CHLORIDE 0.9% 500 ML 500 ML IV ONE (10:37)
[2023-04-27 10:57] LABS: Glucose,Whole Blood 119 mg/dL (70-110)
[2023-04-27 15:09] LABS: Glucose,Whole Blood 98 mg/dL (70-110)
[2023-04-27] MEDS ORDERED: LIDOCAINE 1% INJ 10MG/ML (20 ML MDV) ONE (15:17)
[2023-04-27] MEDS ORDERED: fentaNYL (PF) 50 MCG/ML 2 ML AMP ONE (15:24)
[2023-04-27] MEDS ORDERED: MIDAZOLAM 2 MG/2 ML VIAL ONE (15:24)
[2023-04-27] MEDS ORDERED: PROPOFOL 10 MG/ML 20 ML VIAL IV ONE (15:24)
[2023-04-27] MEDS: IV FLUID CONTINUATION 900 ML IV ONE (15:29)
[2023-04-27] MEDS ORDERED: VANCOMYCIN IVPB ONE (15:31)
[2023-04-27] MEDS ORDERED: SODIUM CHLORIDE 0.9% IVPB ONE (15:31)
[2023-04-27] MEDS: CLINDAMYCIN 900 MG in DEXTROSE 5% IN WATER 50 ML IVPB PRN (15:59)
[2023-04-27] MEDS: CLINDAMYCIN 600 MG in SODIUM CHLORIDE 0.9% 250 ML IRRIGATION PRN (16:01)
[2023-04-27] MEDS: LIDOCAINE 1% INJ 10MG/ML (20 ML MDV) SQ ONE (16:20)
[2023-04-27] MEDS: ROPIVACAINE 5 MG/ML 30 ML VIAL MISCELLANE ONE (16:22)
[2023-04-27] MEDS: VANCOMYCIN 1,750 MG in SODIUM CHLORIDE 0.9% 500 ML 500 ML IVPB PRN (16:30)
[2023-04-27] MEDS ORDERED: ACETAMINOPHEN TAB 325 MG TAB PO PRN (18:35)
--- NOTE | 2023-04-27 18:43 | P.EPPROC ---
- EP Procedure Note Electrophysiology Procedure Note: Diagnosis Severe ischemic cardiomyopathy Severely reduced LV systolic function Congestive heart failure class II Left bundle branch block with a QRS width of 144 ms Proposed procedure Upgrade to a biventricular ICD for management of heart failure Final diagnosis Extremely diminutive lateral veins. No good LV veins for LV pacing Very suboptimal left bundle pacing sites Neither an LV lead nor a left bundle lead was implanted The procedure took over 2 and half hours for mapping the LV veins and the left bundle area Details Patient was brought to the EP lab in a fasting state. Written informed consent was obtained prior to the procedure IV antibiotics including vancomycin administered An incision was made directly of the previous surgical site and carried down to the level of the generator The generator was explanted, mySBX The patient has a dual-chamber ICD at this time Venous access was obtained. After some difficulty, the guidewire was placed across the stenotic venous junction between the subclavian and the axillary veins A long sheath was placed First we attempted coronary sinus access and LV pacing Access into the coronary sinus was difficult on account of very dilated right atrium and right ventricle and cardiomyopathy However this was successfully performed Sheath was placed in the coronary sinus Coronary sinus venogram was performed Very diminutive veins were noted The only large vein the patient had was a great cardiac vein, unsuitable for LV pacing The patient had very diminutive and tortuous lateral veins that could not accommodate a lead He did not have any connecting middle cardiac vein or anterior vein to the lateral area Sub selecting sheath was placed and lateral veins were sought but they were extremely diminutive and unusable Therefore LV pacing was abandoned The His bundle sheath was placed The His bundle was mapped successfully Left bundle pacing was attempted The patient has very scarred ventricle and septum Multiple attempts at multiple different sites for left bundle pacing However the electrograms were not conducive for left bundle pacing The lead was screwed in several parts of the septum but right bundle capture could never be achieved There was one location where the paced morphology changed to qRs morphology but the QRS width was 193 ms and the stimulus to QRS in lead V6 was 116 ms Therefore there were no acceptable left bundle pacing sites The sheaths were then removed further attempts at BiV pacing were abandoned on account of poor anatomy and not conducive pacing sites Hemostasis was achieved Antibiotic pouch was placed The original generator was placed in the pocket and the pocket was closed in 3 layers and dressed per protocol
[2023-04-27] MEDS: ACETAMINOPHEN IV (For NPO) 1,000 MG in EMPTY BAG 1 BAG IVPB ONE (20:31)
[2023-04-27] MEDS: SODIUM CHLORIDE 0.9% 1,000 ML IV SCH (20:33)
[2023-04-27] MEDS: ATORVASTATIN 80 MG TAB PO SCH (20:42)
[2023-04-27] MEDS: BUMETANIDE 1 MG TAB PO SCH (20:42)
[2023-04-27] MEDS: MAGNESIUM OXIDE 400 MG TAB PO SCH (20:42)
[2023-04-27] MEDS: levETIRAcetam 500 MG TAB PO SCH (20:42)
[2023-04-27] MEDS: POTASSIUM CHLORIDE ER 20 MEQ TAB.ER PO SCH (20:42)
[2023-04-27] MEDS: carvediloL 3.125 MG TAB PO SCH (20:46)
[2023-04-27] MEDS ORDERED: APIXABAN 5 MG TAB PO SCH (21:00)
[2023-04-27] MEDS ORDERED: NON FORMULARY DRUG (Bumetanide [Bumex] 2 MG Tablet) PO SCH (21:00)
[2023-04-27] MEDS ORDERED: CLOPIDOGREL 75 MG TAB PO SCH (21:00)
[2023-04-27] MEDS: SACUBITRIL/VALSARTAN 24 MG-26 MG TABLET PO SCH (21:17)
[2023-04-28 04:10] VITALS: TEMP 97.9
[2023-04-28 05:50] LABS: Glucose,Whole Blood 102 mg/dL (70-110)
[2023-04-28] MEDS: LEVOTHYROXINE 75 MCG TAB PO SCH (06:20)
[2023-04-28] MEDS: PANTOPRAZOLE 40 MG TABLET PO SCH (06:20)
[2023-04-28 06:23] LABS: Glucose,Whole Blood 99 mg/dL (70-110)
[2023-04-28] MEDS: APIXABAN 5 MG TAB PO SCH (07:44)
--- NOTE | 2023-04-28 07:53 | P.DS ---
Providers Attending physician: Demetrius Olivarez Primary care physician: [facility] Course: Patient is resting comfortably in bed. The ICD site is healed well no hematoma no swelling On examination heart sounds are normal breath sounds are clear Blood pressure is normal 128/70 mmHg pulse rate in the 70s afebrile Impression Severe ischemic cardiomyopathy Status post dual-chamber ICD Septal scar with ICD lead in the RV septum Yesterday an upgrade to a biventricular ICD was attempted since his QRS is 144 ms and he has class II-class III CHF However 1. He had no usable LV veins. The only large LV vein was the great cardiac vein. Extremely diminutive lateral veins that could not accommodate even a 5F LV lead 2. In view of the septal scar, left bundle pacing could not be achieved. The closest regard to the left bundle resulted in a QRS width of 193 ms and therefore was abandoned Suggest Continue current medication Hold Plavix and Eliquis for 1 day and then resume tomorrow Continue all other heart failure medications Follow-up with Dr. Haque If there is further worsening of heart failure symptoms consider cardiac transplant, LVAD or epicardial LV lead placement thoracoscopically transfer to Plan - Discharge Summary Discharge Rx Participant: Yes New Discharge Prescriptions: Continue RX: Clopidogrel [Plavix] 75 mg PO HS RX: Folic Acid 1 mg PO DAILY RX: Vitamin B Complex 1 cap PO DAILY RX: Vitamin E (Dl,Tocopheryl Acet) [Vitamin E (400 Iu = 180 mg)] 400 unit PO TID RX: Vitamin A [Vitamin A (8,000 Units = 2,400 MCG)] 8,000 mcg PO TID RX: carvediloL [Coreg] 3.125 mg PO BID RX: Empagliflozin [Jardiance] 10 mg PO DAILY RX: ALPRAZolam [Xanax] 0.25 mg PO DAILY RX: Gabapentin [Neurontin] 300 mg PO TID RX: Multivit-Min/FA/Lycopen/Lutein [Centrum Silver Tablet] 1 tab PO DAILY RX: Bumetanide [BUMEX] 2 mg PO BID RX: Apixaban [Eliquis] 5 mg PO BID RX: Atorvastatin [Lipitor] 80 mg PO HS RX: Ibuprofen 800 mg PO Q8H PRN PRN Reason: Pain RX: Magnesium Oxide [Mag-Ox] 400 mg PO BID RX: tadalafiL [Cialis] 10 mg PO DIRECTED PRN PRN Reason: E.D. RX: Esomeprazole Magnesium [NexIUM] 20 mg PO DAILY RX: Cholecalciferol [Vitamin D3 (25 Mcg = 1000 Iu)] 25 mcg PO TID RX: Potassium Chloride [Klor-Con M20] 20 meq PO BID RX: levETIRAcetam [Keppra] 500 mg PO BID RX: Bumetanide [BUMEX] 1 mg PO BID RX: Sacubitril/Valsartan [Entresto 24 mg-26 mg Tablet] 1 tab PO BID RX: Levothyroxine Sodium [Euthyrox] 75 mcg PO QAM Discharge Medication List RX: Clopidogrel [Plavix] 75 mg PO HS 09/04/14 [History] RX: Folic Acid 1 mg PO DAILY 09/04/14 [History] RX: Vitamin B Complex 1 cap PO DAILY 12/31/14 [History] RX: Vitamin E (Dl,Tocopheryl Acet) [Vitamin E (400 Iu = 180 mg)] 400 unit PO TID 10/14/17 [History] RX: Vitamin A [Vitamin A (8,000 Units = 2,400 MCG)] 8,000 mcg PO TID 08/21/18 [History] RX: Cholecalciferol [Vitamin D3 (25 Mcg = 1000 Iu)] 25 mcg PO TID 09/17/20 [History] RX: Empagliflozin [Jardiance] 10 mg PO DAILY 09/17/20 [History] RX: carvediloL [Coreg] 3.125 mg PO BID 09/17/20 [History] RX: ALPRAZolam [Xanax] 0.25 mg PO DAILY 10/06/21 [History] RX: Gabapentin [Neurontin] 300 mg PO TID 10/06/21 [History] RX: Multivit-Min/FA/Lycopen/Lutein [Centrum Silver Tablet] 1 tab PO DAILY 10/06/21 [History] RX: Potassium Chloride [Klor-Con M20] 20 meq PO BID 02/03/22 [History] RX: Apixaban [Eliquis] 5 mg PO BID 05/18/22 [History] RX: Bumetanide [BUMEX] 2 mg PO BID 05/18/22 [History] RX: levETIRAcetam [Keppra] 500 mg PO BID 05/18/22 [History] RX: Atorvastatin [Lipitor] 80 mg PO HS 10/15/22 [History] RX: Bumetanide [BUMEX] 1 mg PO BID 10/15/22 [History] RX: Sacubitril/Valsartan [Entresto 24 mg-26 mg Tablet] 1 tab PO BID 12/25/22 [History] RX: Esomeprazole Magnesium [NexIUM] 20 mg PO DAILY 03/01/23 [History] RX: Ibuprofen 800 mg PO Q8H PRN 03/01/23 [History] RX: Levothyroxine Sodium [Euthyrox] 75 mcg PO QAM 03/01/23 [History] RX: Magnesium Oxide [Mag-Ox] 400 mg PO BID 03/01/23 [History] RX: tadalafiL [Cialis] 10 mg PO DIRECTED PRN 03/01/23 [History] Follow up Appointment(s)/Referral(s): Irene Haque MD [STAFF PHYSICIAN] - 1 Week Activity/Diet/Wound Care/Special Instructions: Keep wound dry for 1 week PATIENT EDUCATION MATERIAL Instructions following a heart rhythm device implant. 1. Keep dressing DRY for 5 DAYS. You may cover the area with Saran or Cling Wrap, prior to a shower. 2. The dressing will be removed in the Device Clinic at [facility]. Absorbable sutures were used to close the wound. 3. Avoid raising the left arm above the shoulder level. 4 week restriction 4. Avoid arm movements, like backscratching, rubbing the head, or pulling on a cord. 4 weeks restriction 5. Gentle range of motion movements of the shoulder, closest to the incision should be performed to avoid a frozen shoulder. (Pendulum exercises of the shoulder) 6. The opposite arm may be used freely. 7. Avoid driving for 7 days. 8. Avoid activities such as golfing, swimming, weed whacking, lifting more than 10 pounds weight, bowling, gymnastics and weight training/lifting. (6 weeks restriction) 9. Activities such as wood chopping with an axe, pull-ups in the gymnasium, power lifting, arc-welding, being close to home induction cooktops will always be a problem. 10. Arm sling is only a reminder not to raise the arm above the head. You do not need to keep the arm completely immobilized. Your free to move the arm and use it and for normal activities. In case of any problems, please call [facility], Terrell Weldon, @ [phone], Attention: Device Clinic Device clinic follow-up in 5 days Follow-up with primary pathology manager in 2-3 months
[2023-04-28] MEDS: DAPAGLIFLOZIN PROPANEDIOL 5 MG TABLET PO SCH (08:11)
[2023-04-28] MEDS: ALPRAZolam 0.25 MG TAB PO SCH (08:13)
[2023-04-28 08:32] VITALS: RESP 16
[2023-04-28 11:19] LABS: Glucose,Whole Blood 163 mg/dL (70-110)
[2023-04-28 12:46] VITALS: BP 114/67; PULSE 66
[2023-04-28] MEDS ORDERED: CLOPIDOGREL 75 MG TAB PO SCH (21:00)
== END 2023-04-28 14:10 | disposition home or self-care (01) ==
LOC: CATHEP 10:27 → 3SCARD 18:36 → CATHEP 04-28 14:10
PROVIDERS: ATTEND Internal Medicine Clinical Cardiac Electrophysiology
DX: I25.5 Ischemic cardiomyopathy (principal); I44.7 Left bundle-branch block, unspecified; I48.91 Unspecified atrial fibrillation; I25.10 Atherosclerotic heart disease of native coronary artery without angina pectoris; I11.0 Hypertensive heart disease with heart failure; E78.5 Hyperlipidemia, unspecified; E11.9 Type 2 diabetes mellitus without complications; Z79.01 Long term (current) use of anticoagulants; Z79.84 Long term (current) use of oral hypoglycemic drugs; Z79.899 Other long term (current) drug therapy
CPT/HCPCS: 33224; 33216; C1769 ×5; C1892; C1730; C1887; C1898; J2250; J3370; J2001; J3010; J2795; J2704; J0736 ×2

== ENCOUNTER → 2023-06-25 | Outpatient (CLI) | payer MEDICARE ==
[2023-06-25 15:43] LABS: Basophils # (A) 0.04 X 10*3/uL (0.00-0.10); Basophils % (A) 0.8 %; Eosinophils # (A) 0.23 X 10*3/uL (0.04-0.35); Eosinophils % (A) 4.8 %; HCT 46.1 % (39.6-50.0); HGB 14.9 g/dL (13.0-17.0); Lymphocytes # (A) 1.11 X 10*3/uL (0.90-5.00); Lymphocytes % (A) 23.3 %; MCH 30.9 pg (27.0-32.0); MCHC 32.3 g/dL (32.0-37.0); MCV 95.6 FL (80.0-97.0); Mean Platelet Volume 11.9 FL (9.5-12.2); Monocytes # (A) 0.57 X 10*3/uL (0.20-1.00); Monocytes % (A) 11.9 %; NRBC Per 100 WBC 0 X 10*3/uL (0.00-0.01); Neutrophils # (A) 2.81 X 10*3/uL (1.80-7.70); Platelet Count 130 X 10*3/uL (140-440); RBC 4.82 X 10*6/uL (4.40-5.60); RDW 13.7 % (11.5-14.5); WBC 4.77 X 10*3/uL (4.50-10.00)
[2023-06-25 17:36] LABS: ALT 11 U/L (10-49); AST 21 U/L (14-35); Albumin 4.4 g/dL (3.8-4.9); Albumin/Globulin Ratio 1.52 Ratio (1.60-3.17); Alkaline Phosphatase 121 U/L (41-126); BUN/Creat Ratio 20.83 Ratio (12.00-20.00); Calcium 9.4 mg/dL (8.7-10.3); Carbon Dioxide 24.7 mmol/L (21.6-31.8); Chloride 104 mmol/L (96-109); Chol/HDL Ratio 3.84 Ratio; Creatine Kinase 84 U/L (35-257); Globulin 2.9 g/dL (1.6-3.3); Glucose 138 mg/dL (70-110); LDL Cholesterol,Calculated 59.4 mg/dL (0.0-131.0); Potassium 4.5 mmol/L (3.5-5.5); Prostate Specific Antigen 0.27 ng/mL (0.000-4.500); Sodium 143 mmol/L (135-145); T4, Free (Free Thyroxine) 1.33 ng/dL (0.80-1.80); Total Bilirubin 0.5 mg/dL (0.3-1.2); Total Protein 7.3 g/dL (6.2-8.2)
[2023-06-25 21:47] LABS: Microalbumin Creatinine Ratio <53 mg/g Cr (0-30); Urine Creatinine 22.5 mg/dL (39.0-259.0)
== END | disposition home or self-care (01) ==
LOC: LABWHC1 09:49
PROVIDERS: ATTEND Physician Assistant
DX: Z12.5 Encounter for screening for malignant neoplasm of prostate (principal); I10 Essential (primary) hypertension; E03.9 Hypothyroidism, unspecified; E55.9 Vitamin D deficiency, unspecified; E29.1 Testicular hypofunction; E11.8 Type 2 diabetes mellitus with unspecified complications; K21.9 Gastro-esophageal reflux disease without esophagitis
CPT/HCPCS: 36415; 80053; 80061; 82043; 82306; 82550; 82570; 84153; 84439; 84443; 85025

== ENCOUNTER → 2023-07-07 | Outpatient (CLI) | payer MEDICARE ==
[2023-07-07 15:29] VITALS: BP 103/66; PULSE 56; RESP 16; TEMP 97.2
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
== END ==
LOC: 3 N SLEEP 14:47
PROVIDERS: ATTEND Internal Medicine
DX: G47.33 Obstructive sleep apnea (adult) (pediatric) (principal); E66.9 Obesity, unspecified; I25.10 Atherosclerotic heart disease of native coronary artery without angina pectoris; E78.5 Hyperlipidemia, unspecified; K21.9 Gastro-esophageal reflux disease without esophagitis; I48.91 Unspecified atrial fibrillation; E11.9 Type 2 diabetes mellitus without complications; Z79.01 Long term (current) use of anticoagulants; Z79.02 Long term (current) use of antithrombotics/antiplatelets; Z79.85 Long-term (current) use of injectable non-insulin antidiabetic drugs; Z86.73 Personal history of transient ischemic attack (TIA), and cerebral infarction without residual deficits; Z95.0 Presence of cardiac pacemaker; Z95.5 Presence of coronary angioplasty implant and graft; Z68.37 Body mass index [BMI] 37.0-37.9, adult; Z88.8 Allergy status to other drugs, medicaments and biological substances; Z88.5 Allergy status to narcotic agent; Z88.0 Allergy status to penicillin; Z91.013 Allergy to seafood; Z88.2 Allergy status to sulfonamides; Z88.1 Allergy status to other antibiotic agents; Z87.891 Personal history of nicotine dependence; Z79.899 Other long term (current) drug therapy
CPT/HCPCS: 99211

== ENCOUNTER → 2023-08-23 | Outpatient (CLI) | payer MEDICARE ==
[2023-08-23 20:53] LABS: ALT 12 U/L (10-49); AST 23 U/L (14-35); Albumin 4.8 g/dL (3.8-4.9); Albumin/Globulin Ratio 1.85 Ratio (1.60-3.17); Alkaline Phosphatase 124 U/L (41-126); BUN/Creat Ratio 19.92 Ratio (12.00-20.00); Blood Urea Nitrogen 23.9 mg/dL (9.0-27.0); Calcium 9.7 mg/dL (8.7-10.3); Carbon Dioxide 27.2 mmol/L (21.6-31.8); Chloride 100 mmol/L (96-109); Chol/HDL Ratio 3.14 Ratio; Globulin 2.6 g/dL (1.6-3.3); Glucose 113 mg/dL (70-110); Potassium 4.2 mmol/L (3.5-5.5); Sodium 142 mmol/L (135-145); Total Bilirubin 0.9 mg/dL (0.3-1.2); Total Protein 7.4 g/dL (6.2-8.2)
[2023-08-23 22:50] LABS: NT-Pro-B-Type Natriuretic Pept 2586 pg/mL (0-125)
== END | disposition home or self-care (01) ==
LOC: LABWHC1 10:50
PROVIDERS: ATTEND Nurse Practitioner Adult Health
DX: I50.22 Chronic systolic (congestive) heart failure (principal); I25.5 Ischemic cardiomyopathy; E78.2 Mixed hyperlipidemia
CPT/HCPCS: 36415; 80053; 80061; 83880

== ENCOUNTER → 2023-12-11 | Outpatient (CLI) | payer MEDICARE ==
[2023-12-11 20:47] LABS: BUN/Creat Ratio 23.79 Ratio (12.00-20.00); Blood Urea Nitrogen 33.3 mg/dL (9.0-27.0); Calcium 8.6 mg/dL (8.7-10.3); Chloride 104 mmol/L (96-109); Glucose 122 mg/dL (70-110); Potassium 4.4 mmol/L (3.5-5.5); Sodium 141 mmol/L (135-145)
[2023-12-11 22:18] LABS: NT-Pro-B-Type Natriuretic Pept 3965 pg/mL (0-125)
== END | disposition home or self-care (01) ==
LOC: LABWHC1 09:45
DX: I50.22 Chronic systolic (congestive) heart failure (principal)
CPT/HCPCS: 36415; 80048; 83880

== ENCOUNTER 2024-01-03 09:35 | Inpatient (IN) | payer MEDICARE ==
[2024-01-03] MEDS ORDERED: MAGNESIUM SULFATE-D5W PMX 1 GM in DEXTROSE/WATER 1 100ML.BAG IVPB PRN (10:59)
[2024-01-03] MEDS: carvediloL 3.125 MG TAB PO SCH (11:23)
[2024-01-03] MEDS: DOFETILIDE 125 MCG CAP PO STA (11:24)
[2024-01-03 11:37] LABS: Glucose,Whole Blood 138 mg/dL (70-110)
[2024-01-03 11:41] LABS: African American GFR (CKD) 69 (>60 ml/min/1.73 sqM); Anion Gap 9 mmol/L; Blood Urea Nitrogen 42 mg/dL (9-20); Calcium 8.9 mg/dL (8.4-10.2); Carbon Dioxide 27 mmol/L (22-30); Chloride 103 mmol/L (98-107); Glucose 130 mg/dL (74-99); Magnesium 2.4 mg/dL (1.6-2.3); Non-African American GFR(CKD) 60 (>60 ml/min/1.73 sqM); Potassium 4.4 mmol/L (3.5-5.1); Sodium 139 mmol/L (137-145)
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
[2024-01-03] MEDS: SODIUM CHLORIDE 0.9% 1,000 ML IV SCH (15:11)
[2024-01-03] MEDS: BUMETANIDE 1 MG TAB PO SCH ×2 (16:16)
[2024-01-03 16:31] LABS: Glucose,Whole Blood 132 mg/dL (70-110)
[2024-01-03] MEDS: DOFETILIDE 125 MCG CAP PO SCH (17:57)
[2024-01-03 20:00] LABS: Glucose,Whole Blood 151 mg/dL (70-110)
[2024-01-03] MEDS: levETIRAcetam 500 MG TAB PO SCH (20:57)
[2024-01-03] MEDS: CLOPIDOGREL 75 MG TAB PO SCH (20:57)
[2024-01-03] MEDS: ATORVASTATIN 80 MG TAB PO SCH (20:57)
[2024-01-03] MEDS: APIXABAN 5 MG TAB PO SCH (20:57)
[2024-01-03] MEDS: SACUBITRIL/VALSARTAN 49 MG-51 MG TABLET PO SCH (22:03)
[2024-01-04 06:04] LABS: Glucose,Whole Blood 122 mg/dL (70-110)
[2024-01-04] MEDS: SPIRONOLACTONE 25 MG TAB PO SCH (06:05)
[2024-01-04] MEDS: MAGNESIUM OXIDE 400 MG TAB PO SCH (06:06)
[2024-01-04] MEDS: ALPRAZolam 0.25 MG TAB PO SCH (06:11)
[2024-01-04 06:26] LABS: African American GFR (CKD) 78 (>60 ml/min/1.73 sqM); Anion Gap 8 mmol/L; Blood Urea Nitrogen 38 mg/dL (9-20); Calcium 8.3 mg/dL (8.4-10.2); Carbon Dioxide 27 mmol/L (22-30); Chloride 104 mmol/L (98-107); Glucose 125 mg/dL (74-99); Magnesium 2.3 mg/dL (1.6-2.3); Non-African American GFR(CKD) 68 (>60 ml/min/1.73 sqM); Potassium 3.9 mmol/L (3.5-5.1); Sodium 139 mmol/L (137-145)
[2024-01-04] MEDS: PANTOPRAZOLE 40 MG TABLET PO SCH (08:53)
[2024-01-04] MEDS: GABAPENTIN 300 MG CAP PO SCH (08:53)
[2024-01-04] MEDS: LEVOTHYROXINE 75 MCG TAB PO SCH (08:53)
[2024-01-04] MEDS ORDERED: PROPOFOL 10 MG/ML 20 ML VIAL IV ONE (10:32)
[2024-01-04] MEDS ORDERED: LIDOCAINE 1% INJ 10MG/ML (20 ML MDV) ONE (10:32)
[2024-01-04] MEDS ORDERED: PHENYLEPHRINE 10 MG/ML VIAL ONE (10:32)
[2024-01-04] MEDS: IV FLUID CONTINUATION 500 ML IV ONE (10:39)
--- NOTE | 2024-01-04 11:22 | P.EPPROC ---
- EP Procedure Note Electrophysiology Procedure Note: Diagnosis Persistent atrial fibrillation despite repeat A-fib ablation Admitted for management of atrial fibrillation and reinitiation of dofetilide Dofetilide was initiated yesterday. Patient received 3 doses of dofetilide. Today he was brought in for electrical cardioversion Details Successful electrical cardioversion with a 200 J biphasic shock to sinus rhythm Dual-chamber ICD was reprogrammed to DDDR 60-120 bpm Follow-up twelve-lead EKG and rhythm strips showed ventricular bigeminy ventricular couplets and a prolonged QT interval of greater than 520 ms Therefore the plan is to stop dofetilide completely. No more dofetilide use Plan Stop dofetilide permanently Continue heart failure medications as before Overnight monitoring Discharge home tomorrow Rate control and anticoagulation of atrial fibrillation
--- NOTE | 2024-01-04 11:27 | P.PN ---
Subjective Progress Note Date: 01/04/24 This is a 63-year-old male patient of Dr. Olivarez with past medical history of severe cardiomyopathy with persistent atrial fibrillation status post ablation last year. Patient has had ongoing problems with atrial fibrillation. He was seen at [facility] and considered for investigational drug study. No details of that are available at this time. Patient has had ongoing feeling of feeling tired, fatigue while in atrial fibrillation. Dofetilide had been discontinued following ablation. Patient has been brought into the hospital for dofetilide dosing and cardioversion scheduled for Wednesday. Patient denies any new concerns. No chest pain, no shortness of breath. Heart rate 87, blood pressure 106/59, pulse ox 95% on room air. Laboratory studies: Sodium 139, potassium 4.4, BUN 42 creatinine 1.28. Glucose 130. Magnesium 2.4. Echocardiogram performed 12/26/2022 revealed EF of 10 to 15%, severe left ventricular dilatation, catheter pacemaker wire in the right ventricular cavity, moderate to severe pulmonary hypertension, severe biatrial dilatation, mild mitral regurgitation, moderate tricuspid regurgitation, aortic valve sclerosis. Home cardiac medications: Eliquis 5 mg twice daily, atorvastatin 80 mg daily, Bumex 3 mg twice daily, Plavix 75 mg daily, Entresto 49-51 mg twice daily, Coreg 3.125 mg twice daily, Jardiance 10 mg daily, spironolactone 50 mg daily, potassium, magnesium oxide 400 mg daily 01/03 Patient is scheduled for cardioversion today. Pertinent home medications will be resumed beyond cardiac per patient request. Blood pressure 110/64, heart rate in the 60s to 80s, pulse ox 97% on room air. Repeat blood work reveals sodium 139, potassium 3.9, BUN 38 creatinine 1.16. Physical examination: Gen: This is a 63-year-old male in no acute distress VS: reviewed HEENT: Head is atraumatic, normocephalic. Pupils equal, round. Sclerae is anicteric. NECK: Supple. No JVD. LUNGS: Clear to auscultation. No wheezes or rhonchi. No intercostal retractions. HEART: Irregular rate and rhythm. No murmur. ABDOMEN: Soft No tenderness. EXTREMITIES: No pedal edema. No calf tenderness. NEUROLOGICAL: Patient is awake, alert and oriented x3. Assessment: Persistent atrial fibrillation that had recurred after extensive A-fib ablation Severe cardiomyopathy with EF of 15 to 20% Dyslipidemia Diabetes mellitus type 2 Remote history of tobacco use Family history of premature coronary artery disease Plan: Continue patient's home cardiac medications Dofetilide discontinued due to QT prolongation Follow dofetilide protocol Daily BMP and magnesium Plan to monitor overnight and discharge home tomorrow Nurse practitioner note has been reviewed, I agree with documented findings and plan of care. Patient was seen and examined. Objective - Vital Signs Vital signs: Vital Signs Temp 96.7 F L 01/04/24 07:34 Pulse 66 01/04/24 07:34 Resp 16 01/04/24 04:00 BP 94/46 01/04/24 07:34 Pulse Ox 100 01/04/24 07:34 FiO2 Intake & Output 01/03/24 01/04/24 01/04/24 18:59 06:59 18:59 Intake Total 720 Balance 720 Weight 114.1 kg 114 kg Intake: Oral 720 - Labs CBC & Chem 7: 01/04/24 06:02 Labs: Abnormal Lab Results - Last 24 Hours (Table) 01/03/24 01/03/24 01/03/24 Range/Units 10:57 11:35 16:30 BUN 42 H (9-20) mg/dL Creatinine 1.28 H (0.66-1.25) mg/dL Glucose 130 H (74-99) mg/dL POC Glucose (mg/dL) 138 H 132 H (70-110) mg/dL Calcium (8.4-10.2) mg/dL Magnesium 2.4 H (1.6-2.3) mg/dL 01/03/24 01/04/24 01/04/24 Range/Units 19:58 06:00 06:02 BUN 38 H (9-20) mg/dL Creatinine (0.66-1.25) mg/dL Glucose 125 H (74-99) mg/dL POC Glucose (mg/dL) 151 H 122 H (70-110) mg/dL Calcium 8.3 L (8.4-10.2) mg/dL Magnesium (1.6-2.3) mg/dL
[2024-01-04 11:32] LABS: Glucose,Whole Blood 124 mg/dL (70-110)
[2024-01-04] MEDS: DAPAGLIFLOZIN PROPANEDIOL 5 MG TABLET PO SCH (11:50)
[2024-01-04 16:38] LABS: Glucose,Whole Blood 179 mg/dL (70-110)
[2024-01-04 20:06] LABS: Glucose,Whole Blood 137 mg/dL (70-110)
[2024-01-04] MEDS: MONTELUKAST 10 MG TAB PO SCH (20:54)
[2024-01-04 21:22] VITALS: RESP 16
[2024-01-05 06:05] LABS: Glucose,Whole Blood 124 mg/dL (70-110)
[2024-01-05 06:35] LABS: African American GFR (CKD) 68 (>60 ml/min/1.73 sqM); Anion Gap 4 mmol/L; Blood Urea Nitrogen 37 mg/dL (9-20); Calcium 8.4 mg/dL (8.4-10.2); Carbon Dioxide 29 mmol/L (22-30); Chloride 104 mmol/L (98-107); Glucose 126 mg/dL (74-99); Magnesium 2.1 mg/dL (1.6-2.3); Non-African American GFR(CKD) 59 (>60 ml/min/1.73 sqM); Potassium 3.8 mmol/L (3.5-5.1); Sodium 137 mmol/L (137-145)
[2024-01-05 07:15] VITALS: BP 107/68; PULSE 62; TEMP 97.4
--- NOTE | 2024-01-05 12:06 | P.DS ---
Providers Date of admission: 01/03/24 09:35 Expected date of discharge: 01/05/24 Attending physician: Demetrius Olivarez Primary care physician: Robi [facility] Hospital Course: This is a 63-year-old male patient of Dr. Olivarez with past medical history of severe cardiomyopathy with persistent atrial fibrillation status post ablation last year. Patient has had ongoing problems with atrial fibrillation. He was seen at [facility] and considered for investigational drug study. No details of that are available at this time. Patient has had ongoing feeling of feeling tired, fatigue while in atrial fibrillation. Dofetilide had been discontinued following ablation. Patient has been brought into the hospital for dofetilide dosing and cardioversion scheduled for Wednesday. Patient denies any new concerns. No chest pain, no shortness of breath. Heart rate 87, blood pressure 106/59, pulse ox 95% on room air. Laboratory studies: Sodium 139, potassium 4.4, BUN 42 creatinine 1.28. Glucose 130. Magnesium 2.4. Echocardiogram performed 12/26/2022 revealed EF of 10 to 15%, severe left ventricular dilatation, catheter pacemaker wire in the right ventricular cavity, moderate to severe pulmonary hypertension, severe biatrial dilatation, mild mitral regurgitation, moderate tricuspid regurgitation, aortic valve sclerosis. Home cardiac medications: Eliquis 5 mg twice daily, atorvastatin 80 mg daily, Bumex 3 mg twice daily, Plavix 75 mg daily, Entresto 49-51 mg twice daily, Coreg 3.125 mg twice daily, Jardiance 10 mg daily, spironolactone 50 mg daily, potassium, magnesium oxide 400 mg daily 01/03 Patient is scheduled for cardioversion today. Pertinent home medications will be resumed beyond cardiac per patient request. Blood pressure 110/64, heart rate in the 60s to 80s, pulse ox 97% on room air. Repeat blood work reveals sodium 139, potassium 3.9, BUN 38 creatinine 1.16. 01/04 Patient is in a sinus rhythm, atrial pacing. Yesterday due to QT prolongation, dofetilide was discontinued. Patient denies having any lightheadedness or dizziness. No chest pain. Blood pressure 107/68, heart rate 62, pulse ox 96% on room air. Repeat blood work reveals sodium 137, potassium 3.8, magnesium 2.1, BUN 37 creatinine 1.29. Physical examination: Gen: This is a 63-year-old male in no acute distress VS: reviewed HEENT: Head is atraumatic, normocephalic. Pupils equal, round. Sclerae is anicteric. NECK: Supple. No JVD. LUNGS: Clear to auscultation. No wheezes or rhonchi. No intercostal retractions. HEART: Irregular rate and rhythm. No murmur. ABDOMEN: Soft No tenderness. EXTREMITIES: No pedal edema. No calf tenderness. NEUROLOGICAL: Patient is awake, alert and oriented x3. Assessment: Persistent atrial fibrillation that had recurred after extensive A-fib ablation Severe cardiomyopathy with EF of 15 to 20% Dyslipidemia Diabetes mellitus type 2 Remote history of tobacco use Family history of premature coronary artery disease QT prolongation with dofetilide Plan: Continue patient's home cardiac medications Dofetilide discontinued due to QT prolongation Patient is cleared for discharge home today in stable condition Nurse practitioner note has been reviewed, I agree with documented findings and plan of care. Patient was seen and examined. Plan - Discharge Summary New Discharge Prescriptions: Continue Clopidogrel [Plavix] 75 mg PO HS Folic Acid 1 mg PO DAILY Vitamin B Complex 1 cap PO DAILY carvediloL [Coreg] 3.125 mg PO BID Empagliflozin [Jardiance] 10 mg PO DAILY ALPRAZolam [Xanax] 0.25 mg PO DAILY Gabapentin [Neurontin] 300 mg PO TID Multivit-Min/FA/Lycopen/Lutein [Centrum Silver Tablet] 1 tab PO DAILY Bumetanide [BUMEX] 2 mg PO BID Apixaban [Eliquis] 5 mg PO BID Ibuprofen 800 mg PO TID PRN PRN Reason: Pain Magnesium Oxide [Mag-Ox] 400 mg PO DAILY tadalafiL [Cialis] 10 mg PO DIRECTED PRN PRN Reason: E.D. Esomeprazole Magnesium [NexIUM] 20 mg PO DAILY Power Hf Drug Trial(Unknown) 2 cap PO DAILY Vitamin E 160mg 1 cap PO TID Fluticasone Propion/Salmeterol [Fluticasone-Salmeterol 250-50] 1 puff INHALATION RT-BID Montelukast [Singulair] 10 mg PO HS Spironolactone [Aldactone] 25 mg PO DAILY Vitamin A 2,400 mcg PO TID Cholecalciferol [Vitamin D3 (25 Mcg = 1000 Iu)] 25 mcg PO TID Potassium Chloride [Klor-Con M20] 20 meq PO BID levETIRAcetam [Keppra] 500 mg PO BID Bumetanide [BUMEX] 1 mg PO BID Levothyroxine Sodium [Euthyrox] 75 mcg PO DAILY Atorvastatin [Lipitor] 80 mg PO HS Sacubitril/Valsartan [Entresto 49 mg-51 mg Tablet] 1 tab PO BID Discharge Medication List Clopidogrel [Plavix] 75 mg PO HS 09/04/14 [History] Folic Acid 1 mg PO DAILY 09/04/14 [History] Vitamin B Complex 1 cap PO DAILY 12/31/14 [History] Cholecalciferol [Vitamin D3 (25 Mcg = 1000 Iu)] 25 mcg PO TID 09/17/20 [History] Empagliflozin [Jardiance] 10 mg PO DAILY 09/17/20 [History] carvediloL [Coreg] 3.125 mg PO BID 09/17/20 [History] ALPRAZolam [Xanax] 0.25 mg PO DAILY 10/06/21 [History] Gabapentin [Neurontin] 300 mg PO TID 10/06/21 [History] Multivit-Min/FA/Lycopen/Lutein [Centrum Silver Tablet] 1 tab PO DAILY 10/06/21 [History] Potassium Chloride [Klor-Con M20] 20 meq PO BID 02/03/22 [History] Apixaban [Eliquis] 5 mg PO BID 05/18/22 [History] Bumetanide [BUMEX] 2 mg PO BID 05/18/22 [History] levETIRAcetam [Keppra] 500 mg PO BID 05/18/22 [History] Bumetanide [BUMEX] 1 mg PO BID 10/15/22 [History] Esomeprazole Magnesium [NexIUM] 20 mg PO DAILY 03/01/23 [History] Ibuprofen 800 mg PO TID PRN 03/01/23 [History] Levothyroxine Sodium [Euthyrox] 75 mcg PO DAILY 03/01/23 [History] Magnesium Oxide [Mag-Ox] 400 mg PO DAILY 03/01/23 [History] tadalafiL [Cialis] 10 mg PO DIRECTED PRN 03/01/23 [History] Atorvastatin [Lipitor] 80 mg PO HS 07/07/23 [History] Fluticasone Propion/Salmeterol [Fluticasone-Salmeterol 250-50] 1 puff INHALATION RT-BID 01/03/24 [History] Montelukast [Singulair] 10 mg PO HS 01/03/24 [History] Power Hf Drug Trial(Unknown) 2 cap PO DAILY 01/03/24 [History] Sacubitril/Valsartan [Entresto 49 mg-51 mg Tablet] 1 tab PO BID 01/03/24 [History] Spironolactone [Aldactone] 25 mg PO DAILY 01/03/24 [History] Vitamin A 2,400 mcg PO TID 01/03/24 [History] Vitamin E 160mg 1 cap PO TID 01/03/24 [History] Follow up Appointment(s)/Referral(s): Irene Haque MD [STAFF PHYSICIAN] - 02/03/24 9:30 am Patient Instructions/Handouts: Cardioversion (DC) Activity/Diet/Wound Care/Special Instructions: Stop dofetilide completely and permanently Discharge Disposition: HOME SELF-CARE
[2024-01-05] MEDS ORDERED: ALPRAZolam 0.25 MG TAB PO SCH (21:00)
== END 2024-01-05 09:30 | disposition home or self-care (01) | DRG 310 ==
LOC: 3SCARD 09:35
PROVIDERS: ADMIT Internal Medicine Clinical Cardiac Electrophysiology; ATTEND Internal Medicine Clinical Cardiac Electrophysiology
PROC: 5A2204Z Restoration of Cardiac Rhythm, Single (ICD-10-PCS; principal; 2024-01-04 11:00)
DX: I48.19 Other persistent atrial fibrillation (principal); I27.20 Pulmonary hypertension, unspecified; I50.9 Heart failure, unspecified; Z95.1 Presence of aortocoronary bypass graft; E11.9 Type 2 diabetes mellitus without complications; I42.9 Cardiomyopathy, unspecified; T46.2X5A Adverse effect of other antidysrhythmic drugs, initial encounter; I08.1 Rheumatic disorders of both mitral and tricuspid valves; E78.5 Hyperlipidemia, unspecified; R94.31 Abnormal electrocardiogram [ECG] [EKG]; I25.10 Atherosclerotic heart disease of native coronary artery without angina pectoris; Z79.01 Long term (current) use of anticoagulants; Z79.02 Long term (current) use of antithrombotics/antiplatelets; Z95.810 Presence of automatic (implantable) cardiac defibrillator; Z79.84 Long term (current) use of oral hypoglycemic drugs; Z87.891 Personal history of nicotine dependence; Z82.49 Family history of ischemic heart disease and other diseases of the circulatory system; I25.2 Old myocardial infarction; Z79.899 Other long term (current) drug therapy; Z95.5 Presence of coronary angioplasty implant and graft; Z98.1 Arthrodesis status; Z86.73 Personal history of transient ischemic attack (TIA), and cerebral infarction without residual deficits
CPT/HCPCS: 80048; 83735; 92960

== ENCOUNTER → 2024-05-05 | Outpatient (CLI) | payer MEDICARE ==
--- NOTE | 2024-05-05 10:47 | CT ---
EXAMINATION TYPE: CT sinus wo con DATE OF EXAM: 05/05/2024 9:52 AM COMPARISON: None. CLINICAL INDICATION: Male, 64 years old with history of J32.0 CHRONIC MAXILLARY SINUSITIS, sinusitis and dizziness TECHNIQUE: The paranasal sinuses are examined in the axial plane at 2 mm thick sections. Reconstruct ed images in the coronal plane were obtained. Contrast used: mL of , (none if empty) Oral contrast used: (none if empty) CT DLP: 567 mGycm, Automated exposure control for dose reduction was used. FINDINGS: There is dental amalgam scatter artifact The maxillary sinuses are clear. Some mucosal thickening is seen in the ethmoid air cells. Tiny ret ention cyst is within the right anterior sphenoid sinus. The frontal sinuses are clear. The septum is evaluated. Significant septal deviation is not appreciated. There is some prior nasal s urgery with turbinectomies. Ostiomeatal units are obstructed. IMPRESSION: 1. No suspicious acute sinusitis changes. 2. Some mild ethmoid chronic sinusitis may be present. 3. Postsurgical changes. 4. Obstruction of the bilateral ostiomeatal units [facility], , 05/05/2024 10:45 AM
== END | disposition home or self-care (01) ==
LOC: RADCTMAIN 09:27
PROVIDERS: ATTEND Otolaryngology
DX: J32.0 Chronic maxillary sinusitis (principal); Z98.890 Other specified postprocedural states
CPT/HCPCS: 70486

== ENCOUNTER → 2024-05-26 | Outpatient (CLI) | payer MEDICARE ==
[2024-05-26 15:33] LABS: NT-Pro-B-Type Natriuretic Pept 2196 pg/mL (0-125)
[2024-05-26 15:35] LABS: BUN/Creat Ratio 17.93 Ratio (12.00-20.00); Blood Urea Nitrogen 25.1 mg/dL (9.0-27.0); Calcium 9.1 mg/dL (8.7-10.3); Carbon Dioxide 26.4 mmol/L (21.6-31.8); Chloride 103 mmol/L (96-109); Glucose 119 mg/dL (70-110); Potassium 4.7 mmol/L (3.5-5.5); Sodium 141 mmol/L (135-145)
== END | disposition home or self-care (01) ==
LOC: LABWHC1 11:59
PROVIDERS: ATTEND Internal Medicine Interventional Cardiology
DX: I50.22 Chronic systolic (congestive) heart failure (principal)
CPT/HCPCS: 36415; 80048; 83880

== ENCOUNTER → 2024-06-27 | Outpatient (CLI) | payer MEDICARE ==
[2024-06-27 15:57] LABS: ALT 15 U/L (10-49); AST 19 U/L (14-35); Albumin/Globulin Ratio 1.54 Ratio (1.60-3.17); Alkaline Phosphatase 87 U/L (41-126); BUN/Creat Ratio 23.27 Ratio (12.00-20.00); Blood Urea Nitrogen 34.9 mg/dL (9.0-27.0); Calcium 9.4 mg/dL (8.7-10.3); Carbon Dioxide 26.8 mmol/L (21.6-31.8); Chloride 100 mmol/L (96-109); Chol/HDL Ratio 3.78 Ratio; Globulin 2.6 g/dL (1.6-3.3); Glucose 125 mg/dL (70-110); LDL Cholesterol,Calculated 81.2 mg/dL (0.0-131.0); Potassium 4.8 mmol/L (3.5-5.5); Sodium 137 mmol/L (135-145); Total Protein 6.6 g/dL (6.2-8.2); VLDL Calculation 18.14 mg/dL (5.00-40.00)
[2024-06-27 16:36] LABS: NT-Pro-B-Type Natriuretic Pept 2600 pg/mL (0-125)
== END | disposition home or self-care (01) ==
LOC: LABWHC1 09:26
PROVIDERS: ATTEND Internal Medicine Interventional Cardiology
DX: I25.5 Ischemic cardiomyopathy (principal); I50.22 Chronic systolic (congestive) heart failure; E78.2 Mixed hyperlipidemia
CPT/HCPCS: 36415; 80053; 80061; 83880

== ENCOUNTER → 2024-07-04 | Outpatient (CLI) | payer MEDICARE ==
[2024-07-04 14:57] LABS: Basophils # (A) 0.03 X 10*3/uL (0.00-0.10); Basophils % (A) 0.5 %; Eosinophils # (A) 0.18 X 10*3/uL (0.04-0.35); Eosinophils % (A) 3.1 %; HCT 45.7 % (39.6-50.0); HGB 15.5 g/dL (13.0-17.0); Lymphocytes # (A) 1.06 X 10*3/uL (0.90-5.00); MCH 32.6 pg (27.0-32.0); MCHC 33.9 g/dL (32.0-37.0); Mean Platelet Volume 11.5 FL (9.5-12.2); Monocytes # (A) 0.71 X 10*3/uL (0.20-1.00); Monocytes % (A) 12.1 %; NRBC Per 100 WBC 0 X 10*3/uL (0.00-0.01); Neutrophils # (A) 3.89 X 10*3/uL (1.80-7.70); Platelet Count 160 X 10*3/uL (140-440); RBC 4.76 X 10*6/uL (4.40-5.60); RDW 14.3 % (11.5-14.5); WBC 5.89 X 10*3/uL (4.50-10.00)
[2024-07-04 15:14] LABS: Albumin 4.2 g/dL (3.8-4.9); BUN/Creat Ratio 30.94 Ratio (12.00-20.00); Blood Urea Nitrogen 49.5 mg/dL (9.0-27.0); Calcium 9.2 mg/dL (8.7-10.3); Carbon Dioxide 21.3 mmol/L (21.6-31.8); Chloride 102 mmol/L (96-109); Glucose 109 mg/dL (70-110); Magnesium 2.2 mg/dL (1.5-2.4); Potassium 4.5 mmol/L (3.5-5.5); Sodium 137 mmol/L (135-145)
[2024-07-04 15:15] LABS: ALT 17 U/L (10-49); AST 24 U/L (14-35); Alkaline Phosphatase 86 U/L (41-126); Globulin 2.8 g/dL (1.6-3.3); Total Bilirubin 1.1 mg/dL (0.3-1.2)
[2024-07-04 15:18] LABS: NT-Pro-B-Type Natriuretic Pept 2848 pg/mL (0-125)
== END | disposition home or self-care (01) ==
LOC: LABWHC1 11:24
PROVIDERS: ATTEND Internal Medicine
DX: I50.22 Chronic systolic (congestive) heart failure (principal)
CPT/HCPCS: 36415; 80053; 83735; 83880; 85025

== ENCOUNTER → 2024-08-03 | Outpatient (CLI) | payer MEDICARE ==
[2024-08-03 15:50] LABS: NT-Pro-B-Type Natriuretic Pept 3571 pg/mL (0-125)
[2024-08-03 15:57] LABS: ALT 13 U/L (10-49); AST 22 U/L (14-35); Albumin 4.5 g/dL (3.8-4.9); Albumin/Globulin Ratio 1.55 Ratio (1.60-3.17); Alkaline Phosphatase 90 U/L (41-126); BUN/Creat Ratio 18.38 Ratio (12.00-20.00); Blood Urea Nitrogen 23.9 mg/dL (9.0-27.0); Calcium 9.4 mg/dL (8.7-10.3); Chloride 102 mmol/L (96-109); Chol/HDL Ratio 3.04 Ratio; Globulin 2.9 g/dL (1.6-3.3); Glucose 120 mg/dL (70-110); LDL Cholesterol,Calculated 57.5 mg/dL (0.0-131.0); Potassium 4.6 mmol/L (3.5-5.5); Sodium 142 mmol/L (135-145); Total Bilirubin 0.9 mg/dL (0.3-1.2); Total Protein 7.4 g/dL (6.2-8.2); VLDL Calculation 16.96 mg/dL (5.00-40.00)
== END | disposition home or self-care (01) ==
LOC: LABWHC1 09:20
PROVIDERS: ATTEND Internal Medicine Interventional Cardiology
DX: I25.5 Ischemic cardiomyopathy (principal); E78.2 Mixed hyperlipidemia
CPT/HCPCS: 36415; 80053; 80061; 83880

== ENCOUNTER → 2024-08-23 | Outpatient (CLI) | payer MEDICARE | END | disposition home or self-care (01) | LOC: LABWHC1 09:54 | PROVIDERS: ATTEND Internal Medicine Interventional Cardiology | DX: I50.22 Chronic systolic (congestive) heart failure (principal) | CPT/HCPCS: 36415; 83880 ==

== ENCOUNTER 2024-08-27 08:45 | Observation (INO) | payer MEDICARE ==
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
--- NOTE | 2024-08-27 11:51 | XR ---
EXAMINATION TYPE: XR chest 2V DATE OF EXAM: 08/27/2024 11:13 AM COMPARISON: Chest radiographs from 12/25/2022 CLINICAL INDICATION: Male, 64 years old with history of difficulty breathing; [facility] TECHNIQUE: XR chest 2V Frontal and lateral views of the chest. FINDINGS: Lungs/Pleura: No evidence of focal consolidation or pneumothorax. Blunting of the costophrenic angles is present. Pulmonary vascularity: Pulmonary vascular congestion. Heart/mediastinum: Cardiomediastinal silhouette is enlarged. Three lead cardiac conduction device ove rlying the left hemithorax with lead tips projecting over the right ventricle, right atrium and right lateral heart. Musculoskeletal: No acute osseous pathology. There is lower spine fixation hardware is present. Midli ne sternotomy wires are noted. Other findings: None IMPRESSION: Cardiomegaly, pulmonary vascular congestion and bilateral pleural effusions. Correlate with BNP for c ongestive heart failure. [facility], , 08/27/2024 11:49 AM
[2024-08-27 12:15] LABS: Basophils # (A) 0.05 10*3/uL (0.00-0.10); Basophils % (A) 0.7 %; Eosinophils % (A) 2.9 %; HCT 42.5 % (39.6-50.0); Lymphocytes # (A) 0.97 10*3/uL (0.90-5.00); Lymphocytes % (A) 14.2 %; MCH 32.1 pg (27.0-32.0); MCHC 32.9 g/dL (32.0-37.0); MCV 97.5 fL (80.0-97.0); Monocytes # (A) 0.72 10*3/uL (0.20-1.00); Monocytes % (A) 10.6 %; Neutrophils # (A) 4.87 10*3/uL (1.80-7.70); Neutrophils % (A) 71.5 %; Platelet Count 170 10*3/uL (140-440); RBC 4.36 10*6/uL (4.40-5.60); RDW 13.9 % (11.5-14.5); WBC 6.82 10*3/uL (4.50-10.00)
[2024-08-27 12:37] LABS: INR 1.3 (<1.2); Prothrombin Time 13.5 sec (10.0-12.5)
[2024-08-27 12:40] LABS: ALT 12 U/L (4-49); AST 25 U/L (17-59); African American GFR (CKD) 72 (>60 ml/min/1.73 sqM); Albumin 4.2 g/dL (3.5-5.0); Alkaline Phosphatase 90 U/L (38-126); Anion Gap 9 mmol/L; Blood Urea Nitrogen 37 mg/dL (9-20); Calcium 9.3 mg/dL (8.4-10.2); Carbon Dioxide 26 mmol/L (22-30); Chloride 102 mmol/L (98-107); Glucose 109 mg/dL (74-99); Non-African American GFR(CKD) 62 (>60 ml/min/1.73 sqM); Potassium 4.4 mmol/L (3.5-5.1); Sodium 137 mmol/L (137-145); Total Bilirubin 1.1 mg/dL (0.2-1.3); Total Protein 7.2 g/dL (6.3-8.2)
[2024-08-27 12:47] LABS: NT-Pro-B-Type Natriuretic Pept 4380 pg/mL
[2024-08-27] MEDS ORDERED: NALOXONE 0.4 MG/ML 1 ML VIAL IV PRN (14:41)
[2024-08-27] MEDS ORDERED: ALPRAZolam 0.25 MG TAB PO PRN (15:28)
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
[2024-08-27] MEDS ORDERED: DEXTROSE 50% SYRINGE 50 ML IVP PRN ×2 (15:59)
[2024-08-27 17:47] LABS: Glucose,Whole Blood 146 mg/dL (70-110)
[2024-08-27] MEDS: GABAPENTIN 300 MG CAP PO SCH (17:54)
[2024-08-27] MEDS: INSULIN LISPRO (HumaLOG) 100 UNIT/ML 10 mL VL SQ SCH (17:54)
[2024-08-27] MEDS: carvediloL 3.125 MG TAB PO SCH (18:31)
[2024-08-27] MEDS: APIXABAN 5 MG TAB PO SCH (20:19)
[2024-08-27] MEDS: CLOPIDOGREL 75 MG TAB PO SCH (20:19)
[2024-08-27] MEDS: levETIRAcetam 500 MG TAB PO SCH (20:19)
[2024-08-27] MEDS: SACUBITRIL/VALSARTAN 49 MG-51 MG TABLET PO SCH (20:19)
[2024-08-27] MEDS: MONTELUKAST 10 MG TAB PO SCH (20:19)
[2024-08-27] MEDS: ATORVASTATIN 80 MG TAB PO SCH (20:19)
[2024-08-27] MEDS: BUMETANIDE 0.25 MG/ML 10 ML VIAL IV SCH (20:19)
[2024-08-27 21:07] LABS: Glucose,Whole Blood 175 mg/dL (70-110)
[2024-08-27] MEDS: SYMBICORT 80-4.5 MCG INHALER INHALATION SCH (21:32)
[2024-08-28 05:01] LABS: Basophils # (A) 0.03 10*3/uL (0.00-0.10); Basophils % (A) 0.5 %; Eosinophils # (A) 0.17 10*3/uL (0.04-0.35); Eosinophils % (A) 3.1 %; HCT 39.1 % (39.6-50.0); HGB 12.9 g/dL (13.0-17.0); Lymphocytes # (A) 0.85 10*3/uL (0.90-5.00); Lymphocytes % (A) 15.3 %; MCH 32.8 pg (27.0-32.0); MCV 99.5 fL (80.0-97.0); Mean Platelet Volume 11.2 fL (9.5-12.2); Monocytes # (A) 0.61 10*3/uL (0.20-1.00); Neutrophils # (A) 3.88 10*3/uL (1.80-7.70); Neutrophils % (A) 69.9 %; Platelet Count 141 10*3/uL (140-440); RBC 3.93 10*6/uL (4.40-5.60); RDW 13.8 % (11.5-14.5); WBC 5.55 10*3/uL (4.50-10.00)
[2024-08-28 05:18] LABS: African American GFR (CKD) 69 (>60 ml/min/1.73 sqM); Anion Gap 10 mmol/L; Blood Urea Nitrogen 32 mg/dL (9-20); Calcium 9.4 mg/dL (8.4-10.2); Carbon Dioxide 26 mmol/L (22-30); Chloride 102 mmol/L (98-107); Glucose 104 mg/dL (74-99); Non-African American GFR(CKD) 60 (>60 ml/min/1.73 sqM); Potassium 4.1 mmol/L (3.5-5.1); Sodium 138 mmol/L (137-145)
[2024-08-28 06:09] LABS: Glucose,Whole Blood 99 mg/dL (70-110)
[2024-08-28] MEDS: LEVOTHYROXINE 75 MCG TAB PO SCH (06:22)
[2024-08-28] MEDS: SPIRONOLACTONE 25 MG TAB PO SCH (08:52)
[2024-08-28] MEDS: DAPAGLIFLOZIN PROPANEDIOL 5 MG TABLET PO SCH (08:52)
[2024-08-28] MEDS: PANTOPRAZOLE 40 MG TABLET PO SCH (08:52)
[2024-08-28] MEDS: FOLIC ACID 1 MG TAB PO SCH (08:53)
[2024-08-28] MEDS: metOLazone 5 MG TAB PO SCH (10:02)
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
[2024-08-28 11:12] LABS: Glucose,Whole Blood 156 mg/dL (70-110)
--- NOTE | 2024-08-28 15:48 | P.PN ---
Subjective Progress Note Date: 08/28/24 Hospital Course: 64-year-old male with PMH of CAD, CHF with EF of 10-15% with pacemaker and def ibrillator, AFib, HLD, GERD, seizure disorder, history of CVA, diabetes mellitus, hypothyroidism, asthma presents the ED for shortness of breath. Patient reports shortness of breath and lower extremity swelling progressively getting worse over the past week which prompted him to come to the ED. He has been taking upwards of Bumex 3 mg PO BID. He denies any headache, lower extremity edema, orthopnea, nausea or vomiting, fever or chills, cough, chest pain, palpitations, changes in urination or bowel habits. No changes in appetite. Reports 10 lbs weight gain in the past week. He denies any dizziness, numbness/weakness/tingling of the extremities. In the ED he underwent extensive evaluation. BP 109/64, HR 71, RR 20, T 98.4F, 98% on RA. CBC and coag panel significant for RBC 4.26, MCV 97.5, PT 13.5, INR 1.3. CMP showed BUN 37, glu 109. Troponin was <0.012. BNP was 4380. EKG showed atrial fibrillation and left bundle branch block. Chest x-ray showed pulmonary vascular congestion. Jose Luis jin is admitted for CHF exacerbation with cardiology in consultation. Recommended to obtain TTE and continue Bumex 2 mg IV twice daily. To need for ongoing IV diuresis, patient will be switched to inpatient status. 08/28: Seen and examined at bedside, shortness of breath is improving. Patient remains on room air with systolic blood pressure 90s over 60s. Blood work showed no WBC elevation, hemoglobin 12.9 dropped from 14.0, no active signs of bleeding, sodium and potassium normal, creatinine 1.27, stable, glucose is controlled. Pertinent positives and negatives as discussed above, a complete review of systems was performed and all other systems are negative. Vitals Signs Reviewed. General: [nontoxic], [no distress], [appears at stated age] Derm: [warm], [dry] Head: [atraumatic], [normocephalic], [symmetric] Eyes: [EOMI], [no lid lag], [anicteric sclera] Mouth: [no lip lesion], [mucus membranes moist] Cardiovascular: [S1S2 reg], [no murmur] Lungs: [CTA bilateral], [mild bibasilar crackles] , [no accessory muscle use] Abdominal: [soft], [ nontender to palpation], [no guarding], [no appreciable organomegaly] Ext: [no gross muscle atrophy], [bilateral lower extremity pitting edema [no contractures] Neuro: [ CN II-XI grossly intact], [no focal neuro deficits] Psych: [Alert], [oriented], [appropriate affect] Assessment and Plan: Chronic systolic heart failure Ischemic cardiomyopathy with known EF of 10 to 15% status post biventricular ICD CAD status post CABG -Cardiology following, appreciate recommendations -TTE ordered and pending -Continue to monitor strict I's and O's, daily weights, BMP daily -Continue IV Bumex 2 mg twice daily, metolazone 5 mg p.o. daily added by cardiology -Continue Lipitor 80 mg nightly, Coreg 3.125 twice daily, Plavix 75 nightly, Farxiga 5 mg daily, continue Entresto 49/51 twice daily, Aldactone 25 daily Type II DM: Continue Farxiga as above, ISS, Accu-Cheks, hypoglycemia precautions HLD: Lipitor as above GERD: Continue Nexium 20 mg p.o. daily Seizure disorder: Continue Keppra 500 mg p.o. twice daily History of CVA: Continue Plavix and Lipitor as above TEVIN on CPAP Persistent A-fib, continue beta-blockers as above, continue Eliquis 5 mg p.o. twice daily Hypothyroidism: Continue Synthroid 75 mcg daily Asthma not in acute exacerbation, continue Singulair 10 mg p.o. daily DVT ppx: Eliquis Code status: Full code Anticipated discharge place: Home Anticipated discharge time: 24 to 48 hours Objective - Vital Signs Vital signs: Vital Signs Temp 97.6 F 08/28/24 11:38 Pulse 79 08/28/24 15:29 Resp 18 08/28/24 15:29 BP 106/66 08/28/24 15:29 Pulse Ox 99 08/28/24 15:29 FiO2 Intake & Output 08/27/24 08/28/24 08/28/24 18:59 06:59 18:59 Intake Total 240 20 380 Output Total 700 1050 Balance 240 -680 -670 Weight 119.295 kg 116.8 kg Intake: IV 20 20 Invasive Line 1 20 20 Oral 240 360 Output: Urine 700 1050 Other: Voiding Method Urinal Urinal Urinal - Labs CBC & Chem 7: 08/28/24 04:14 08/28/24 04:14 Labs: Abnormal Lab Results - Last 24 Hours (Table) 08/27/24 08/27/24 08/28/24 Range/Units 17:46 21:05 04:14 RBC 3.93 L (4.40-5.60) 10*6/uL Hgb 12.9 L (13.0-17.0) g/dL Hct 39.1 L (39.6-50.0) % MCV 99.5 H (80.0-97.0) fL MCH 32.8 H (27.0-32.0) pg Lymphocytes # 0.85 L (0.90-5.00) 10*3/uL BUN (9-20) mg/dL Creatinine (0.66-1.25) mg/dL Glucose (74-99) mg/dL POC Glucose (mg/dL) 146 H 175 H (70-110) mg/dL 08/28/24 08/28/24 Range/Units 04:14 11:10 RBC (4.40-5.60) 10*6/uL Hgb (13.0-17.0) g/dL Hct (39.6-50.0) % MCV (80.0-97.0) fL MCH (27.0-32.0) pg Lymphocytes # (0.90-5.00) 10*3/uL BUN 32 H (9-20) mg/dL Creatinine 1.27 H (0.66-1.25) mg/dL Glucose 104 H (74-99) mg/dL POC Glucose (mg/dL) 156 H (70-110) mg/dL
--- NOTE | 2024-08-28 16:16 | CA ---
Transthoracic Echo Report Name: Kennedy Avilez Age: 64 Gender: M : 1960 Exam Date: 08/28/2024 13:59 Exam Location: [facility] Ht (in): 71 Wt (lb): 257 Ordering Physician: Marbella Jackson Attending/Referring Phys: Entry Examiner Lizeth Saravia RDCS Procedure CPT: Indications: LVF, HFrEF Cardiac Hx: Technical Quality: Technically difficult study Contrast 1: Definity Total Dose (mL): 5 Contrast 2: Total Dose (mL): MEASUREMENTS (Male / Female) Normal Values 2D ECHO LV Diastolic Diameter PLAX 6.6 cm 4.2 - 5.9 / 3.9 - 5.3 cm LV Systolic Diameter PLAX 6.4 cm IVS Diastolic Thickness 0.7 cm 0.6 - 1.0 / 0.6 - 0.9 cm LVPW Diastolic Thickness 1.1 cm 0.6 - 1.0 / 0.6 - 0.9 cm LV Relative Wall Thickness 0.3 LVOT Diameter 2.0 cm Aortic Root Diameter 2.7 cm LV Diastolic Volume MOD BP 268.2 cm??? 67 - 155 / 56 - 104 cm??? LV Systolic Volume MOD BP 198.9 cm??? 22 - 58 / 19 - 49 cm??? LV Ejection Fraction MOD BP 25.8 % >= 55 % LV Cardiac Index MOD BP 2086.0 cm???/min???m??? LV Diastolic Volume MOD 4C 354.3 cm??? LV Systolic Volume MOD 4C 336.5 cm??? LV Ejection Fraction MOD 4C 5.0 % LV Cardiac Index MOD 4C 538.2 cm???/min???m??? LV Diastolic Length 4C 11.3 cm LV Systolic Length 4C 10.5 cm LV Diastolic Volume MOD 2C 173.9 cm??? LV Systolic Volume MOD 2C 99.8 cm??? LV Ejection Fraction MOD 2C 42.6 % LV Cardiac Index MOD 2C 2231.1 cm???/min???m??? LV Diastolic Length 2C 9.6 cm LV Systolic Length 2C 8.8 cm DOPPLER AV Peak Velocity 95.7 cm/s AV Peak Gradient 3.7 mmHg AV Mean Velocity 72.0 cm/s AV Mean Gradient 2.2 mmHg AV Velocity Time Integral 14.4 cm LVOT Peak Velocity 86.0 cm/s LVOT Peak Gradient 3.0 mmHg LVOT Velocity Time Integral 14.4 cm LVOT Stroke Volume 44.7 cm??? LVOT Stroke Volume Index 19.0 ml/m??? LVOT Cardiac Index 1344.6 cm???/min???m??? AV Area Cont Eq vti 3.1 cm??? AV Area Cont Eq pk 2.8 cm??? TR Peak Velocity 271.4 cm/s TR Peak Gradient 29.5 mmHg Right Atrial Pressure 15.0 mmHg Pulmonary Artery Systolic Pressu 44.5 mmHg Right Ventricular Systolic Press 44.5 mmHg PV Peak Velocity 64.0 cm/s PV Peak Gradient 1.6 mmHg FINDINGS Left Ventricle Left ventricular ejection fraction is estimated at 10-15 %. Moderately increased left ventricular diastolic diameter. Severely increased left ventricular diastolic volume. Severely increased left ventricular systolic volume. Severely decreased left ventricular ejection fraction. Right Ventricle Right ventricular dilatation. Reduced right ventricular global systolic function. Moderate pulmonary hypertension. Right Atrium Right atrium not well visualized. Left Atrium Severe left atrial dilatation. Mitral Valve Mitral valve thickened. No evidence for mitral valve prolapse. No mitral stenosis. Mild mitral regurgitation. Aortic Valve Trileaflet aortic valve. Aortic valve sclerosis. No aortic valve stenosis or regurgitation. Tricuspid Valve Structurally normal tricuspid valve. No tricuspid stenosis. [id number] tricuspid regurgitation. Pulmonic Valve Structurally normal pulmonic valve. No pulmonic stenosis. No pulmonic regurgitation. Pericardium No pericardial effusion. Aorta Aortic annulus normal. Ascending aorta not well visualized. CONCLUSIONS Left ventricular ejection fraction 10 to 15% Moderately dilated left ventricular dimension RVSP 45 Severe left atrial dilation Mild mitral regurgitation Mild to moderate tricuspid regurgitation Previewed by: Dr. Nelson Ivan DO (Electronically Signed) Final Date: 28 August 2024 16:15
[2024-08-28 16:26] LABS: Glucose,Whole Blood 105 mg/dL (70-110)
[2024-08-28 19:48] LABS: Glucose,Whole Blood 118 mg/dL (70-110)
[2024-08-29 03:28] VITALS: RESP 19
[2024-08-29 06:14] LABS: Glucose,Whole Blood 125 mg/dL (70-110)
[2024-08-29 08:36] LABS: African American GFR (CKD) 66 (>60 ml/min/1.73 sqM); Anion Gap 12 mmol/L; Blood Urea Nitrogen 35 mg/dL (9-20); Calcium 9.7 mg/dL (8.4-10.2); Carbon Dioxide 26 mmol/L (22-30); Chloride 101 mmol/L (98-107); Glucose 136 mg/dL (74-99); Non-African American GFR(CKD) 57 (>60 ml/min/1.73 sqM); Potassium 3.9 mmol/L (3.5-5.1); Sodium 139 mmol/L (137-145)
--- NOTE | 2024-08-29 10:55 | P.PN ---
Subjective Progress Note Date: 08/29/24 Consult reason: congestive heart failure History of present illness: This is a 64-year-old male patient of Dr. Haque with past medical history of coronary artery disease status post CABG, ischemic cardiomyopathy, persistent atrial fibrillation, status post ICD, diabetes mellitus type 2, hyperlipidemia, obstructive sleep apnea on CPAP. We have been asked to evaluate the patient for acute exacerbation of CHF. Patient states he came into the hospital because he started gaining weight. The weight was bothering him when he was also having hard time breathing. He states he has been taking all of his medications but he feels like the Bumex quit working for him. He apparently has had decreased urine output recently. Patient has been started on Bumex 2 mg IV push twice daily starting last evening. He states he does have some improvement since he is been in the hospital. Blood pressure 104/67, heart rate 68, pulse ox 98% on room air. -EKG: Atrial fibrillation with left bundle branch block that rate of 74 bpm -Chest x-ray:, Pulmonary vascular congestion or lateral pleural effusions. -Laboratory studies: WBC 5.5, hemoglobin 12.9, electrolytes are normal, BUN 32 creatinine 1.27. Troponin negative x 1. proBNP 4380. -Home cardiac medications: Eliquis 5 mg twice daily, atorvastatin 80 mg at bedtime, Bumex 3 mg twice daily, Coreg 3.125 mg twice daily, Plavix 75 mg daily, Jardiance 10 mg daily, magnesium oxide 400 mg daily, potassium chloride 20 mEq daily, Entresto 49-51 mg half a tablet twice daily, spironolactone 25 mg daily. -01/03/2024 electrocardioversion and reprogramming of dual-chamber ICD by Dr. Olivarez. -Four-vessel CABG BRUNO to LAD, VG to R1, VG to OM 2, VG to D1 in May 1997. -Echocardiogram performed 12/26/2022 at [facility] EF of 10 to 15%, severe ventricular dilatation. Pacemaker wire in the right ventricle cavity. Moderate to severe pulmonary hypertension. Severe biatrial dilatation. Mild mitral regurgitation. Moderate tricuspid regurgitation. Aortic valve sclerosis. -RFA for atrial fibrillation 03/21/2018 -Biventricular ICD, [employer] implantation 12/31/2014. -Lexiscan Cardiolite stress test performed 10/14/2022 revealed EF 14%, severe ischemic cardiomyopathy with large fixed anterior apical, apical and anterior lateral defect. 08/29 Patient seen and examined. Patient states his breathing is much improved. He has been maintained on IV Bumex 2 mg twice daily and yesterday we added metolazone 5 mg daily. Blood pressure 90/62, heart rate 65, pulse ox 96% on room air. Repeat blood work reveals BUN 35 creatinine 1.33, sodium one 3.9. Echocardiogram reveals EF of 10 to 15%, RVSP 45, mild mitral Gertsch Tatian, mild to moderate tricuspid regurgitation. Physical examination: Gen: This is 64-year-old male able to lay flat in bed in no acute distress. VS: reviewed HEENT: Head is atraumatic, normocephalic. Pupils equal, round. Sclerae is anicteric. NECK: Supple. No JVD. LUNGS: Clear to auscultation. No wheezes or rhonchi. No intercostal retractions. HEART: Regular rate and rhythm. No murmur. ABDOMEN: Soft No tenderness. EXTREMITIES: 1+ bilateral lower extremity pitting edema. No calf tenderness. NEUROLOGICAL: Patient is awake, alert and oriented x3. Assessment: Acute on chronic systolic heart failure Coronary artery disease status post CABG Ischemic cardiomyopathy of 10 to 15% Persistent atrial fibrillation Status post biventricular ICD Diabetes mellitus type 2 Hyperlipidemia Obstructive sleep apnea on CPAP Plan: Continue patient's home cardiac medications Continue the addition of metolazone 2.5 mg Wednesday Patient may resume his home dose of Bumex at discharge Patient is cleared for discharge from a cardiology perspective Patient will follow-up in the office with Dr. Haque at the time of discharge. Nurse practitioner note has been reviewed, I agree with documented findings and plan of care. Patient was seen and examined. Objective - Vital Signs Vital signs: Vital Signs Temp 98.0 F 08/29/24 08:18 Pulse 65 08/29/24 08:18 Resp 19 08/29/24 08:18 BP 90/62 08/29/24 08:18 Pulse Ox 96 08/29/24 08:18 FiO2 Intake & Output 08/28/24 08/29/24 08/29/24 18:59 06:59 18:59 Intake Total 380 20 10 Output Total 1050 3150 200 Balance -670 -3130 -190 Weight 113.9 kg Intake: IV 20 20 10 Invasive Line 1 20 20 10 Oral 360 Output: Urine 1050 3150 200 Other: Voiding Method Urinal Urinal Urinal # Voids 5 - Labs CBC & Chem 7: 08/28/24 04:14 08/29/24 07:59 Labs: Abnormal Lab Results - Last 24 Hours (Table) 08/28/24 08/28/24 08/29/24 Range/Units 11:10 19:47 06:12 BUN (9-20) mg/dL Creatinine (0.66-1.25) mg/dL Glucose (74-99) mg/dL POC Glucose (mg/dL) 156 H 118 H 125 H (70-110) mg/dL 08/29/24 Range/Units 07:59 BUN 35 H (9-20) mg/dL Creatinine 1.33 H (0.66-1.25) mg/dL Glucose 136 H (74-99) mg/dL POC Glucose (mg/dL) (70-110) mg/dL
[2024-08-29 11:29] LABS: Glucose,Whole Blood 119 mg/dL (70-110)
--- NOTE | 2024-08-29 11:39 | P.DS ---
Providers Date of admission: 08/27/24 14:43 Attending physician: Lois Giraldo MD Consults: 08/27/24 14:41 Consult Physician Urgent Consulting Provider: [facility] Consult Reason/Comments: aechf Do you want consulting provider notified?: Yes [facility] Course: Discharge Diagnosis: Chronic systolic heart failure Ischemic cardiomyopathy with known EF of 10 to 15% status post biventricular ICD CAD status post CABG Type II DM HLD GERD History of CVA TEVIN on CPAP Persistent A-fib Hypothyroidism Asthma not in acute exacerbation Hospital Course: 64-year-old male with PMH of CAD, CHF with EF of 10-15% with pacemaker and defibrillator, AFib, HLD, GERD, seizure disorder, history of CVA, diabetes mellitus, hypothyroidism, asthma presents the ED for shortness of breath. Patient reports shortness of breath and lower extremity swelling progressively getting worse over the past week which prompted him to come to the ED. He has been taking upwards of Bumex 3 mg PO BID. He denies any headache, lower extremity edema, orthopnea, nausea or vomiting, fever or chills, cough, chest pain, palpitations, changes in urination or bowel habits. No changes in appetite. Reports 10 lbs weight gain in the past week. He denies any dizziness, numbness/weakness/tingling of the extremities. In the ED he underwent extensive evaluation. BP 109/64, HR 71, RR 20, T 98.4F, 98% on RA. CBC and coag panel significant for RBC 4.26, MCV 97.5, PT 13.5, INR 1.3. CMP showed BUN 37, glu 109. Troponin was <0.012. BNP was 4380. EKG showed atrial fibrillation and left bundle branch block. Chest x-ray showed pulmonary vascular congestion. Patient is admitted for CHF exacerbation with cardiology in consultation. Recommended to obtain TTE and continue Bumex 2 mg IV twice daily. Due To need for ongoing IV diuresis, patient will be switched to inpatient status. TTE performed and showed EF of 10 to 15% with RVSP 45, mild to moderate TR, mild MR. Patient was seen examined on 08/29, no events overnight, satting well on room air, he feels back to baseline, denies shortness of breath, cleared for discharge by cardiology, metolazone 2.5 added on Wednesday and Wednesday, resume home dose of Bumex at discharge and follow-up with cardiology and PCP. Patient seen and examined at bedside. Vital signs reviewed and stable. General: [nontoxic], [no distress], [appears at stated age] Derm: [warm], [dry] Head: [atraumatic], [normocephalic], [symmetric] Eyes: [EOMI], [no lid lag], [anicteric sclera] Mouth: [no lip lesion], [mucus membranes moist] Cardiovascular: [S1S2 reg], [no murmur] Lungs: [CTA bilateral], [no rhonchi, no rales] , [no accessory muscle use] Abdominal: [soft], [ nontender to palpation], [no guarding], [no appreciable organomegaly] Ext: [no gross muscle atrophy], [no edema], [no contractures] Neuro: [ CN II-XI grossly intact], [no focal neuro deficits] Psych: [Alert], [oriented], [appropriate affect] A total of 40 minutes of time were spent preparing this complex discharge summary. Patient was discharged on 08/29/2024. Patient Condition at Discharge: Stable Plan - Discharge Summary Discharge Rx Participant: No New Discharge Prescriptions: New metOLazone [Zaroxolyn] 2.5 mg PO MoWeFr@0900 #30 tab Continue Clopidogrel [Plavix] 75 mg PO DAILY@1200 Folic Acid 1 mg PO DAILY carvediloL [Coreg] 3.125 mg PO BID Empagliflozin [Jardiance] 10 mg PO DAILY ALPRAZolam [Xanax] 0.25 mg PO DAILY PRN PRN Reason: Anxiety Gabapentin [Neurontin] 300 mg PO TID PRN PRN Reason: Pain Bumetanide [BUMEX] 2 mg PO BID Apixaban [Eliquis] 5 mg PO BID Ibuprofen 800 mg PO TID PRN PRN Reason: Pain Magnesium Oxide [Mag-Ox] 400 mg PO DAILY tadalafiL [Cialis] 5 mg PO DAILY Esomeprazole Magnesium [NexIUM] 20 mg PO DAILY Fluticasone Propion/Salmeterol [Fluticasone-Salmeterol 250-50] 1 puff INHALATION RT-BID Montelukast [Singulair] 10 mg PO DAILY Spironolactone [Aldactone] 25 mg PO DAILY Vitamin E (Dl,Tocopheryl Acet) [Vitamin E (400 Iu = 180 mg)] 400 unit PO TID Vitamin B Complex With Vitamin C 1 tab PO DAILY Cholecalciferol [Vitamin D3 (25 Mcg = 1000 Iu)] 25 mcg PO TID Potassium Chloride [Klor-Con M20] 20 meq PO DAILY levETIRAcetam [Keppra] 500 mg PO BID Bumetanide [BUMEX] 1 mg PO BID Levothyroxine Sodium [Euthyrox] 75 mcg PO DAILY Atorvastatin [Lipitor] 80 mg PO HS Sacubitril/Valsartan [Entresto 49 mg-51 mg Tablet] 0.5 tab PO BID Fluticasone Nasal [place] [Flonase Nasal [place]] 2 spray EA NOSTRIL DAILY Vitamin A 10,000 Mcg 10,000 mcg PO TID Discharge Medication List Clopidogrel [Plavix] 75 mg PO DAILY@1200 09/04/14 [History] Folic Acid 1 mg PO DAILY 09/04/14 [History] Cholecalciferol [Vitamin D3 (25 Mcg = 1000 Iu)] 25 mcg PO TID 09/17/20 [History] Empagliflozin [Jardiance] 10 mg PO DAILY 09/17/20 [History] carvediloL [Coreg] 3.125 mg PO BID 09/17/20 [History] ALPRAZolam [Xanax] 0.25 mg PO DAILY PRN 10/06/21 [History] Gabapentin [Neurontin] 300 mg PO TID PRN 10/06/21 [History] Potassium Chloride [Klor-Con M20] 20 meq PO DAILY 02/03/22 [History] Apixaban [Eliquis] 5 mg PO BID 05/18/22 [History] Bumetanide [BUMEX] 2 mg PO BID 05/18/22 [History] levETIRAcetam [Keppra] 500 mg PO BID 05/18/22 [History] Bumetanide [BUMEX] 1 mg PO BID 10/15/22 [History] Esomeprazole Magnesium [NexIUM] 20 mg PO DAILY 03/01/23 [History] Ibuprofen 800 mg PO TID PRN 03/01/23 [History] Levothyroxine Sodium [Euthyrox] 75 mcg PO DAILY 03/01/23 [History] Magnesium Oxide [Mag-Ox] 400 mg PO DAILY 03/01/23 [History] tadalafiL [Cialis] 5 mg PO DAILY 03/01/23 [History] Atorvastatin [Lipitor] 80 mg PO HS 07/07/23 [History] Fluticasone Propion/Salmeterol [Fluticasone-Salmeterol 250-50] 1 puff INHALATION RT-BID 01/03/24 [History] Montelukast [Singulair] 10 mg PO DAILY 01/03/24 [History] Sacubitril/Valsartan [Entresto 49 mg-51 mg Tablet] 0.5 tab PO BID 01/03/24 [History] Spironolactone [Aldactone] 25 mg PO DAILY 01/03/24 [History] Fluticasone Nasal [place] [Flonase Nasal [place]] 2 spray EA NOSTRIL DAILY 08/27/24 [History] Vitamin A 10,000 Mcg 10,000 mcg PO TID 08/27/24 [History] Vitamin B Complex With Vitamin C 1 tab PO DAILY 08/27/24 [History] Vitamin E (Dl,Tocopheryl Acet) [Vitamin E (400 Iu = 180 mg)] 400 unit PO TID 08/27/24 [History] metOLazone [Zaroxolyn] 2.5 mg PO MoWeFr@0900 #30 tab 08/29/24 [Rx] Follow up Appointment(s)/Referral(s): Irene Haque MD [STAFF PHYSICIAN] - 1 Week Robi Medina DO [Primary Care Provider] - 1-2 days Activity/Diet/Wound Care/Special Instructions: Please, 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 Take your medications as prescribed. Monitor your weight daily, blood pressure daily, keep a log of the readings to discuss with your medical team. Follow heart failure diet as you do. Avoid frozen food, canned food, check food labels for sodium content. Recommend 2 g of sodium restriction per day. Discharge Disposition: HOME SELF-CARE
[2024-08-29 11:40] VITALS: BP 93/69; PULSE 78; TEMP 97.6
[2024-08-30] MEDS ORDERED: metOLazone 5 MG TAB PO SCH (09:00)
== END 2024-08-29 14:04 | disposition home or self-care (01) ==
LOC: EC 08:45 → INTOOBSV 14:43 → 3SCARD 14:43 → OBSVTOIN 14:43 → 3SCARD 15:03
PROVIDERS: ADMIT Family Medicine; ATTEND Family Medicine
DX: I50.23 Acute on chronic systolic (congestive) heart failure (principal); I48.19 Other persistent atrial fibrillation; I25.5 Ischemic cardiomyopathy; I25.10 Atherosclerotic heart disease of native coronary artery without angina pectoris; I25.2 Old myocardial infarction; I27.20 Pulmonary hypertension, unspecified; E03.9 Hypothyroidism, unspecified; E11.9 Type 2 diabetes mellitus without complications; E78.5 Hyperlipidemia, unspecified; F41.9 Anxiety disorder, unspecified; G40.909 Epilepsy, unspecified, not intractable, without status epilepticus; G47.33 Obstructive sleep apnea (adult) (pediatric); J45.909 Unspecified asthma, uncomplicated; K21.9 Gastro-esophageal reflux disease without esophagitis; Z79.01 Long term (current) use of anticoagulants; Z79.02 Long term (current) use of antithrombotics/antiplatelets; Z79.84 Long term (current) use of oral hypoglycemic drugs; Z79.890 Hormone replacement therapy; Z86.73 Personal history of transient ischemic attack (TIA), and cerebral infarction without residual deficits; Z87.891 Personal history of nicotine dependence; Z95.1 Presence of aortocoronary bypass graft; Z95.810 Presence of automatic (implantable) cardiac defibrillator; Z79.899 Other long term (current) drug therapy; Z88.8 Allergy status to other drugs, medicaments and biological substances; Z88.0 Allergy status to penicillin; Z88.2 Allergy status to sulfonamides; Z88.5 Allergy status to narcotic agent; Z88.1 Allergy status to other antibiotic agents; Z79.51 Long term (current) use of inhaled steroids
CPT/HCPCS: 96376 ×2; 96374 ×2; 99285; 36415; 94640 ×4; 93005; 93306; 83880; 80053; 80048 ×2; 83605; 84484; 85025 ×2; 85610; 85730; 71046; G0378 ×3; Q9957; J1939 ×3